=== PATIENT | female | born 1975 | race Caucasian/White ===

== ENCOUNTER 2023-05-02 07:22 | Outpatient (OUT) | payer OTHER, SELFPAY ==
[2023-05-02 08:23] LABS: Basophils Absolute Auto 0.1 10^3/uL (0.0-0.1); Basophils Percent Auto 1.8 % (0.2-2.0); Eosinophils Absolute Auto 0.2 10^3/uL (0.0-0.7); Eosinophils Percent Auto 3.4 % (0.9-7.0); Hemoglobin 14.6 g/dL (12.0-16.0); Immature Granulocytes Abs Auto 0.02 10^3/uL (0.00-0.03); Immature Granulocytes Pct Auto 0.3 % (0.0-0.5); Lymphocytes Absolute Auto 2.1 10^3/uL (1.2-3.8); Mean Corpuscular HGB Conc 33.2 g/dL (29.9-35.2); Mean Corpuscular Hemoglobin 31.6 pg (26.7-34.0); Mean Corpuscular Volume 95.2 fL (81.0-99.0); Mean Platelet Volume 9.8 fL (9.5-13.5); Monocytes Absolute Auto 0.6 10^3/uL (0.3-0.8); Monocytes Percent Auto 9.6 % (1.7-12.0); Neutrophils Absolute Auto 3.3 10^3/uL (1.4-6.5); Neutrophils Percent Auto 51.9 % (43.0-75.0); Platelet Count 293 10^3/uL (150-450); Red Blood Count 4.62 10^6/uL (4.20-5.40); Red Cell Distribution Width 12.3 % (11.0-15.0); White Blood Count 6.3 10^3/uL (4.0-11.0)
[2023-05-02 08:24] LABS: Bilirubin Urine NEGATIVE (NEGATIVE); Blood Urine SMALL (NEGATIVE); Clarity Urine CLEAR (CLEAR); Color Urine LT. YELLOW (YELLOW); Glucose Urine UA NEGATIVE (NEGATIVE); Ketones Urine NEGATIVE (NEGATIVE); Leukocyte Esterase Urine NEGATIVE (NEGATIVE); Nitrite Urine NEGATIVE (NEGATIVE); Protein Urine NEGATIVE (NEG/TRACE); Specific Gravity Urine >=1.030 (1.005-1.025); Urobilinogen Urine 0.2 EU/dL (0.2-1.0); pH Urine 5.5 (5.0-9.0)
[2023-05-02 08:32] LABS: WBC Urine NONE SEEN #/HPF (NONE SEEN)
[2023-05-02 08:33] LABS: Bacteria Urine TRACE #/HPF (NONE SEEN); Cast Seen? NONE SEEN #/LPF (NONE SEEN); Crystals Seen? None Seen #/HPF (None Seen); Mucus Urine TRACE (NONE SEEN); RBC Urine 0-2 #/HPF (0-2); Squamous Epithelial Cell Urine FEW #/LPF (NONE/RARE)
[2023-05-02 08:37] LABS: Estimated Average Glucose 117 mg/dL; Glycohemoglobin A1C 5.7 % (4.5-6.2)
[2023-05-02 08:58] LABS: Alanine Aminotransferase 32 U/L (14-59); Albumin Globulin Ratio 1.1; Albumin Level 3.9 g/dL (3.4-5.0); Alkaline Phosphatase 66 U/L (46-116); Anion Gap 13.4; Aspartate Amino Transferase 18 U/L (15-37); BUN Creatinine Ratio 19.4; Bilirubin Total 0.2 mg/dL (0.2-1.0); Calcium 9.1 mg/dL (8.5-10.1); Carbon Dioxide 24.5 mmol/L (21.0-32.0); Chloride 109 mmol/L (98-107); Chol HDL Ratio 4.5; Cholesterol 224 mg/dL (<=200); Estimated GFR (African America >60 (>=60); Estimated GFR (Non-African Ame >60 (>=60); Globulin 3.6 g/dL; Glucose 112 mg/dL (74-106); HDL Cholesterol 50 mg/dL (40-60); Potassium 3.9 mmol/L (3.5-5.1); Sodium 143 mmol/L (136-145); Thyroid Stimulating Hormone 0.782 uIU/mL (0.358-3.740); Total Protein 7.5 g/dL (6.4-8.2); Triglycerides 188 mg/dL (<=150); VLDL CHOLESTEROL 37.6 mg/dL
[2023-05-02 13:35] LABS: Free T4 1.01 ng/dL (0.76-1.46)
== END 2023-05-02 07:23 | disposition home or self-care (01) ==
LOC: LAB 07:28
PROVIDERS: PCP Nurse Practitioner; Visit Provider Nurse Practitioner
DX: E03.9 Hypothyroidism, unspecified (principal); E55.9 Vitamin D deficiency, unspecified; K21.9 Gastro-esophageal reflux disease without esophagitis; R63.5 Abnormal weight gain
CPT/HCPCS: 36415; 80053; 80061; 81001; 82306; 83036; 84439; 84443; 85025

== ENCOUNTER 2023-12-22 07:31 | Outpatient (OUT) | payer OTHER, SELFPAY ==
[2023-12-22 07:55] LABS: Basophils Absolute Auto 0.1 10^3/uL (0.0-0.1); Basophils Percent Auto 1.9 % (0.2-2.0); Eosinophils Absolute Auto 0.3 10^3/uL (0.0-0.7); Eosinophils Percent Auto 3.9 % (0.9-7.0); Hematocrit 41.9 % (36.0-48.0); Immature Granulocytes Abs Auto 0.02 10^3/uL (0.00-0.03); Immature Granulocytes Pct Auto 0.3 % (0.0-0.5); Lymphocytes Absolute Auto 2.3 10^3/uL (1.2-3.8); Lymphocytes Percent Auto 31.4 % (20.5-60.0); Mean Corpuscular HGB Conc 33.4 g/dL (29.9-35.2); Mean Corpuscular Volume 95.7 fL (81.0-99.0); Monocytes Absolute Auto 0.6 10^3/uL (0.3-0.8); Monocytes Percent Auto 8.6 % (1.7-12.0); Neutrophils Absolute Auto 3.9 10^3/uL (1.4-6.5); Neutrophils Percent Auto 53.9 % (43.0-75.0); Platelet Count 269 10^3/uL (150-450); Red Blood Count 4.38 10^6/uL (4.20-5.40); Red Cell Distribution Width 11.9 % (11.0-15.0); White Blood Count 7.2 10^3/uL (4.0-11.0)
[2023-12-22 07:56] LABS: Bilirubin Urine NEGATIVE (NEGATIVE); Blood Urine SMALL (NEGATIVE); Clarity Urine CLEAR (CLEAR); Color Urine LT. YELLOW (YELLOW); Glucose Urine UA NEGATIVE (NEGATIVE); Ketones Urine NEGATIVE (NEGATIVE); Leukocyte Esterase Urine NEGATIVE (NEGATIVE); Nitrite Urine NEGATIVE (NEGATIVE); Protein Urine NEGATIVE (NEG/TRACE); Specific Gravity Urine 1.025 (1.005-1.025); Urobilinogen Urine 0.2 EU/dL (0.2-1.0); pH Urine 5.5 (5.0-9.0)
[2023-12-22 08:36] LABS: Alanine Aminotransferase 8 U/L (14-59); Albumin Globulin Ratio 1.1; Albumin Level 3.5 g/dL (3.4-5.0); Alkaline Phosphatase 66 U/L (46-116); Anion Gap 12.6; Aspartate Amino Transferase 30 U/L (15-37); Bilirubin Total 0.2 mg/dL (0.2-1.0); Calcium 8.5 mg/dL (8.5-10.1); Carbon Dioxide 27.2 mmol/L (21.0-32.0); Chloride 105 mmol/L (98-107); Chol HDL Ratio 4.2; Cholesterol 246 mg/dL (<=200); Estimated GFR (African America >60 (>=60); Estimated GFR (Non-African Ame >60 (>=60); Globulin 3.3 g/dL; Glucose 106 mg/dL (74-106); HDL Cholesterol 58 mg/dL (40-60); Potassium 3.8 mmol/L (3.5-5.1); Sodium 141 mmol/L (136-145); Thyroid Stimulating Hormone 2.701 uIU/mL (0.358-3.740); Total Protein 6.8 g/dL (6.4-8.2); Triglycerides 159 mg/dL (<=150); VLDL CHOLESTEROL 31.8 mg/dL
== END 2023-12-22 07:32 | disposition home or self-care (01) ==
LOC: LAB 07:33
PROVIDERS: PCP Nurse Practitioner; Visit Provider Psychiatry & Neurology Psychiatry
DX: F31.62 Bipolar disorder, current episode mixed, moderate (principal); F43.10 Post-traumatic stress disorder, unspecified; Z79.899 Other long term (current) drug therapy
CPT/HCPCS: 36415; 80053; 80061; 81003; 84443; 85025

== ENCOUNTER 2024-01-14 13:01 | Outpatient (OUT) | payer OTHER, SELFPAY ==
--- NOTE | 2024-01-14 | ECG_ITS ---
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
--- NOTE | 2024-01-14 13:08 | MM_ITS ---
Patient Name: ELVIS KAYE MR#: [id number] : 1975 Exam Date: 01/14/2024 Ordering Doctor: ENZO Dueñas CNP RADIOLOGY REPORT PROCEDURE: MM TOMOSYNTHESIS SCREENING BI COMPARISON: MG MAMM SCREEN 3D LANG CAD, 01/10/2023. MG MAMM SCREEN 3D LANG CAD, 01/03/2022. INDICATIONS: Screening Calculator Name NCI Breast Cancer Risk Assessment Tool 5 Year Breast Cancer Risk 0.80% Lifetime Breast Cancer Risk 8.50% Personal Breast Cancer No Personal Ovarian Cancer No Treatments None Family Cancers None LOCATION: [facility] BREAST COMPOSITION: The breasts are almost entirely fatty. FINDINGS: DIAGNOSTIC CATEGORY 2--BENIGN FINDING. NO CHANGE FROM COMPARISON. Scattered benign-appearing calcifications are present. Scattered benign-appearing lymph nodes are present. This exam includes additional mammographic views for implant evaluation and shows no visible implant abnormality. RIGHT BREAST: No significant suspicious finding. LEFT BREAST: No significant suspicious finding. RECOMMENDATIONS: ROUTINE MAMMOGRAM AND CLINICAL EVALUATION IN 12 MONTHS. PLEASE NOTE: A NORMAL MAMMOGRAM DOES NOT EXCLUDE THE POSSIBILITY OF BREAST CANCER. A CLINICALLY SUSPICIOUS PALPABLE LUMP SHOULD BE BIOPSIED. Dictated by: Gokul Haider MD on 01/14/2024 at 14:38 Approved by: Gokul Haider MD on 01/14/2024 at 14:39
== END 2024-01-14 13:02 | disposition home or self-care (01) ==
LOC: MAMMO 13:01
PROVIDERS: PCP Nurse Practitioner; Visit Provider Nurse Practitioner
DX: F31.62 Bipolar disorder, current episode mixed, moderate (principal); F43.10 Post-traumatic stress disorder, unspecified; Z79.899 Other long term (current) drug therapy; Z12.31 Encounter for screening mammogram for malignant neoplasm of breast
CPT/HCPCS: 77063; 77067; 93005

== ENCOUNTER 2024-05-14 16:53 | Outpatient (OUT) | payer OTHER, SELFPAY ==
--- NOTE | 2024-05-14 | XR_ITS ---
The [address] [address] Patient Name: ELVIS KAYE MRN: [id number] date: 1975 Sex: F Assigned Patient Location: [facility] Current Patient Location: [facility] Accession/Order Number: [id number] Exam Date: 05/14/2024 17:00 Report Date: 05/14/2024 17:37 At the request of: RONAL SHELTON Procedure: XR chest 2V EXAM: XR chest 2V HISTORY: Upper respiratory infection COMPARISON: None. TECHNIQUE: Upright PA and lateral chest x-ray FINDINGS: The heart is not enlarged and the vasculature is not distended. No acute infiltrate, effusion or pneumothorax is identified. The osseous structures are grossly intact. XR/XR chest 2V IMPRESSION: No acute infiltrate or evidence of cardiac decompensation. Electronically authenticated by: AYDEN HOFFMANN Date: 05/14/2024 17:37
== END 2024-05-14 16:54 | disposition home or self-care (01) ==
PROVIDERS: PCP Nurse Practitioner; Visit Provider Nurse Practitioner
DX: J06.9 Acute upper respiratory infection, unspecified (principal)
CPT/HCPCS: 71046

== ENCOUNTER 2025-01-14 09:39 | Outpatient (OUT) | payer OTHER, SELFPAY ==
[2025-01-14 09:57] LABS: Bilirubin Urine NEGATIVE (NEGATIVE); Blood Urine NEGATIVE (NEGATIVE); Clarity Urine CLEAR (CLEAR); Color Urine LT. YELLOW (YELLOW); Glucose Urine UA NEGATIVE (NEGATIVE); Ketones Urine NEGATIVE (NEGATIVE); Leukocyte Esterase Urine NEGATIVE (NEGATIVE); Nitrite Urine NEGATIVE (NEGATIVE); Protein Urine NEGATIVE (NEG/TRACE); Urobilinogen Urine 0.2 EU/dL (0.2-1.0)
[2025-01-14 09:57] LABS: Basophils Absolute Auto 0.1 10^3/uL (0.0-0.1); Basophils Percent Auto 1.9 % (0.2-2.0); Eosinophils Absolute Auto 0.2 10^3/uL (0.0-0.7); Eosinophils Percent Auto 2.7 % (0.9-7.0); Hematocrit 43.2 % (36.0-48.0); Hemoglobin 14.4 g/dL (12.0-16.0); Immature Granulocytes Abs Auto 0.01 10^3/uL (0.00-0.03); Immature Granulocytes Pct Auto 0.2 % (0.0-0.5); Lymphocytes Percent Auto 32.6 % (20.5-60.0); Mean Corpuscular HGB Conc 33.3 g/dL (29.9-35.2); Mean Corpuscular Hemoglobin 33.4 pg (26.7-34.0); Mean Corpuscular Volume 100.2 fL (81.0-99.0); Mean Platelet Volume 10.3 fL (9.5-13.5); Monocytes Absolute Auto 0.6 10^3/uL (0.3-0.8); Monocytes Percent Auto 8.8 % (1.7-12.0); Neutrophils Absolute Auto 3.4 10^3/uL (1.4-6.5); Neutrophils Percent Auto 53.8 % (43.0-75.0); Platelet Count 272 10^3/uL (150-450); Red Blood Count 4.31 10^6/uL (4.20-5.40); Red Cell Distribution Width 11.9 % (11.0-15.0); White Blood Count 6.3 10^3/uL (4.0-11.0)
[2025-01-14 10:05] LABS: Urine Microscopic Indicated NO
[2025-01-14 10:43] LABS: Alanine Aminotransferase 53 U/L (14-59); Albumin Globulin Ratio 1.4; Alkaline Phosphatase 53 U/L (46-116); Anion Gap 12.7; Aspartate Amino Transferase 31 U/L (15-37); BUN Creatinine Ratio 13.3; Bilirubin Total 0.4 mg/dL (0.2-1.0); Calcium 9.3 mg/dL (8.5-10.1); Carbon Dioxide 27.2 mmol/L (21.0-32.0); Chloride 106 mmol/L (98-107); Chol HDL Ratio 3.5; Cholesterol 242 mg/dL (<=200); Estimated GFR (African America >60 (>=60 mL/min/1.73m^2); Estimated GFR (Non-African Ame >60 (>=60 mL/min/1.73m^2); Globulin 2.8 g/dL; Glucose 89 mg/dL (74-106); HDL Cholesterol 69 mg/dL (40-60); Potassium 3.9 mmol/L (3.5-5.1); Sodium 142 mmol/L (136-145); Thyroid Stimulating Hormone 0.546 uIU/mL (0.358-3.740); Total Protein 6.8 g/dL (6.4-8.2); Triglycerides 105 mg/dL (<=150)
[2025-01-14 10:45] LABS: Free T4 1.09 ng/dL (0.76-1.46)
== END 2025-01-14 09:40 | disposition home or self-care (01) ==
LOC: LAB 09:41
PROVIDERS: PCP Nurse Practitioner; Visit Provider Nurse Practitioner
DX: Z00.00 Encounter for general adult medical examination without abnormal findings (principal)
CPT/HCPCS: 36415; 80053; 80061; 81003; 84439; 84443; 85025

== ENCOUNTER 2025-06-08 08:31 | Outpatient (OUT) | payer OTHER, SELFPAY ==
--- OUTSIDE RECORDS SUMMARY | 2025-06-08 08:45 | XMS_ITS | CCD ---
Author Organization [facility] Care Team Providers Care Social Insurance Analyst Name Role Phone VickyDO Jose Albarran Attending Provider NON STAFF Primary Care Provider Deidra e Isabella Dueñas Primary Care Provider [phone] FRANCISCO JAVIER Smith Emergency Provider Mignon Manriquez Unavailable SAMSA, FANNY Admitting Unavailable SAMSA, FANNY Attending Unavailable AICHHOLZ, TIPPLE ENGINEER ISABELLA Primary Care Unavailable DR GOOD GUTIERREZ Consulting Unavailable SAMSA, FANNY Consulting Unavailable SAMSA, FANNY Admitting Unavailable SAMSA, FANNY Attending Unavailable AICHHOLZ, TIPPLE ENGINEER ISABELLA Primary Care Unavailable AICHHOLZ, TIPPLE ENGINEER ISABELLA Consulting Unavailable DR GOOD GUTIERREZ Consulting Unavailable SAMSA, FANNY Consulting Unavailable AICHHOLZ, TIPPLE ENGINEER ISABELLA Admitting Unavailable AICHHOLZ, TIPPLE ENGINEER ISABELLA Attending Unavailable AICHHOLZ, TIPPLE ENGINEER ISABELLA Primary Care Unavailable AICHHOLZ, TIPPLE ENGINEER ISABELLA Consulting Unavailable AICHHOLZ, TIPPLE ENGINEER ISABELLA Admitting Unavailable AICHHOLZ, TIPPLE ENGINEER ISABELLA Attending Unavailable AICHHOLZ, TIPPLE ENGINEER ISABELLA Primary Care Unavailable AICHHOLZ, TIPPLE ENGINEER ISABELLA Consulting Unavailable AICHHOLZ, TIPPLE ENGINEER ISABELLA Admitting Unavailable AICHHOLZ, TIPPLE ENGINEER ISABELLA Attending Unavailable AICHHOLZ, TIPPLE ENGINEER ISABELLA Primary Care Unavailable AICHHOLZ, TIPPLE ENGINEER ISABELLA Consulting Unavailable DR GOOD GUTIERREZ Consulting Unavailable AICHHOLZ, TIPPLE ENGINEER ISABELLA Admitting Unavailable AICHHOLZ, TIPPLE ENGINEER ISABELLA Attending Unavailable AICHHOLZ, TIPPLE ENGINEER ISABELLA Primary Care Unavailable AICHHOLZ, TIPPLE ENGINEER ISABELLA Consulting Unavailable AICHHOLZ, TIPPLE ENGINEER ISABELLA Admitting Unavailable AICHHOLZ, TIPPLE ENGINEER ISABELLA Attending Unavailable AICHHOLZ, TIPPLE ENGINEER ISABELLA Primary Care Unavailable AICHHOLZ, TIPPLE ENGINEER ISABELLA Consulting Unavailable AICHHOLZ, TIPPLE ENGINEER ISABELLA Admitting Unavailable AICHHOLZ, TIPPLE ENGINEER ISABELLA Attending Unavailable AICHHOLZ, TIPPLE ENGINEER ISABELLA Primary Care Unavailable Aichholz, Isabella J Primary Care Unavailable Asaad, Imad Attending Unavailable Asaad, Imad Admitting Unavailable Aichholz SEWER PIPE LAYER, Isabella Unavailable Kevin Valentin Primary Care Provider Raissa CHEF UNDER.TIPPLE ENGINEER, Ana Rosa Unavailable Kevin Valentin Primary Care Provider Leana SEWER PIPE LAYER, Isabella Unavailable Kevin Valentin MD Primary Care Provider Leana SEWER PIPE LAYER, Isabella Unavailable Kevin Valentin MD Primary Care Provider AICHHOLZ, ISABELLA Attending Unavailable AICHHOLZ, ISABELLA Attending Unavailable AICHHOLZ, ISABELLA Attending Unavailable AICHHOLZ, ISABELLA Attending Unavailable AICHHOLZ, ISABELLA Attending Unavailable AICHHOLZ, ISABELLA Attending Unavailable AICHHOLZ, ISABELLA Attending Unavailable AICHHOLZ, ISABELLA Attending Unavailable Kevin Valentin MD Primary Care Provider Aichholz TIPPLE ENGINEER, Isabella Marisa Unavailable LENNYJWENDY, VICKRAM Referring Unavailable PAULO HURTADO S Attending Unavailable ANDRESERERKEVIN A Primary Care Unavailable AICHHOLZ, ISABELLA MARISA Referring Unavailable NADEREKEVIN Cameron Primary Care Unavailable IFEANYI WILLSON Attending Unavailable BOO, VICKRAM Referring Unavailable ANDRESEREKEVIN Cameron Primary Care Unavailable KEVIN VALENTIN Primary Care Unavailable BOO, VICKRAM Referring Unavailable KEVIN VALENTIN Primary Care Unavailable BOO, VICKRAM Referring Unavailable BOO, VICKRAM Referring Unavailable KEVIN VALENTIN Primary Care Unavailable BOO, VICKRAM Referring Unavailable NADERER, KEVIN A Primary Care Unavailable KEVIN VALENTIN Primary Care Unavailable AINSLEY HADDAD Attending Unavailable ISABELLA DUEÑAS Referring Unavailable KEVIN VALENTIN Primary Care Unavailable TESSA AGUILAR Attending Unavailable TESSA AGUILAR Referring Unavailable AINSLEY HADDAD Referring Unavailable KEVIN VALENTIN Primary Care Unavailable KEVIN VALENTIN Primary Care Unavailable ALKA MEZA Attending Unavailable Allergies Allergy Classification Reported Allergen(s) Allergy Type Date of Onset Reaction(s) Facility (20 sources) Azithromycin; Translations: [azithromycin] Drug Allergy 08-15-20 13 Hives, Rash [facility] (5 sources) Meperidine; Translations: [Opioids-Meperid ine and Related] Drug Allergy 03-08-20 22 Unknown Reaction [facility] (20 sources) Adhesive agent; Translations: [adhesive] Allergy to substance 12-18-19 19 Intolerance [facility] (1 source) Erythromycin Drug Allergy Unknown [facility] Other (20 sources) Morphine; Translations: [MORPHINE] Drug Allergy 07-08-20 18 Shortness of breath, Headache, Hallucinations, Other: See Comments [facility] (1 source) Azithromycin Drug Allergy 08-15-20 13 [facility] (1 source) Morphine Drug Allergy 08-15-20 13 [facility] (20 sources) fentaNYL; Translations: [FENTANYL] Drug Allergy 07-08-20 18 GI intolerance, Hallucinations, Other: See Comments [facility] (20 sources) Wound Dressing Adhesive Propensity to adverse reactions 12-18-19 19 Hives, Rash, GI intolerance [facility] (1 source) erythromycin base Allergy to substance 06-16-20 24 Hives [facility] (20 sources) Acetaminophen / HYDROcodone Drug Allergy 02-13-20 21 Hallucinations [facility] Medications Current Medications Medication Drug Class(es) Dates Sig (Normalized) Sig (Original) albuterol 0.83 mg/ml inhalation solution (20 sources) beta2-Adrenergic Agonist Start: 10-01-2024 End: 10-08-2024 albuterol (2.5 MG/3ML) 0.083% nebulizer solution Indications: Cvlkc-[id number] deficiency (HCC) , Upper respiratory tract infection, unspecified type Take 3 mL (2.5 mg) by nebulization every 6 (six) hours if needed for wheezing for up to 7 days 84 mL 10/01/2024 Active take 2 puff(s) by in halation every four hours for wheezing albuterol HFA 90 mcg/act inhaler Inhale 2 puffs every 4 (four) hours if needed for wheezing or shortness of breath. Active Albuterol Sulfat e HFA Active albuterol 0.833 mg/ml / ipratropium bromide 0.167 mg/ml inhalation solution (8 sources) Anticholinergic, beta2-Adrenergic Agonist Start: 04-10-2025 take 3 mL by inhalation every six hours as needed ipratropium-albuterol (DUONEB) 0.5 mg-3 mg(2.5 mg base)/3 mL nebu Inhale 3 mL as instructed every 6 hours as needed for wheezing/shortness of breath. 180 mL 2 04/10/2025 Active amoxicillin 875 mg / clavulanate 125 mg oral tablet (7 sources) Penicillin-class Antibacterial Start: 03-05-2025 End: 03-15-2025 take 1 tablet by mouth in the morning amoxicillin-clavulanate (Augmentin) 875-125 MG tablet Indications: Subacute maxillary sinusitis Take 1 tablet (875 mg) by mouth in the morning and 1 tablet (875 mg) before bedtime. Do all this for 10 days. Take with food. 20 tablet 03/05/2025 03/15/2025 Active Start: 11-12-2024 End: 11-22-2024 take 1 tablet by mouth in the morning amoxicillin-clavulanate (Augmentin) 875-125 MG tablet Indications: Upper respiratory tract infection, unspecified type Take 1 tablet (875 mg) by mouth in the morning and 1 tablet (875 mg) before bedtime. Do all this for 10 days. 20 tablet 11/12/2024 11/22/2024 Active Start: 10-01-2024 End: 10-11-2024 take 1 tablet by mouth in the morning amoxicillin-clavulanate (Augmentin) 875-125 MG tablet Indications: Upper respiratory tract infection, unspecified type Take 1 tablet (875 mg) by mouth in the morning and 1 tablet (875 mg) before bedtime. Do all this for 10 days. 20 tablet 10/01/2024 10/11/2024 Active Start: 10-13-2022 take 1 tablet by marsha th every twelve hours Amoxicillin-Pot Clavulanate 875-125 MG 1 tablet Orally every 12 hrs for 10 day(s) Sep, Active atorvastatin 10 mg oral tablet (20 sources) HMG-CoA Reductase Inhibitor Start: 01-29-2025 End: 04-29-2025 take 1 tablet by mouth at bedtime atorvastatin (Lipitor) 10 MG tablet Indications: Mixed hyperlipidemia Take 1 tablet (10 mg) by mouth at bedtime 90 tablet 01/29/2025 Active atorvastatin familia cium (ATORVASTATIN ORAL) Take by mouth. Active azelastine (20 sources) Histamine-1 Receptor Antagonist Start: 06-16-2024 take 1 spray(s) nasal route twice daily Azelastine Active 1 SPRAY INTRANASAL Twice daily June 16, 2024 12:00am administer into each nostril take 1 spray(s) nasal route twic e daily azelastine 0.1% nasal spray Use 1 [place] in each nostril two times a day. Active azelastine (Aste thad) 0.1 % nasal spray 1 spray in the morning and 1 spray in the evening. Active Comment on above: Use 1 [place] in each nostril two times a day. [place] DMT (1 source) [place] DMT Activ e cholecalciferol 0.05 mg oral tablet (20 sources) Vitamin D Start: 09-25-19 End: 12-24-19 take 1 tablet by mouth once in the morning cholecalciferol (Vitamin D-3) 50 MCG (1999) tablet Indications: Vitamin D deficiency Take 1 tablet (50 mcg) by mouth in the morning. 90 tablet 1 09/25/2023 12/24/2023 Active Start: 05-17-2022 take 2000 [IU] by mo uth once daily Cholecalciferol (Vitamin D3) Active 2000 UNIT PO Daily May 17, 2022 12:00am Vitamin D3 50 MC G (1999 UT) Oral for 30 Days Active Comment on above: Take 2,000 Units by mouth once daily. clobetasol propionate 0.5 mg/ml topical cream (8 sources) Corticosteroid Start: 01-13-2025 clobetasol (Temovate) 0.05 % cream PLEASE SEE ATTACHED FOR DETAILED DIRECTIONS 01/13/2025 Active dextromethorphan hydrobromide 30 mg / pyrilamine maleate 30 mg oral tablet (20 sources) Uncompetitive V-pcxeqq-P-aspartate Receptor Antagonist, Sigma-1 Agonist Start: 06-16-2024 Pyrilamine-Dextromet horphan ([place] Dmt) 30-30 mg tablet Active TAB PO June 16, 2024 12:00am Start: 05-17-2022 End: 06-16-2024 take 1 tablet by mouth four times daily Pyrilamine-Dextromethorphan ([place] Dmt) 30-30 mg Tablet Discontinued 1 TAB PO Four times daily May 17, 2022 12:00am June 16, 2024 2:52pm DHEA vaginal suppository 13 mg (CPD) (20 sources) Start: 05-21-2025 DHEA vaginal s uppository 13 mg (CPD) Indications: Genitourinary syndrome of menopause Use 1 suppository vaginally as directed. Unwrap suppository and Insert every night in vagina for the first 2 weeks, and then every other day for 2 months. Then twice a week. 90 suppository 3 05/21/2025 Active Start: 01-28-2024 DHEA vaginal s uppository 13 mg (CPD) Indications: Genitourinary syndrome of menopause Unwrap and insert 1 Suppository vaginally as directed every night for the first 2 weeks, and then every other day for 2 months. Then twice a week. 30 Suppository 3 01/28/2024 Active Start: 01-28-2024 DHEA vaginal s uppository 13 mg (CPD) Indications: Genitourinary syndrome of menopause Use 1 Suppository vaginally as directed. Unwrap suppository and Insert every night in vagina for the first 2 weeks, and then every other day for 2 months. Then twice a week. 30 Suppository 3 01/28/2024 Active Emollient (DHEA EX) (20 sources) Emollient (DHEA EX) Apply topically suppository Active 84 hr estradiol 0.50962 mg/hr transdermal system (20 sources) Estrogen Start: 06-16-2024 apply 1 dose topically two times weekly Estradiol Active 1 PATCH TOPICAL Twice a Week June 16, 2024 12:00am Start: 01-30-2024 estradiol (Guerita brayan-DOT) 0.05 MG/24HR APPLY 1 PATCH DIRECTED TWO TIMES A WEEK. 01/30/2024 Active Start: 01-28-2024 End: 05-21-2025 estradiol (MINIVELLE, VIVELL E-DOT) 0.05 mg/24 hr patch Indications: Postmenopause , S/P HEIDY (total abdominal hysterectomy) , Hot flashes due to surgical menopause Apply 1 patch as directed two times a week. 24 patch 4 05/21/2025 Active fluticasone propionate 0.05 mg/actuat metered dose nasal spray (20 sources) Corticosteroid Start: 06-16-2024 take 1 spray(s) nasal route twice daily Fluticasone Propionate (Flonase Allergy Relief) 50 mcg/actuation spray,suspension Active 1 SPRAY INTRANASAL Twice daily June 16, 2024 12:00am administer into each nostril Start: 12-02-2023 take 2 spray(s) nasa l route once daily fluticasone (Flonase) 50 MCG/ACT nasal spray Administer 2 sprays into each nostril Daily 12/02/2023 Active Start: 07-18-2017 fluticasone (F LONASE) 50 mcg/actuation nasal spray Use 2 Sprays in the nose once daily. 07/18/2017 Active take 1 spray(s) by i nhalation three times daily FLUTICASONE FUROATE INHALATION Inhale 50 mcg as instructed three times a day. 1 spray Active take 1 spray(s) by i nhalation three times daily FLUTICASONE FUROATE INHALATION Inhale 50 mcg as instructed three times a day. 1 spray 0 Active Comment on above: Use 2 Sprays in the nose once daily. Inhale 50 mcg as ins tructed three times a day. 1 spray 60 actuat formoterol fumarate 0.005 mg/actuat / mometasone furoate 0.2 mg/actuat metered dose inhaler (20 sources) Corticosteroid, beta2-Adrenergic Agonist Start: take 2 puff(s) by inhalation twice daily mometasone-formoter ol (DULERA) 200-5 mcg/actuation inhaler Inhale 2 puffs as instructed two times a day. 39 g 2 04/10/2025 Active take 2 puff(s) by in halation in the morning mometasone-formoterol (Dulera) 100-5 MCG/ACT inhaler Inhale 2 puffs in the morning and 2 puffs before bedtime. Rinse mouth with water after use to reduce aftertaste and incidence of candidiasis. Do not swallow.. Active End: 04-10-2025 take 2 puff(s) by inhalation twice daily mometasone-formoterol (DULERA) 100-5 mcg/actuation inhaler Inhale 2 Puffs as instructed two times a day. 04/10/2025 Discontinued Dulera 100-5 MCG /ACT Inhalation for 30 Days Active Comment on above: Inhale 2 Puffs as in structed two times a day. ipratropium bromide 0.042 mg/actuat metered dose nasal spray (14 sources) Anticholinergic Start: 10-21-19 ipratropium (Atrovent) 0.06 % nasal spray 10/21/2024 Active levothyroxine sodium 0.112 mg oral tablet (20 sources) l-Thyroxine Start: 05-17-20 End: 05-14-20 take 125 ug by mouth once daily Levothyroxine Active 125 MCG PO Daily May 17, 2022 12:00am Start: 06-23-2018 End: 02-18-2025 levothyroxine (SYNTHROID) 11 2 mcg tablet Indications: Hypothyroidism, unspecified type TAKE 1 TABLET SUNDAY THROUGH SUNDAY. SKIP SUNDAY 78 tablet 3 02/18/2025 Active Levothyroxine So dium Active Comment on above: Take 1 tablet PO smiley ly 1 tab , skip Sundays liothyronine sodium 0.005 mg oral tablet (20 sources) l-Triiodothyronin e Start: 06-16-2024 take 5 ug by mouth twice daily Liothyronine Active 5 MCG PO Twice daily June 16, 2024 12:00am Start: 01-04-2024 End: 02-18-2025 liothyronine (CYTOMEL) 5 mcg tablet Indications: Hypothyroidism, unspecified type TAKE 1 TABLET BY MOUTH IN THE MORNING AND 1/2 TABLET MID AFTERNOON 135 tablet 3 02/18/2025 Active Comment on above: 5mcg (1 tab) AM, 2.5 mcg (1/2 tab) in mid-afternoon medroxyPROGESTERone acetate 2.5 mg oral tablet (9 sources) Progestin End: 06-30 take 1 tablet by mouth in the morning medroxyPROGESTERone (Provera) 2.5 MG tablet Take 2.5 mg by mouth in the morning. 06/30/2024 Discontinued (Therapy completed) meloxicam 15 mg oral tablet (20 sources) Nonsteroidal Anti-inflammatory Drug take 1 tablet by mouth every twenty-four hours as needed for pain meloxicam (Mobic) 15 MG tablet Take 15 mg by mouth Daily as needed for moderate pain Active methylPREDNISolone 4 mg oral tablet (1 source) Corticosteroid Start : 10-13 methylPREDNISolone 4 MG as directed Orally for daily dose take half with breakfast, half with dinner for 6 days Sep, Active Mometasone-Formoterol (1 source) Start : 06-16 Mometasone-Formoterol Active INHALATION June 16, 2024 12:00am FreeTextSig: Inhalation; Note: Source Status: Taking; Qty: 13 Unspecified; Provider: Elier Lazcano ( ) montelukast 10 mg oral tablet (20 sources) Leukotriene Receptor Antagonist Start : 06-16 Montelukast Active MG PO June 16, 2024 12:00am FreeTextSig: Oral; Note: Source Status: Not-Taking\PRN; Qty: 30 Tablet; Provider: Elier Lazcano ( ) Start: 05-17-2022 End: 10-15-2023 take 10 mg by mouth once daily Montelukast Discontinue d 10 MG PO Daily May 17, 2022 12:00am October 15, 2023 9:07am Comment on above: Take 10 mg by mouth daily at bedtime. Nebulizer and Compressor For Neb (3 sources) Start: 04-10-2025 End: 04-11-2025 Nebulizer and Compressor For Neb 1 each as needed for up to 1 day. Use as directed. 1 each 04/10/2025 04/11/2025 Active Nirmatrelvir&Ritonav ir 300/100 (Paxlovid, 300/100,) 20 x 150 MG & 10 x 100MG tablet therapy pack (2 sources) Start: 05-14-2024 End: 05-19-2024 take 1 tablet by mouth once daily Nirmatrelvir&Ritonavi r 300/100 (Paxlovid, 300/100,) 20 x 150 MG & 10 x 100MG tablet therapy pack Indications: URTI (acute upper respiratory infection) Take 1 Package by mouth Daily for 5 days Take as directed 1 each 05/14/2024 05/19/2024 Active pyrilamine/dextromet horphan hb (CAPRON DM ORAL) (20 sources) pyrilamine/dextr ometh orphan hb (CAPRON DM ORAL) Take by mouth once daily. Active pyrilamine/dextr omethorphan hb (CAPRON DM ORAL) Take by mouth once daily. 0 Active Comment on above: Take by mouth once d aily. SELENIUM ORAL (14 sources) SELENIUM ORAL Ta ke by mouth. Active sodium chloride 30 mg/ml inhalation solution (8 sources) Start: 04-10-20 sodium chloride 3% solution (NEBUSAL) 3 % nebulizer solution Use 4 mL via nebulizer two times a day. 600 mL 2 04/10/2025 Active spironolactone 100 mg oral tablet (20 sources) Aldosterone Antagonist Start: 05-14-20 take 1 tablet by mouth once daily spironolactone (Aldactone) 100 MG tablet Take 100 mg by mouth Daily 05/14/2024 Active sulfacetamide sodium 100 mg/ml topical lotion (20 sources) Sulfonamide Antibacterial Start: 05-14-20 sulfacetamide suspension (Klaron) 10 % lotion topical Apply 1 application topically 05/14/2024 Active SUMAtriptan 100 mg oral tablet (20 sources) Serotonin-1b and Serotonin-1d Receptor Agonist Start: 06-16-20 24 Sumatriptan Succinate Active MG PO June 16, 2024 12:00am Start: 10-29-2023 End: 05-01-2025 take 1 tablet by mouth once SUMAtriptan (Imitrex) 100 MG tablet Indications: Migraine without status migrainosus, not intractable, unspecified migraine type Take 1 tablet (100 mg) by mouth 1 (one) time if needed for migraine 9 tablet 1 04/01/2025 Active Start: 05-21-2018 take 1 tablet by marsha th every two hours SUMAtriptan (IMITREX) 50 mg tablet Take 1 tablet PO at onset of headach. May repeat in 2 hours if needed. 0 05/21/2018 Active Comment on above: Take 1 tablet PO at onset of headach. May repeat in 2 hours if needed. topiramate 100 mg oral tablet (20 sources) Start: 05-17-2022 End: 07-08-2025 take 1 tablet by mouth in the morning topiramate (Topamax) 100 MG tablet Indications: Chronic migraine without aura without status migrainosus, not intractable Take 1 tablet (100 mg) by mouth in the morning and 1 tablet (100 mg) before bedtime. 180 tablet 1 04/09/2025 07/08/2025 Active Start: 06-23-2018 take 1 tablet by marsha th twice daily topiramate (TOPAMAX) 25 mg tablet Take 1 tablet PO BID 5 06/23/2018 Active Topamax Active Comment on above: Take 1 tablet PO BID Ubrelvy (1 source) Ubrelvy Active Completed/Discontinued Medications Medication Drug Class(es) Dates Sig (Normalized) Sig (Original) acetaminophen 500 mg oral tablet (4 sources) Start: 12-22-2018 End: 01-04-2024 take 2 tablets by mouth every four hours as needed acetaminophen (TYLENOL EXTRA STRENGTH) 500 mg tablet Take 2 tablets by mouth every 4 hours as needed. 0 12/22/2018 01/04/2024 Discontinued Comment on above: Take 2 tablets by mo uth every 4 hours as needed. baclofen 20 mg oral tablet (4 sources) gamma-Aminobutyric Acid-ergic Agonist Start: 06-13-2018 End: 01-04-2024 take 1 tablet by mouth three times daily as needed baclofen (LIORESAL) 20 mg tablet Take 1 tablet PO 3 times daily PRN 1 06/13/2018 01/04/2024 Discontinued Comment on above: Take 1 tablet PO 3 t imes daily PRN clonazePAM 0.5 mg oral tablet (7 sources) Benzodiazepine Start: 12-01-2023 End: 06-02-2024 take 1 tablet by mouth twice daily as needed for anxiety clonazePAM (KlonoPIN) 0.5 MG tablet TAKE 1 TABLET ORALLY TWICE A DAY NEEDED FOR ANXIETY 12/01/2023 06/02/2024 Discontinued (Therapy completed) Start: 10-15-2023 End: 06-16-2024 take 1 tablet by mouth twice daily 30 minutes before bedtime Clonazepam (Klonopin) 2 mg tablet Discontinued 2 MG PO Twice daily October 15, 2023 1:00am June 16, 2024 3:03pm administer 30 minutes before bedtime cloNIDine hydrochloride 0.1 mg oral tablet (2 sources) Central alpha-2 Adrenergic Agonist Start: 10-15-2023 End: 06-16-2024 take 0.2 mg by mouth at bedtime Clonidine Hcl Discontinued 0.2 MG PO Bedtime October 15, 2023 1:00am June 16, 2024 3:03pm dexamethasone 6 mg oral tablet (4 sources) Corticosteroid Start: 05-14-2024 End: 06-02-2024 take 1 tablet by mouth once daily dexAMETHasone (Decadron) 6 MG tablet Indications: URTI (acute upper respiratory infection) Take 1 tablet (6 mg) by mouth Daily for 7 days 7 tablet 05/14/2024 06/02/2024 Discontinued (Therapy completed) 12 hr guaiFENesin 600 mg extended release oral tablet (8 sources) End: 03-05-2025 guaiFENesin (Mucinex) 600 MG 12 hr tablet every 12 (twelve) hours 03/05/2025 Discontinued (Therapy completed) ibuprofen 400 mg oral tablet (4 sources) Nonsteroidal Anti-inflammatory Drug Start: 12-22-2018 End: 01-04-2024 take 1.5 tablets by mouth every six hours as needed ibuprofen (MOTRIN) 400 mg tablet Take 1.5 tablets by mouth every 6 hours as needed. 45 tablet 0 12/22/2018 01/04/2024 Discontinued Comment on above: Take 1.5 tablets by mouth every 6 hours as needed. lansoprazole 30 mg delayed release oral capsule (4 sources) Proton Pump Inhibitor End: 05-14-2024 take 1 capsule by mouth before mealtime lansoprazole (Prevacid) [address] capsule Take 30 mg by mouth in the morning. Take before meals. Do not crush or chew. . 05/14/2024 Discontinued lidocaine 0.05 mg/mg medicated patch (4 sources) Antiarrhythmic, Amide Local Anesthetic Start: 09-06-2018 End: 01-04-2024 apply 1 dose transdermal route every twenty-four hours lidocaine (LIDODERM) 5 % Apply 1 Patch as directed every 24 hours. 7 Patch 0 09/06/2018 01/04/2024 Discontinued Comment on above: Apply 1 Patch as dir ected every 24 hours. lurasidone hydrochloride 80 mg oral tablet (20 sources) Atypical Antipsychotic Start: 10-15-2023 End: 06-16-2024 Lurasidone (Latuda) 80 mg tablet Discontinued 80 MG PO Daily October 15, 2023 1:00am June 16, 2024 3:03pm must administer with food (at least 350 calories) End: 02-18-2025 take 1 tablet by mouth once daily lurasidone (LATUDA) 80 mg tablet Take 80 mg by mouth once daily. 02/18/2025 Discontinued Comment on above: Take 80 mg by mouth once daily. nirmatrelvir/ritonavir (PAXLOVID ORAL) (6 sources) End: 01-28-2024 nirmatrelvir/ritonavir (PAXLOVID ORAL) Take by mouth. 0 01/28/2024 Discontinued nirmatrelvir/rit onavir (PAXLOVID ORAL) Take by mouth. 0 Active Comment on above: Take by mouth. pantoprazole 40 mg delayed release oral tablet (4 sources) Proton Pump Inhibitor Start: 018 End: take 1 tablet by mouth once daily pantoprazole DR (PROTONIX) 40 mg tablet Take 1 tablet by mouth once daily. 30 tablet 0 09/06/2018 01/04/2024 Discontinued Comment on above: Take 1 tablet by marsha th once daily. phentermine hydrochloride 37.5 mg oral tablet (20 sources) Sympathomimetic Amine Anorectic Start: 024 End: take 1 tablet by mouth before mealtime phentermine (Adipex-P) 37.5 MG tablet Indications: Weight gain, abnormal Take 1 tablet (37.5 mg) by mouth in the morning. Take before meals. 30 tablet 11/04/2024 03/05/2025 Discontinued (Therapy completed) End: 05-14-2024 take 1 tablet by mouth before mealtime phentermine (Adipex-P) 37.5 MG tablet Take 37.5 mg by mouth in the morning. Take before meals. 05/14/2024 Discontinued Comment on above: Take 37.5 mg by mout h once daily. predniSONE 20 mg oral tablet (11 sources) Start: 10-21-2024 End: 03-05-2025 predniSONE (Deltasone) 20 MG tablet 10/21/2024 03/05/2025 Discontinued (Therapy completed) End: 01-04-2024 take 1 tablet by mouth once daily predniSONE (DELTASONE) 20 mg tablet Take 20 mg by mouth once daily. 0 01/04/2024 Discontinued Comment on above: Take 20 mg by mouth once daily. Semaglutide (OZEMPIC, 0.25 OR 0.5 MG/DOSE, SC) (4 sources) End: inject 0.5 mg by subcutaneous injection every week Semaglutide (OZEMPIC, 0.25 OR 0.5 MG/DOSE, SC) Inject 1 Dose under the skin 1 (one) time per week. 05/14/2024 Discontinued inject 0.5 mg by sub cutaneous injection every week Semaglutide (OZEMPIC, 0.25 OR 0.5 MG/DOSE, SC) Inject 1 Dose under the skin 1 (one) time per week. Active inject 0.5 mg by sub cutaneous injection every week Semaglutide (OZEMPIC, 0.25 OR 0.5 MG/DOSE, SC) Inject 1 Dose under the skin 1 (one) time per week. 0 Active ubrogepant 100 mg oral table t (5 sources) End: 06-02-2024 Ubrogepant (Ubrelvy) 100 MG tablet Take by mouth 06/02/2024 Discontinued (Other) Problems Active Problems Problem Classification Problem Date Documented Da te Episodic/Chronic Administrative/social admission (1 source) Administrative reason for encounter; Translations: [Persons encountering health services in other specified circumstances] 01-06-2024 Episodic Allergic reactions (2 sources) Atopic dermatitis; Translations: [Intrinsic (allergic) eczema] Onset: 5 05-15-2025 Chronic Allergic reactions (10 sources) Allergy to food; Translations: [Allergy to other foods] Onset: 5 04-10-2025 Episodic Anxiety disorders (20 sources) Generalized anxiety disorder; Translations: [Generalized anxiety disorder] Onset: 3 09-03-2023 Chronic Asthma (20 sources) Cough variant asthma; Translations: [Cough variant asthma] Onset: 3 Chronic Chronic obstructive pulmonary disease and bronchiectasis (20 sources) Bulla of lung; Translations: [Emphysema, unspecified] Onset: 3 09-03-2023 Chronic Complications of surgical procedures or medical care (6 sources) Menopausal flushing; Translations: [Symptomatic postprocedural ovarian failure] Onset: 5 01-28-2024 Chronic Disorders of lipid metabolism (20 sources) Hyperlipidemia; Translations: [Hyperlipidemia, unspecified] Onset: 3 09-03-2023 Chronic Disorders usually diagnosed in infancy, childhood, or adolescence (20 sources) Adult attention deficit hyperactivity disorder ; Translations: [Other specified behavioral and emotional disorders with onset usually occurring in childhood and adolescence] Onset: 3 09-03-2023 Chronic Esophageal disorders (20 sources) Gastroesophageal reflux disease without esophagitis; Translations: [Gastro-esophageal reflux disease without esophagitis] Onset: 3 09-03-2023 Chronic Headache; including migraine (20 sources) Migraine; Translations: [Migraine, unspecified, not intractable, without status migrainosus] Onset: 4 Resolved: 4 10-28-2023 Chronic Immunizations and screening for infectious disease (2 sources) Needs influenza immunization; Translations: [Encounter for immunization] 07-29-2024 Episodic Malaise and fatigue (3 sources) Fatigue; Translations: [Chronic fatigue, unspecified] 12-24-2023 Chronic Malaise and fatigue (1 source) Fatigue; Translations: [Other fatigue] 01-28-2024 Episodic Menopausal disorders (20 sources) Menopausal symptom; Translations: [Menopausal and female climacteric states] Onset: 3 09-03-2023 Chronic Menopausal disorders (1 source) Long-term current use of postmenopausal hormone replacement therapy; Translations: [Hormone replacement therapy] 05-21-2025 Episodic Nonspecific chest pain (4 sources) Chest pain, unspecified; Translations: [CHEST PAIN UNSPECIFIED] Onset: 3 Episodic Other gastrointestinal disorders (20 sources) Irritable bowel syndrome; Translations: [Mixed irritable bowel syndrome] Onset: 3 09-03-2023 Chronic Other infections; including parasitic (1 source) Late effects of other and unspecified infectious and parasitic diseases; Translations: [Long COVID] 04-10-2025 Chronic Other lower respiratory disease (1 source) Shortness of breath; Translations: [SHORTNESS OF BREATH] Onset: 3 Episodic Other lower respiratory disease (1 source) Posterior rhinorrhea; Translations: [Upper airway cough syndrome] 04-10-2025 Episodic Other nutritional; endocrine; and metabolic disorders (1 source) Zoynf-4-jyuxcswyget deficiency; Translations: [[id number] DEFICIENCY] Onset: 3 Chronic Other nutritional; endocrine; and metabolic disorders (20 sources) Pcjna-9-fexrfbujgmw deficiency; Translations: [Rqbvo-0-bbythvlyvar deficiency] Onset: 3 09-03-2023 Chronic Other nutritional; endocrine; and metabolic disorders (20 sources) Obese class I; Translations: [Obesity, unspecified] Onset: 8 09-07-2018 Chronic Other nutritional; endocrine; and metabolic disorders (20 sources) Obesity caused by energy imbalance; Translations: [Morbid (severe) obesity due to excess calories] Onset: 4 06-30-2024 Chronic Other nutritional; endocrine; and metabolic disorders (20 sources) Body mass index 30+ - obesity; Translations: [Body mass index (BMI) 38.0-38.9, adult] Onset: 4 06-05-2024 Chronic Other nutritional; endocrine; and metabolic disorders (2 sources) Metabolic disease; Translations: [Other symptoms and signs concerning food and fluid intake] 12-24-2023 Episodic Other screening for suspected conditions (not mental disorders or infectious disease) (20 sources) CT of chest abnormal; Translations: [Abnormal findings on diagnostic imaging of other specified body structures] Onset: 3 09-03-2023 Chronic Other screening for suspected conditions (not mental disorders or infectious disease) (18 sources) Encounter for screening mammogram for malignant neoplasm of breast; Translations: [Patient encounter status] Onset: Episodic Other skin disorders (1 source) Eruption; Translations: [Rash and other nonspecific skin eruption] 01-03-2024 Episodic Other skin disorders (3 sources) Blister; Translations: [Other skin changes] 04-10-2025 Episodic Other skin disorders (1 source) Other skin changes; Translations: [Bullae] Onset: 5 Episodic Other upper respiratory disease (2 sources) Chronic rhinitis; Translations: [Chronic rhinitis] 04-10-2025 Chronic Other upper respiratory disease (1 source) Allergic rhinitis; Translations: [Allergic rhinitis, unspecified] 04-10-2025 Chronic Other upper respiratory disease (1 source) Chronic rhinitis; Translations: [Chronic rhinitis] Onset: Chronic Other upper respiratory disease (1 source) Allergic rhinitis, unspecified; Translations: [Allergic rhinitis, unspecified seasonality, unspecified trigger] Onset: 5 Chronic Other upper respiratory disease (5 sources) Disorder of face; Translations: [Other specified disorders of nose and nasal sinuses] 04-10-2025 Episodic Other upper respiratory disease (1 source) Nasal discharge; Translations: [Other specified disorders of nose and nasal sinuses] 04-10-2025 Episodic Other upper respiratory disease (2 sources) Deviated nasal septum; Translations: [Deviated nasal septum] 04-10-2025 Episodic Other upper respiratory disease (2 sources) Deviated nasal septum; Translations: [Deviated nasal septum] Onset: 5 Episodic Other upper respiratory disease (2 sources) Other specified disorders of nose and nasal sinuses; Translations: [Other specified disorders of nose and nasal sinuses] Onset: 5 Episodic Other upper respiratory infections (12 sources) Chronic sinusitis, unspecified; Translations: [Chronic frontal sinusitis] Onset: 3 Chronic Other upper respiratory infections (20 sources) Acute maxillary sinusitis, unspecified; Translations: [Acute upper respiratory infection] Onset: 4 Resolved: 5 Episodic Residual codes; unclassified (4 sources) Obstructive sleep apnea (adult) (pediatric); Translations: [OBSTRUCTIVE SLEEP APNEA] Onset: 3 Chronic Residual codes; unclassified (6 sources) Postmenopausal state; Translations: [Asymptomatic menopausal state] 01-04-2024 Episodic Residual codes; unclassified (1 source) Asymptomatic menopausal state; Translations: [Postmenopause] Onset: 5 Episodic Residual codes; unclassified (1 source) Acquired absence of both cervix and uterus; Translations: [S/P HEIDY (total abdominal hysterectomy)] Onset: 5 Episodic Spondylosis; intervertebral disc disorders; other back problems (20 sources) Degeneration of lumbar intervertebral disc; Translations: [Other intervertebral disc degeneration, lumbar region] Onset: 3 09-03-2023 Chronic Spondylosis; intervertebral disc disorders; other back problems (12 sources) Chronic thoracic back pain; Translations: [Pain in thoracic spine] Onset: 5 03-05-2025 Episodic Sprains and strains (3 sources) Sprain of ankle; Translations: [Sprain of unspecified ligament of unspecified ankle, initial encounter] 05-17-2022 Episodic Thyroid disorders (20 sources) Hypothyroidism; Translations: [Hypothyroidism, unspecified] Onset: 3 09-03-2023 Chronic Unclassified (3 sources) CONTACT W/AND (SUSP) EXPOS COVID-19; Translations: [CONTACT W/AND (SUSP) EXPOS COVID-19] Onset: 2 Unclassified (1 source) Diarrhea, unspecified; Translations: [Diarrhea, unspecified] Onset: 4 Unclassified (1 source) Upper airway cough syndrome; Translations: [Upper airway cough syndrome] Onset: 5 Viral infection (2 sources) COVID-19; Translations: [Disease caused by 2019-nCoV] Onset: 2 Past or Other Problems Problem Classification Problem Date Documented Da te Episodic/Chronic Abdominal hernia (20 sources) Hernia of anterior abdominal wall; Translations: [Ventral hernia without obstruction or gangrene] Onset: 12-17-2018 12-17-2018 Episodic Diabetes mellitus without complication (20 sources) Hyperglycemia; Translations: [Hyperglycemia, unspecified] Onset: 09-03-2023 09-03-2023 Episodic Mood disorders (20 sources) Acute depression; Translations: [Depression, acute] Onset: 09-03-2023 Resolved: 07-29-2024 09-03-2023 Chronic Mycoses (20 sources) Opportunistic mycosis; Translations: [Candidiasis, unspecified] Onset: 09-03-2023 Resolved: 03-05-2025 09-03-2023 Episodic Other gastrointestinal disorders (20 sources) Chronic constipation; Translations: [Other constipation] Onset: 09-03-2023 09-03-2023 Episodic Other non-traumatic joint disorders (20 sources) Joint pain; Translations: [Pain in unspecified joint] Onset: 09-03-2023 09-03-2023 Episodic Other non-traumatic joint disorders (20 sources) Hip pain; Translations: [Pain in left hip] Onset: 09-03-2023 09-03-2023 Episodic Other nutritional; endocrine; and metabolic disorders (20 sources) Abnormal weight gain; Translations: [Abnormal weight gain] Onset: 06-02-2024 06-30-2024 Episodic Residual codes; unclassified (20 sources) Persistent insomnia; Translations: [Insomnia, unspecified] Onset: 09-03-2023 09-03-2023 Episodic Residual codes; unclassified (20 sources) Finding related to blood, organ, or tissue donation; Translations: [Liver donor] Onset: 08-26-2018 09-07-2018 Episodic Screening and history of mental health and substance abuse codes (20 sources) Patient encounter status; Translations: [Encounter for screening for depression] Onset: 09-03-2023 Resolved: 06-02-2024 09-03-2023 Episodic Unclassified (1 source) CONTACT W/AND (SUSP) EXPOS COVID-19; Translations: [CONTACT W/AND (SUSP) EXPOS COVID-19] Onset: 08-22-2022 Viral infection (20 sources) Disease caused by 2019-nCoV; Translations: [COVID-19] Onset: 09-03-2023 Resolved: 11-04-2024 09-03-2023 Episodic Results Test Name Value Interpretation Reference Range Facility CT Chest WO contraston 05-19 * * *Final Report* * * DATE OF EXAM: May 15 2025 10:44AM [facility] 0541 - CT CHEST WO IVCON / PROCEDURE REASON: Bullae * * * * Physician Interpretation * * * * EXAMINATION: CHEST CT WITHOUT CONTRAST CLINICAL HISTORY: Bullae Technique: Spiral CT acquisition of the chest from the thoracic inlet to the upper abdomen without contrast. MQ: CTCWO_6 CT Radiation dose: Integrated Dose-length product (DLP) for this visit = 272 mGy*cm CT Dose Reduction Employed: Automated exposure control (AEC) Comparison: Chest CT dated 12/20/2018 RESULT: Limitations: None. Lines, tubes, and devices: None. Lung parenchyma and airways: No focal consolidation. Unchanged bullae in the medial aspect of the left lower lobe dating back to 2018. Resolved prior subsegmental atelectasis in both lungs. Mild biapical scarring, likely post inflammatory. No endotracheal or central endobronchial lesion is identified. Pleural space: No pleural effusion or thickening. No pneumothorax. Lower neck, lymph nodes, and mediastinum: The imaged thyroid gland is normal. No lymphadenopathy in the supraclavicular, axillary, mediastinal, or hilar regions. The esophagus is unremarkable. Heart, pericardium, and thoracic vessels: The thoracic aorta and main pulmonary artery are normal in caliber. The cardiac chambers are normal in size. No detectable coronary artery atherosclerotic calcifications are noted, although the study is not optimized for coronary assessment. No pericardial effusion or thickening Bones and soft tissues: No acute osseous abnormality. Postsurgical changes of bilateral breast implant placement. Upper abdomen: Postsurgical change of right lobectomy. Localizer images: No additional findings. IMPRESSION: 1. No acute abnormality in the chest. 2. 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 Molding Sander: BENJAMÍN Transcribe Date/Time: May 19 2025 11:24A Dictated by : DHAVAL ESPINOZA MD This examination was interpreted and the report reviewed and electronically signed by: DHAVAL ESPINOZA MD on May 19 2025 11:30AM EST [id number]^SI ^ACN [facility], Radiologist, - 05/19/2025 * * *Final Report* * * DATE OF EXAM: May 15 2025 10:44AM [facility] 0541 - CT CHEST WO IVCON / PROCEDURE REASON: Bullae * * * * Physician Interpretation * * * * EXAMINATION: CHEST CT WITHOUT CONTRAST CLINICAL HISTORY: Bullae Technique: Spiral CT acquisition of the chest from the thoracic inlet to the upper abdomen without contrast. MQ: CTCWO_6 CT Radiation dose: Integrated Dose-length product (DLP) for this visit = 272 mGy*cm CT Dose Reduction Employed: Automated exposure control (AEC) Comparison: Chest CT dated 12/20/2018 RESULT: Limitations: None. Lines, tubes, and devices: None. Lung parenchyma and airways: No focal consolidation. Unchanged bullae in the medial aspect of the left lower lobe dating back to 2018. Resolved prior subsegmental atelectasis in both lungs. Mild biapical scarring, likely post inflammatory. No endotracheal or central endobronchial lesion is identified. Pleural space: No pleural effusion or thickening. No pneumothorax. Lower neck, lymph nodes, and mediastinum: The imaged thyroid gland is normal. No lymphadenopathy in the supraclavicular, axillary, mediastinal, or hilar regions. The esophagus is unremarkable. Heart, pericardium, and thoracic vessels: The thoracic aorta and main pulmonary artery are normal in caliber. The cardiac chambers are normal in size. No detectable coronary artery atherosclerotic calcifications are noted, although the study is not optimized for coronary assessment. No pericardial effusion or thickening Bones and soft tissues: No acute osseous abnormality. Postsurgical changes of bilateral breast implant placement. Upper abdomen: Postsurgical change of right lobectomy. Localizer images: No additional findings. IMPRESSION: 1. No acute abnormality in the chest. 2. 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 Molding Sander: BENJAMÍN Transcribe Date/Time: May 19 2025 11:24A Dictated by : DHAVAL ESPINOZA MD This examination was interpreted and the report reviewed and electronically signed by: DHAVAL ESPINOZA MD on May 19 2025 11:30AM EST [id number]^SI ^ACN [facility] CT Chest WO contrastOrdered By: Radiologist Radiology on 05-19-2025 [facility] [employer] Work Phone: ALLERGEN SKIN TEST-INHALANT 40on 05-15-2025 INHALANT 40 PERCUTANEOUS & INTRADERMAL TESTING/ Mean Wheal & Flare Diameter (mm) Patient has been identified by name and date of : Yes . Skin test applied by : Favio Dupont RN Interpreted By: Paulo Hurtado MD * Clinical significant reactions are regarded as a wheal diameter greater than or equal to 3 mm with a flare diameter greater or equal to 6mm. ALLERGENS Time applied: 1353 Time read: 1408 1. Negative Control: 50%Glycerin/50%Cocas P: W = 0 mm F = 0 mm 2. Cat Hair 10,000 BAU/ml P: W = 0 mm F = 0 mm 3. UF Dog 1:650 P: W = 0 mm F = 0 mm 4. Cockroach Mix 1:20 P: W = 0 mm F = 0 mm 5. Mite Df 10,000 AU/ml P: W = 0 mm F = 0 mm 6. Mite Dp 10,000AU/ml P: W = 0 mm F = 0 mm 7. Alternaria Alternata 1:20 P: W = 0 mm F = 0 mm 8. Aspergillus Fumigatus 1:20 P: W = 0 mm F = 0 mm 9. Cladosporium sphearospermum 1:20 P: W = 0 mm F = 0 mm 10. Epicoccum Nigrum 1:10 P: W = 0 mm F = 0 mm 11. Fusarium Solani 1:40 P: W = 0 mm F = 0 mm 12. Bipolaris Sorokiniana 1:20 P: W = 0 mm F = 0 mm 13. Penicillium Mix 1:20 P: W = 0 mm F = 0 mm 14. Sravani, White 1:20 P: W = 0 mm F = 0 mm 15. Beech, Swedish 1:20 P: W = 0 mm F = 0 mm 16. Birch Mix 1:20 P: W = 0 mm F = 0 mm 17. Maple Mix 1:20 P: W = 0 mm F = 0 mm 18. [place] ,Eastern 1:20 P: W = 0 mm F = 0 mm 19. [place], Shagbark 1:20 P: W = 0 mm F = 0 mm 20. [place] Tree, Red 1:20 P: W = 0 mm F = 0 mm 21. [place], Red 1:20 P: W = 0 mm F = 0 mm 22. [place], Swedish/Eastern 1:20 P: W = 0 mm F = 0 mm 23. [place] Pollen, Black 1:20 P: W = 0 mm F = 0 mm 24. Poplar, Black 1:20 P: W = 0 mm F = 0 mm 25. B[place] Grass 10,000 BAU/ml P : W = 0 mm F = 0 mm 26. [place], Blue/February 100,000 BAU/ml P: W = 0 mm F = 0 mm 27. Fescue, [place] 100,000 BAU/ml P: W = 0 mm F = 0 mm 28. Dex Grass 1:20 P: W = 0 mm F = 0 mm 29. Orchard Grass 100,000 BAU/ml P: W = 0 mm F = 0 mm 30. Perennial Crivitz, 100,000 BAU/ml P: W = 0 mm F = 0 mm 31. Cesar 100,000 BAU/ml P: W = 0 mm F = 0 mm 32. Cocklebur 1:20 P: W = 0 mm F = 0 mm 33. Guadalupe Guerra, sheep 1:20 P: W = 0 mm F = 0 mm 34. Plantain, Belgian 1:20 P: W = 0 mm F = 0 mm 35. Lambs Quarters 1:20 P: W = 0 mm F = 0 mm 36. Kendrick Elder, Burweed 1:20 P: W = 0 mm F = 0 mm 37. Mugwort, Common 1:20 P: W = 0 mm F = 0 mm 38. Pigweed, Rough 1:20 P: W = 0 mm F = 0 mm 39. Ragweed, Mix 1:20 P: W = 0 mm F = 0 mm 40. HISTAMINE, positive control(Histamine base 6mg/ml) P: W = 7 mm F = 33 mm ALLERGENS: ANIMAL 1. Chicken, Meat 1:20 P: W = 0 mm F = 0 mm 2. Egg white, Chicken 1:20 P: W = 0 mm F = 0 mm 3. Milk, Cow's 1:20 P: W = 0 mm F = 0 mm 4. [place] Meat 1:20 P: W = 0 mm F = 0 mm ALLERGENS:GRAIN 1. Wheat, whole 1:20 P: W = 0 mm F = 0 mm ALLERGENS: OTHER ANIMALS 1. HORSE EPITHELIA 1:20 P: W = 0 mm F = 0 mm Testing reactions were unable to be determined per . Patient seen by Dr. Hurtado prior to leaving [facility]. Favio Dupont RN [facility] CNOVon 05-15-2025 CNOV Office Visit (ALLEMN ) NIDIA KAYE ([id number]) 1975 F Date Time Provider Department 05/15/25 1:00 PM PAULO HURTADO During your visit today, we recorded the following information about you: Temperature Pulse Respiration Blood pressure 97.4 degrees 90/minute 20/minute 100/85 Weight 80.6 kg Paulo Hurtado MD 05/15/2025 3:16 PM Signed Allergy and Immunology Patient Name: Nidia Kaye PRIMARY CARE PHYSICIAN: Kevin Valentin MD REASON FOR CONSULT: food allergy, chronic rhinitis REQUESTING PHYSICIAN: Ainsley Haddad MD My final recommendations will be communicated to the requesting health care provider by way of the shared medical record for internal providers or letter via the [facility] for external providers. CHIEF COMPLAINT: Nidia Kaye is a 50-year-old female with a history of asthma, presenting for evaluation of chronic allergies, food allergies and hives HISTORY OF PRESENT ILLNESS: Nidia reports a long-standing history of environmental allergies, confirmed by a scratch test approximately 10-12 years ago, which revealed sensitivities to various allergens including cedar, sravani, horses, dust, and dust mites. She experiences perennial symptoms such as itchy eyes, frequent sinus infections, and significant post-nasal drip. 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 She was informed of a real bad deviated septum during a visit one month ago, and notes that the nasal sprays have been ineffective, possibly due to the septal deviation. She has not undergone sinus surgery previously but has been advised that it may be necessary. She also reports a chronic cough, which is sometimes productive. She has a history of chronic urticaria, with frequent hives, including an episode this morning with hives on her neck. She uses fragrance-free products and takes Zyrtec daily, which she paused this week in preparation for testing, resulting in worsened symptoms. She has not been prescribed an EpiPen and has not required emergency treatment for allergic reactions. Nidia has a history of eczema, with lesions primarily on her neck, under her chin, and on her legs. The eczema can become severe, leading to cracked and bleeding skin. She uses Aveeno and Cetaphil lotions, as well as prescription steroid creams and ointments from her corner cutter, but reports that these treatments are minimally effective, feeling that they just sit on top of her skin without penetrating. 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 She follows a gluten-free and dairy-free diet due to sensitivities that cause gastrointestinal discomfort and exacerbate her skin conditions. She was advised by a functional medicine practitioner to avoid these foods after experiencing prolonged sinus infections and joint inflammation following her first COVID-19 infection. She has had COVID-19 four times, with each episode being severe and contributing to her ongoing health issues. She gained approximately 60 pounds during a two-month period while on prolonged steroid therapy for sinus infections and has only recently begun to lose this weight. She lives in an older home with some mold issues, which her manages by regularly cleaning the basement bobby. She has a pet dog, which she describes as her emotional support animal. She takes measures to minimize allergen exposure, including using allergen-proof mattress and pillow covers, washing sheets weekly in hot water, keeping windows closed, and using air purifiers at home. She avoids yard work and stays indoors when her mows the lawn. She is managed by Pulmonology for her asthma and is currently on Dulera to 200 puffs twice daily. He ordered inhalant panel which was negative, IgE was 5.2 and AEC was 0.16 PAST MEDICAL AND SURGICAL HISTORY: No past medical history on file. No past surgical history on file. ALLERGIES: is allergic to adhesive, azithromycin, fentanyl, and morphine. FAMILY HISTORY: No family history on file. REVIEW OF SYSTEMS: All systems were reviewed and were negative except as listed in the HPI and above. Constitutional: (+) weight loss Eyes: (+) itchy eyes Ears/Nose/Mouth/Throa t: (+) rhinorrhea, (+) postnasal drip Respiratory: (+) cough Gastrointestinal: (+) abdominal discomfort Musculoskeletal: (+) joint pain Skin: (+) hives neck, (+) pruritus, (+) eczematous rash with fissures, (+) scaly plaques legs, (+) erythematous papules arms and legs Answers submitted by the patient for this visit: Allergy Review of Symptoms (Submitted on 05/08/2025) Eye (more content not included)... Normal [facility] CT CHEST WO IVCONon 05-15-20 CT CHEST WO IVCON * * *Final Report* * * DATE OF EXAM: May 15 2025 10:44AM [facility] 0541 - CT CHEST WO IVCON / PROCEDURE REASON: Bullae * * * * Physician Interpretation * * * * EXAMINATION: CHEST CT WITHOUT CONTRAST CLINICAL HISTORY: Bullae Technique: Spiral CT acquisition of the chest from the thoracic inlet to the upper abdomen without contrast. MQ: CTCWO_6 CT Radiation dose: Integrated Dose-length product (DLP) for this visit = 272 mGy*cm CT Dose Reduction Employed: Automated exposure control (AEC) Comparison: Chest CT dated 12/20/2018 RESULT: Limitations: None. Lines, tubes, and devices: None. Lung parenchyma and airways: No focal consolidation. Unchanged bullae in the medial aspect of the left lower lobe dating back to 2018. Resolved prior subsegmental atelectasis in both lungs. Mild biapical scarring, likely post inflammatory. No endotracheal or central endobronchial lesion is identified. Pleural space: No pleural effusion or thickening. No pneumothorax. Lower neck, lymph nodes, and mediastinum: The imaged thyroid gland is normal. No lymphadenopathy in the supraclavicular, axillary, mediastinal, or hilar regions. The esophagus is unremarkable. Heart, pericardium, and thoracic vessels: The thoracic aorta and main pulmonary artery are normal in caliber. The cardiac chambers are normal in size. No detectable coronary artery atherosclerotic calcifications are noted, although the study is not optimized for coronary assessment. No pericardial effusion or thickening Bones and soft tissues: No acute osseous abnormality. Postsurgical changes of bilateral breast implant placement. Upper abdomen: Postsurgical change of right lobectomy. Localizer images: No additional findings. IMPRESSION: 1. No acute abnormality in the chest. 2. 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 Molding Sander: PSCB Transcribe Date/Time: May 19 2025 11:24A Dictated by : DHAVAL ESPINOZA MD This examination was interpreted and the report reviewed and electronically signed by: DHAVAL ESPINOZA MD on May 19 2025 11:30AM EST [id number] N Normal [facility] CT SINUS WO IVCONon 05-15-20 25 * * *Final Report* * * DATE OF EXAM: May 15 2025 10:44AM [place] [id number] - CT SINUS WO IVCON / PROCEDURE REASON: multiple diagnoses * * * * Physician Interpretation * * * * EXAMINATION: CT SINUS WO IVCON CLINICAL HISTORY: Sinusitis, chronic or recurrent TECHNIQUE: Spiral high resolution axial unenhanced CT images were obtained through the paranasal sinuses with sagittal, coronal reconstructions. MQ: CTSI_1 CT Radiation dose: Integrated Dose-Length Product (DLP) for this visit = 159 mGy*cm. CT Dose Reduction Employed: Automated exposure control (AEC) COMPARISON: None. RESULT: Post-Surgical Findings: None Sinus Chambers: Sinuses are clear. LEFT Shirlene [place] Score: 0 RIGHT Silver Plume [place] Score: 0 TOTAL Shirlene Goyo Score: 0 Nasal Cavities: Visualized nasal cavities are patent. Developmental Anomalies: None Other: The visualized mastoid air cells and middle ear cavities are clear. The soft tissues of the face and orbits are within normal limits within the limitations of the study. Localizer images: No additional findings. IMPRESSION: No evidence of sinus inflammation or infection. Molding Sander: BENJAMÍN Transcribe Date/Time: May 15 2025 10:52A Dictated by : JOCELIN CARMEN MD This examination was interpreted and the report reviewed and electronically signed by: JOCELIN CARMEN MD on May 15 2025 10:54AM EST [id number]^SI ^ACN [facility] Radiology, Radiologist, MD - 05/15/2025 * * *Final Report* * * DATE OF EXAM: May 15 2025 10:44AM [place] [id number] - CT SINUS WO IVCON / PROCEDURE REASON: multiple diagnoses * * * * Physician Interpretation * * * * EXAMINATION: CT SINUS WO IVCON CLINICAL HISTORY: Sinusitis, chronic or recurrent TECHNIQUE: Spiral high resolution axial unenhanced CT images were obtained through the paranasal sinuses with sagittal, coronal reconstructions. MQ: CTSI_1 CT Radiation dose: Integrated Dose-Length Product (DLP) for this visit = 159 mGy*cm. CT Dose Reduction Employed: Automated exposure control (AEC) COMPARISON: None. RESULT: Post-Surgical Findings: None Sinus Chambers: Sinuses are clear. LEFT Silver Plume Goyo Score: 0 RIGHT Silver Plume Goyo Score: 0 TOTAL Shirlene [place] Score: 0 Nasal Cavities: Visualized nasal cavities are patent. Developmental Anomalies: None Other: The visualized mastoid air cells and middle ear cavities are clear. The soft tissues of the face and orbits are within normal limits within the limitations of the study. Localizer images: No additional findings. IMPRESSION: No evidence of sinus inflammation or infection. Molding Sander: BENJAMÍN Transcribe Date/Time: May 15 2025 10:52A Dictated by : JOCELIN CARMEN MD This examination was interpreted and the report reviewed and electronically signed by: JOCELIN CARMEN MD on May 15 2025 10:54AM EST [id number]^SI ^ACN [facility] CT SINUS WO IVCON * * *Final Report* * * DATE OF EXAM: May 15 2025 10:44AM [place] [id number] - CT SINUS WO IVCON / PROCEDURE REASON: multiple diagnoses * * * * Physician Interpretation * * * * EXAMINATION: CT SINUS WO IVCON CLINICAL HISTORY: Sinusitis, chronic or recurrent TECHNIQUE: Spiral high resolution axial unenhanced CT images were obtained through the paranasal sinuses with sagittal, coronal reconstructions. MQ: CTSI_1 CT Radiation dose: Integrated Dose-Length Product (DLP) for this visit = 159 mGy*cm. CT Dose Reduction Employed: Automated exposure control (AEC) COMPARISON: None. RESULT: Post-Surgical Findings: None Sinus Chambers: Sinuses are clear. LEFT Shirlene [place] Score: 0 RIGHT [place]ume [place] Score: 0 TOTAL Silver Plume Goyo Score: 0 Nasal Cavities: Visualized nasal cavities are patent. Developmental Anomalies: None Other: The visualized mastoid air cells and middle ear cavities are clear. The soft tissues of the face and orbits are within normal limits within the limitations of the study. Localizer images: No additional findings. IMPRESSION: No evidence of sinus inflammation or infection. Molding Sander: [facility] Transcribe Date/Time: May 15 2025 10:52A Dictated by : JOCELIN CARMEN MD This examination was interpreted and the report reviewed and electronically signed by: JOCELIN CARMEN MD on May 15 2025 10:54AM EST [id number] N Normal [facility] CT Sinuses WO contraston IMPRESSION: No evidence of sinus inflammation or infection. Molding Sander: [facility] Transcribe Date/Time: May 15 2025 10:52A Dictated by : JOCELIN CARMEN MD This examination was interpreted and the report reviewed and electronically signed by: JOCELIN CARMEN MD on May 15 2025 10:54AM [facility] DIVISION OF RADIOLOGY * * *Final Report* * * DATE OF EXAM: May 15 2025 10:44AM [facility] - CT SINUS WO IVCON / PROCEDURE REASON: multiple diagnoses * * * * Physician Interpretation * * * * EXAMINATION: CT SINUS WO IVCON CLINICAL HISTORY: Sinusitis, chronic or recurrent TECHNIQUE: Spiral high resolution axial unenhanced CT images were obtained through the paranasal sinuses with sagittal, coronal reconstructions. MQ: CTSI_1 CT Radiation dose: Integrated Dose-Length Product (DLP) for this visit = 159 mGy*cm. CT Dose Reduction Employed: Automated exposure control (AEC) COMPARISON: None. RESULT: Post-Surgical Findings: None Sinus Chambers: Sinuses are clear. LEFT Shirlene Goyo Score: 0 RIGHT Shirlene [place] Score: 0 TOTAL Shirlene Goyo Score: 0 Nasal Cavities: Visualized nasal cavities are patent. Developmental Anomalies: None Other: The visualized mastoid air cells and middle ear cavities are clear. The soft tissues of the face and orbits are within normal limits within the limitations of the study. Localizer images: No additional findings. DIVISION OF RADIOLOGY Provider, [facility] - 05/15/2025 * * *Final Report* * * DATE OF EXAM: May 15 2025 10:44AM [facility] [address] - CT SINUS WO IVCON / PROCEDURE REASON: multiple diagnoses * * * * Physician Interpretation * * * * EXAMINATION: CT SINUS WO IVCON CLINICAL HISTORY: Sinusitis, chronic or recurrent TECHNIQUE: Spiral high resolution axial unenhanced CT images were obtained through the paranasal sinuses with sagittal, coronal reconstructions. MQ: CTSI_1 CT Radiation dose: Integrated Dose-Length Product (DLP) for this visit = 159 mGy*cm. CT Dose Reduction Employed: Automated exposure control (AEC) COMPARISON: None. RESULT: Post-Surgical Findings: None Sinus Chambers: Sinuses are clear. LEFT Shirlene [place] Score: 0 RIGHT Silver Plume [place] Score: 0 TOTAL Shirlene Goyo Score: 0 Nasal Cavities: Visualized nasal cavities are patent. Developmental Anomalies: None Other: The visualized mastoid air cells and middle ear cavities are clear. The soft tissues of the face and orbits are within normal limits within the limitations of the study. Localizer images: No additional findings. IMPRESSION IMPRESSION: No evidence of sinus inflammation or infection. Molding Sander: PSCB Transcribe Date/Time: May 15 2025 10:52A Dictated by : JOCELIN CARMEN MD This examination was interpreted and the report reviewed and electronically signed by: JOCELIN CARMEN MD on May 15 2025 10:54AM EST [facility] No Panel Informationon 05-15 [facility] Patient has been identified by name and date of : Yes . Skin test applied by : Favio Dupont RN Interpreted By: Paulo Hurtado MD * Clinical significant reactions are regarded as a wheal diameter greater than or equal to 3 mm with a flare diameter greater or equal to 6mm. ALLERGENS: ANIMAL 1. Chicken, Meat 1:20 P: W = 0 mm F = 0 mm 2. Egg white, Chicken 1:20 P: W = 0 mm F = 0 mm 3. Milk, Cow's 1:20 P: W = 0 mm F = 0 mm 4. [place] Meat 1:20 P: W = 0 mm F = 0 mm ALLERGENS:GRAIN 1. Wheat, whole 1:20 P: W = 0 mm F = 0 mm ALLERGENS: OTHER ANIMALS 1. HORSE EPITHELIA 1:20 P: W = 0 mm F = 0 mm Testing reactions were unable to be determined per . Patient seen by Dr. Hurtado prior to leaving [facility]. Favio Dupont RN [facility] Radiology Study observation (narrative) [facility] No Panel InformationOrdered By: Radiologist Radiology on 05-15-2025 [facility] Work Phone: ALLERGEN, RESPIRATORY DISEAS E PROFILE REGION 5, WITH REFLEXon 04-10-2025 A. alternata IgE Qn (S) <0.35 Normal <0.35 [facility] Comment on above: Order Comment: Speci men Type: BLOOD SPECIMENOrdering Facility: [facility] Address: [address] [place] [address] Performed By: #### L [id number] ####[facility] LABCLIA [id number] [place] [address] [place] A. alternata IgE RAST class (S) Class 0 Normal Class 0 [facility] Comment on above: Order Comment: Speci men Type: BLOOD SPECIMENOrdering Facility: [facility] Address: [address] [place] [address] Performed By: #### L [id number] ####[facility] LABCLIA [id number] [place] [address] [place] A. fumigatus IgE Qn (S) <0.35 Normal <0.35 [facility] Comment on above: Order Comment: Speci men Type: BLOOD SPECIMENOrdering Facility: [facility] Address: [address] [place] [address] Performed By: #### L [id number] ####[facility] LABCLIA [id number] [place] [address] [place] A. fumigatus IgE RAST class (S) Class 0 Normal Class 0 [facility] Comment on above: Order Comment: Speci men Type: BLOOD SPECIMENOrdering Facility: [facility] Address: [address] [place] [address] Performed By: #### L [id number] ####[facility] LABCLIA [id number] [place] [address] [place] Swedish house dust mite IgE Qn (S) <0.35 Normal <0.35 [facility] Comment on above: Order Comment: Speci men Type: BLOOD SPECIMENOrdering Facility: [facility] Address: [address] [place] [address] Performed By: #### L [id number] ####[facility] LABCLIA [id number] [place] [address] [place] Swedish house dust mite IgE RAST class (S) Class 0 Normal Class 0 [facility] Comment on above: Order Comment: Speci men Type: BLOOD SPECIMENOrdering Facility: [facility] Address: [address] [place] [address] Performed By: #### L [id number] ####[facility] LABCLIA [id number] [address], [facility] [place] Bermuda grass IgE Qn (S) <0.35 Normal <0.35 [facility] Comment on above: Order Comment: Speci men Type: BLOOD SPECIMENOrdering Facility: [facility] Address: [address] [place] [address] Performed By: #### L [id number] ####[facility] LABCLIA [id number] [address], [place] [address] [place] Bermuda grass IgE RAST class (S) Class 0 Normal Class 0 [facility] Comment on above: Order Comment: Speci men Type: BLOOD SPECIMENOrdering Facility: [facility] Address: [address] [place] [address] Performed By: #### L [id number] ####[facility] LABCLIA [id number] [place] [address] [place] Boxelder IgE Qn (S) <0.35 Normal <0.35 [facility] Comment on above: Order Comment: Speci men Type: BLOOD SPECIMENOrdering Facility: [facility] Address: [address] [place] [address] Performed By: #### L [id number] ####[facility] LABCLIA [id number] [place] [address] [place] Boxelder IgE RAST class (S) Class 0 Normal Class 0 [facility] Comment on above: Order Comment: Speci men Type: BLOOD SPECIMENOrdering Facility: [facility] Address: [address] [place] [address] Performed By: #### L [id number] ####[facility] LABCLIA [id number] [address], [facility] [place] C. herbarum IgE Qn (S) <0.35 Normal <0.35 [facility] Comment on above: Order Comment: Speci men Type: BLOOD SPECIMENOrdering Facility: [facility] Address: [address] [place], [place] [id number] Performed By: #### L [id number] ####[facility] LABCLIA [id number] [place] [address] [place] C. herbarum IgE RAST class (S) Class 0 Normal Class 0 [facility] Comment on above: Order Comment: Speci men Type: BLOOD SPECIMENOrdering Facility: [facility] Address: [address] [place] [address] Performed By: #### L [id number] ####[facility] LABCLIA [id number] [place] [address] [place] Cat dander IgE Qn (S) <0.35 Normal <0.35 [facility] Comment on above: Order Comment: Speci men Type: BLOOD SPECIMENOrdering Facility: [facility] Address: [address] [place] [address] Performed By: #### L [id number] ####[facility] LABCLIA [id number] [place] [address] [place] Cat dander IgE RAST class (S) Class 0 Normal Class 0 [facility] Comment on above: Order Comment: Speci men Type: BLOOD SPECIMENOrdering Facility: [facility] Address: [address] [place] [address] Performed By: #### L [id number] ####[facility] LABCLIA [id number] [place] [id number] [place] Cocklebur IgE Qn (S) <0.35 Normal <0.35 [facility] Comment on above: Order Comment: Speci men Type: BLOOD SPECIMENOrdering Facility: [facility] Address: [address] [place] [address] Performed By: #### L [id number] ####[facility] LABCLIA [id number] [place] [address] [place] Cocklebur IgE RAST class (S) Class 0 Normal Class 0 [facility] Comment on above: Order Comment: Speci men Type: BLOOD SPECIMENOrdering Facility: [facility] Address: [address] [place] [address] Performed By: #### L [id number] ####[facility] LABCLIA [id number] [place] [address] [place] Cockroach IgE Qn (S) <0.35 Normal <0.35 [facility] Comment on above: Order Comment: Speci men Type: BLOOD SPECIMENOrdering Facility: [facility] Address: [address] [place] [address] Performed By: #### L [id number] ####[facility] LABCLIA [id number] [address] [place] Cockroach IgE RAST class (S) Class 0 Normal Class 0 [facility] Comment on above: Order Comment: Speci men Type: BLOOD SPECIMENOrdering Facility: [facility] Address: [address] [place] [address] Performed By: #### L [id number] ####[facility] LABCLIA [id number] [place] [address] [place] Common Pigweed IgE Qn (S) <0.35 Normal <0.35 [facility] Comment on above: Order Comment: Speci men Type: BLOOD SPECIMENOrdering Facility: [facility] Address: [address] [place] [address] Performed By: #### L [id number] ####[facility] LABCLIA [id number] [place] [id number] [place] Common Pigweed IgE RAST class (S) Class 0 Normal Class 0 [facility] Comment on above: Order Comment: Speci men Type: BLOOD SPECIMENOrdering Facility: [facility] Address: [address] [place] [address] Performed By: #### L [id number] ####[facility] LABCLIA [id number] [place] [address] [place] Common Ragweed IgE Qn (S) <0.35 Normal <0.35 [facility] Comment on above: Order Comment: Speci men Type: BLOOD SPECIMENOrdering Facility: [facility] Address: [address] [place] [address] Performed By: #### L [id number] ####[facility] LABCLIA [id number] [place] [address] [place] Common Ragweed IgE RAST class (S) Class 0 Normal Class 0 [facility] Comment on above: Order Comment: Speci men Type: BLOOD SPECIMENOrdering Facility: [facility] Address: [address] [place] [address] Performed By: #### L [id number] ####[facility] LABCLIA [id number] [place] [address] [place] IgE Qn (S) <0.35 Normal <0.35 [facility] Comment on above: Order Comment: Speci men Type: BLOOD SPECIMENOrdering Facility: [facility] Address: [address] [place] [address] Performed By: #### L [id number] ####[facility] LABCLIA [id number] [place] [address] [place] IgE RAST class (S) Class 0 Normal Class 0 [facility] Comment on above: Order Comment: Speci men Type: BLOOD SPECIMENOrdering Facility: [facility] Address: [address] [place] [address] Performed By: #### L [id number] ####[facility] LABCLIA [id number] [place] [id number] [place] Dog dander IgE Qn (S) <0.35 Normal <0.35 [facility] Comment on above: Order Comment: Speci men Type: BLOOD SPECIMENOrdering Facility: [facility] Address: [address] [place] [address] Performed By: #### L [id number] ####[facility] LABCLIA [id number] [place] [address] [place] Dog dander IgE RAST class (S) Class 0 Normal Class 0 [facility] Comment on above: Order Comment: Speci men Type: BLOOD SPECIMENOrdering Facility: [facility] Address: [address] [place] [address] Performed By: #### L [id number] ####[facility] LABCLIA [id number] [place] [address] [place] Belgian plantain IgE Qn (S) <0.35 Normal <0.35 [facility] Comment on above: Order Comment: Speci men Type: BLOOD SPECIMENOrdering Facility: [facility] Address: [address] [place] [address] Performed By: #### L [id number] ####[facility] LABCLIA [id number] [place] [address] [place] Belgian plantain IgE RAST class (S) Class 0 Normal Class 0 [facility] Comment on above: Order Comment: Speci men Type: BLOOD SPECIMENOrdering Facility: [facility] Address: [address] [place] [address] Performed By: #### L [id number] ####[facility] LABCLIA [id number] [place] [id number] [place] house dust mite IgE Qn (S) <0.35 Normal <0.35 [facility] Comment on above: Order Comment: Speci men Type: BLOOD SPECIMENOrdering Facility: [facility] Address: [address] [place] [address] Performed By: #### L [id number] ####[facility] LABCLIA [id number] [address] [place] [address] [place] house dust mite IgE RAST class (S) Class 0 Normal Class 0 [facility] Comment on above: Order Comment: Speci men Type: BLOOD SPECIMENOrdering Facility: [facility] Address: [address] [place] [address] Performed By: #### L [id number] ####[facility] LABCLIA [id number] [address] [place] [address] [place] Goosefoot IgE Qn (S) <0.35 Normal <0.35 [facility] Comment on above: Order Comment: Speci men Type: BLOOD SPECIMENOrdering Facility: [facility] Address: [address] [place] [address] Performed By: #### L [id number] ####[facility] LABCLIA [id number] [place] [address] [place] Goosefoot IgE RAST class (S) Class 0 Normal Class 0 [facility] Comment on above: Order Comment: Speci men Type: BLOOD SPECIMENOrdering Facility: [facility] Address: [address] [place] [address] Performed By: #### L [id number] ####[facility] LABCLIA [id number] [address] [place] [address] [place] Dex grass smut IgE Qn (S) <0.35 Normal <0.35 [facility] Comment on above: Order Comment: Speci men Type: BLOOD SPECIMENOrdering Facility: [facility] Address: [address] [place], [place] [address] Performed By: #### L [id number] ####[facility] LABCLIA [id number] [place] [id number] [place] Dex grass smut IgE RAST class (S) Class 0 Normal Class 0 [facility] Comment on above: Order Comment: Speci men Type: BLOOD SPECIMENOrdering Facility: [facility] Address: [address] [place] [address] Performed By: #### L [id number] ####[facility] LABCLIA [id number] [place] [address] [place] IgE Qn (S) <0.35 Normal <0.35 [facility] Comment on above: Order Comment: Speci men Type: BLOOD SPECIMENOrdering Facility: [facility] Address: [address] [place] [address] Performed By: #### L [id number] ####[facility] LABCLIA [id number] [place] [address] [place] IgE RAST class (S) Class 0 Normal Class 0 [facility] Comment on above: Order Comment: Speci men Type: BLOOD SPECIMENOrdering Facility: [facility] Address: [address] [place] [address] Performed By: #### L [id number] ####[facility] LABCLIA [id number] [place] [address] [place] Kendrick Elder IgE Qn (S) <0.35 Normal <0.35 [facility] Comment on above: Order Comment: Speci men Type: BLOOD SPECIMENOrdering Facility: [facility] Address: [address] [place] [address] Performed By: #### L [id number] ####[facility] LABCLIA [id number] [place] [address] [place] Kendrick Elder IgE RAST class (S) Class 0 Normal Class 0 [facility] Comment on above: Order Comment: Speci men Type: BLOOD SPECIMENOrdering Facility: [facility] Address: [address] [place] [address] Performed By: #### L [id number] ####[facility] [facility] [id number] [place] [address] [place] Mouse urine proteins IgE Qn (S) <0.35 Normal <0.35 [facility] Comment on above: Order Comment: Speci men Type: BLOOD SPECIMENOrdering Facility: [facility] Address: [address] [place] [address] Performed By: #### L [id number] ####[facility] [id number] [place] [address] [place] Mouse urine proteins IgE RAST class (S) Class 0 Normal Class 0 [facility] Comment on above: Order Comment: Speci men Type: BLOOD SPECIMENOrdering Facility: [facility] Address: [address] [place] [address] Performed By: #### L [id number] ####[facility] [id number] [place] [address] [place] Pecan or Paint [place] IgE Qn (S) <0.35 Normal <0.35 [facility] Comment on above: Order Comment: Speci men Type: BLOOD SPECIMENOrdering Facility: [facility] Address: [address] [place] [address] Performed By: #### L [id number] ####[facility] [id number] [address] [place] Pecan or [place] IgE RAST class (S) Class 0 Normal Class 0 [facility] Comment on above: Order Comment: Speci men Type: BLOOD SPECIMENOrdering Facility: [facility] Address: [address] [place] [address] Performed By: #### L [id number] ####[facility] [id number] [place] [address] [place] Sheep Guadalupe Guerra IgE Qn (S) <0.35 Normal <0.35 [facility] Comment on above: Order Comment: Speci men Type: BLOOD SPECIMENOrdering Facility: [facility] Address: [address] [place] [address] Performed By: #### L [id number] ####[facility] [id number] [facility] [address] [place] [address] [place] Sheep Guadalupe Guerra IgE RAST class (S) Class 0 Normal Class 0 [facility] Comment on above: Order Comment: Speci men Type: BLOOD SPECIMENOrdering Facility: [facility] Address: [address] [place] [address] Performed By: #### L [id number] ####[facility] [id number] [address] [place] [address] [place] Silver Birch IgE Qn (S) <0.35 Normal <0.35 [facility] Comment on above: Order Comment: Speci men Type: BLOOD SPECIMENOrdering Facility: [facility] Address: [address] [place] [address] Performed By: #### L [id number] ####[facility] [id number] [place] [address] [place] Silver Birch IgE RAST class (S) Class 0 Normal Class 0 [facility] Comment on above: Order Comment: Speci men Type: BLOOD SPECIMENOrdering Facility: [facility] Address: [address] [place] [address] Performed By: #### L [id number] ####[facility] [id number] [place] [id number] [place] Cesar IgE Qn (S) <0.35 Normal <0.35 [facility] Comment on above: Order Comment: Speci men Type: BLOOD SPECIMENOrdering Facility: [facility] Address: [address] [place], [place] [address] Performed By: #### L [id number] ####[facility] [id number] [address], [facility] [place] Cesar IgE RAST class (S) Class 0 Normal Class 0 [facility] Comment on above: Order Comment: Speci men Type: BLOOD SPECIMENOrdering Facility: [facility] Address: [address] [place], [place] [address] Performed By: #### L [id number] ####[facility] [id number] [place] [id number] [facility] OF [place] White Sravani IgE Qn (S) <0.35 Normal <0.35 [facility] Comment on above: Order Comment: Speci men Type: BLOOD SPECIMENOrdering Facility: [facility] Address: [address] [place], [place] [address] Performed By: #### L [id number] ####[facility] [id number] [address] OF [place] White Sravani IgE RAST class (S) Class 0 Normal Class 0 [facility] Comment on above: Order Comment: Speci men Type: BLOOD SPECIMENOrdering Facility: [facility] Address: [address] [place] [address] Performed By: #### L [id number] ####[facility] [id number] [address] [place] IgE Qn (S) <0.35 Normal <0.35 [facility] Comment on above: Order Comment: Speci men Type: BLOOD SPECIMENOrdering Facility: [facility] Address: [address] [place] [address] Performed By: #### L [id number] ####[facility] [id number] [place] [id number] [facility] OF [place] IgE RAST class (S) Class 0 Normal Class 0 [facility] Comment on above: Order Comment: Speci men Type: BLOOD SPECIMENOrdering Facility: [facility] Address: [address] [place], [place] [address] Performed By: #### L [id number] ####[facility] [id number] [place] [id number] [place] White mulberry IgE Qn (S) <0.35 Normal <0.35 [facility] Comment on above: Order Comment: Speci men Type: BLOOD SPECIMENOrdering Facility: [facility] Address: [address] [place] [address] Performed By: #### L [id number] ####[facility] [id number] [address] [place] White mulberry IgE RAST class (S) Class 0 Normal Class 0 [facility] Comment on above: Order Comment: Speci men Type: BLOOD SPECIMENOrdering Facility: [facility] Address: [address] [place] [address] Performed By: #### L [id number] ####[facility] [id number] [address] [place] IgE Qn (S) <0.35 Normal <0.35 [facility] Comment on above: Order Comment: Speci men Type: BLOOD SPECIMENOrdering Facility: [facility] Address: [address] [place] [address] Performed By: #### L [id number] ####[facility] [id number] [address] OF [place] IgE RAST class (S) Class 0 Normal Class 0 [facility] Comment on above: Order Comment: Speci men Type: BLOOD SPECIMENOrdering Facility: [facility] Address: [address] [place] [address] Performed By: #### L [id number] ####[facility] [id number] [place] [address] [place] CBC W Auto Differential pane l (Bld)on 04-10-2025 Basophils (Bld) [#/Vol] 0.1 10*3/uL NINF [facility] Differential cell count method Nom (Bld) Auto [facility] Eosinophils (Bld) [#/Vol] 0.16 10*3/uL [facility] Immature granulocytes (Bld) [#/Vol] [facility] Immature granulocytes/100 WBC (Bld) 0.3 % [facility] Lymphocytes (Bld) [#/Vol] 2.62 10*3/uL [facility] Monocytes (Bld) [#/Vol] 0.63 10*3/uL [facility] Neutrophils (Bld) [#/Vol] 4.45 10*3/uL [facility] Nucleated RBC (Bld) [#/Vol] [facility] Nucleated RBC/100 WBC (Bld) [Ratio] 0 % /100 WBC [facility] Platelet mean volume (Bld) [Entitic vol] 10.7 fL 9.0 - 12.7 fL [facility] Platelets (Bld) [#/Vol] 250 10*3/uL [facility] WBC (Bld) [#/Vol] 7.98 10*3/uL [facility] Basophils (Bld) [#/Vol] 0.10 10*3/uL Normal <0.11 [facility] Comment on above: Order Comment: Speci men Type: BLOOD SPECIMENOrdering Facility: [facility] Address: [address] [place] [address] Performed By: #### 5 7021-8 ####[facility] [id number] [place] [address] [place] Basophils/100 WBC (Bld) 1.3 % Normal [facility] Comment on above: Order Comment: Speci men Type: BLOOD SPECIMENOrdering Facility: [facility] Address: [address] [place] [address] Performed By: #### 5 7021-8 ####[facility] [id number] [place] [address] [place] Differential cell count method Nom (Bld) Auto Normal [facility] Comment on above: Order Comment: Speci men Type: BLOOD SPECIMENOrdering Facility: [facility] Address: [address] [place] [address] Performed By: #### 5 7021-8 ####[facility] [id number] [address] [place] [address] [place] Eosinophils (Bld) [#/Vol] 0.16 10*3/uL Normal <0.46 [facility] Comment on above: Order Comment: Speci men Type: BLOOD SPECIMENOrdering Facility: [facility] Address: [address] [place] [address] Performed By: #### 5 7021-8 ####[facility] [id number] [address], [place] [address] [place] Eosinophils/100 WBC (Bld) 2.0 % Normal [facility] Comment on above: Order Comment: Speci men Type: BLOOD SPECIMENOrdering Facility: [facility] Address: [address] [place] [address] Performed By: #### 5 7021-8 ####[facility] [id number] [address], [place] [address] [place] Erythrocyte distribution width (RBC) [Ratio] 11.9 % Normal 11.5-15.0 [facility] Comment on above: Order Comment: Speci men Type: BLOOD SPECIMENOrdering Facility: [facility] Address: [address] [place] [address] Performed By: #### 5 7021-8 ####[facility] [id number] [address], [place] [address] [place] Hematocrit (Bld) [Volume fraction] 41.9 % Normal 36.0-46.0 [facility] Comment on above: Order Comment: Speci men Type: BLOOD SPECIMENOrdering Facility: [facility] Address: [address] [place] [address] Performed By: #### 5 7021-8 ####[facility] [id number] [address] [place] [address] [place] Hemoglobin (Bld) [Mass/Vol] 14.3 g/dL Normal 11.5-15.5 [facility] Comment on above: Order Comment: Speci men Type: BLOOD SPECIMENOrdering Facility: [facility] Address: [address] [place] [address] Performed By: #### 5 7021-8 ####[facility] [id number] [place] [id number] [place] Immature granulocytes (Bld) [#/Vol] 10*3/uL Normal <0.10 [facility] Comment on above: Order Comment: Speci men Type: BLOOD SPECIMENOrdering Facility: [facility] Address: [address] [place] [address] Performed By: #### 5 7021-8 ####[facility] [id number] [place] [address] [place] Immature granulocytes/100 WBC (Bld) 0.3 % Normal [facility] Comment on above: Order Comment: Speci men Type: BLOOD SPECIMENOrdering Facility: [facility] Address: [address] [place] [address] Performed By: #### 5 7021-8 ####[facility] [id number] [place] [address] [place] Lymphocytes (Bld) [#/Vol] 2.62 10*3/uL Normal 1.00-4.00 [facility] Comment on above: Order Comment: Speci men Type: BLOOD SPECIMENOrdering Facility: [facility] Address: [address] [place] [address] Performed By: #### 5 7021-8 ####[facility] [id number] [place] [address] [place] Lymphocytes/100 WBC (Bld) 32.8 % Normal [facility] Comment on above: Order Comment: Speci men Type: BLOOD SPECIMENOrdering Facility: [facility] Address: [address] [place] [address] Performed By: #### 5 7021-8 ####[facility] [id number] [place] [address] [place] MCH (RBC) [Entitic mass] 32.2 pg Normal 26.0-34.0 [facility] Comment on above: Order Comment: Speci men Type: BLOOD SPECIMENOrdering Facility: [facility] Address: [address] [place] [address] Performed By: #### 5 7021-8 ####[facility] [id number] [place] [address] [place] MCHC (RBC) [Mass/Vol] 34.1 g/dL Normal 30.5-36.0 [facility] Comment on above: Order Comment: Speci men Type: BLOOD SPECIMENOrdering Facility: [facility] Address: [address] [place] [address] Performed By: #### 5 7021-8 ####[facility] [id number] [place] [address] [place] MCV (RBC) [Entitic vol] 94.4 fL Normal 80.0-100.0 [facility] Comment on above: Order Comment: Speci men Type: BLOOD SPECIMENOrdering Facility: [facility] Address: [address] [place] [address] Performed By: #### 5 7021-8 ####[facility] [id number] [place] [address] [place] Monocytes (Bld) [#/Vol] 0.63 10*3/uL Normal <0.87 [facility] Comment on above: Order Comment: Speci men Type: BLOOD SPECIMENOrdering Facility: [facility] Address: [address] [place] [address] Performed By: #### 5 7021-8 ####[facility] [id number] [address] [place] Monocytes/100 WBC (Bld) 7.9 % Normal [facility] Comment on above: Order Comment: Speci men Type: BLOOD SPECIMENOrdering Facility: [facility] Address: [address] [place] [address] Performed By: #### 5 7021-8 ####[facility] [id number] [facility] [id number] [place] [address] [place] Neutrophils (Bld) [#/Vol] 4.45 10*3/uL Normal 1.45-7.50 [facility] Comment on above: Order Comment: Speci men Type: BLOOD SPECIMENOrdering Facility: [facility] Address: [address] [place] [address] Performed By: #### 5 7021-8 ####[facility] [id number] [place] [address] [place] Neutrophils/100 WBC (Bld) 55.7 % Normal [facility] Comment on above: Order Comment: Speci men Type: BLOOD SPECIMENOrdering Facility: [facility] Address: [address] [place] [address] Performed By: #### 5 7021-8 ####[facility] [id number] [place] [address] [place] Nucleated RBC (Bld) [#/Vol] 10*3/uL Normal <0.01 [facility] Comment on above: Order Comment: Speci men Type: BLOOD SPECIMENOrdering Facility: [facility] Address: [address] [place] [address] Performed By: #### 5 7021-8 ####[facility] [id number] [place] [id number] [place] Nucleated RBC/100 WBC (Bld) [Ratio] 0.0 /100 WBC Normal [facility] Comment on above: Order Comment: Speci men Type: BLOOD SPECIMENOrdering Facility: [facility] Address: [address] [place] [address] Performed By: #### 5 7021-8 ####[facility] [id number] [facility] [address] [place] [address] [place] Platelet mean volume (Bld) [Entitic vol] 10.7 fL Normal 9.0-12.7 [facility] Comment on above: Order Comment: Speci men Type: BLOOD SPECIMENOrdering Facility: [facility] Address: [address] [place] [address] Performed By: #### 5 7021-8 ####[facility] [id number] [facility] [address] [place] [address] [place] Platelets (Bld) [#/Vol] 250 10*3/uL Normal 150-400 [facility] Comment on above: Order Comment: Speci men Type: BLOOD SPECIMENOrdering Facility: [facility] Address: [address] [place] [address] Performed By: #### 5 7021-8 ####[facility] [id number] [address] [place] [address] [place] RBC (Bld) [#/Vol] 4.44 10*6/uL Normal 3.90-5.20 [facility] Comment on above: Order Comment: Speci men Type: BLOOD SPECIMENOrdering Facility: [facility] Address: [address] [place] [address] Performed By: #### 5 7021-8 ####[facility] [id number] [facility] [address] [place] [address] [place] WBC (Bld) [#/Vol] 7.98 10*3/uL Normal 3.70-11.00 [facility] Comment on above: Order Comment: Speci men Type: BLOOD SPECIMENOrdering Facility: [facility] Address: [address] [place] [address] Performed By: #### 5 7021-8 ####[facility] [id number] [place] [address] [place] [facility] CBC W AUTO DIFF BLDon [facility] BASOPHILS # BLD AUTO 0.1 [facility] [place] [facility] DIFFERENTIAL METHOD BLD Auto [facility] EOSINOPHIL # BLD AUTO 0.16 [facility] [place] [facility] LYMPHOCYTES # BLD AUTO 2.62 [facility] MONOCYTES # BLD AUTO 0.63 [facility] [place] [facility] NEUTROPHILS # BLD AUTO 4.45 [facility] NRBC # BLD AUTO <0.01 [facility] [place] [facility] NRBC/100 WBC BLD-RTO 0 /100 WBC [facility] PLATELET # BLD AUTO 250 [facility] PMV BLD AUTO 10.7 fL 9.0 - 12.7 fL [facility] WBC # BLD AUTO 7.98 [facility] IMM GRANULOCYTES # BLD AUTO <0.03 [facility] [place] IMM GRANULOCYTES/LEUK NFR BLD AUTO 0.3 % [facility] Specimen Type: BLOOD SPECIMEN [facility] Address: [address] [place] [address] Original Ordering Provider: AINSLEY Benson 04-10-2025 CNOV Office Visit (OTOLMN ) NIDIA KAYE ([id number]) 1975 F Date Time Provider Department 04/10/25 3:35 PM IFEANYI WILLSON OTOLMN During your visit today, we recorded the following information about you: Adriane Pierre, SOFÍA 04/10/2025 5:51 PM Signed Tobacco Use: Never Was smoking cessation packet given? N/A - Patient is a non-smoker or quit >1 year ago. Was a referral initiated?N/A Patient is a non-smoker Ifeanyi Willson MD 04/10/2025 5:51 PM Signed SECTION OF RHINOLOGY, SINUS AND SKULL BASE SURGERY Head and Neck Raphine, [facility] NOTE HPI: Patient is a 50 year old female who presents with sinusitis in the past 4 years, worse in the last 6 months. She has been on Flonase and Astelin, 2 sprays twice daily without significant improvement in symptoms. She has also done the Neti pot intermittently but she feels like it started getting blocked on the right side. She has had allergy testing in the past and tested positive for trees, weeds and dust mites. Her symptoms include bilateral maxillary sinus facial pressure, anterior and posterior drip which varies between thin and thick. Decreased sense of smell and nasal congestion right worse than left. Worsened of his facial pain and pressure. She has been on a couple rounds of Augmentin, the last of which has been in December. Is given mild improvement in symptoms without full resolution. She has been on prednisone in the past but has had side effects. She had a CT sinus in 2013 which showed clear paranasal sinuses and rightward septal deviation. She also has a history of migraines along the occiput and forehead. She is on Topamax and Imitrex. History of asthma and COPD. Sent by pulmonogist for consideration of biologics. No past medical history on file. No past surgical history on file. No family history on file. Social History Tobacco Use Smoking status: Never Smokeless tobacco: Never Current Outpatient Medications Medication Sig Dispense Refill atorvastatin calcium (ATORVASTATIN ORAL) Take by mouth. mometasone-formoterol (DULERA) 200-5 mcg/actuation inhaler Inhale 2 puffs as instructed two times a day. 39 g 2 ipratropium-albuterol (DUONEB) 0.5 mg-3 mg(2.5 mg base)/3 mL nebu Inhale 3 mL as instructed every 6 hours as needed for wheezing/shortness of breath. 180 mL 2 sodium chloride 3% solution (NEBUSAL) 3 % nebulizer solution Use 4 mL via nebulizer two times a day. 600 mL 2 Nebulizer and Compressor For Neb 1 each as needed for up to 1 day. Use as directed. 1 each 0 estradiol (VIVELLE-DOT) 0.05 mg/24 hr patch Apply 1 patch as directed two times a week. 8 patch 1 SELENIUM ORAL Take by mouth. levothyroxine (SYNTHROID) 112 mcg tablet TAKE 1 TABLET SUNDAY THROUGH SUNDAY. SKIP SUNDAY 78 tablet 3 liothyronine (CYTOMEL) 5 mcg tablet TAKE 1 TABLET BY MOUTH IN THE MORNING AND 1/2 TABLET MID AFTERNOON 135 tablet 3 DHEA vaginal suppository 13 mg (CPD) Unwrap and insert 1 Suppository vaginally as directed every night for the first 2 weeks, and then every other day for 2 months. Then twice a week. 30 Suppository 3 azelastine 0.1% nasal spray Use 1 [place] in each nostril two times a day. montelukast (SINGULAIR) 10 mg tablet Take 10 mg by mouth daily at bedtime. cholecalciferol (VITAMIN D-3) 50 mcg (2,000 unit) tablet Take 2,000 Units by mouth once daily. FLUTICASONE FUROATE INHALATION Inhale 50 mcg as instructed three times a day. 1 spray pyrilamine/dextrometh orphan hb (CAPRON DM ORAL) Take by mouth once daily. fluticasone (FLONASE) 50 mcg/actuation nasal spray Use 2 Sprays in the nose once daily. SUMAtriptan (IMITREX) 50 mg tablet Take 1 tablet PO at onset of headach. May repeat in 2 hours if needed. 0 topiramate (TOPAMAX) 25 mg tablet Take 1 tablet PO BID 5 No current facility-administered medications for this visit. ALLERGIES Allergen Reactions Adhesive Intolerance Does not tolerate skin glue Azithromycin Rash Fentanyl Other: See Comments Headaches and nausea with patch. Has had IV fentanyl without problems Morphine Other: See Comments BP drops PHYSICAL EXAM: There were no vitals filed for this visit. General appearance: well developed, well nourished, without obvious deformities Communication: the patient speaks with a normal voice without hoarseness, no stridor or stertor Overall facial appearance: no obvious scars, lesions or masses Eyes: Extra ocular muscles are grossly intact Ears: Externally normal in appearance, without scars, lesions, or masses. Nasal exam: The septum is Yes deviated, and the visible turbinates are No hypertrophied on anterior rhinoscopy Lips, teeth and gums: No lesions Oral cavity and oropharynx: the oral mucosa, hard and soft palates, tongue, tonsil area, and posterior pharyngeal mucosa are without lesions. Floor of mouth is soft without edema. Neck: th (more content not included)... Normal [facility] CNOV Office Visit (PULMMN ) NIDIA KAYE ([id number]) 1975 F Date Time Provider Department 04/10/25 2:30 PM PULM MAIN RESPIRATORY THERAPYPULMMN During your visit today, we recorded the following information about you: Chantale Chu RRT 04/10/2025 3:12 PM Signed AMBULATORY PATIENT EDUCATION NOTE TOPIC: SURVIVAL SKILLS: Disease Education Medical Equipment nebulizer, acapella Medication Administration DuoNeb 3ml, hypertonic saline(3%) Symptom Management HEALTH PROMOTION: Self management READINESS TO LEARN COGNITIVE ABILITY: Alert and oriented MOTIVATION TO LEARN: Interested FAMILY SUPPORT: High - Very involved in pt care INSTRUCTION PROVIDED TO: Spouse PATIENT LEARNS BEST BY: Multiple Methods FACTORS AFFECTING LEARNING: None PHYSICAL LIMITATIONS AFFECTING LEARNING: None LEARNING RESPONSE DIAGNOSIS: bronchiectasis METHOD OF INSTRUCTION: Individual instruction Written instruction/Handouts Verbal instruction Demonstration/Hands on Learning PATIENT / FAMILY RESPONSE: Verbalizes understanding of: EQUIPMENT USE-Correct use of Equipment MEDICAL REGIMEN-Importance of following prescribed medical regimen MEDICATION PRESCRIBED-Accurate knowledge of prescribed medication prior to discharge MEDICATION ROUTE-Correct route for administration of the prescribed medication SYMPTOM MANAGEMENT-Correct actions to take to manage symptoms associated with his/her disease/illness Performs skill independently: acapella use Information received as demonstrated by interest and questions FOLLOW-UP PLAN: Complete - No need for follow-up Patient instructed to call with any further issues SUPPLEMENTAL MATERIAL: Title of written material: How to use acapella, Airway clearance routine Nebulizer care REFERRAL (RECOMMENDATION): None Order of treatments two times daily is 1. DuoNeb/3ml 2. Acapella airway clearance device, 10-20 breaths followed by 2 duke coughs and a strong cough, repeated for up to 5-10 minutes 3. Hypertonic saline 3% 4. Dulera, 2 puffs The above regimen was taken from pt's homegoing instructions from Dr. Haddad. CHANTALE JACK, NETWORK/TELECOM ENGINEER Time spent on patient education: 20 minutes. Referring Provider: ISABELLA DUEÑAS [[id number]] Allergies As of Date: 04/10/2025 Noted Allergy Reaction ADHESIVE 12/17/2018 5 - Intolerance Comments: Does not tolerate skin glue AZITHROMYCIN 08/15/2013 2 - Rash FENTANYL 07/08/2018 14 - Other: See Comments Comments: Headaches and nausea with patch. Has had IV fentanyl without problems MORPHINE 07/08/2018 14 - Other: See Comments Comments: BP drops Date Reviewed: 04/10/2025 Reviewed by: Rena Haley MA - Fully Assessed Reason for Visit: Airway clearance education [Other] Primary Visit Diagnosis:Centrilobul ar emphysema (HCC) [J43.2] Prescriptions as of 04/10/2025 - mometasone-formoterol (DULERA) 200-5 mcg/actuation inhaler Inhale 2 puffs as instructed two times a day. - ipratropium-albuterol (DUONEB) 0.5 mg-3 mg(2.5 mg base)/3 mL nebu Inhale 3 mL as instructed every 6 hours as needed for wheezing/shortness of breath. - sodium chloride 3% solution (NEBUSAL) 3 % nebulizer solution Use 4 mL via nebulizer two times a day. - Nebulizer and Compressor For Neb 1 each as needed for up to 1 day. Use as directed. - estradiol (VIVELLE-DOT) 0.05 mg/24 hr patch Apply 1 patch as directed two times a week. - atorvastatin calcium (ATORVASTATIN ORAL) Take by mouth. - SELENIUM ORAL Take by mouth. - levothyroxine (SYNTHROID) 112 mcg tablet TAKE 1 TABLET SUNDAY THROUGH SUNDAY. SKIP SUNDAY - liothyronine (CYTOMEL) 5 mcg tablet TAKE 1 TABLET BY MOUTH IN THE MORNING AND 1/2 TABLET MID AFTERNOON - DHEA vaginal suppository 13 mg (CPD) Unwrap and insert 1 Suppository vaginally as directed every night for the first 2 weeks, and then every other day for 2 months. Then twice a week. - azelastine 0.1% nasal spray Use 1 [place] in each nostril two times a day. - montelukast (SINGULAIR) 10 mg tablet Take 10 mg by mouth daily at bedtime. - cholecalciferol (VITAMIN D-3) 50 mcg (2,000 unit) tablet Take 2,000 Units by mouth once daily. - FLUTICASONE FUROATE INHALATION Inhale 50 mcg as instructed three times a day. 1 spray - pyrilamine/dextrometh orphan hb (CAPRON DM ORAL) Take by mouth once daily. - fluticasone (FLONASE) 50 mcg/actuation nasal spray Use 2 Sprays in the nose once daily. - SUMAtriptan (IMITREX) 50 mg tablet Take 1 tablet PO at onset of headach. May repeat in 2 hours if needed. 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] 08/26/2018 Obesity, Class I, BMI 30-34.9 [E66.811] 08/30/2018 Ventral hernia [K43.9] 12/17/2018 Encounter Status:Closed by CHANTALE CHU on 04/10/25 [facility] Office Visit (PULMMN ) NIDIA KAYE ([id number]) 1975 F Date Time Provider Department 04/10/25 1:30 PM AINSLEY HADDAD PULMMN During your visit today, we recorded the following information about you: Temperature Pulse Respiration Blood pressure 98.4 degrees 97/minute 16/minute 122/72 Weight 78.9 kg Ainsley Haddad MD 04/10/2025 5:11 PM Signed Respiratory [facility] Consultation requested for an opinion regarding asthma. My final recommendations will be communicated back to the requesting physician by way of shared Medical record or letter to requesting physician via US mail. Recording using [employer] software for draft documentation of the visit was discussed with the patient/authorized retail sales representative; all questions welcomed and answered. Patient/authorized retail sales representative agreed to proceed CC: Evaluation for UACS/asthma in setting of PI*MF HPI: Nidia Kaye is referred to airways disease clinic for evaluation of UACS/asthma. Nidia Kaye is a 50-year-old female with a history of asthma, presenting with chronic cough and persistent post-nasal drip. Nidia reports a lifelong history of cough, which worsened after jonatan COVID-19 four times. The first episode of COVID-19 led to a diagnosis of long COVID, and she has since experienced persistent symptoms. Around , she began experiencing constant post-nasal drip, which has persisted. The post-nasal drip is sometimes clear but can also be discolored and malodorous, affecting her eating, sleeping, and speaking. She notes a constant sensation of gunk in her throat and has been on 6-7 courses of antibiotics since without improvement. She has not been on steroids since due to previous adverse effects, including weight gain, poor sleep, and joint pain. Nidia also reports dyspnea and wheezing, particularly when climbing stairs. She uses albuterol as a rescue inhaler but finds it ineffective and rarely uses it. She is currently on Dulera, 2 puffs BID, and rinses her mouth after use. She also uses azelastine and Flonase nasal sprays and takes montelukast nightly. She takes Zyrtec in the morning but still experiences rhinorrhea and congestion. She has not seen an ENT or had a CT scan of her sinuses in the past 10 years. She uses a neti pot but finds it ineffective. 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 Nidia has a history of eczema, which she believes was triggered by COVID-19. She also reports mild heartburn, which she manages with [id number]-ojc-beyvgyt medications. She has a history of snoring, which has improved with weight loss. She previously used a CPAP machine but found it ineffective due to her current symptoms. Unknown family history in the context of being adopted. She denies any significant smoking history, having only smoked for a month at age 20. She denies any use of vaping, marijuana, cocaine, or heroin. 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 She has a Sherwood Retriever at home and suspects that the dander may bother her. She lives in a house with central heating and cooling and tries to change the filters regularly. She also uses indoor air purifiers. Current airways regimen - Dulera 100-5 two puffs twice daily, rinsing mouth after use - Azelastine and fluticasone nasal sprays - Montelukast 10 mg nightly - Cetirizine 10 mg daily - Albuterol as needed, not using as much (given did not provide relief) Previous asthma history Triggers: tobacco smoke, pollens/allergens, exercise, odors, upper respiratory infections, and weather changes Hospitalizations: No Intubations: No ED visits in the last year: Steroid bursts in the last year:1 (Multiple antibiotics) Comorbidities: Atopy and Allergic Rhinitis: Yes Upper airway syndrome: Yes, reportedly with polyps (~10 years ago) Vocal cord dysfunction: No GERD: Yes, well controlled ALECIA: Yes, currently not using CPAP Exposures Smoking: never Vaping/Recreational Drug Use: No Occupational exposure history: No 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 Pets: Sherwood retriever at home Patient Entered Questionnaires 12/17/2023 Sleep Apnea Probability Screen Probability of moderate-severe sleep apnea (%) SAPS V2 22 (Sleep study not recommended) 04/09/2025 03/14/2025 COPD Assessment Test (CAT) Score 20 20 04/09/2025 03/14/2025 SARC-F Strength Some Some Assistance in walking None None Rise from a chair None None Climb stairs Some Some Falls None None SARC-F Score 2 (NOT symptomatic for Sarcopenia) 2 (NOT symptomatic for Sarcopenia) REVIEW OF SYMPTOMS: Constitutional: (+) weight gain Ears/Nose/Mouth/Throa t: (+) postnasal drip, (+) nasal congestion, (+ (more content not included)... Normal [facility] IgE SerPl-aCncon 04-10-2025 IgE Qn 5.2 kU/l Normal <114.0 [facility] Comment on above: Order Comment: Speci men Type: BLOOD SPECIMENOrdering Facility: [facility] Address: [address] [place] [address] Performed By: #### 1 9113-0 ####[facility] LABCLIA [id number] [id number], [place] [address] [place] LUNG DIFFUSION CAPACITY (EDOUARD O)on 04-10-2025 LUNG DIFFUSION CAPACITY (DLCO) [facility] [address] [place] [address] Test Date: 2025-04-10 Pat Name: NIDIA KAYE Department: Room: Gender: Female Stave Bolt Equalizer: : 1975 Requested By: Order Number: [id number] Reading MD: Krys Hutton MD Interpretive Statements Pre and Post BD: Current ATS/ERS acceptability and repeatability standards for spirometry met. Start of test and EOFE criteria met. Medications and Allergies were reviewed for possible drug interactions per policy. No contraindications or sensitivities were noted. Meds taken: no meds taken before testing. 2 puffs Albuterol (180 mcg) delivered by MDI via holding chamber. HR pre = 95/min, HR post = 117/min. The two acceptable DLCO measurements obtained were repeatable. //SCB/DO IMPRESSION: Spirometry is normal. Negative bronchodilator response. The diffusion capacity is normal. Electronically Signed On 04-14-2025 12:01:13 EDT by Krys Hutton MD ID: [id number] Name: NIDIA KAYE Race: White Ht: 62.44 in Wt: 173.94 lbs Age: 50 Gender: Female : 1975 Dx: Centrilobular emphysema Smoking Hx: Non-smoker Doctor: AINSLEY HADDAD Test Date: 04/10/2025 Site: Tech: Enedina Chavez PRE-BRONCH POST-BRONCH Hung LLN Pred ULN %Pred ZScore Hung %Pred %Chg ZScore SPIROMETRY FVC 3.78 2.30 3.07 3.86 123 1.48 3.76 122 0 1.45 FEV1 3.00 1.88 2.53 3.15 118 1.25 3.07 121 2 1.44 FEV1/FVC 0.79 0.71 0.82 0.91 97 -0.39 0.82 99 2 -0.05 FEFMax 7.40 4.93 6.56 8.19 112 0.84 6.89 105 -6 0.33 FEF50 3.21 1.89 3.50 5.11 91 -0.30 4.04 115 25 0.55 FIF50 4.12 3.97 -3 FEF50/FIF50 0.78 90-100 1.02 30 FIVC 3.20 3.56 11 WOY61-06 2.80 1.56 2.73 4.20 102 0.09 3.08 112 10 0.43 ExpiredTime 6.68 6.70 0 TimeToFEFMax 0.07 0.09 32 VIJAY 0.07 0.10 51 VolExtrap% 2 3 52 LUNG DIFFUSION DLCOunc 25.38 15.64 19.98 25.17 127 1.71 DLCOStdPB 25.10 15.64 19.98 25.17 125 1.62 VA 4.80 3.75 4.57 5.47 104 0.42 Kco 5.23 3.45 4.41 5.48 118 1.28 Comments: Pre and Post BD: Current ATS/ERS acceptability and repeatability standards for spirometry met. Start of test and EOFE criteria met. Medications and Allergies were reviewed for possible drug interactions per policy. No contraindications or sensitivities were noted. Meds taken: no meds taken before testing. 2 puffs Albuterol (180 mcg) delivered by MDI via holding chamber. HR pre = 95/min, HR post = 117/min. The two acceptable DLCO measurements obtained were repeatable. //SCB/DO Normal [facility] Laboratory - Hematology and Cell countson 04-10-2025 Basophils/100 WBC (Bld) 1.3 % [facility] Eosinophils/100 WBC (Bld) 2 % [facility] Erythrocyte distribution width (RBC) [Ratio] 11.9 % 11.5 - 15.0 % [facility] Hematocrit (Bld) [Volume fraction] 41.9 % 36.0 - 46.0 % [facility] Hemoglobin (Bld) [Mass/Vol] 14.3 g/dL 11.5 - 15.5 g/dL [facility] Lymphocytes/100 WBC (Bld) 32.8 % [facility] MCH (RBC) [Entitic mass] 32.2 pg 26.0 - 34.0 pg [facility] MCHC (RBC) [Mass/Vol] 34.1 g/dL 30.5 - 36.0 g/dL [facility] MCV (RBC) [Entitic vol] 94.4 fL 80.0 - 100.0 fL [facility] Monocytes/100 WBC (Bld) 7.9 % [facility] Neutrophils/100 WBC (Bld) 55.7 % [facility] RBC (Bld) [#/Vol] 4.44 10*6/uL 3.90 - 5.2 0 m/uL [facility] No Panel Informationon 04-10 [facility] SPIROMETRY - BASELINE AND PO ST DILATORon 04-10-2025 SPIROMETRY - BASELINE AND POST DILATOR 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 Start of test and EOFE criteria met. Medications and Allergies were reviewed for possible drug interactions per policy. No contraindications or sensitivities were noted. Meds taken: no meds taken before testing. 2 puffs Albuterol (180 mcg) delivered by MDI via holding chamber. HR pre = 95/min, HR post = 117/min. The two acceptable DLCO measurements obtained were repeatable. //SCB/DO IMPRESSION: Spirometry is normal. Negative bronchodilator response. The diffusion capacity is normal. Electronically Signed On 04-14-2025 12:01:13 EDT by Krys Hutton MD ID: [id number] Name: NIDIA KAYE Race: White Ht: 62.44 in Wt: 173.94 lbs Age: 50 Gender: Female : 1975 Dx: Centrilobular emphysema Smoking Hx: Non-smoker Doctor: AINSLEY HADDAD Test Date: 04/10/2025 Site: Tech: Enedina Chavez PRE-BRONCH POST-BRONCH Hung LLN Pred ULN %Pred ZScore Hugn %Pred %Chg ZScore SPIROMETRY FVC 3.78 2.30 3.07 3.86 123 1.48 3.76 122 0 1.45 FEV1 3.00 1.88 2.53 3.15 118 1.25 3.07 121 2 1.44 FEV1/FVC 0.79 0.71 0.82 0.91 97 -0.39 0.82 99 2 -0.05 FEFMax 7.40 4.93 6.56 8.19 112 0.84 6.89 105 -6 0.33 FEF50 3.21 1.89 3.50 5.11 91 -0.30 4.04 115 25 0.55 FIF50 4.12 3.97 -3 FEF50/FIF50 0.78 90-100 1.02 30 FIVC 3.20 3.56 11 WIC01-63 2.80 1.56 2.73 4.20 102 0.09 3.08 112 10 0.43 ExpiredTime 6.68 6.70 0 TimeToFEFMax 0.07 0.09 32 VIJAY 0.07 0.10 51 VolExtrap% 2 3 52 LUNG DIFFUSION DLCOunc 25.38 15.64 19.98 25.17 127 1.71 DLCOStdPB 25.10 15.64 19.98 25.17 125 1.62 VA 4.80 3.75 4.57 5.47 104 0.42 Kco 5.23 3.45 4.41 5.48 118 1.28 Comments: Pre and Post BD: Current ATS/ERS acceptability and repeatability standards for spirometry met. Start of test and EOFE criteria met. Medications and Allergies were reviewed for possible drug interactions per policy. No contraindications or sensitivities were noted. Meds taken: no meds taken before testing. 2 puffs Albuterol (180 mcg) delivered by MDI via holding chamber. HR pre = 95/min, HR post = 117/min. The two acceptable DLCO measurements obtained were repeatable. //SCB/DO FVC_PRE (L) : 3.78 L FVC_POST (L) : 3.76 L FVC_PRED (L) : 3.07 L FVC_LLN (L) : 2.30 L FVC_ULN (L) : 3.86 L FEV1_PRE (L) : 3.00 L FEV1_POST (L) : 3.07 L FEV1_PRED (L) : 2.53 L FEV1_LLN (L) : 1.88 L FEV1_ULN (L) : 3.15 L FEV1/FVC_PRE (%) : 79 % FEV1/FVC_POST (%) : 82 % FEV1/FVC_PRED (%) : 82 % FEV1/FVC_LLN (%) : 71 % OOP56_RSR (L/S) : 6.15 L/S ESN54_ZJYJ (L/S) : 5.99 L/S AWJ46_YKI (L/S) : 1.21 L/S BJG90_WJRU (L/S) : 1.35 L/S UPP40_GFKF (L/S) : 0.92 L/S SGC15_AAU (L/S) : 0.41 L/S EPV87_ZHF (L/S) : 1.89 L/S YDC54-88%_PRE (L/S) : 2.80 L/S LVG32-01%_POST (L/S) : 3.08 L/S DKK48-27%_PRED (L/S) : 2.73 L/S KOS02-54%_LLN (L/S) : 1.56 L/S PEF_PRE (L/S) : 7.40 L/S PEF_POST (L/S) : 6.89 L/S PEFMAX_LLN (L/S) : 4.93 L/S PEFMAX_ULN (L/S) : 8.19 L/S SVC_PRED (L) : 3.07 L/S SVC_LLN (L) : 2.30 L/S SVC_ULN (L/S) : 3.86 L/S IC_PRED (L) : 2.05 L/S ERV_PREDICTED (L) : 1.02 L/S DLCO (ML/MIN/MMHG) : 25.38 ml/min/mmHg DLCO_PRED (ML/MIN/MMHG) : 19.98 ml/min/mmHg DLCO_LLN(ML/MIN/MMHG) : 15.64 ml/min/mmHg DLCO_ULN (ML/MIN/MMHG) : 25.17 ml/min/mmHg FET_PRE (S) : 6.68 S FET_POST (S) : 6.70 S VA (L) : 4.80 L VA_PRD (L) : 4.57 L DLCO/VA (ML/MIN/MMHG/L) : 0.05 ml/min/mmHg/L DLCO_VA_PRED (L) : 0.05 ml/min/mmHg/L DLCOCOR (ML/MIN/MMHG) : 25.10 ml/min/mmHg DLCOCOR_PRED (ML/MIN/MMHG) : 19.98 ml/min/mmHg DLCO/VACOR (ML/MIN/MMHG/L) : 0.05 ml/min/mmHg/L Normal [facility] ALL CBC WITH AUTO DIFFon BASOPHILS ABSOLUTE AUTO 0.1 [facility] Basophils/100 WBC (Bld) 1.9 % 0.2 - 2.0 % [facility] Eosinophils/100 WBC (Bld) 2.7 % 0.9 - 7.0 % [facility] Erythrocyte distribution width (RBC) [Ratio] 11.9 % 11.0 - 15.0 % [facility] Hematocrit (Bld) [Volume fraction] 43.2 % 36.0 - 48.0 % [facility] Hemoglobin (Bld) [Mass/Vol] 14.4 g/dL 12.0 - 16.0 g/dL [facility] IMMATURE GRANULOCYTES ABS AUTO 0.01 [facility] Immature granulocytes/100 WBC (Bld) 0.2 % 0.0 - 0.5 % [facility] Interpretation and review of laboratory results Abnormal [facility] LYMPHOCYTES ABSOLUTE AUTO 2 [facility] Lymphocytes/100 WBC (Bld) 32.6 % 20.5 - 60.0 % [facility] MCH (RBC) [Entitic mass] 33.4 pg 26.7 - 34.0 pg [facility] MCHC (RBC) [Mass/Vol] 33.3 g/dL 29.9 - 35.2 g/dL [facility] MCV (RBC) [Entitic vol] 100.2 fL High 81.0 - 99.0 fL [facility] MONOCYTES ABSOLUTE AUTO 0.6 [facility] Monocytes/100 WBC (Bld) 8.8 % 1.7 - 12.0 % [facility] NEUTROPHILS ABSOLUTE AUTO 3.4 [facility] Neutrophils/100 WBC (Bld) 53.8 % 43.0 - 75.0 % [facility] Platelet mean volume (Bld) [Entitic vol] 10.3 fL 9.5 - 13.5 fL [facility] TBH EO # 0.2 [facility] TB PLT 272 [facility] RBC 4.31 [facility] WBC 6.3 [facility] No Panel Informationon 01-14 [facility] UA (CLEAN/CATCH) MICROSC OPIC IF INDICATEon 01-14-2025 BILIRUBIN URINE Negative NEGATIVE [facility] BLOOD URINE Negative NEGATIVE [facility] Clarity (U) CLEAR CLEAR [facility] Color (U) LT. YELLOW YELLOW [facility] GLUCOSE URINE UA Negative NEGATIVE mg/dL [facility] Ketones Ql (U) Negative NEGATIVE mg/dL [facility] Leukocyte esterase Test strip Ql (U) Negative NEGATIVE [facility] NITRITE URINE Negative NEGATIVE [facility] pH (U) 6.0 [pH] 5.0 - 9.0 [facility] PROTEIN URINE Negative NEG/TRACE mg/dL [facility] SPECIFIC GRAVITY URINE 1.020 1.005 - 1.025 [facility] URINE MICROSCOPIC INDICATED NO [facility] UROBILINOGEN URINE 0.2 EU/dL 0.2 - 1.0 EU/dL [facility] Laboratory - Microbiology an d Antimicrobial susceptibilityon 11-04-2024 SARS-CoV-2 (COVID-19) RNA CAYETANO+probe Ql (Unsp spec) Negative [facility] No Panel Informationon 11-04 Interpretation and review of laboratory results Normal [facility] No Panel InformationOrdered By: Clarissa Martell on 06-16-2024 Quick Strep (POC) [facility] Basic metabolic 2000 panelon 12-24-2023 Anion gap [Moles/Vol] 14 mmol/L 9 - 18 mmol/L [facility] Calcium [Mass/Vol] 9.8 mg/dL 8.5 - 10. 2 mg/dL [facility] Chloride [Moles/Vol] 107 mmol/L High 97 - 10 5 mmol/L [facility] CO2 [Moles/Vol] 22 mmol/L 22 - 30 mmol/L [facility] Creatinine [Mass/Vol] 0.76 mg/dL 0.58 - 0.96 mg/dL [facility] Estimated Glomerular Filtration Rate 98 mL/min/1.73m >=60 mL/min/1.73m [facility] Glucose [Mass/Vol] 84 mg/dL 74 - 99 mg/dL [facility] Potassium [Moles/Vol] 4.2 mmol/L 3.7 - 5.1 mmol/L [facility] Sodium [Moles/Vol] 143 mmol/L 136 - 144 mmol/L [facility] Urea nitrogen [Mass/Vol] 10 mg/dL 7 - 21 mg/dL [facility] C-REACTIVE ULTRA SENon 12-23 CRP High sensitivity method [Mass/Vol] 2.7 mg/L <3.1 mg/L [facility] CBC W Auto Differential pane l (Bld)on 12-24-2023 Basophils (Bld) [#/Vol] 0.10 10*3/uL <0.11 k/uL [facility] Basophils/100 WBC (Bld) 1.5 % [facility] Differential cell count method Nom (Bld) Auto [facility] Eosinophils (Bld) [#/Vol] 0.19 10*3/uL <0.46 k/uL [facility] Eosinophils/100 WBC (Bld) 2.8 % [facility] Erythrocyte distribution width (RBC) [Ratio] 12.2 % 11.5 - 15.0 % [facility] Hematocrit (Bld) [Volume fraction] 42.8 % 36.0 - 46.0 % [facility] Hemoglobin (Bld) [Mass/Vol] 14.6 g/dL 11.5 - 15.5 g/dL [facility] Immature granulocytes (Bld) [#/Vol] 0.03 10*3/uL <0.10 k/uL [facility] Immature granulocytes/100 WBC (Bld) 0.4 % [facility] Lymphocytes (Bld) [#/Vol] 2.17 10*3/uL 1.00 - 4.00 k/uL [facility] Lymphocytes/100 WBC (Bld) 31.7 % [facility] MCH (RBC) [Entitic mass] 32.0 pg 26.0 - 34.0 pg [facility] MCHC (RBC) [Mass/Vol] 34.1 g/dL 30.5 - 36.0 g/dL [facility] MCV (RBC) [Entitic vol] 93.9 fL 80.0 - 100.0 fL [facility] Monocytes (Bld) [#/Vol] 0.54 10*3/uL <0.87 k/uL [facility] Monocytes/100 WBC (Bld) 7.9 % [facility] Neutrophils (Bld) [#/Vol] 3.81 10*3/uL 1.45 - 7.50 k/uL [facility] Neutrophils/100 WBC (Bld) 55.7 % [facility] Nucleated RBC (Bld) [#/Vol] <0.01 k/uL [facility] Nucleated RBC/100 WBC (Bld) [Ratio] 0.0 /100 WBC [facility] Platelet mean volume (Bld) [Entitic vol] 10.3 fL 9.0 - 12.7 fL [facility] Platelets (Bld) [#/Vol] 278 10*3/uL 150 - 400 k/uL [facility] RBC (Bld) [#/Vol] 4.56 10*6/uL 3.90 - 5.2 0 m/uL [facility] WBC (Bld) [#/Vol] 6.84 10*3/uL 3.70 - 11. 00 k/uL [facility] ESR Westergren method (Bld) [Velocity]on 12-24-2023 ESR (Bld) [Velocity] 8 mm/h 0 - 20 mm/hr [facility] FERRITIN BLDon 12-24-2023 Ferritin [Mass/Vol] 161.0 ng/mL 14.7 - 2 05.1 ng/mL [facility] FOLATE SERUMon 12-24-2023 Folate [Mass/Vol] 10.8 ng/mL >4.7 ng/mL [facility] GGT BLDon 12-24-2023 Gamma glutamyl transferase [Catalytic activity/Vol] 23 U/L 6 - 46 U/L [facility] HOMOCYSTEINEon 12-24-2023 Homocysteine [Moles/Vol] 13.6 umol/L <15.1 umol/L [facility] HbA1c (Bld)on 12-24-2023 Average glucose Estimated from glycated hemoglobin (Bld) [Mass/Vol] 114 mg/dL [facility] HbA1c (Bld) [Mass fraction] 5.6 % 4.3 - 5.6 % [facility] Hepatic function 2000 panelo n 12-24-2023 Albumin [Mass/Vol] 4.3 g/dL 3.9 - 4.9 g/dL [facility] ALP [Catalytic activity/Vol] 64 U/L 34 - 123 U/L [facility] ALT [Catalytic activity/Vol] 44 U/L High 7 - 38 U/L [facility] AST [Catalytic activity/Vol] 35 U/L 13 - 35 U/L [facility] Bilirubin [Mass/Vol] 0.2 mg/dL 0.2 - 1 .3 mg/dL [facility] Bilirubin.conjugated [Mass/Vol] <0.2 mg/dL [facility] Protein [Mass/Vol] 6.8 g/dL 6.3 - 8.0 g/dL [facility] INSULIN ASSAY BLOODon 2023 Insulin Qn 12.0 u[IU]/mL 3.0 - 25.0 mU/L [facility] [facility] binding capaci ty panelon 12-24-2023 Iron [Mass/Vol] 91 ug/dL 41 - 186 ug/dL [facility] Iron binding capacity [Mass/Vol] 339 ug/dL 232 - 386 ug/dL [facility] Iron/TIBC [Molar ratio] 26.8 % 15.0 - 57.0 % [facility] 12-[facility]-2023 Free T3 [Mass/Vol] 2.8 pg/mL 2.3 - 4.1 pg/mL [facility] T4 FREE/FREE THYROXon 2023 Free T4 [Mass/Vol] 0.9 ng/dL 0.9 - 1.7 ng/dL [facility] TRANSFERRIN Don 12-24-2023 Transferrin [Mass/Vol] 279 mg/dL 200 - 360 mg/dL [facility] TSH Don 12-24-2023 TSH Qn 2.060 m[IU]/L 0.270 - 4.200 mIU/L [facility] URIC ACID BLOODon 12-24-2023 Urate [Mass/Vol] 4.2 mg/dL 2.5 - 6.6 mg/dL [facility] VITAMIN B12 BLOODon 12-24-19 Cobalamin (Vitamin B12) [Mass/Vol] 350 pg/mL 232 - 1,245 pg/mL [facility] Chay 10-15-2023 L Specimen: [id number] Received: 10/15/23 Status: SOUT Req Num: [id number] Spec Type: Surgical Subm Dr: Maury Aguirre MD Tissues: A Colon Biopsy (RANDOM COLON) Procedures: HE/2, Gross/Micro L4 Age/ Patient Sex Location Account Attending Physician Nidia Kaye 48/F [id number] Maury Aguirre MD SPEC NUM: [id number] RECD: 10/15/23 STATUS: MARY ANDREINA NUM: [id number] MIRZA: 10/15/[address]: Maury Aguirre MD ENTERED: 10/15/[address] [facility] [address]: SPEC TYPE: Surgical DEPT: S ORDERED: HE/2, Gross/Micro L4 ORDERED: HE/2, Gross/Micro L4 Pathological Diagnosis Random colon, biopsies: - Benign colonic mucosa with no features of microscopic colitis, collagenous colitis or other forms of colitis. Clinical Information Diarrhea, constipation, rule out microscopic colitis Gross Description Received in formalin labeled with the patient's name, date of and random colon biopsy is one bob tissue 0.6 x 0.2 x 0.1 cm. Entirely submitted in one cassette labeled A1. CPT Codes 08367 -------- -------- Specimen: [id number] Received: 10/15/23 Status: MARY Andreina Num: [id number] Spec Type: Surgical Subm Dr: Maury Aguirre MD Tissues: A Colon Biopsy (RANDOM COLON) Procedures: HE/2, Gross/Micro L4 -------- Patient: Nidia Kaye [id number] (Continued) -------- Signed (signature on file) Fabiola Bhardwaj MD 10/16/23 1000 Normal [facility] ECHOCARDIO M/2D COMPLETEon 0 02-01-2023 ECHOCARDIO M/2D COMPLETE Patient: NIDIA KAYE. Exam Date: 02/01/2023 : 1975 Gender:F Ordering : DR. FANNY THOMPSON . Admission #: [id number] Family : Order #: [id number] CLICK HERE TO VIEW EXAM ECHOCARDIOGRAM REPORT PROCEDURE: CARDIO PULMONARY ECHOCARDIO M/2D COMP INDICATIONS: Chest pain, Shortness of breath COMPARISON: None. DESCRIPTION: COMPLETE ECHOCARDIOGRAM Real-time transthoracic echocardiography with 2D, M-mode, spectral and color flow Doppler performed. QUALITY: Technical quality was good. LEFT VENTRICLE: Normal chamber size. Normal left ventricular wall thickness. LV EF: Global left ventricular systolic function is normal. Calculated left ventricular ejection fraction is 58% DIASTOLIC: Normal diastolic function. ATRIAL SEPTUM: Inadequately seen. LEFT ATRIUM: Normal chamber size. RIGHT ATRIUM: Normal chamber size. RIGHT VENTRICLE: Normal chamber size. Normal right ventricular systolic function. TRICUSPID VALVE: Normal mobility and thickness. Trivial regurgitation. No evidence of pulmonary hypertension. RVSP 12mmHg MITRAL VALVE: Normal mobility and thickness. No evidence of mitral valve stenosis. There is no mitral annular calcification. No mitral regurgitation. AORTIC VALVE: Normal trileaflet appearance. No visible sclerosis. Normal leaflet mobility. No evidence of aortic valve stenosis. No aortic regurgitation. AORTIC ROOT: Normal diameter and appearance. PULMONIC VALVE: Normal thickness and mobility. No stenosis. No regurgitation. PERICARDIUM: No evidence of pericardial effusion. IVC: Collapses with inspirations. Normal size CONCLUSION: Global left ventricular systolic function is normal; visually estimated ejection fraction is 55 to 60%. No significant wall motion abnormalities. Normal diastolic function. The right ventricle is normal in size and systolic function. No significant valvular abnormalities. Adult Echocardiography Procedure Report Left Ventricle LVEDD (3.7 - 5.6 cm): 4.18 cm LVESD (2.2 - 4.0 cm): 2.74 cm LVIVS thickness (0.6 - 1.2 cm): 0.71 cm LVPW thickness (0.5 - 1.0 cm): 0.71 cm e': 0.11 m/s E - e': 6.23 LVOT Max Gradient: 1.24 mm[Hg] Peak Velocity (LVOT): 0.56 m/s Mean Velocity (LVOT): 0.37 m/s LVOT Diameter 1.93 cm Left Ventricular Ejection Fraction: 63.97 %, 63.97 % Left Atrium LA Volume Index (2D A2C): 51.17 ml, 51.17 ml Left Atrium Systolic Dimension: 3.85 cm Mitral Valve MV E to A Ratio: 1.02, 1.20 Mitral Valve A-Wave Peak Velocity: 0.66 m/s, 0.58 m/s Mitral Valve E-Wave Peak Velocity: 0.68 m/s, 0.70 m/s Right Ventricle RV Internal Diastolic Dimension: 2.99 cm Aorta AO Root Diam: 2.42 cm Ascending Ao Diam: 2.41 cm Aortic Valve AoV Area (Peak Juan): 1.80 cm2, 1.80 cm2 AoV Area (VTI): 1.64 cm2, 1.64 cm2 Peak Velocity(Antegrade Flow): 0.90 m/s Peak Gradient(Antegrade Flow): 3.26 mm[Hg] Mean Velocity(Antegrade Flow): 0.62 m/s Mean Gradient(Antegrade Flow): 1.72 mm[Hg] Velocity Time Integral: 21.89 cm Tricuspid Valve Peak Velocity (Regurgitant Flow): 1.41 m/s, 1.51 m/s Peak Velocity: 0.55 m/s Pulmonic Valve Mean Gradient: 1.94 mm[Hg], 2.07 mm[Hg] Mean Velocity: 0.66 m/s, 0.68 m/s Peak Velocity: 0.87 m/s, 0.90 m/s Peak Gradient: 3.06 mm[Hg], 3.26 mm[Hg] Right Atrium Right Atrium Systolic Pressure: 20.38 ml, 20.38 ml Dictated by: Gautam Valera M.D. on 02/01/2023 at 15:01 Approved by: Gautam Valera M.D. on 02/01/2023 at 15:04 Normal [facility] NM STRESS/REST MULTIon 02-01 NM STRESS/REST MULTI Patient: NIDIA KAYE Exam Date: 02/01/2023 : 1975 Gender:F Ordering : DR. FANNY THOMPSON . Admission #: [id number] Family : Order #: [id number] CLICK HERE TO VIEW EXAM RADIOLOGY REPORT PROCEDURE: RADIONUCLIDE IMAGING STRESS/REST MULTI COMPARISON: None. INDICATIONS: Chest pain TECHNIQUE: Exam Description: Stress/Rest one day protocol gated SPECT Rest Imagin.4 mCi Tc-99m Cardiolite IV on 02/01/2023 Stress Imaging 29.7 mCi Tc-99m Cardiolite IV on 02/01/2023 Exercise Protocol: 0.4 mg Lexiscan given IV Heart Rate (bpm): Rest: 71 Max: 107 PMHR: 61 Blood Pressure: Rest: 118/74 Max: 118/74 Symptoms: Rest and peak stress ECG findings were normal and the exercise portion of the study was normal per attending physician Dr. Thompson . For more details please see separate cardiac stress test report. FINDINGS: QUALITY OF STUDY: Excellent. PERFUSION DEFECT: None. LOCATION: N/A SIZE: N/A. SEVERITY: N/A. TYPE: N/A. WALL MOTION: Normal. LV SIZE: Normal. 60 mL. TID / TCD: None; 0.6 LVEF: Normal. Calculated EF 84%. SUMMARY: Myocardial perfusion imaging study is NORMAL. CONCLUSION: 1. Normal nuclear medicine myocardial perfusion scan. Dictated by: Good Gutierrez M.D. on 02/01/2023 at 14:31 Approved by: Good Gutierrez M.D. on 02/01/2023 at 14:32 Normal [facility] HEMOGLOBINon 01-10-2023 Hemoglobin (Bld) [Mass/Vol] 14.4 g/dL Normal 12.0-16.0 [facility] Comment on above: Performed By: #### H GB #### [facility] Laboratory [address] [address] [address] 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 FANNY THOMPSON . Order #: [id number] CLICK HERE TO VIEW EXAM RADIOLOGY REPORT PROCEDURE: MAMMOGRAM SCREENING 3D BILATERAL CAD COMPARISON: MG MAMM SCREEN 3D LANG CAD, 01/03/2022. MG MAMM LT DIAG FU, 09/18/2019. MG MAMM SCREEN LANG W CAD, 08/06/2018. INDICATIONS: Screening mammography Calculator Name NCI Breast Cancer Risk Assessment Tool 5 Year Breast Cancer Risk 0.70% Lifetime Breast Cancer Risk 8.60% Personal Breast Cancer No Personal Ovarian Cancer No Treatments None Family Cancers None LOCATION: [facility] BREAST COMPOSITION: Almost entirely fatty. FINDINGS: DIAGNOSTIC CATEGORY 2--BENIGN FINDING: RIGHT BREAST: No significant suspicious finding. Scattered benign-appearing calcifications are present. This exam includes additional mammographic views for implant evaluation and shows no visible implant abnormality. No significant change has occurred. LEFT BREAST: No significant suspicious finding. Scattered benign-appearing calcifications are present. This exam includes additional mammographic views for implant evaluation and shows no visible implant abnormality. No significant change has occurred. RECOMMENDATIONS: ROUTINE MAMMOGRAM AND CLINICAL EVALUATION IN 12 MONTHS. PLEASE NOTE: A NORMAL MAMMOGRAM DOES NOT EXCLUDE THE POSSIBILITY OF BREAST CANCER. A CLINICALLY SUSPICIOUS PALPABLE LUMP SHOULD BE BIOPSIED. Dictated by: Good Gutierrez M.D. on 01/10/2023 at 12:15 Approved by: Godo Gutierrez M.D. on 01/10/2023 at 12:18 Normal [facility] CT SINUSES WO CONon 03-16-[address] SINUSES WO CON EXAMINATION: CT SINUSES WO CON HISTORY: Chronic sinusitis COMPARISON: No relevant comparison available. TECHNIQUE: Axial and Coronal CT images were created without IV contrast. Dose reduction techniques were achieved by using automated exposure control and/or adjustment of mA and/or kV according to patient size and/or use of iterative reconstruction technique. FINDINGS: MAXILLARY SINUSES: No significant mucosal thickening or fluid. Infundibula are patent. No significant anomalous inferior orbital ethmoid (Lopez) air cells. ETHMOID SINUSES: No significant mucosal thickening or fluid. Fovea ethmoidali and lamina papyracea are symmetric and intact. SPHENOID SINUSES: No significant mucosal thickening or fluid. Sphenoethmoidal recesses are patent. No bony dehiscence. FRONTAL SINUSES: No significant mucosal thickening or fluid. Frontal recesses are patent. NASAL FOSSA: 4 mm rightward deviation of the nasal septum. Amanda bullosa of the left middle turbinate. OTHER: Negative. Limited views of the skull base and orbits are unremarkable. IMPRESSION: 1. No CT evidence of acute or chronic sinusitis. Electronically authenticated by: GOOD GUTIERREZ Date: 2022-12-07 16:49 Normal [facility]on 07-26 SARS-CoV-2 (COVID-19) RNA CAYETANO+probe Ql (Unsp spec) Not detected Normal NOT DETECTED [facility] Comment on above: Result Comment: When diagnostic testing is negative, the possibility of a false negative should be considered in the context of a patient's recent exposures and the presence of clinical signs and symptoms consistent with SARS-CoV-2. This test is not yet approved or cleared by the [place] FDA. When there are no FDA-approved or cleared tests available, and other criteria are met, FDA can make tests available under an emergency access mechanism called an Emergency Use Authorization (EUA). The EUA for this test is supported by the [place] of Health and Human Service's declaration that circumstances exist to justify the emergency use of in vitro diagnostics for the detection and/or diagnosis of the virus that causes COVID-19. This EUA will remain in effect for the duration of the COVID-19 declaration justifying emergency of IVDs, unless it is terminated or revoked by the FDA (after which the test may no longer be used). Performed By: #### C VDTBH #### [facility] [address], [place] [address] Dr. Lul Hart Covid-19 PCR ([facility])on 05-26 SARS-CoV-2 (COVID-19) RNA CAYETANO+probe Ql (Unsp spec) Detected Critically abnormal NOT DETECTED [facility] Comment on above: Result Comment: This test is not yet approved or cleared by the [place] FDA. When there are no FDA-approved or cleared tests available, and other criteria are met, FDA can make tests available under an emergency access mechanism called an Emergency Use Authorization (EUA). The EUA for this test is supported by the [place] of Health and Human Service's (HHS's) declaration that circumstances exist to justify the emergency use of in vitro diagnostics for the detection and/or diagnosis of the virus that causes COVID-19. This EUA will remain in effect (meaning this test can be used) for the duration of the COVID-19 declaration justifying emergency of IVDs, unless it is terminated or revoked by FDA (after which the test may no longer be used). Performed By: #### C VDTB #### [facility] [address], [place] [address] Dr. Lul Hart Vital Signs Date Time Vital Sign Value Performing Clinician Facility 05-15-2025 12:58-0400 Body mass index (BMI) [Ratio] 32.06 kg/m2 Paulo Hurtado MD Work Phone: [facility] 05-15-2025 12:58-0400 Body temperature 97.39 [degF] Paulo Hurtado MD Work Phone: [facility] 05-15-2025 12:58-0400 Body weight 80.65 kg Paulo Hurtado MD Work Phone: [facility] 05-15-2025 12:58-0400 Diastolic blood pressure 85 mm[Hg] Paulo Hurtado MD Work Phone: [facility] 05-15-2025 12:58-0400 Heart rate 90 /min Paulo Hurtado MD Work Phone: [facility] 05-15-2025 12:58-0400 Respiratory rate 20 /min Paulo Hurtado MD Work Phone: [facility] 05-15-2025 12:58-0400 SaO2% (BldA) [Mass fraction] 99 % Paulo Hurtado MD Work Phone: [facility] 05-15-2025 12:58-0400 Systolic blood pressure 100 mm[Hg] Paulo Hurtado MD Work Phone: [facility] 04-10-2025 13:29-0400 Body mass index (BMI) [Ratio] 31.37 kg/m2 Ainsley Haddad MD Work Phone: [facility] 04-10-2025 13:29-0400 Body temperature 98.4 [degF] Ainsley Haddad MD Work Phone: [facility] 04-10-2025 13:29-0400 Body weight 78.9 kg Ainsley Haddad MD Work Phone: [facility] 04-10-2025 13:29-0400 Diastolic blood pressure 72 mm[Hg] Ainsley Haddad MD Work Phone: [facility] 04-10-2025 13:29-0400 Heart rate 97 /min Ainsley Haddad MD Work Phone: [facility] 04-10-2025 13:29-0400 Respiratory rate 16 /min Ainsley Haddad MD Work Phone: [facility] 04-10-2025 13:29-0400 SaO2% (BldA) [Mass fraction] 100 % Ainsley Haddad MD Work Phone: [facility] 04-10-2025 13:29-0400 Systolic blood pressure 122 mm[Hg] Ainsley Haddad MD Work Phone: [facility] 04-10-2025 12:52-0400 Body height 158.6 cm Pulm 7 [facility] 04-10-2025 12:52-0400 Body mass index (BMI) [Ratio] 31.37 kg/m2 Pulm 7 [facility] 04-10-2025 12:52-0400 Body weight 78.9 kg Pulm 7 [facility] 03-05-2025 15:05-0400 Body mass index (BMI) [Ratio] 32.08 kg/m2 Isabella Powersmiguelito [employer] Work Phone: [facility] 03-05-2025 15:05-0400 Body temperature 98.49 [degF] Isabella Giowalterholz [employer] Work Phone: [facility] 03-05-2025 15:05-0400 Body weight 79.56 kg Isabella Karenz [employer] Work Phone: [facility] 03-05-2025 15:05-0400 Diastolic blood pressure 82 mm[Hg] Isabella Karenz [employer] Work Phone: [facility] 03-05-2025 15:05-0400 Heart rate 101 /min Isabella Giodayannaz [employer] Work Phone: [facility] 03-05-2025 15:05-0400 Respiratory rate 20 /min Isabella Anitaholz [employer] Work Phone: [facility] 03-05-2025 15:05-0400 SaO2% (BldA) [Mass fraction] 98 % Isabella Giodayannaz [employer] Work Phone: [facility] 03-05-2025 15:05-0400 Systolic blood pressure 118 mm[Hg] Isabella Giodayannaz [employer] Work Phone: [facility] 11-04-2024 11:39-0500 Body mass index (BMI) [Ratio] 32.52 kg/m2 Isabella Giowalterholz [employer] Work Phone: [facility] 11-04-2024 11:39-0500 Body temperature 98.29 [degF] Isabella Karenz [employer] Work Phone: [facility] 11-04-2024 11:39-0500 Body weight 80.65 kg Isabella Aichholz [employer] Work Phone: [facility] 11-04-2024 11:39-0500 Diastolic blood pressure 74 mm[Hg] Isabella Aichholz [employer] Work Phone: [facility] 11-04-2024 11:39-0500 Heart rate 103 /min Isabella Aichholz [employer] Work Phone: [facility] 11-04-2024 11:39-0500 Respiratory rate 20 /min Isabella Aichholz [employer] Work Phone: [facility] 11-04-2024 11:39-0500 SaO2% (BldA) [Mass fraction] 98 % Isabella Giohholz [employer] Work Phone: [facility] 11-04-2024 11:39-0500 Systolic blood pressure 110 mm[Hg] Isabella Aichholz [employer] Work Phone: [facility] 10-01-2024 09:06-0500 Body mass index (BMI) [Ratio] 34.02 kg/m2 Isabella Giohholz [employer] Work Phone: [facility] 10-01-2024 09:06-0500 Body temperature 98.29 [degF] Isabella Anitaholz [employer] Work Phone: [facility] 10-01-2024 09:06-0500 Body weight 84.37 kg Isabella Giohholz [employer] Work Phone: [facility] 10-01-2024 09:06-0500 Diastolic blood pressure 80 mm[Hg] Isabella Aichholz [employer] Work Phone: [facility] 10-01-2024 09:06-0500 Heart rate 99 /min Isabella Aichholz [employer] Work Phone: [facility] 10-01-2024 09:06-0500 Respiratory rate 26 /min Isabella Aichholz [employer] Work Phone: [facility] 10-01-2024 09:06-0500 SaO2% (BldA) [Mass fraction] 100 % Isabella Anitaholz [employer] Work Phone: [facility] 10-01-2024 09:06-0500 Systolic blood pressure 110 mm[Hg] Isabella Giohholz [employer] Work Phone: [facility] 08-28-2024 15:36-0500 Body height 157.5 cm Isabella Aichholz [employer] Work Phone: [facility] 08-28-2024 15:36-0500 Body mass index (BMI) [Ratio] 35.01 kg/m2 Isabella Giohholz [employer] Work Phone: [facility] 08-28-2024 15:36-0500 Body temperature 98.1 [degF] Isabella Giohholz [employer] Work Phone: [facility] 08-28-2024 15:36-0500 Body weight 86.82 kg Isabella Giohholz [employer] Work Phone: [facility] 08-28-2024 15:36-0500 Diastolic blood pressure 76 mm[Hg] Isabella Aichholz [employer] Work Phone: [facility] 08-28-2024 15:36-0500 Heart rate 108 /min Isabella Giohholz [employer] Work Phone: [facility] 08-28-2024 15:36-0500 Respiratory rate 18 /min Isabella Giohholz [employer] Work Phone: [facility] 08-28-2024 15:36-0500 SaO2% (BldA) [Mass fraction] 98 % Isabella Giohholz [employer] Work Phone: [facility] 08-28-2024 15:36-0500 Systolic blood pressure 108 mm[Hg] Isabella Aichholz [employer] Work Phone: [facility] 07-29-2024 08:59-0500 Body height 157.5 cm Isabella Aichholz [employer] Work Phone: [facility] 07-29-2024 08:59-0500 Body mass index (BMI) [Ratio] 35.19 kg/m2 Isabella Jonesz [employer] Work Phone: [facility] 07-29-2024 08:59-0500 Body temperature 97.81 [degF] Isabella Howardholz [employer] Work Phone: [facility] 07-29-2024 08:59-0500 Body weight 87.27 kg Isabella Howardholz [employer] Work Phone: [facility] 07-29-2024 08:59-0500 Diastolic blood pressure 80 mm[Hg] Isabella Giohholz [employer] Work Phone: [facility] 07-29-2024 08:59-0500 Heart rate 97 /min Isabella Howardholz [employer] Work Phone: [facility] 07-29-2024 08:59-0500 Respiratory rate 18 /min Isabellastephanie Howardholz [employer] Work Phone: [facility] 07-29-2024 08:59-0500 SaO2% (BldA) [Mass fraction] 99 % Isabella Anitaholz [employer] Work Phone: [facility] 07-29-2024 08:59-0500 Systolic blood pressure 116 mm[Hg] Isabella Howardholz [employer] Work Phone: [facility] 06-30-2024 08:48-0400 Body height 157.5 cm Isabella Howardholz [employer] Work Phone: [facility] 06-30-2024 08:48-0400 Body mass index (BMI) [Ratio] 36.25 kg/m2 Isabella Anitaholz [employer] Work Phone: [facility] 06-30-2024 08:48-0400 Body temperature 98.1 [degF] Isabella Howardholz [employer] Work Phone: [facility] 06-30-2024 08:48-0400 Body weight 89.9 kg Isabella Anitaholz [employer] Work Phone: [facility] 06-30-2024 08:48-0400 Diastolic blood pressure 80 mm[Hg] Isabella Howardholz [employer] Work Phone: [facility] 06-30-2024 08:48-0400 Heart rate 104 /min Isabellastephanie Howardholz [employer] Work Phone: [facility] 06-30-2024 08:48-0400 Respiratory rate 19 /min Isabellastephanie Howardholz [employer] Work Phone: [facility] 06-30-2024 08:48-0400 SaO2% (BldA) [Mass fraction] 96 % Isabellastephanie Howardholz [employer] Work Phone: [facility] 06-30-2024 08:48-0400 Systolic blood pressure 102 mm[Hg] Isabella Anitaholz [employer] Work Phone: [facility] 06-16-2024 14:57-0400 Body height 157.48 cm [facility] 06-16-2024 14:57-0400 Body mass index (BMI) [Ratio] 37.1 kg/m2 [facility] 06-16-2024 14:57-0400 Body temperature 98.1 [degF] [facility] 06-16-2024 14:57-0400 Body weight 92.07 kg [facility] 06-16-2024 14:57-0400 Diastolic blood pressure 71 mm[Hg] [facility] 06-16-2024 14:57-0400 Heart rate 116 /min [facility] 06-16-2024 14:57-0400 Respiratory rate 18 /min [facility] 06-16-2024 14:57-0400 SaO2% (BldA) [Mass fraction] 99 % [facility] 06-16-2024 14:57-0400 Systolic blood pressure 101 mm[Hg] [facility] 06-02-2024 13:58-0400 Body height 157.5 cm Isabella Howardholz [employer] Work Phone: [facility] 06-02-2024 13:58-0400 Body mass index (BMI) [Ratio] 38.26 kg/m2 Isabella Jonesz [employer] Work Phone: [facility] 06-02-2024 13:58-0400 Body temperature 97.11 [degF] Isabella Jonesz [employer] Work Phone: [facility] 06-02-2024 13:58-0400 Body weight 94.89 kg Isabella Jonesz [employer] Work Phone: [facility] 06-02-2024 13:58-0400 Diastolic blood pressure 78 mm[Hg] Isabella Anitaholz [employer] Work Phone: [facility] 06-02-2024 13:58-0400 Heart rate 78 /min Isabella Jonesz [employer] Work Phone: [facility] 06-02-2024 13:58-0400 Respiratory rate 22 /min Isabella Jonesz [employer] Work Phone: [facility] 06-02-2024 13:58-0400 SaO2% (BldA) [Mass fraction] 94 % Isabellastephanie Jonesz [employer] Work Phone: [facility] 06-02-2024 13:58-0400 Systolic blood pressure 110 mm[Hg] Isabella Jonesz [employer] Work Phone: [facility] 05-14-2024 16:12-0400 Body height 157.5 cm Isabella Jonesz [employer] Work Phone: [facility] 05-14-2024 16:12-0400 Body mass index (BMI) [Ratio] 37.24 kg/m2 Isabellastephanie Howardholz [employer] Work Phone: [facility] 05-14-2024 16:12-0400 Body temperature 97.59 [degF] Isabella Howardholz [employer] Work Phone: [facility] 05-14-2024 16:12-0400 Body weight 92.35 kg Isabellastephanie Howardholz [employer] Work Phone: [facility] 05-14-2024 16:12-0400 Diastolic blood pressure 82 mm[Hg] Isabella Dueñas [employer] Work Phone: [facility] 05-14-2024 16:12-0400 Heart rate 128 /min Isabella Dueñas [employer] P[employer] LAY[employer] Work Phone: [facility] 05-14-2024 16:12-0400 Respiratory rate 20 /min Isabella Dueñas [employer] Work Phone: [facility] 05-14-2024 16:12-0400 SaO2% (BldA) [Mass fraction] 92 % Isabella Dueñas [employer] Work Phone: [facility] 05-14-2024 16:12-0400 Systolic blood pressure 116 mm[Hg] Isabella Dueñas [employer] Work Phone: [facility] 12-24-2023 09:58-0400 Body height 157.5 cm Ana Rosa Raissa CHEF UNDER.TIPPLE ENGINEER Work Phone: [facility] 12-24-2023 09:58-0400 Body weight 97.75 kg Ana Rosa Raissa CHEF UNDER.TIPPLE ENGINEER Work Phone: [facility] 12-24-2023 09:58-0400 Diastolic blood pressure 80 mm[Hg] Ana Rosa Raissa CHEF UNDER.TIPPLE ENGINEER Work Phone: [facility] 12-24-2023 09:58-0400 Heart rate 72 /min Ana Rosa Raissa CHEF UNDER.TIPPLE ENGINEER Work Phone: [facility] 12-24-2023 09:58-0400 Systolic blood pressure 121 mm[Hg] Ana Rosa Raissa CHEF UNDER.TIPPLE ENGINEER Work Phone: [facility] 10-15-2023 09:39-0500 Diastolic blood pressure 69 mm[Hg] [facility] 10-15-2023 09:39-0500 Heart rate 81 /min [facility] 10-15-2023 09:39-0500 Respiratory rate 16 /min [facility] 10-15-2023 09:39-0500 SaO2% (BldA) [Mass fraction] 99 % [facility] 10-15-2023 09:39-0500 Systolic blood pressure 111 mm[Hg] [facility] 10-15-2023 08:16-0500 Body height 157.48 cm [facility] 10-15-2023 08:16-0500 Body temperature 97.7 [degF] [facility] 10-15-2023 08:16-0500 Body weight 98.42 kg [facility] 10-13-2022 12:30-0500 Body height 160.02 cm Mignon Manriquez Other [facility] [employer] Other 10-13-2022 12:30-0500 Body mass index (BMI) [Ratio] 38.08 kg/m2 Mignon Manriquez Other [facility] [employer] Other 10-13-2022 12:30-0500 Body temperature 98.2 [degF] Mignon Manriquez Other [facility] [employer] Other 10-13-2022 12:30-0500 Body weight 97.52 kg Mignon Manriquez Other [employer] Other 10-13-2022 12:30-0500 Respiratory rate 18 /min Mignon Manriquez Other [employer] Other 10-13-2022 12:30-0500 SaO2% (BldA) [Mass fraction] 99 % Mignon Manriquze Other [employer] Other 05-17-2022 17:43-0400 Body height 160.02 cm DO Jose Perry Work Phone: [facility] 05-17-2022 17:43-0400 Body temperature 97.9 [degF] DO Jose Perry Work Phone: [facility] 05-17-2022 17:43-0400 Body weight 97.52 kg DO Jose Perry Work Phone: [facility] 05-17-2022 17:43-0400 Diastolic blood pressure 83 mm[Hg] DO Jose Perry Work Phone: [facility] 05-17-2022 17:43-0400 Heart rate 95 /min DO oJse Perry Work Phone: [facility] 05-17-2022 17:43-0400 Respiratory rate 18 /min DO Jose Perry Work Phone: [facility] 05-17-2022 17:43-0400 SaO2% (BldA) [Mass fraction] 99 % DO Jose Perry Work Phone: [facility] 05-17-2022 17:43-0400 Systolic blood pressure 122 mm[Hg] DO Jose Perry Work Phone: [facility] Encounters Encounter Date Encounter Type Care Provider Facility Start: 05-21-2025 End: 05-21-2025 Telemedicine consultation with patient Alka Meza MD Work Phone: [facility] Start: 05-21-2025 End: 05-21-2025 ambulatory Alka Meza MD Work Phone: [facility] Comment on above: Symptomatic menopaus al or female climacteric states (Primary Dx); Postmenopause; S/P HEIDY (total abdominal hysterectomy); Hot flashes due to surgical menopause; Encounter for screening for osteoporosis; Genitourinary syndrome of menopause; Postmenopausal atrophic vaginitis; Current long-term use of postmenopausal hormone replacement therapy; Dyslipidemia Start: 05-15-2025 End: 05-19-2025 Clinisync Result Encounter Generic External Data Provider [facility] External Department Unsolicited Start: 05-15-2025 End: 05-19-2025 Clinisync Result Encounter Generic External Data Provider [facility] External Department Unsolicited Start: 05-15-2025 End: 05-15-2025 Office consultation new/estab patient 60 min Rim S Bryant MD Work Phone: Allergy Comment on above: Adverse food reactio n, initial encounter (Primary Dx); Food allergy; Chronic rhinitis; Deviated nasal septum; Dermatographism; Intrinsic atopic dermatitis; Chronic urticaria Start: 05-15-2025 End: 05-15-2025 ambulatory [facility] Facility:[facility] Start: 05-15-2025 ambulatory KEVIN VALENTIN Facility :[facility] Start: 05-15-2025 End: 05-15-2025 Subsequent hospital visit by physician Ct 2 Main Qb (I-Stat) Radiology Comment on above: Bullae [R23.8] Other specified diso rders of nose and nasal sinuses [J34.89] Start: 04-24-2025 End: 04-27-2025 Refill Alka Meza MD Work Phone: [facility] Comment on above: Med Change Request Start: 04-10-2025 End: 04-10-2025 ambulatory [facility] Facility:[facility] Start: 04-10-2025 End: 04-10-2025 Patient encounter procedure Ifeanyi Willson MD Work Phone: Otolaryngology Comment on above: Chronic rhinosinusit is (Primary Dx); Nasal drainage; Nasal septal deviation; Allergic rhinitis, unspecified seasonality, unspecified trigger Start: 04-10-2025 End: 04-10-2025 ambulatory IFEANYI WILLSON Facility:[facility] Start: 04-10-2025 End: 04-10-2025 Patient encounter procedure Pulm Main Respiratory Therapy Work Phone: Pulmonary Medicine Comment on above: Centrilobular emphys lynn (HCC) (Primary Dx) Start: 04-10-2025 End: 04-10-2025 Clinisync Result Encounter Generic External Data Provider [facility] External Department Unsolicited Start: 04-10-2025 End: 04-10-2025 Clinisync Result Encounter Generic External Data Provider [facility] External Department Unsolicited Start: 04-10-2025 End: 04-10-2025 ambulatory Pulm Fct Lab Main 7 Pulmonary Medicine Comment on above: Spirometry Start: 04-10-2025 End: 04-10-2025 Patient encounter procedure Pulm Fct Lab Main 7 Pulmonary Medicine Comment on above: Other specified diso rders of nose and nasal sinuses (Primary Dx); Chronic frontal sinusitis; Bullae; Food allergy; Upper airway cough syndrome; Asthma, moderate persistent, poorly-controlled (HCC); Long COVID; Bulla of lung (HCC); Chronic rhinitis Start: 04-10-2025 End: 04-10-2025 ambulatory KEVIN VALENTIN Facility:[facility] Start: 04-09-2025 End: 04-09-2025 Refill Isabella Dueñas [employer]ER Work Phone: [facility] Comment on above: Chronic migraine wit hout aura without status migrainosus, not intractable Start: 04-01-2025 End: 04-01-2025 Refill Isabella Leana [employer] Work Phone: [facility] Comment on above: Migraine without sta tus migrainosus, not intractable, unspecified migraine type Start: 03-23-2025 End: 03-23-2025 Refill Alka Meza MD Work Phone: [facility] Comment on above: Refill Request Start: 03-20-2025 End: 03-20-2025 Refill Alka Meza MD Work Phone: [facility] Comment on above: Refill Request Start: 03-12-2025 End: 03-12-2025 Orders Only Ainsley Haddad MD Work Phone: Respiratory [facility] Comment on above: Centrilobular emphys lynn (HCC) (Primary Dx) Start: 03-10-2025 End: 03-10-2025 Orders Only Isabella Dueñas [employer]ER Work Phone: [facility] Comment on above: Qwfqr-5-dqqjjsophws deficiency (HCC) (Primary Dx); Bulla, lung (HCC); Cough variant asthma (HCC) Start: 03-05-2025 End: 03-05-2025 ambulatory ISABELLA LEANA Not Available Start: 03-05-2025 End: 03-05-2025 Office outpatient visit 25 minutes Isabella Dueñas [employer] Work Phone: [facility] Comment on above: Degenerative disc di sease, cervical (Primary Dx); Morbid (severe) obesity due to excess calories (CMS-HCC); Adult hypothyroidism ; Mixed hyperlipidemia ; Encounter for screening mammogram for malignant neoplasm of breast; Subacute maxillary sinusitis; Bulla, lung (HCC); Chronic midline thoracic back pain Start: 02-18-2025 End: 02-18-2025 Telemedicine consultation with patient Tessa Aguilar MD Work Phone: Endocrinology Start: 02-18-2025 End: 02-18-2025 ambulatory Tessa Aguilar MD Work Phone: Endocrinology Comment on above: Hypothyroidism, unsp ecified type (Primary Dx) Start: 01-30-2025 End: 02-02-2025 Refill Tessa Aguilar MD Work Phone: Endocrinology Comment on above: Med Change Request Start: 01-29-2025 End: 01-29-2025 Refill Isabella Dueñas NP Work Phone: [facility] Comment on above: Mixed hyperlipidemia (CMS/HCC) (Primary Dx) Start: 01-29-2025 End: 01-30-2025 Refill Tessa Aguilar MD Work Phone: Endocrinology Comment on above: Refill Request Start: 01-14-2025 End: 01-14-2025 Clinisync Result Encounter Isabella Dueñas [employer]IPE LAYER Work Phone: [facility] External Department Unsolicited Start: 01-14-2025 End: 01-14-2025 Clinisync Result Encounter Isabella Dueñas [employer]ER Work Phone: [facility] External Department Unsolicited Start: 11-29-2024 End: 12-01-2024 Refill Tessa Aguilar MD Work Phone: Endocrinology Comment on above: Refill Request Start: 11-12-2024 End: 11-12-2024 Refill Isabella Leana [employer] Work Phone: [facility] Comment on above: Upper respiratory tr act infection, unspecified type (Primary Dx) Start: 11-04-2024 End: 11-04-2024 Bamboo flowsheet Isabella Leana [employer] Work Phone: [facility] Start: 11-04-2024 End: 11-04-2024 Bamboo flowsheet Isabella Leana [employer] Work Phone: [facility] Start: 11-04-2024 End: 11-04-2024 Patient encounter status Isabella Leana [employer]ER Work Phone: [facility] Start: 11-04-2024 End: 11-04-2024 Periodic preventive med est patient 40-64yrs Isabella Leana [employer] Work Phone: [facility] Comment on above: Adult wellness visit (Primary Dx); Morbid (severe) obesity due to excess calories (CMS/HCC); Weight gain, abnormal; Adult hypothyroidism (CMS/HCC); Grnlu-0-xvavdylkoiv deficiency (CMS/HCC); Gastroesophageal reflux disease without esophagitis; Mixed hyperlipidemia (CMS/HCC); Upper respiratory tract infection, unspecified type Start: 11-04-2024 End: 11-04-2024 ambulatory ISABELLA LEANA Not Available Start: 10-01-2024 End: 10-01-2024 Bamboo flowsheet Isabella Leana [employer] Work Phone: [facility] Start: 10-01-2024 End: 10-01-2024 Bamboo flowsheet Isabella Leana [employer] Work Phone: [facility] Start: 10-01-2024 End: 10-01-2024 Office outpatient visit 25 minutes Isabella Leana [employer] Work Phone: [facility] Comment on above: Weight gain, abnorma l (Primary Dx); Adult hypothyroidism (CMS/HCC); BMI 38.0-38.9,adult; Wnwdl-8-qozkqhgwxtt deficiency (CMS/HCC); Upper respiratory tract infection, unspecified type Start: 10-01-2024 End: 10-01-2024 ambulatory ISABELLA GIOHHOLZ Not Available Start: 08-28-2024 End: 08-28-2024 ambulatory ISABELAL AICHHOLZ Not Available Start: 08-28-2024 End: 08-28-2024 Office outpatient visit 15 minutes Isabella Leana [employer] Work Phone: [facility] Comment on above: Chronic migraine wit hout aura without status migrainosus, not intractable (CMS/HCC) (Primary Dx); Weight gain, abnormal; Migraine without status migrainosus, not intractable, unspecified migraine type (CMS/HCC); Morbid (severe) obesity due to excess calories (CMS/HCC) Start: 08-28-2024 End: 08-28-2024 Bamboo flowsheet Isabella Karenz [employer] Work Phone: [facility] Start: 08-28-2024 End: 08-28-2024 Bamboo flowsheet Isabella Karenz [employer] Work Phone: [facility] Start: 08-21-2024 End: 08-22-2024 Refill Tessa Aguilar MD Work Phone: Endocrinology Comment on above: Med Change Request Start: 08-03-2024 End: 08-04-2024 Refill Alka Meza MD Work Phone: [facility] Comment on above: Refill Request Start: 07-29-2024 End: 07-29-2024 Bamboo flowsheet Isabella Karenz [employer] Work Phone: [facility] Start: 07-29-2024 End: 07-29-2024 Bamboo flowsheet Isabella Giohholz [employer] Work Phone: [facility] Start: 07-29-2024 End: 07-29-2024 Office outpatient visit 15 minutes Isabella Leana [employer] Work Phone: [facility] Comment on above: Weight gain, abnorma l (Primary Dx); Jryby-3-bajqupnxbcp deficiency (CMS/HCC); Major depressive disorder, recurrent, moderate (CMS/HCC); Morbid (severe) obesity due to excess calories (CMS/HCC); Needs flu shot Start: 07-29-2024 End: 07-29-2024 ambulatory ISABELLA AICHHOLZ Not Available Start: 07-10-2024 End: 07-10-2024 Refill Isabella Dueñas [employer] Work Phone: [facility] Comment on above: Migraine without sta tus migrainosus, not intractable, unspecified migraine type (CMS/HCC) Start: 06-30-2024 End: 06-30-2024 Bamboo flowsheet Isabella Dueñas [employer] Work Phone: [facility] Start: 06-30-2024 End: 06-30-2024 Bamboo flowsheet Isabella Dueñas [employer] Work Phone: [facility] Start: 06-30-2024 End: 06-30-2024 ambulatory ISABELLA AICHHOLZ Not Available Start: 06-30-2024 End: 06-30-2024 Office outpatient visit 15 minutes Isabella Dueñas [employer]ER Work Phone: [facility] Comment on above: Weight gain, abnorma l (Primary Dx); Morbid (severe) obesity due to excess calories (CMS/HCC) Start: 06-16-2024 End: 06-16-2024 ambulatory [facility] Work Phone: Start: 06-16-2024 End: 06-16-2024 Patient encounter procedure [facility] [place] Work Phone: Start: 06-02-2024 End: 06-02-2024 Bamboo flowsheet Isabella Dueñas SEW[employer] P[employer] LAYER Work Phone: [facility] Start: 06-02-2024 End: 06-02-2024 Bamboo flowsheet Isabella Dueñas [employer] Work Phone: [facility] Start: 06-02-2024 End: 06-02-2024 ambulatory ISABELLA LEANA Not Available Start: 06-02-2024 End: 06-02-2024 Office outpatient visit 15 minutes Isabella Dueñas [employer] Work Phone: [facility] Comment on above: COVID-19 virus infec tion (Primary Dx); Morbid (severe) obesity due to excess calories (CMS/HCC); Body mass index (BMI) 37.0-37.9, adult; Major depressive disorder, recurrent, moderate (HCC) (CMS/HCC); Bpfxg-9-wxpsiokbphz deficiency (CMS/HCC); Weight gain, abnormal Start: 05-19-2024 End: 05-19-2024 Refill Tessa Aguilar MD Work Phone: Endocrinology Comment on above: Refill Request Start: 05-14-2024 End: 05-14-2024 Office outpatient visit 25 minutes Isabella Dueñas [employer]ER Work Phone: [facility] Comment on above: URTI (acute upper re spiratory infection) (Primary Dx); COVID-19 virus infection; Class 2 obesity due to excess calories without serious comorbidity with body mass index (BMI) of 37.0 to 37.9 in adult Start: 05-14-2024 End: 05-14-2024 ambulatory ISABELLA LEANA Not Available Start: 05-14-2024 End: 05-14-2024 Bamboo flowsheet Isabella Dueñas [employer]ER Work Phone: [facility] Start: 05-14-2024 End: 05-14-2024 Bamboo flowsheet Isabella Dueñas [employer]ER Work Phone: [facility] Start: 03-19-2024 Telephone encounter Ana Rosa sánchez APRN.CNP Work Phone: Functional Medicine Start: 01-28-2024 End: 01-28-2024 ambulatory Alka Meza MD Work Phone: [facility] Comment on above: S/P HEIDY (total abdom inal hysterectomy) (Primary Dx); Postmenopause; Other fatigue; Hot flashes due to surgical menopause; Genitourinary syndrome of menopause; Encounter for screening for osteoporosis Start: 01-28-2024 End: 01-28-2024 Telemedicine consultation with patient Alka Meza MD Work Phone: [facility] Start: 01-23-2024 End: 01-23-[address] Work Phone: Functional Medicine Comment on above: Chronic fatigue, uns pecified (Primary Dx); Arthralgia, unspecified joint; Hypothyroidism, unspecified type; Dietary counseling and surveillance Start: 01-23-2024 End: 01-23-2024 Telemedicine consultation with patient Vianca Perkins RD Work Phone: Functional Medicine Start: 01-04-2024 End: 01-04-2024 Telemedicine consultation with patient Tessa Aguilar MD Work Phone: [place] [id number] Start: 01-04-2024 End: 01-04-2024 ambulatory Tsesa Aguilar MD Work Phone: Endocrinology Comment on above: Hypothyroidism, unsp ecified type (Primary Dx); Postmenopause Start: 01-03-2024 Telephone encounter Ana Rosa sánchez APRN.TIPPLE ENGINEER Work Phone: Functional Medicine Comment on above: Patient Question Start: 12-24-2023 End: 12-24-[address] Work Phone: [facility] Start: 12-24-2023 End: 12-24-2023 FQ visit new patient Vianca Perkins RD Work Phone: Functional Medicine Comment on above: New Patient Start: 12-24-2023 End: 12-24-2023 Patient encounter procedure Ana Rosa Haji APRN.TIPPLE ENGINEER Work Phone: Functional Medicine Comment on above: Chronic fatigue, uns pecified (Primary Dx); Alteration in metabolic function; Arthralgia, unspecified joint; Hypothyroidism, unspecified type; Depression, unspecified depression type Start: 10-28-2023 Refill Isabella Giowalterlatiaefrain [employer]AYER Work Phone: [facility] Comment on above: Migraine without sta tus migrainosus, not intractable, unspecified migraine type (CMS/HCC) (Primary Dx); Migraine, unspecified, not intractable, without status migrainosus (CMS/HCC); Migraine (CMS/HCC) Start: 10-15-2023 End: 10-15-2023 ambulatory Isabella Coretta Powerswalterlatiaefrain Facility:[facility] Start: 10-15-2023 Non-patient / Non-visit [facility] G[facility] Work Phone: Start: 09-18-2023 End: 09-18-2023 Patient encounter procedure [facility] Work Phone: Start: 02-01-2023 End: 02-02-2023 ambulatory FANNY SAMSA Facility:[facility] Start: 01-15-2023 End: 01-16-2023 ambulatory TIPPLE ENGINEER ISABELLA GIOWalterLATIAEfrain Facility:[facility] Start: 01-10-2023 End: 01-11-2023 ambulatory FANNY SAMSA Facility:[facility] Start: 12-12-2022 End: 12-13-2022 ambulatory TIPPLE ENGINEER ISABELLAStephanie HOWARDLATIAZ Facility:[facility] Start: 12-07-2022 End: 12-08-2022 ambulatory TIPPLE ENGINEER ISABELLA ANITALATIAZ Facility:[facility] Start: 10-13-2022 End: 10-13-2022 ambulatory Mignon Manriquez Other [employer] Other Start: 10-13-2022 Office outpatient ne w 30 minutes Mignon Manriquez [facility] [place] Start: 08-22-2022 End: 08-22-2022 ambulatory TIPPLE ENGINEER ISABELLAStephanie HOWARDLATIAZ Facility:[facility] Start: 06-13-2022 End: 06-13-2022 ambulatory TIPPLE ENGINEER ISABELLA GIOWalterLATIAZ Facility:[facility] Start: 05-17-2022 End: 05-17-2022 Emergency department patient visit DO Jose Perry Work Phone: [facility]-Emergency Room Start: 03-08-2022 End: 03-08-2022 Patient encounter procedure DO Jose Perry Work Phone: [facility] [address] Procedures Date Procedure Procedure Detail Performing Clinician Start: 05-15-2025 ALLERGEN SKIN TEST-FOOD Rim Gilberto Hurtado MD Work Phone: Start: 05-15-2025 ALLERGEN SKIN TEST-INHALENT 40 Rim Gilberto Hurtado MD Work Phone: Start: 05-15-2025 ALLERGEN SKIN TEST-O THER INHAL Rim Gilberto Hurtado MD Work Phone: Start: 05-15-2025 Ct maxillofacial w/o contrast material Ainsley Haddad MD Work Phone: Start: 05-15-2025 CT SINUS WO IVCON Gener ic External Data Provider Start: 05-15-2025 Ct thorax w/o contra st material Generic External Data Provider Start: 04-10-2025 [facility] CBC W AUTO DIFF BLD Generic External Data Provider Start: 04-10-2025 Brncdilat rspse spmt ry pre&post-brncdilat admn Ainsley Haddad MD Work Phone: Start: 01-14-2025 ALL CBC WITH AUTO DIFF Isabella Dueñas [employer] Work Phone: Start: 01-14-2025 [facility] UA (CLEAN/CATCH) MICROSCOPIC IF INDICATE Isabella Dueñas [employer] Work Phone: Start: 11-04-2024 POCT COVID & FLU A/B ANTIGEN TEST Isabella Dueñas [employer] Work Phone: Start: 06-16-2024 Quick Strep (POC) Start: 01-14-2024 Mammography Isabella viramontes [employer] Work Phone: Start: 10-15-2023 Colonoscopy Isabella viramontes [employer] Work Phone: Start: 05-17-2022 X-ray of right ankle DO Jose Perry Work Phone: Start: 03-08-2022 MRI of head DO Rick Perry Work Phone: Start: 03-09-2021 Lipid 1996 panel - S marina or Plasma Vianca Perkins RD Work Phone: History of total hysterectomy S/P HEIDY (total abdominal hysterectomy) Alka Meza MD Work Phone: History of total hysterectomy S/P HEIDY (total abdominal hysterectomy) Alka Meza MD Work Phone: History of total hysterectomy S/P HEIDY (total abdominal hysterectomy) Alka Meza MD Work Phone: History of total hysterectomy S/P HEIDY (total abdominal hysterectomy) Alka Meza MD Work Phone: History of total hysterectomy S/P HEIDY (total abdominal hysterectomy) Alka Meza MD Work Phone: Plan of Treatment Date Care Activity Detail Author Start: 10-15-2033 Screening for malignant neoplasm of colon [facility] Start: 12-23-2026 Diabetes Screening Diabetes Screening [facility] Start: 03-09-2026 Lipid panel Lipid Screening [facility] Start: 12-14-2025 End: 12-14-2025 Patient encounter procedure 12/14/2025 2:20 PM EDT Office Visit Pulmonary Medicine [address] [address] Ainsley Haddad MD [address] [place], [place] [id number] Est pt COPD 6mo f/u Pulmonary Medicine Comment on above: Est pt COPD 6mo f/u Start: 08-21-2025 End: 11-20-2025 Thyrotropin [Units/volume] in Serum or Plasma THYROID STIMULATING HORMONE Lab Routine Hypothyroidism, unspecified type Expected: 08/21/2025, Expires: 11/20/2025 [facility] Comment on above: Expected: 08/21/2025, Expires: Start: 08-21-2025 End: 11-20-2025 Thyroxine (T4) free [Mass/volume] in Serum or Plasma T4 FREE/FREE THYROXINE Lab Routine Hypothyroidism, unspecified type Expected: 08/21/2025, Expires: 11/20/2025 [facility] Comment on above: Expected: 08/21/2025, Expires: Start: 08-21-2025 End: 11-20-2025 Triiodothyronine (T3) [Mass/volume] in Serum or Plasma T3 Lab Routine Hypothyroidism, unspecified type Expected: 08/21/2025, Expires: 11/20/2025 [facility] Work Phone: Comment on above: Expected: 08/21/2025, Expires: Start: 08-09-2025 End: 08-09-2025 Patient encounter procedure 08/09/2025 1:20 PM EST Appointment [facility] [address] [place] [address] [facility] Radiology Mammography Comment on above: [facility] Start: 07-02-2025 End: 07-02-2025 Patient encounter procedure 07/02/2025 11:10 AM EDT Office Visit Otolaryngology [address] [address] Ifeanyi Willson MD [address] [place] [address] follow up Otolaryngology Comment on above: follow up Start: 06-26-2025 End: 06-26-2025 ambulatory 06/26/2025 10:[address] [facility] Pulmonary Medicine [address] [id number] Nannette Serrano APRN.TIPPLE ENGINEER [address] [facility] [place] [address] Est pt COPD vv 3mo Pulmonary Medicine Comment on above: Est pt COPD vv 3mo Start: 06-08-2025 End: 06-08-2025 Patient encounter procedure 06/08/2025 3:40 PM EDT Office Visit [facility] [address] [place] [address] Isabella Dueñas, RENEE [address] [place] [address] GIULIANO MEYERS Start: 06-07-2025 End: 06-07-2025 Patient encounter procedure 06/07/2025 11:00 AM EDT Appointment MRI Q [address] [address] MRI CERVICAL SPINE WO IVCON MRI Q Comment on above: MRI CERVICAL SPINE WO IVCON Start: 05-25-2025 Influenza vaccination [place] [facility] Start: 05-21-2025 End: 05-21-2025 [facility] 05/21/2025 4:30 PM EDT [facility] [address] [address] Alka Meza MD [address] [place] [address] Follow up and discuss medication refills [facility] Comment on above: Follow up and discuss medication refills Start: 05-15-2025 End: 05-15-2025 Patient encounter procedure Radiology Comment on above: CT CHEST WO IVCON CT SINUS WO IVCON New pt Allergy Testi ng Start: 04-10-2025 End: 07-10-2025 ALLERGEN RESPIRATORY DISEASE PROFILE REGION 5 WITH REFLEX [facility] Comment on above: Expected: 04/10/2025, Expires: Start: 04-10-2025 End: 07-10-2025 IgE [Units/volume] in Serum or Plasma [facility] Comment on above: Expected: 04/10/2025, Expires: Start: 04-10-2025 End: 04-10-2025 Patient encounter procedure 04/10/2025 1:30 PM EDT Office Visit Pulmonary Medicine [address] [address] Ainsley Haddad MD [address] [place] [address] *Please call patient if any problems w/appts./see fyi [facility] Comment on above: *Please call patient if any problems w/a ppts./see fyi Start: 04-10-2025 End: 04-10-2025 ambulatory Pulmonary Medicine Comment on above: *Please call patient if any problems w/a ppts./see fyi Start: 04-06-2025 End: 01-29-2026 Alanine aminotransferase [Enzymatic activity/volume] in Serum or Plasma ALT Lab Routine Mixed hyperlipidemia (CMS/HCC) Expected: 04/06/2025 (Approximate), Expires: 01/29/2026 [facility] Work Phone: Comment on above: Expected: 04/06/2025 (Approximate), Expi res: 01/29/2026 Start: 04-06-2025 End: 01-29-2026 Aspartate aminotransferase [Enzymatic activity/volume] in Serum or Plasma AST Lab Routine Mixed hyperlipidemia (CMS/HCC) Expected: 04/06/2025 (Approximate), Expires: 01/29/2026 [facility] Comment on above: Expected: 04/06/2025 (Approximate), Expi res: 01/29/2026 Start: 04-06-2025 End: 01-29-2026 Lipid 1996 panel - Serum or Plasma Lipid panel Lab Routine Mixed hyperlipidemia (CMS/HCC) Expected: 04/06/2025 (Approximate), Expires: 01/29/2026 [facility] Comment on above: Expected: 04/06/2025 (Approximate), Expi res: 01/29/2026 Start: 03-05-2025 End: 03-05-2025 Patient encounter procedure 03/05/2025 3:00 PM EDT Office Visit [facility] [address] [place] [address] Isabella Dueñas NP [address] [place] [address] [facility] Start: 03-05-2025 End: 05-05-2026 MG Breast - bilateral Screening Bilateral screening mammogram Imaging Routine Encounter for screening mammogram for malignant neoplasm of breast Expected: 03/05/2025 (Approximate), Expires: 05/05/2026 [facility] Work Phone: Comment on above: Expected: 03/05/2025 (Approximate), Expi res: 05/05/2026 Start: 03-05-2025 End: 03-05-2026 MR Cervical spine WO contrast MR cervical spine wo contrast Imaging Routine Degenerative disc disease, cervical Expected: 03/05/2025, Expires: 03/05/2026 [facility] Comment on above: Expected: 03/05/2025, Expires: Start: 03-05-2025 End: 03-05-2026 MR Thoracic spine WO contrast MR thoracic spine wo contrast Imaging Routine Chronic midline thoracic back pain Expected: 03/05/2025, Expires: 03/05/2026 [facility] Comment on above: Expected: 03/05/2025, Expires: Start: 01-13-2025 Screening for malignant neoplasm of breast Mammogram [facility] Start: 12-02-2024 End: 12-02-2024 Patient encounter procedure 12/02/2024 1:00 PM EDT Office Visit [facility] [address] [place] [address] Isabella Dueñas, RENEE [address] [place] [address] [facility] Start: 11-04-2024 End: 11-04-2025 CBC W Auto Differential panel - Blood CBC and differential Lab Routine Adult wellness visit Expected: 11/04/2024 (Approximate), Expires: 11/04/2025 [facility] Work Phone: Comment on above: Expected: 11/04/2024 (Approximate), Expi res: 11/04/2025 Start: 11-04-2024 End: 11-04-2025 Comprehensive metabolic 2000 panel - Serum or Plasma Comprehensive metabolic panel Lab Routine Adult wellness visit Expected: 11/04/2024 (Approximate), Expires: 11/04/2025 [facility] Comment on above: Expected: 11/04/2024 (Approximate), Expi res: 11/04/2025 Start: 11-04-2024 End: 11-04-2025 Lipid 1996 panel - Serum or Plasma Lipid panel Lab Routine Adult wellness visit Expected: 11/04/2024 (Approximate), Expires: 11/04/2025 [facility] Comment on above: Expected: 11/04/2024 (Approximate), Expi res: 11/04/2025 Start: 11-04-2024 End: 11-04-2025 Thyrotropin [Units/volume] in Serum or Plasma TSH Lab Routine Adult wellness visit Expected: 11/04/2024 (Approximate), Expires: 11/04/2025 [facility] Comment on above: Expected: 11/04/2024 (Approximate), Expi res: 11/04/2025 Start: 11-04-2024 End: 11-04-2025 Thyroxine (T4) free [Mass/volume] in Serum or Plasma T4, free Lab Routine Adult wellness visit Expected: 11/04/2024 (Approximate), Expires: 11/04/2025 [facility] Comment on above: Expected: 11/04/2024 (Approximate), Expi res: 11/04/2025 Start: 11-04-2024 End: 11-04-2025 Urinalysis complete panel - Urine Urinalysis with reflex microscopic (clean catch) Lab Routine Adult wellness visit Expected: 11/04/2024 (Approximate), Expires: 11/04/2025 [facility] Comment on above: Expected: 11/04/2024 (Approximate), Expi res: 11/04/2025 Start: 11-04-2024 End: 11-04-2024 Patient encounter procedure 11/04/2024 11:30 AM EST Office Visit [facility] [address] [place] [phone] Isabella Dueñas NP [address] [place] [address] Weight gain, abnormal (Primary Dx); Morbid (severe) obesity due to excess calories (CMS/HCC); Adult wellness visit; Adult hypothyroidism (CMS/HCC); Wsdur-6-shxwcaznict deficiency (CMS/HCC); Gastroesophageal reflux disease without esophagitis; Mixed hyperlipidemia (CMS/HCC) [facility] Comment on above: Weight gain, abnormal (Primary Dx); Morbid (severe) obesity due to excess calories (CMS/HCC); Adult wellness visit; Adult hypothyroidism (CMS/HCC); Lflao-6-socgccuxiuf deficiency (CMS/HCC); Gastroesophageal reflux disease without esophagitis; Mixed hyperlipidemia (CMS/HCC) Start: 10-29-2024 End: 10-29-2024 Patient encounter procedure 10/29/2024 10:00 AM EST Office Visit [facility] [address] [place] [address] Isabella Dueñas, RENEE [address] [place] [address] [facility] Start: 10-01-2024 End: 10-01-2024 Patient encounter procedure [facility] Comment on above: Arrived Start: 08-27-2024 End: 08-27-2024 Patient encounter procedure 08/27/2024 10:30 AM EST Office Visit [facility] [address] [place] [address] Isabella Dueñas, RENEE [address] [place] [address] [facility] Start: 08-22-2024 End: 11-21-2024 Thyrotropin [Units/volume] in Serum or Plasma THYROID STIMULATING HORMONE Lab Routine Hypothyroidism, unspecified type Expected: 08/22/2024, Expires: 11/21/2024 [facility] Comment on above: Expected: 08/22/2024, Expires: Start: 08-22-2024 End: 11-21-2024 Thyroxine (T4) free [Mass/volume] in Serum or Plasma T4 FREE/FREE THYROXINE Lab Routine Hypothyroidism, unspecified type Expected: 08/22/2024, Expires: 11/21/2024 [facility] Comment on above: Expected: 08/22/2024, Expires: Start: 08-22-2024 End: 11-21-2024 Triiodothyronine (T3) [Mass/volume] in Serum or Plasma T3 Lab Routine Hypothyroidism, unspecified type Expected: 08/22/2024, Expires: 11/21/2024 [facility] Work Phone: Comment on above: Expected: 08/22/2024, Expires: Start: 07-29-2024 End: 07-29-2024 Patient encounter procedure [facility] Comment on above: Morbid (severe) obesity due to excess ca lories (CMS/HCC) (Primary Dx); Ktiac-7-aokdtscvcag deficiency (CMS/HCC); Major depressive disorder, recurrent, moderate (CMS/HCC); Weight gain, abnormal Start: 07-24-2024 Influenza vaccination Influenza Vaccine (#1) [facility] Comment on above: Postponed from 05/25/2024 (Patient Does Not Have Time) Start: 06-30-2024 End: 06-30-2024 Patient encounter procedure 06/30/2024 8:40 AM EDT Office Visit [facility] [address] [place] [address] Isabella Dueñas NP [address] [place] [phone] [facility] Start: 05-25-2024 Covid-19 Vaccine ( season) Covid-19 Vaccine ( season) [facility] Start: 05-25-2024 Influenza vaccination [facility] Start: 05-14-2024 End: 05-14-2024 Patient encounter procedure 05/14/2024 4:00 PM EDT Office Visit [facility] [address] [place] [address] Isabella Dueñas NP [address] [place] [phone] Arrived [facility] Comment on above: Arrived Start: 05-14-2024 End: 05-14-2025 XR Chest 2 Views XR chest 2 views Imaging Routine URTI (acute upper respiratory infection) Expected: 05/14/2024 (Approximate), Expires: 05/14/2025 [facility] Work Phone: Comment on above: Expected: 05/14/2024 (Approximate), Expi res: 05/14/2025 Start: 03-24-2024 End: 06-23-2024 Thyrotropin [Units/volume] in Serum or Plasma THYROID STIMULATING HORMONE Lab Routine Hypothyroidism, unspecified type Expected: 03/24/2024, Expires: 06/23/2024 [facility] Work Phone: Comment on above: Expected: 03/24/2024, Expires: 4 Start: 03-24-2024 End: 06-23-2024 Thyroxine (T4) free [Mass/volume] in Serum or Plasma T4 FREE/FREE THYROXINE Lab Routine Hypothyroidism, unspecified type Expected: 03/24/2024, Expires: 06/23/2024 [facility] Work Phone: Comment on above: Expected: 03/24/2024, Expires: 4 Start: 03-24-2024 End: 06-23-2024 Triiodothyronine (T3) [Mass/volume] in Serum or Plasma T3 Lab Routine Hypothyroidism, unspecified type Expected: 03/24/2024, Expires: 06/23/2024 [facility] Work Phone: Comment on above: Expected: 03/24/2024, Expires: 4 Start: 03-24-2024 End: 03-24-2024 ambulatory 03/24/2024 8:30 AM EDT Results Only [facility] [address] [place] [address] [place] [address] [facility] Start: 03-19-2024 End: 03-19-2024 Follow-up encounter 03/19/2024 4:[address] [facility] Functional Medicine [address] [address] Ana Rosa Haji APRN.TIPPLE ENGINEER [address] [address] follow up Functional Medicine Comment on above: follow up Start: 02-08-2024 End: 02-08-2024 Patient encounter procedure 02/08/2024 8:45 AM EDT Office Visit Rheumatology [address] [address] Gloria Scott MD [address] [place] [address] [facility] Comment on above: [facility] Start: 01-28-2024 End: 04-28-2024 C reactive protein [Mass/volume] in Serum or Plasma C-REACTIVE PROTEIN Lab Routine Postmenopause S/P HEIDY (total abdominal hysterectomy) Other fatigue Expected: 01/28/2024, Expires: 04/28/2024 [facility] Comment on above: Expected: 01/28/2024, Expires: Start: 01-28-2024 End: 04-28-2024 DHEA-S BLD DHEA-S BLD Lab Routine Postmenopause S/P HEIDY (total abdominal hysterectomy) Other fatigue Expected: 01/28/2024, Expires: 04/28/2024 [facility] Comment on above: Expected: 01/28/2024, Expires: Start: 01-28-2024 End: 04-28-2024 Estradiol (E2) [Mass/volume] in Serum or Plasma ESTRADIOL-17B BLD Lab Routine Postmenopause S/P HEIDY (total abdominal hysterectomy) Other fatigue Expected: 01/28/2024, Expires: 04/28/2024 [facility] Work Phone: Comment on above: Expected: 01/28/2024, Expires: Start: 01-28-2024 End: 04-28-2024 Follitropin [Units/volume] in Serum or Plasma FOLLICLE STIMULATING HORMONE Lab Routine Postmenopause S/P HEIDY (total abdominal hysterectomy) Other fatigue Expected: 01/28/2024, Expires: 04/28/2024 [facility] Comment on above: Expected: 01/28/2024, Expires: Start: 01-28-2024 End: 01-28-2024 ambulatory 01/28/2024 1:30 PM EDT [facility] [address] [id number] Alka Meza MD [address] [place] [address] Perimenopause [facility] Comment on above: Perimenopause Start: 12-24-2023 End: 03-24-2024 25-hydroxyvitamin D3 [Mass/volume] in Serum or Plasma [facility] Work Phone: Comment on above: Expected: 12/24/2023, Expires: 4 Start: 12-24-2023 End: 03-24-2024 COPPER BLOOD [facility] Work Phone: Comment on above: Expected: 12/24/2023, Expires: 4 Start: 12-24-2023 End: 03-24-2024 MAGNESIUM RBC [facility] Work Phone: Comment on above: Expected: 12/24/2023, Expires: 4 Start: 12-24-2023 End: 03-24-2024 OMEGACHECK [facility] Work Phone: Comment on above: Expected: 12/24/2023, Expires: 4 Start: 12-24-2023 End: 03-24-2024 Thyroglobulin Ab [Units/volume] in Serum or Plasma [facility] Work Phone: Comment on above: Expected: 12/24/2023, Expires: Start: 12-24-2023 End: 03-24-2024 VITAMIN B1 (THIAMINE), WHOLE BLOOD [facility] Work Phone: Comment on above: Expected: 12/24/2023, Expires: Start: 12-24-2023 End: 03-24-2024 Zinc [Mass/volume] in Serum or Plasma [facility] Work Phone: Comment on above: Expected: 12/24/2023, Expires: Start: 10-15-2023 [facility] Start: 09-24-2023 Depression Assessment Depression Assessment [facility] Start: 05-25-2023 Covid-19 Vaccine () Covid-19 Vaccine () [facility] Start: 2022 Screening for malignant neoplasm of colon [facility] Start: 09-24-2017 Medicare Annual Wellness Visit Medicare Annual Wellness Visit [facility] Start: 2017 Screening for malignant neoplasm of breast Mammogram Screening [facility] Start: 2007 Screening for malignant neoplasm of cervix [facility] Start: 1998 Screening for malignant neoplasm of cervix [facility] Start: 1996 Urine microalbumin profile DTaP,Tdap,Td Vaccine (1 - Tdap) [facility] Start: 1995 Annual PCP Team Chronic Disease Visit Annual PCP Team Chronic Disease Visit [facility] Start: 1995 Anxiety Screening Anxiety Screening [facility] Start: 1995 Depression Screening Depression Screening [facility] Start: 1977 Screening for malignant neoplasm of colon [facility] End: 02-26-2025 BD DXA TRABECULAR BONE SCORE (TBS) BD DXA TRABECULAR BONE SCORE (TBS) Radiology Routine Hot flashes due to surgical menopause Encounter for screening for osteoporosis 1 Occurrences starting 01/28/2024 until 02/26/2025 [facility] Comment on above: 1 Occurrences starting 01/28/2024 until 02/26/2025 End: 05-10-2026 CT Chest WO contrast CT CHEST WO IVCON Radiology Routine Bullae 1 Occurrences starting 04/10/2025 until 05/10/2026 [facility] Work Phone: Comment on above: 1 Occurrences starting 04/10/2025 until 05/10/2026 CT Chest WO contrast CT CHEST WO IVCON Radiology Routine Bullae 05/15/2025 10:44 AM EDT [facility] Work Phone: End: 05-10-2026 CT Sinuses WO contrast CT SINUS WO IVCON Radiology Routine Other specified disorders of nose and nasal sinuses Chronic frontal sinusitis 1 Occurrences starting 04/10/2025 until 05/10/2026 [facility] Comment on above: 1 Occurrences starting 04/10/2025 until 05/10/2026 End: 02-26-2025 DXA Skeletal system.axial Views for bone density DXA-AXIAL SKELETON Radiology Routine Hot flashes due to surgical menopause Encounter for screening for osteoporosis 1 Occurrences starting 01/28/2024 until 02/26/2025 [facility] Comment on above: 1 Occurrences starting 01/28/2024 until 02/26/2025 End: 04-11-2026 LUNG DIFFUSION CAPACITY (DLCO) LUNG DIFFUSION CAPACITY (DLCO) PFT Routine Centrilobular emphysema (HCC) 1 Occurrences starting 03/12/2025 until 04/11/2026 [facility] Comment on above: 1 Occurrences starting 03/12/2025 until 04/11/2026 LUNG DIFFUSION CAPAC ITY (DLCO) LUNG DIFFUSION CAPACITY (DLCO) PFT Routine Centrilobular emphysema (HCC) 04/10/2025 12:04 PM EDT [facility] Work Phone: Patient Education [facility] Work Phone: Patient referral [facility] Work Phone: End: 04-11-2026 SPIROMETRY - BASELINE AND POST DILATOR SPIROMETRY - BASELINE AND POST DILATOR PFT Routine Centrilobular emphysema (HCC) 1 Occurrences starting 03/12/2025 until 04/11/2026 [facility] Work Phone: Comment on above: 1 Occurrences starting 03/12/2025 until 04/11/2026 SPIROMETRY - BASELIN E AND POST DILATOR SPIROMETRY - BASELINE AND POST DILATOR PFT Routine Centrilobular emphysema (HCC) 04/10/2025 12:04 PM EDT [facility] Work Phone: [facility] Immunizations Immunization Date Immunization Notes Care Provider Randy morrison 07-29-2024 influenza, injectabl e, madin ras canine kidney, preservative free Paulo Hurtado MD Work Phone: [facility] 07-29-2024 influenza, injectabl e, quadrivalent, preservative free Isabella Aichholz [employer] Work Phone: [facility] 07-29-2024 influenza virus vacc ine, unspecified formulation Isabella Aichholz [employer] Work Phone: [facility] 08-07-2018 influenza, injectabl e, quadrivalent, preservative free Isabella Aichholz [employer] Work Phone: [facility] 08-07-2018 influenza virus vacc ine, unspecified formulation Vianca Perkins RD Work Phone: [facility] 06-04-2018 influenza, high dose seasonal, preservative-free Vianca Perkins RD Work Phone: [facility] 12-12-2016 hepatitis B vaccine, adult dosage Isabella Aichholz [employer] Work Phone: [facility] 11-13-2016 hepatitis B vaccine, adult dosage Isabella Aichholz [employer] Work Phone: [facility] 09-01-2016 pneumococcal polysaccharide vaccine, [address] Work Phone: [facility] Payers Date Payer Category Payer Self-pay [id number] 2022 Private Health Insurance [id number] 2022 Unknown [id number]. [id number] 2022 Unknown [id number] 2017 Medicare MEDICARE [id number] 1977 Unknown [id number] 2.16.840.1.013104.3.579.2. 593 1977 Unknown [id number] 2.16.840.1.534417.3.579.2. 593 1977 Unknown [id number] 2.16.840.1.413450.3.579.2. 593 1977 Unknown [id number] 2.16.840.1.078039.3.579.2. 593 1977 Unknown [id number] 2.16.840.1.849289.3.579.2. 593 1977 Unknown [id number] 2.16.840.1.897285.3.579.2. 593 1977 Unknown [id number] 2.16.840.1.786536.3.579.2. 593 1977 Unknown [id number] 2.16.840.1.706932.3.579.2. 593 1977 Unknown [id number] 2.16.840.1.650919.3.579.2. 1259 1977 Unknown [id number] 2.16.840.1.847636.3.579.2. 1259 1977 Unknown [id number] 2.16.840.1.823081.3.579.2. 1259 1977 Unknown [id number] 2.16.840.1.394232.3.579.2. 9 1977 Unknown [id number] 2.16.840.1.421521.3.579.2. 9 1977 Unknown [id number] 2.16.840.1.029418.3.579.2. 1258 1977 Unknown [id number] 2.16.840.1.552362.3.579.2. 9 1977 Unknown [id number] 2.16.840.1.387025.3.579.2. 1259 1959 Unknown [id number] 2.16.840.1.574381.19 1959 Unknown [id number] Unknown [facility] [id number] Unknown [id number] 2.16.840.1.298822.3.579.2. 531 Social History Date Type Detail Facility Tobacco smoking stat us [facility] Unknown if ever smoked [facility] Work Phone: Start: 1975 Sex Assigned At Female [facility] Start: 07-10-2018 End: 05-17-2022 Tobacco smoking status NEIS Never smoked tobacco (finding) [facility] Start: 08-31-2023 End: 12-24-2023 Sex Assigned At [facility] Start: 07-10-2018 End: 08-31-2023 Tobacco use and exposure Smokeless tobacco non-user [facility] Start: 08-31-2023 End: 12-24-2023 History of Social function [facility] Start: 1975 Sex Assigned At Not on file [facility] Start: 06-12-2018 Adult Depression Screening Assessment 4 [facility] Do you belong to any clubs or organizations such as muslim groups, unions, fraternal or athletic groups, or school groups? Yes [facility] Are you now , , , , never or living with a partner? [facility] How often to you hav e a drink containing alcohol? Monthly or less [facility] How many standard dr inks containing alcohol do you have on a typical day? 1 or 2 [facility] How often do you hav e 6 or more drinks on 1 occasion? Never [facility] How hard is it for y ou to pay for the very basics like food, housing, medical care, and heating Somewhat hard [facility] Do you feel stress - tense, restless, nervous, or anxious, or unable to sleep at night because your mind is troubled all the time - these days [OSQ] Only a little [facility] (I/We) worried wheth er (my/our) food would run out before (I/we) got money to buy more. Never true [facility] At any time in the p ast 12 months, were you homeless or living in fci [including now]? No [facility] Start: 11-12-2024 Gender identity Identifies as female gender (finding) [facility] Medical Equipment Procedure Code Equipment Code Equipment Origin al Text Equipment Identifier Dates Mesh Parietene Polypropylene Macroporous [id number] Surgical Monofilament - [id number] Start: 12-17-2018 Functional Status Date Assessment Result Facility 12-22-2018 Are you deaf, or do you have serious difficulty hearing No 12/22/2018 11:43 AM Suly Sutherland, SOFÍA [facility] 12-22-2018 Are you blind, or do you have serious difficulty seeing, even when wearing glasses No 12/22/2018 11:43 AM Suly Sutherland, SOFÍA No [facility] 12-22-2018 Do you have serious difficulty walking or climbing stairs No 12/22/2018 11:43 AM Suly Sutherland RN No [facility] 12-22-2018 Do you have difficul ty dressing or bathing No 12/22/2018 11:43 AM Suly Sutherland, SOFÍA No [facility] 12-22-2018 Because of a physica l, mental, or emotional condition, do you have difficulty doing errands alone such as visiting a physician's office or shopping No 12/22/2018 11:43 AM Suly Sutherland, SOFÍA No [facility] Mental Status Date Assessment Result Facility 12-22-2018 Because of a physica l, mental, or emotional condition, do you have serious difficulty concentrating, remembering, or making decisions No 12/22/2018 11:43 AM EDT Suly Escalante RN No [facility] Clinical Notes 10-13-2022 to 05-21-2025 Patient InstructionsAlka Meza MD - 05/21/2025 4:18 PM Favio Jimenez RN - 05/15/2025 1:53 PM Paulo Hi MD - 05/15/2025 1:00 PM Pierre Galindo RT(R) - 05/15/2025 12:00 PM EDT Note Date & Type Note Facility 05-21-2025 Instructions Alka Meza MD - 05/21/2025 4:23 PM EDT BONE MINERAL DENSITY PATIENT INSTRUCTIONS ========= Bone mineral density testing measures the amount of calcium in certain parts of your bones. This information determines how strong your bones are. The test is used to detect osteoporosis, a disease in which the bone's mineral content and density are low, increasing a person's risk of fractures. The lumbar spine (lower back) and the hip are the skeletal sites usually examined. For the test, remember that: 1. You cannot take this test if you are . 2. Eat a normal diet on the day of the test. 3. Take your medications as you normally would. 4. DO NOT take calcium supplements (such as Tums) for 24 hours before the test. 5. On the day of the test, leave valuables (jewelry or credit cards) at home. 6. The test should be performed prior to oral, rectal or IV contrast studies, or at least 7 days after any of these studies. For the test, you may be asked to wear a hospital gown. You will lie on your back, on a padded table, in a comfortable position. Generally, you can resume your usual activities immediately. documented in this encounter [facility] 05-21-2025 Note HNO ID: [id number] Author: ALKA MEZA MD Service: ? Author Type: Physician Type: Progress Notes Filed: 05/21/2025 16:31 Note Text: [facility] PATIENT NAME: Nidia Kaye PCP: Kevin Valentin MD DATE: 05/21/2025 Initial Consultation requested by Dr. Tessa Aguilar MD [address] [place] [address] for an opinion regarding menopause consult. This visit was conducted as a virtual visit. Pt is identified by name and date. Patient and I can hear each other and see each other, connection was good I have communicated my name and active licensure. The patient's identity and physical location were verified at the time of this visit. Either the patient or their legal retail sales representative has been informed of the risks and benefits of -- and alternatives to -- treatment through a remote evaluation and consents to proceed with the evaluation remotely. LV 01/2025 Chief Complaint CC: Menopause HT f/u History of Present Illness: 05/21/2025 Subjective: Hormone Replacement Therapy: - On hormone replacement therapy for over a year. - Reports significant improvement in night sweats, hot flashes, and dry skin. - Lost approximately 30 lbs since starting therapy. - No adverse effects from the adhesive of the patch, despite having sensitive skin. - Reports vaginal dryness. Hyperlipidemia: - Longstanding history of hyperlipidemia. - Recently started on cholesterol medication but experienced adverse reactions. - Adheres to a strict gluten and dairy-free diet, primarily consuming fish and vegetables. - Unable to lower cholesterol levels despite dietary efforts and weight loss. - No known family medical history due to being adopted. Degenerative Disc Disease: - History of degenerative disc disease and back surgery before age 42. - Engages in moderate to light weight-bearing exercises. Objective: Labs: (January 2024) - Estrogen: <25 - FSH: 38.7 (menopausal range) 01/2024 Nidia is a 48 year old No obstetric history on file. who presents for her menopause concerns. 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 Desire STD testing: declines Pain with intercourse: Yes Postcoital bleeding: No Exercise: few times a week for 30 minutes. Type: cardio Dietary calcium: yes Vitamin D3: yes Tobacco use? No OB History No obstetric history on file. Family history of breast/ovarian/uterine cancer? No BREAST HISTORY First degree relatives: no Second degree relatives: no Personal history of breast biopsy: no Atypical: no Has breats implants Had liver resection OB HPI OB History No obstetric history on file. 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 Hx of depression/anxiety. No DVT or GB issues Total ocp use 5+ years No blood transfusion or HIV risk No LMP recorded. Patient has had a hysterectomy. Age at menopause onset: 2007 Menopausal symptom assessment: Vasomotor symptoms: yes Urinary incontinence AND symptoms: yes Sexual function: yes CARDIOVASCULAR Lipid AND CV risk assessment: Non smoker, no HTN, HLD, DM, VT, CVA or family hx of early CAD. BONE STATUS Discussed calcium in the diet and take separate oral 2,000 - 5,000 iu vitamin D3 daily Bone mineral density : due History of fractures over age 40: not Family History of hip Fx: no Review of Systems: General: Feels well. Denies fatigue, fever, chills, unintentional weight loss/weight gain. Psych: Feels stable, denies anxiety, depression or mood changes. Stress is tolerable. Abdomen: No abdominal pain, nausea, vomiting, diarrhea, or constipation. No bloating, early satiety, indigestion, or increased flatulence. Bladder: No dysuria, gross hematuria, urinary frequency, urinary urgency, or incontinence Breast: No breast lumps, nipple d/c, overlying skin changes, redness or skin retraction Past Medical History: No past medical history on file. Family History: No family history on file. Past Surgical History: No past surgical history on file. Social History: Social History Tobacco Use Smoking status: Never Smokeless tobacco: Never Allergies: ALLERGIES Allergen Reactions Adhesive Intolerance Does not tolerate skin glue Azithromycin Rash Fentanyl Other: See Comments Headaches and nausea with patch. Has had IV fentanyl without problems Morphine Other: See Comments BP drops Allergies updated: Yes Medications: Current Outpatient Medications Medication Sig estradiol (MINIVELLE, VIVELLE-DOT) 0.05 mg/24 hr patch Apply 1 (more content not included)... [facility] 05-21-2025 History of Present illness Narrative Images from the original note were not included. [facility] PATIENT NAME: Nidia Kaye PCP: Kevin Valentin MD DATE: 05/21/2025 Initial Consultation requested by Dr. Tessa Aguilar MD [address] [place] [address] for an opinion regarding menopause consult. This visit was conducted as a virtual visit. Pt is identified by name and date. Patient and I can hear each other and see each other, connection was good I have communicated my name and active licensure. The patient's identity and physical location were verified at the time of this visit. Either the patient or their legal retail sales representative has been informed of the risks and benefits of -- and alternatives to -- treatment through a remote evaluation and consents to proceed with the evaluation remotely. 01/2025 Chief Complaint CC: Menopause HT f/u History of Present Illness: 05/21/2025 Subjective: Hormone Replacement Therapy: - On hormone replacement therapy for over a year. - Reports significant improvement in night sweats, hot flashes, and dry skin. - Lost approximately 30 lbs since starting therapy. - No adverse effects from the adhesive of the patch, despite having sensitive skin. - Reports vaginal dryness. Hyperlipidemia: - Longstanding history of hyperlipidemia. - Recently started on cholesterol medication but experienced adverse reactions. - Adheres to a strict gluten and dairy-free diet, primarily consuming fish and vegetables. - Unable to lower cholesterol levels despite dietary efforts and weight loss. - No known family medical history due to being adopted. Degenerative Disc Disease: - History of degenerative disc disease and back surgery before age 42. - Engages in moderate to light weight-bearing exercises. Objective: Labs: (January 2024) - Estrogen: <25 - FSH: 38.7 (menopausal range) 01/2024 Nidia is a 48 year old No obstetric history on file. who presents for her menopause concerns. 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 Desire STD testing: declines Pain with intercourse: Yes Postcoital bleeding: No Exercise: few times a week for 30 minutes. Type: cardio Dietary calcium: yes Vitamin D3: yes Tobacco use? No OB History No obstetric history on file. Family history of breast/ovarian/uterine cancer? No BREAST HISTORY First degree relatives: no Second degree relatives: no Personal history of breast biopsy: no Atypical: no Has breats implants Had liver resection OB HPI OB History No obstetric history on file. 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 Hx of depression/anxiety. No DVT or GB issues Total ocp use 5+ years No blood transfusion or HIV risk No LMP recorded. Patient has had a hysterectomy. Age at menopause onset: 2007 Menopausal symptom assessment: Vasomotor symptoms: yes Urinary incontinence & symptoms: yes Sexual function: yes CARDIOVASCULAR Lipid & CV risk assessment: Non smoker, no HTN, HLD, DM, VT, CVA or family hx of early CAD. BONE STATUS Discussed calcium in the diet and take separate oral 2,000 - 5,000 iu vitamin D3 daily Bone mineral density : due History of fractures over age 40: not Family History of hip Fx: no Review of Systems: General: Feels well. Denies fatigue, fever, chills, unintentional weight loss/weight gain. Psych: Feels stable, denies anxiety, depression or mood changes. Stress is tolerable. Abdomen: No abdominal pain, nausea, vomiting, diarrhea, or constipation. No bloating, early satiety, indigestion, or increased flatulence. Bladder: No dysuria, gross hematuria, urinary frequency, urinary urgency, or incontinence Breast: No breast lumps, nipple d/c, overlying skin changes, redness or skin retraction Past Medical History: No past medical history on file. Family History: No family history on file. Past Surgical History: No past surgical history on file. Social History: Social History Tobacco Use Smoking status: Never Smokeless tobacco: Never Allergies: ALLERGIES Allergen Reactions Adhesive Intolerance Does not tolerate skin glue Azithromycin Rash Fentanyl Other: See Comments Headaches and nausea with patch. Has had IV fentanyl without problems Morphine Other: See Comments BP drops Allergies updated: Yes Medications: Current Outpatient Medications Medication Sig estradiol (MINIVELLE, VIVELLE-DOT) 0.05 mg/24 hr patch Apply 1 patch as directed two times a week. DHEA vaginal suppository 13 mg (CPD) Use 1 suppository vaginally as directed. Unwrap suppository and Insert every night in vagina for the first 2 weeks, and then every other day for 2 months. Then twice a week. mometasone-formoterol (DULERA) 200-5 mcg/actuation inhaler Inhale 2 puffs as instructed two times a day. ipratropium-albuterol (DUONEB) 0.5 mg-3 mg(2.5 mg base)/3 mL nebu Inhale 3 mL as instructed every 6 hours as needed for wheezing/shortness of breath. sodium chloride 3% solution (NEBUSAL) 3 % nebulizer solution Use 4 mL via nebulizer two times a day. atorvastatin calcium (ATORVASTATIN ORAL) Take by mouth. SELENIUM ORAL Take by mouth. levothyroxine (SYNTHROID) 112 mcg tablet TAKE 1 TABLET SUNDAY THROUGH SUNDAY. SKIP SUNDAY liothyronine (CYTOMEL) 5 mcg tablet TAKE 1 TABLET BY MOUTH IN THE MORNING AND 1/2 TABLET MID AFTERNOON DHEA vaginal suppository 13 mg (CPD) Unwrap and insert 1 Suppository vaginally as directed every night for the first 2 weeks, and then every other day for 2 months. Then twice a week. azelastine 0.1% nasal spray Use 1 [place] in each nostril two times a day. montelukast (SINGULAIR) 10 mg tablet Take 10 mg by mouth daily at bedtime. cholecalciferol (VITAMIN D-3) 50 mcg (2,000 unit) tablet Take 2,000 Units by mouth once daily. FLUTICASONE FUROATE INHALATION Inhale 50 mcg as instructed three times a day. 1 spray pyrilamine/dextromethorphan hb (CAPRON DM ORAL) Take by mouth once daily. fluticasone (FLONASE) 50 mcg/actuation nasal spray Use 2 Sprays in the nose once daily. SUMAtriptan (IMITREX) 50 mg tablet Take 1 tablet PO at onset of headach. May repeat in 2 hours if needed. topiramate (TOPAMAX) 25 mg tablet Take 1 tablet PO BID No current facility-administered medications for this visit. Medications reviewed in detail and updated PRN. Yes Physical Exam: There were no vitals taken for this visit. ROS GENERAL: denies changes in health status, good appetite, no significant weight changes, + fatigue, denies ACHES SKIN: denies rashes, lesions, or pruritis RESPIRATORY: denies cough, wheeze, SOB CARDIAC/CIRC: denies chest pain, SOB, ankle edema, palpitations, hx of heart murmurs, or valve disease, no history of DVT GI: no abdominal pain : no dysuria PHYSICAL EXAM GENERAL: pleasant female in no apparent distress NECK: Full range of motion, HEAD: normocephalic SKIN: No rashes MOOD: pleasant NEURO: alert and oriented x3 Recent labs/Diagnostic studies: I have thoroughly reviewed this patients previous notes, encounters, labs, and results prior to this visit. Health Maintenance Annual PCP Team Chronic Disease Visit Never done DTaP,Tdap,Td Vaccine(1 - Tdap) Never done Pap Testing Never done HPV Testing Never done Mammogram Screening Never done Colorectal Cancer Screening Never done Covid-19 Vaccine(2022- season) due on 05/25/2023 Assessment and Plan - Continue your current estrogen patch at the same dose; a one-year supply has been sent to your pharmacy. - Use the prescribed vaginal estrogen/DHEA suppository every other night (or twice weekly) to help with dryness; prescription sent to Pharmacy for mail-order. - We ve placed an order for a baseline bone density (DEXA) scan; check with your insurance for coverage and schedule it if approved. - Keep up your weight-bearing exercises and consider working with a senior technical trainer to tailor safe strength workouts given your back history. - For additional guidance on maintaining muscle and bone health during menopause, look into the book Next Level by Susi Charlton. - Since your cholesterol remains elevated despite diet and weight loss, discuss with your primary care provider a referral to a family court registrar for possible calcium score testing and advanced management. - Plan to return in one year for your annual hormone prescription review unless you develop new health issues (abnormal mammogram results, stroke, blood clots, or TIAs) before then. # Postmenopause (Z78.0) # S/P HEIDY (total abdominal hysterectomy) (Z90.710) # Hot flashes due to surgical menopause (E89.41) # Symptomatic menopausal or female climacteric states (N95.1) # Current long-term use of postmenopausal hormone replacement therapy (Z79.890) - On estrogen patch for over a year with significant improvement in vasomotor symptoms and no adverse effects. - Estrogen level <25 and FSH 38.7 (menopausal range) in January 2024. - Continue current estrogen patch; provided 1-year supply. - Advised to update if any new history of abnormal mammogram, stroke, blood clots, or TIAs for risk re-evaluation. - Discussed safety of estrogen therapy, especially post-hysterectomy. - Follow-up annually unless new concerns arise. # Encounter for screening for osteoporosis (Z13.820) - Discussed importance of bone health and recommended weight-bearing exercises. - Discussed bone density screening; order placed, but insurance does not cover at this time. - Recommended reading Next Level by Susi Charlton for musculoskeletal health during menopause. 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 # Dyslipidemia (E78.5) - Advised to follow PCP's recommendations for dyslipidemia management. - Discussed that estrogen therapy is not a treatment for high cholesterol. - Recommended referral to cardiology for further evaluation and management. Encounter Diagnosis ICD-10-CM 1. Symptomatic menopausal or female climacteric states N95.1 2. Postmenopause Z78.0 estradiol (MINIVELLE, VIVELLE-DOT) 0.05 mg/24 hr patch 3. S/P HEIDY (total abdominal hysterectomy) Z90.710 estradiol (MINIVELLE, VIVELLE-DOT) 0.05 mg/24 hr patch 4. Hot flashes due to surgical menopause E89.41 estradiol (MINIVELLE, VIVELLE-DOT) 0.05 mg/24 hr patch 5. Encounter for screening for osteoporosis Z13.820 6. Genitourinary syndrome of menopause N95.8 DHEA vaginal suppository 13 mg (CPD) SIGNATURE: Alka Meza MD PAGER: [phone] CC: Kevin Valentin MD via EMR I spent a total of 30 minutes on the date of the service which included preparing to see the patient, [id number] patient care, completing clinical documentation, obtaining and/or reviewing separately obtained history, performing a medically appropriate examination, counseling and educating the patient/family/caregiver, and ordering medications, tests, or procedures. documented in this encounter [facility] 05-15-2025 History of Present illness Narrative INHALANT 40 PERCUTANEOUS & INTRADERMAL TESTING/ Mean Wheal & Flare Diameter (mm) Patient has been identified by name and date of : Yes . Skin test applied by : Favio Dupont RN Interpreted By: Paulo Hurtado MD * Clinical significant reactions are regarded as a wheal diameter greater than or equal to 3 mm with a flare diameter greater or equal to 6mm. ALLERGENS Time applied: 1353 Time read: 1408 Negative Control: 50%Glycerin/50%Cocas P: W = 0 mm F = 0 mm Cat Hair 10,000 BAU/ml P: W = 0 mm F = 0 mm UF Dog 1:650 P: W = 0 mm F = 0 mm Cockroach Mix 1:20 P: W = 0 mm F = 0 mm Mite Df 10,000 AU/ml P: W = 0 mm F = 0 mm Mite Dp 10,000AU/ml P: W = 0 mm F = 0 mm Alternaria Alternata 1:20 P: W = 0 mm F = 0 mm Aspergillus Fumigatus 1:20 P: W = 0 mm F = 0 mm Cladosporium sphearospermum 1:20 P: W = 0 mm F = 0 mm Epicoccum Nigrum 1:10 P: W = 0 mm F = 0 mm Fusarium Solani 1:40 P: W = 0 mm F = 0 mm Bipolaris Sorokiniana 1:20 P: W = 0 mm F = 0 mm Penicillium Mix 1:20 P: W = 0 mm F = 0 mm Sravani, White 1:20 P: W = 0 mm F = 0 mm Beech, Swedish 1:20 P: W = 0 mm F = 0 mm Birch Mix 1:20 P: W = 0 mm F = 0 mm Maple Mix 1:20 P: W = 0 mm F = 0 mm [place] ,Eastern 1:20 P: W = 0 mm F = 0 mm Paint Lick, Shagbark 1:20 P: W = 0 mm F = 0 mm [place] Tree, Red 1:20 P: W = 0 mm F = 0 mm [place], Red 1:20 P: W = 0 mm F = 0 mm [place], Swedish/Eastern 1:20 P: W = 0 mm F = 0 mm [place] Pollen, Black 1:20 P: W = 0 mm F = 0 mm Poplar, Black 1:20 P: W = 0 mm F = 0 mm Bermuda Grass 10,000 BAU/ml P : W = 0 mm F = 0 mm [place], /Jessica 100,000 BAU/ml P: W = 0 mm F = 0 mm Fescue, [place] 100,000 BAU/ml P: W = 0 mm F = 0 mm Dex Grass 1:20 P: W = 0 mm F = 0 mm Orchard Grass 100,000 BAU/ml P: W = 0 mm F = 0 mm Perennial Crivitz, 100,000 BAU/ml P: W = 0 mm F = 0 mm Cesar 100,000 BAU/ml P: W = 0 mm F = 0 mm Cocklebur 1:20 P: W = 0 mm F = 0 mm Guadalupe Guerra, sheep 1:20 P: W = 0 mm F = 0 mm Plantain, Belgian 1:20 P: W = 0 mm F = 0 mm Lambs Quarters 1:20 P: W = 0 mm F = 0 mm Kendrick Elder, Burweed 1:20 P: W = 0 mm F = 0 mm Mugwort, Common 1:20 P: W = 0 mm F = 0 mm Pigweed, Rough 1:20 P: W = 0 mm F = 0 mm Ragweed, Mix 1:20 P: W = 0 mm F = 0 mm HISTAMINE, positive control(Histamine base 6mg/ml) P: W = 7 mm F = 33 mm ALLERGENS: ANIMAL Chicken, Meat 1:20 P: W = 0 mm F = 0 mm Egg white, Chicken 1:20 P: W = 0 mm F = 0 mm Milk, Cow s 1:20 P: W = 0 mm F = 0 mm [place] Meat 1:20 P: W = 0 mm F = 0 mm ALLERGENS:GRAIN Wheat, whole 1:20 P: W = 0 mm F = 0 mm ALLERGENS: OTHER ANIMALS HORSE EPITHELIA 1:20 P: W = 0 mm F = 0 mm Testing reactions were unable to be determined per . Patient seen by Dr. Hurtado prior to leaving [facility]. Favio Dupont RN Images from the original note were not included. Allergy and Immunology Patient Name: Nidia Kaye PRIMARY CARE PHYSICIAN: Kevin Valentin MD REASON FOR CONSULT: food allergy, chronic rhinitis REQUESTING PHYSICIAN: Ainsley Haddad MD My final recommendations will be communicated to the requesting health care provider by way of the shared medical record for internal providers or letter via the [facility] for external providers. CHIEF COMPLAINT: Nidia Kaye is a 50-year-old female with a history of asthma, presenting for evaluation of chronic allergies, food allergies and hives HISTORY OF PRESENT ILLNESS: Nidia reports a long-standing history of environmental allergies, confirmed by a scratch test approximately 10-12 years ago, which revealed sensitivities to various allergens including cedar, sravani, horses, dust, and dust mites. She experiences perennial symptoms such as itchy eyes, frequent sinus infections, and significant post-nasal drip. 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 She was informed of a real bad deviated septum during a visit one month ago, and notes that the nasal sprays have been ineffective, possibly due to the septal deviation. She has not undergone sinus surgery previously but has been advised that it may be necessary. She also reports a chronic cough, which is sometimes productive. She has a history of chronic urticaria, with frequent hives, including an episode this morning with hives on her neck. She uses fragrance-free products and takes Zyrtec daily, which she paused this week in preparation for testing, resulting in worsened symptoms. She has not been prescribed an EpiPen and has not required emergency treatment for allergic reactions. Nidia has a history of eczema, with lesions primarily on her neck, under her chin, and on her legs. The eczema can become severe, leading to cracked and bleeding skin. She uses Aveeno and Cetaphil lotions, as well as prescription steroid creams and ointments from her corner cutter, but reports that these treatments are minimally effective, feeling that they just sit on top of her skin without penetrating. 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 She follows a gluten-free and dairy-free diet due to sensitivities that cause gastrointestinal discomfort and exacerbate her skin conditions. She was advised by a functional medicine practitioner to avoid these foods after experiencing prolonged sinus infections and joint inflammation following her first COVID-19 infection. She has had COVID-19 four times, with each episode being severe and contributing to her ongoing health issues. She gained approximately 60 pounds during a two-month period while on prolonged steroid therapy for sinus infections and has only recently begun to lose this weight. She lives in an older home with some mold issues, which her manages by regularly cleaning the basement bobby. She has a pet dog, which she describes as her emotional support animal. She takes measures to minimize allergen exposure, including using allergen-proof mattress and pillow covers, washing sheets weekly in hot water, keeping windows closed, and using air purifiers at home. She avoids yard work and stays indoors when her mows the lawn. She is managed by Pulmonology for her asthma and is currently on Dulera to 200 puffs twice daily. He ordered inhalant panel which was negative, IgE was 5.2 and AEC was 0.16 PAST MEDICAL AND SURGICAL HISTORY: No past medical history on file. No past surgical history on file. ALLERGIES: is allergic to adhesive, azithromycin, fentanyl, and morphine. FAMILY HISTORY: No family history on file. REVIEW OF SYSTEMS: All systems were reviewed and were negative except as listed in the HPI and above. Constitutional: (+) weight loss Eyes: (+) itchy eyes Ears/Nose/Mouth/Throat: (+) rhinorrhea, (+) postnasal drip Respiratory: (+) cough Gastrointestinal: (+) abdominal discomfort Musculoskeletal: (+) joint pain Skin: (+) hives neck, (+) pruritus, (+) eczematous rash with fissures, (+) scaly plaques legs, (+) erythematous papules arms and legs Answers submitted by the patient for this visit: Allergy Review of Symptoms (Submitted on 05/08/2025) Eye discharge: Yes Itchy Eyes: Yes Eye pain: Yes Eye redness: Yes Photophobia (light sensitivity): Yes Ear pain: Yes Ringing in Ears: Yes Nasal Congestion: Yes Runny Nose: Yes Sneezing: Yes Itchy Nose: Yes Sore throat: Yes Itchy throat: Yes Throat clearing: Yes Shortness of breath: Yes A cough: Yes Abdominal pain: Yes Nausea: Yes Heartburn: Yes Trouble swallowing : Yes Diarrhea: Yes Constipation: Yes Headaches: Yes Itching: Yes Dry skin: Yes Flushing: Yes Myc Collateral Allergy History 05/08/2025 9:40 AM EDT - Filed by Patient Do you have or have you ever been diagnosed with allergic rhinitis? Yes Have you ever been skin tested for allergies? Yes Do you have asthma? Yes Do you have or have you ever been diagnosed with eczema or atopic dermatitis? Yes Do you get frequent sinus infections? Yes Do you have nasal polyps? No Do you have or have you ever been diagnosed with urticaria / hives? Not Sure Do you have or have you ever been diagnosed with angioedema? Not Sure Do you have or have you ever been diagnosed with food allergy? No Do you have or have you ever been diagnosed with stinging insect allergy (bee, wasp, yellow jacket, hornet)? Not Sure Are you allergic to Penicillin antibiotics? Yes Myc Allergy Enviromental Exposures 05/08/2025 9:40 AM EDT - Filed by Patient Aeroallergens Exposure What pet(s) you have at home? Dog Is there evidence of a mouse infestation in your home? No Is there evidence of a cockroach infestation in your home? No Is there evidence of mold or mildew in your home? Yes Is your home air conditioned during the summer? Yes Do you use zip around dust mite covers on all mattresses and pillows? Yes Is there exposure in the home to cigarette or cigar smoke? No Is there any exposure to vaping? No PHYSICAL EXAM: BP 100/85 (BP Position: Sitting) Pulse 90 Temp 36.3 C (97.4 F) (Temporal) Resp 20 Wt 80.6 kg (177 lb 12.8 oz) SpO2 99% BMI 32.06 kg/m Body mass index is 32.06 kg/m . General: The patient is pleasant, well groomed, in no acute distress, breathing comfortably and interactive with the exam. Head: Normocephalic, atraumatic Eyes: Conjunctiva not injected, no drainage. Mouth: Oral mucosa moist. No oral ulcerations, no thrush, no posterior oropharyngeal cobblestoning present. Neck: Supple, normal ROM Cardiovascular: Regular rate and rhythm, no murmurs. Respiratory: Clear to auscultation bilaterally, good air movement, no wheezing, no rales. Lymph: No cervical or supraclavicular LAD. Musculoskeletal: Normal muscle tone and gait. Neurologic: Grossly non-focal Psych: Appropriate affect. Dermatologic: erythematous raised papules and plaques over neck DATA: I personally reviewed, interpreted, and discussed the labs, PFTs and radiographs with the patient as noted below: SPIROMETRY: normal, no BD response Latest Ref Rng & Units 04/10/2025 Spirometry Data FVC PRE (L) L 3.78 FVC POST (L) L 3.76 FEV1 PRE (L) L 3.00 FEV1_POST (L) L 3.07 FEV1/FVC PRE (%) % 79 FEV1/FVC POST (%) % 82 [id number]% PRE (L/S) L/S 2.80 MUY28-25% POST (L/S) L/S 3.08 PEF PRE (L/S) L/S 7.40 PEF POST (L/S) L/S 6.89 DLCO (ml/min/mmHg) ml/min/mmHg 25.38 VA (L) L 4.80 DLCO/VA (ml/min/mmHg/L) ml/min/mmHg/L 0.05 DLCOcor (ml/min/mmHg) ml/min/mmHg 25.10 Labs: Latest Reference Range & Units 04/10/25 17:22 Alternaria tenuis Class Class 0 Class 0 Alternaria tenuis IgE <0.35 kU/l <0.35 Aspergillus fumigatus Class Class 0 Class 0 Aspergillus fumigatus IgE <0.35 kU/l <0.35 Bermuda Grass Class Class 0 Class 0 Bermuda Grass IgE <0.35 kU/l <0.35 [place] Class Class 0 Class 0 [place]ford IgE <0.35 kU/l <0.35 Crowell Tree Class Class 0 Class 0 Crowell Tree IgE <0.35 kU/l <0.35 Cat Dander Class Class 0 Class 0 Cat Dander IgE <0.35 kU/l <0.35 Cladosporium herbarum Class Class 0 Class 0 Cladosporium herbarum IgE <0.35 kU/l <0.35 Cocklebur Class Class 0 Class 0 Cocklebur IgE <0.35 kU/l <0.35 Cockroach Class Class 0 Class 0 Cockroach IgE <0.35 kU/l <0.35 [place] Tree Class Class 0 Class 0 [place] Tree IgE <0.35 kU/l <0.35 D. farinae Class Class 0 Class 0 D. farinae IgE <0.35 kU/l <0.35 D. pteronyssinus Class Class 0 Class 0 D. pteronyssinus IgE <0.35 kU/l <0.35 Dog Dander Class Class 0 Class 0 Dog Dander IgE <0.35 kU/l <0.35 Elm Tree Class Class 0 Class 0 Elm Tree IgE <0.35 <0.35 Belgian Plantain Class Class 0 Class 0 Belgian Plantain IgE <0.35 kU/l <0.35 [id number] Cesar Grass <0.35 kU/l <0.35 Paint Lick/Pecan Tree Class Class 0 Class 0 Paint Lick/Pecan Tree IgE <0.35 kU/l <0.35 IgE <114.0 kU/l 5.2 Dex Grass Class Class 0 Class 0 Dex Grass IgE <0.35 kU/l <0.35 Miramontes's Quarters Class Class 0 Class 0 Miramontes's Quarters IgE <0.35 kU/l <0.35 Mouse Urine IgE <0.35 kU/l <0.35 Mouse Urine-Class Class 0 Class 0 [place] Class Class 0 Class 0 [place] IgE <0.35 kU/l <0.35 Winchester Tree Class Class 0 Class 0 Winchester Tree IgE <0.35 kU/l <0.35 Pigweed Class Class 0 Class 0 Pigweed IgE <0.35 kU/l <0.35 Rough Kendrick Elder Class Class 0 Class 0 Rough Kendrick Elder IgE <0.35 kU/l <0.35 Sheep Guadalupe Guerra Class Class 0 Class 0 Sheep Guadalupe Guerra IgE <0.35 kU/l <0.35 Short Ragweed Class Class 0 Class 0 Short Ragweed IgE <0.35 kU/l <0.35 Moriah Tree Class Class 0 Class 0 [place]iah Tree IgE <0.35 kU/l <0.35 Cesar Grass Class Class 0 Class 0 White Sravani Tree Class Class 0 Class 0 White Sravani Tree IgE <0.35 kU/l <0.35 WBC 3.70 - 11.00 k/uL 7.98 RBC 3.90 - 5.20 m/uL 4.44 Hemoglobin 11.5 - 15.5 g/dL 14.3 Hematocrit 36.0 - 46.0 % 41.9 Platelet Count 150 - 400 k/uL 250 MCV 80.0 - 100.0 fL 94.4 MCH 26.0 - 34.0 pg 32.2 MCHC 30.5 - 36.0 g/dL 34.1 MPV 9.0 - 12.7 fL 10.7 RDW-CV 11.5 - 15.0 % 11.9 DTYPE Auto Neut% % 55.7 Abs Neut (ANC) 1.45 - 7.50 k/uL 4.45 Lymph% % 32.8 Abs Lymph 1.00 - 4.00 k/uL 2.62 Winchester% % 7.9 Abs [place] <0.87 k/uL 0.63 Eosin% % 2.0 Abs Eosin <0.46 k/uL 0.16 Baso% % 1.3 Abs Baso <0.11 k/uL 0.10 Immature Gran % % 0.3 IMMATURE GRANS (ABS) <0.10 k/uL <0.03 NRBC /100 WBC 0.0 Absolute nRBC <0.01 k/uL <0.01 Percutaneous Allergy Testing: May 14, 2025 Skin testing was performed using standard technique and interpreted in the setting of valid positive and negative controls. SPT: could not interpret testing due to dermatographism Please see nurse's note for more details: Assessment/Plan: Adverse food reaction, initial encounter (T78.1XXA) Food allergy (Z91.018) History of adverse reactions to dairy, gluten, poultry, and eggs, with symptoms including hives, pruritus, and GI discomfort. Recent skin-prick testing was inconclusive due to dermatographism; prior serum IgE testing was negative. - Advised strict avoidance of known trigger foods. - Discussed limitations of current allergy testing in distinguishing true IgE-mediated allergy from food sensitivity or intolerance. - Advised continuation of functional medicine dietary recommendations and probiotic use. Chronic rhinitis (J31.0) Deviated nasal septum (J34.2) Non-allergic rhinitis Chronic rhinitis refractory to intranasal corticosteroids, antihistamines, and anticholinergic sprays, likely due to significant septal deviation and obstruction. Inhalant panel by blood testing was negative - patient probably has non allergic rhinitis Unfortunately today we could not interpret skin testing due to dermatographism - Recommended follow up with ENT, and since they recommended septoplasty she can consider that to address anatomical obstruction and improve medication efficacy. - Advised continuation of current nasal sprays (Flonase and Astelin) and Zyrtec. - Discussed that allergy immunotherapy is not an option at this time due to inconclusive testing. - Advised continuation of environmental allergen avoidance measures, including use of mattress and pillow covers, air purifiers, and regular cleaning. - Advised continuation of current pet care and cleaning routines. - Discussed limitations of current allergy testing and treatment options due to dermatographism. 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 - Could trial Cici in the morning and Zyrtec in the evening as an alternative regimen. Intrinsic atopic dermatitis (L20.84) Discussed eczema skin care Etiology of eczema/atopic dermatitis and treatment plan were discussed. Daily bath or shower with mild cleansers and moisturizing with ceramide replacing cream. Advised continuation of current topical steroid creams and ointments for eczema flares; patient to provide names of current prescriptions for further review. Advised continuation of current skin care regimen with fragrance-free products and avoidance of known irritants. Discussed medication dosage, usage, side effects, and goals of treatment in detail. Follow-up: Return in about 1 year (around 05/15/2026). Patient advised to call or return sooner should current symptoms worsen or fail to improve or if new symptoms or problems arise. Paulo Hurtado MD Allergy and Immunology [facility] Recording using [employer] software for draft documentation of the visit was discussed with the patient/authorized retail sales representative; all questions welcomed and answered. Patient/authorized retail sales representative agreed to proceed I spent a total of 43 minutes on the date of the service which included preparing to see the patient, [id number] patient care, completing clinical documentation, obtaining and/or reviewing separately obtained history, performing a medically appropriate examination, counseling and educating the patient/family/caregiver, ordering medications, tests, or procedures, independently interpreting results (not separately reported), and communicating results to the patient/family/caregiver. documented in this encounter [facility] 05-15-2025 Note HNO ID: [id number] Author: FAVIO DUPONT RN Service: ? Author Type: Registered Nurse Type: Progress Notes Filed: 05/15/2025 15:16 Note Text: INHALANT 40 PERCUTANEOUS AND INTRADERMAL TESTING/ Mean Wheal AND Flare Diameter (mm) Patient has been identified by name and date of : Yes . Skin test applied by : Favio Dupont RN Interpreted By: Paulo Hurtado MD * Clinical significant reactions are regarded as a wheal diameter greater than or equal to 3 mm with a flare diameter greater or equal to 6mm. ALLERGENS Time applied: 1353 Time read: 1408 Negative Control: 50%Glycerin/50%Cocas P: W = 0 mm F = 0 mm Cat Hair 10,000 BAU/ml P: W = 0 mm F = 0 mm UF Dog 1:650 P: W = 0 mm F = 0 mm Cockroach Mix 1:20 P: W = 0 mm F = 0 mm Mite Df 10,000 AU/ml P: W = 0 mm F = 0 mm Mite Dp 10,000AU/ml P: W = 0 mm F = 0 mm Alternaria Alternata 1:20 P: W = 0 mm F = 0 mm Aspergillus Fumigatus 1:20 P: W = 0 mm F = 0 mm Cladosporium sphearospermum 1:20 P: W = 0 mm F = 0 mm Epicoccum Nigrum 1:10 P: W = 0 mm F = 0 mm Fusarium Solani 1:40 P: W = 0 mm F = 0 mm Bipolaris Sorokiniana 1:20 P: W = 0 mm F = 0 mm Penicillium Mix 1:20 P: W = 0 mm F = 0 mm Sravani, White 1:20 P: W = 0 mm F = 0 mm Beech, Swedish 1:20 P: W = 0 mm F = 0 mm Birch Mix 1:20 P: W = 0 mm F = 0 mm Maple Mix 1:20 P: W = 0 mm F = 0 mm [place] ,Eastern 1:20 P: W = 0 mm F = 0 mm Paint Lick, Shagbark 1:20 P: W = 0 mm F = 0 mm [place] Tree, Red 1:20 P: W = 0 mm F = 0 mm Winchester, Red 1:20 P: W = 0 mm F = 0 mm Moriah, Swedish/Eastern 1:20 P: W = 0 mm F = 0 mm [place] Pollen, Black 1:20 P: W = 0 mm F = 0 mm Poplar, Black 1:20 P: W = 0 mm F = 0 mm Bermuda Grass 10,000 BAU/ml P : W = 0 mm F = 0 mm [place], Blue/Jessica 100,000 BAU/ml P: W = 0 mm F = 0 mm Fescue, [place] 100,000 BAU/ml P: W = 0 mm F = 0 mm Dex Grass 1:20 P: W = 0 mm F = 0 mm Orchard Grass 100,000 BAU/ml P: W = 0 mm F = 0 mm Perennial Crivitz, 100,000 BAU/ml P: W = 0 mm F = 0 mm Cesar 100,000 BAU/ml P: W = 0 mm F = 0 mm Cocklebur 1:20 P: W = 0 mm F = 0 mm Guadalupe Guerra, sheep 1:20 P: W = 0 mm F = 0 mm Plantain, Belgian 1:20 P: W = 0 mm F = 0 mm Lambs Quarters 1:20 P: W = 0 mm F = 0 mm Kendrick Elder, Burweed 1:20 P: W = 0 mm F = 0 mm Mugwort, Common 1:20 P: W = 0 mm F = 0 mm Pigweed, Rough 1:20 P: W = 0 mm F = 0 mm Ragweed, Mix 1:20 P: W = 0 mm F = 0 mm HISTAMINE, positive control(Histamine base 6mg/ml) P: W = 7 mm F = 33 mm ALLERGENS: ANIMAL Chicken, Meat 1:20 P: W = 0 mm F = 0 mm Egg white, Chicken 1:20 P: W = 0 mm F = 0 mm Milk, Cow?s 1:20 P: W = 0 mm F = 0 mm [place] Meat 1:20 P: W = 0 mm F = 0 mm ALLERGENS:GRAIN Wheat, whole 1:20 P: W = 0 mm F = 0 mm ALLERGENS: OTHER ANIMALS HORSE EPITHELIA 1:20 P: W = 0 mm F = 0 mm Testing reactions were unable to be determined per . Patient seen by Dr. Hurtado prior to leaving [facility]. Favio Dupont RN [facility] 05-15-2025 Note HNO ID: [id number] Author: PAULO HURTADO MD Service: ? Author Type: Physician Type: Progress Notes Filed: 05/15/2025 15:16 Note Text: Allergy and Immunology Patient Name: Nidia Kaye PRIMARY CARE PHYSICIAN: Kevin Valentin MD REASON FOR CONSULT: food allergy, chronic rhinitis REQUESTING PHYSICIAN: Ainsley Haddad MD My final recommendations will be communicated to the requesting health care provider by way of the shared medical record for internal providers or letter via the [facility] for external providers. CHIEF COMPLAINT: Nidia Kaye is a 50-year-old female with a history of asthma, presenting for evaluation of chronic allergies, food allergies and hives HISTORY OF PRESENT ILLNESS: Nidia reports a long-standing history of environmental allergies, confirmed by a scratch test approximately 10-12 years ago, which revealed sensitivities to various allergens including cedar, sravani, horses, dust, and dust mites. She experiences perennial symptoms such as itchy eyes, frequent sinus infections, and significant post-nasal drip. 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 She was informed of a real bad deviated septum during a visit one month ago, and notes that the nasal sprays have been ineffective, possibly due to the septal deviation. She has not undergone sinus surgery previously but has been advised that it may be necessary. She also reports a chronic cough, which is sometimes productive. She has a history of chronic urticaria, with frequent hives, including an episode this morning with hives on her neck. She uses fragrance-free products and takes Zyrtec daily, which she paused this week in preparation for testing, resulting in worsened symptoms. She has not been prescribed an EpiPen and has not required emergency treatment for allergic reactions. Nidia has a history of eczema, with lesions primarily on her neck, under her chin, and on her legs. The eczema can become severe, leading to cracked and bleeding skin. She uses Aveeno and Cetaphil lotions, as well as prescription steroid creams and ointments from her corner cutter, but reports that these treatments are minimally effective, feeling that they just sit on top of her skin without penetrating. 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 She follows a gluten-free and dairy-free diet due to sensitivities that cause gastrointestinal discomfort and exacerbate her skin conditions. She was advised by a functional medicine practitioner to avoid these foods after experiencing prolonged sinus infections and joint inflammation following her first COVID-19 infection. She has had COVID-19 four times, with each episode being severe and contributing to her ongoing health issues. She gained approximately 60 pounds during a two-month period while on prolonged steroid therapy for sinus infections and has only recently begun to lose this weight. She lives in an older home with some mold issues, which her manages by regularly cleaning the basement bobby. She has a pet dog, which she describes as her emotional support animal. She takes measures to minimize allergen exposure, including using allergen-proof mattress and pillow covers, washing sheets weekly in hot water, keeping windows closed, and using air purifiers at home. She avoids yard work and stays indoors when her mows the lawn. She is managed by Pulmonology for her asthma and is currently on Dulera to 200 puffs twice daily. He ordered inhalant panel which was negative, IgE was 5.2 and AEC was 0.16 PAST MEDICAL AND SURGICAL HISTORY: No past medical history on file. No past surgical history on file. ALLERGIES: is allergic to adhesive, azithromycin, fentanyl, and morphine. FAMILY HISTORY: No family history on file. REVIEW OF SYSTEMS: All systems were reviewed and were negative except as listed in the HPI and above. Constitutional: (+) weight loss Eyes: (+) itchy eyes Ears/Nose/Mouth/Throat: (+) rhinorrhea, (+) postnasal drip Respiratory: (+) cough Gastrointestinal: (+) abdominal discomfort Musculoskeletal: (+) joint pain Skin: (+) hives neck, (+) pruritus, (+) eczematous rash with fissures, (+) scaly plaques legs, (+) erythematous papules arms and legs Answers submitted by the patient for this visit: Allergy Review of Symptoms (Submitted on 05/08/2025) Eye discharge: Yes Itchy Eyes: Yes Eye pain: Yes Eye redness: Yes Photophobia (light sensitivity): Yes Ear pain: Yes Ringing in Ears: Yes Nasal Congestion: Yes Runny Nose: Yes Sneezing: Yes Itchy Nose: Yes Sore throat: Yes Itchy throat: Yes Throat clearing: Yes Shortness of breath (more content not included)... [facility] 05-15-2025 History of Present illness Narrative Radiology Service Progress Note PATIENT NAME: Nidia Kaye DATE OF SERVICE: May 15, 2025 TIME: 10:33 AM PATIENT IDENTITY VERIFICATION COMPLETED USING TWO (2) IDENTIFIERS: Name and Date of confirmed by patient verbally and Name and Date of confirmed by identification band. FALL SCREENING: Has the patient had 2 falls in the last year or 1 fall with injury or currently using an Ambulatory Assistive Device (Walker, Cane, Wheelchair, Crutches, etc.)? No PATIENT GENDER DATA: Assigned female at . status: : No status: NO. PATIENT RELEVANT IMPLANT DATA REVIEWED: Yes PATIENT PRESENTS WITH AN IMPLANTABLE OR ATTACHED MACHINE FASTENER: No RADIOLOGY DEPARTMENT: CT; Exam(s) Completed: Chest and Sinus PERIPHERAL IV DATA: Not applicable SIGNED BY: LAURIE Jeter) May 15, 2025 10:33 AM documented in this encounter [facility] 05-15-2025 Note HNO ID: [id number] Author: PANO, PIERRE, RT(R) Service: Radiology Author Type: Technologist Type: Progress Notes Filed: 05/15/2025 10:45 Note Text: Radiology Service Progress Note PATIENT NAME: Nidia Kaye DATE OF SERVICE: May 15, 2025 TIME: 10:33 AM PATIENT IDENTITY VERIFICATION COMPLETED USING TWO (2) IDENTIFIERS: Name and Date of confirmed by patient verbally and Name and Date of confirmed by identification band. FALL SCREENING: Has the patient had 2 falls in the last year or 1 fall with injury or currently using an Ambulatory Assistive Device (Walker, Cane, Wheelchair, Crutches, etc.)? No PATIENT GENDER DATA: Assigned female at . status: : No status: NO. PATIENT RELEVANT IMPLANT DATA REVIEWED: Yes PATIENT PRESENTS WITH AN IMPLANTABLE OR ATTACHED MACHINE FASTENER: No RADIOLOGY DEPARTMENT: CT; Exam(s) Completed: Chest and Sinus PERIPHERAL IV DATA: Not applicable SIGNED BY: RT Corona(R) May 15, 2025 10:33 AM [facility] 04-27-2025 Telephone encounter Note JUSTINA 01/28/[address] Meza NV 05/21/[address] Meza Patient requesting a change to a 90 day supply of estradiol (MINIVELLE, VIVELLE-DOT) 0.05 mg/24 hr patch Order pended Tova Harvey RN April 27, 2025 10:58 AM [facility] 04-27-2025 Miscellaneous Notes JUSTINA 01/28/[address] Meza NV 05/21/[address] Meza Patient requesting a change to a 90 day supply of estradiol (MINIVELLE, VIVELLE-DOT) 0.05 mg/24 hr patch Order pended Tova Harvey RN April 27, 2025 10:58 AM documented in this encounter [facility] 04-10-2025 Note HNO ID: [id number] Author: IFEANYI WILLSON MD Service: ? Author Type: Physician Type: Progress Notes Filed: 04/10/2025 17:51 Note Text: SECTION OF RHINOLOGY, SINUS AND SKULL BASE SURGERY Head and Neck Raphine, [facility] NOTE HPI: Patient is a 50 year old female who presents with sinusitis in the past 4 years, worse in the last 6 months. She has been on Flonase and Astelin, 2 sprays twice daily without significant improvement in symptoms. She has also done the Neti pot intermittently but she feels like it started getting blocked on the right side. She has had allergy testing in the past and tested positive for trees, weeds and dust mites. Her symptoms include bilateral maxillary sinus facial pressure, anterior and posterior drip which varies between thin and thick. Decreased sense of smell and nasal congestion right worse than left. Worsened of his facial pain and pressure. She has been on a couple rounds of Augmentin, the last of which has been in December. Is given mild improvement in symptoms without full resolution. She has been on prednisone in the past but has had side effects. She had a CT sinus in 2013 which showed clear paranasal sinuses and rightward septal deviation. She also has a history of migraines along the occiput and forehead. She is on Topamax and Imitrex. History of asthma and COPD. Sent by pulmonogist for consideration of biologics. No past medical history on file. No past surgical history on file. No family history on file. Social History Tobacco Use Smoking status: Never Smokeless tobacco: Never Current Outpatient Medications Medication Sig Dispense Refill atorvastatin calcium (ATORVASTATIN ORAL) Take by mouth. mometasone-formoterol (DULERA) 200-5 mcg/actuation inhaler Inhale 2 puffs as instructed two times a day. 39 g 2 ipratropium-albuterol (DUONEB) 0.5 mg-3 mg(2.5 mg base)/3 mL nebu Inhale 3 mL as instructed every 6 hours as needed for wheezing/shortness of breath. 180 mL 2 sodium chloride 3% solution (NEBUSAL) 3 % nebulizer solution Use 4 mL via nebulizer two times a day. 600 mL 2 Nebulizer and Compressor For Neb 1 each as needed for up to 1 day. Use as directed. 1 each 0 estradiol (VIVELLE-DOT) 0.05 mg/24 hr patch Apply 1 patch as directed two times a week. 8 patch 1 SELENIUM ORAL Take by mouth. levothyroxine (SYNTHROID) 112 mcg tablet TAKE 1 TABLET SUNDAY THROUGH SUNDAY. SKIP SUNDAY 78 tablet 3 liothyronine (CYTOMEL) 5 mcg tablet TAKE 1 TABLET BY MOUTH IN THE MORNING AND 1/2 TABLET MID AFTERNOON 135 tablet 3 DHEA vaginal suppository 13 mg (CPD) Unwrap and insert 1 Suppository vaginally as directed every night for the first 2 weeks, and then every other day for 2 months. Then twice a week. 30 Suppository 3 azelastine 0.1% nasal spray Use 1 [place] in each nostril two times a day. montelukast (SINGULAIR) 10 mg tablet Take 10 mg by mouth daily at bedtime. cholecalciferol (VITAMIN D-3) 50 mcg (2,000 unit) tablet Take 2,000 Units by mouth once daily. FLUTICASONE FUROATE INHALATION Inhale 50 mcg as instructed three times a day. 1 spray pyrilamine/dextromethorphan hb (CAPRON DM ORAL) Take by mouth once daily. fluticasone (FLONASE) 50 mcg/actuation nasal spray Use 2 Sprays in the nose once daily. SUMAtriptan (IMITREX) 50 mg tablet Take 1 tablet PO at onset of headach. May repeat in 2 hours if needed. 0 topiramate (TOPAMAX) 25 mg tablet Take 1 tablet PO BID 5 No current facility-administered medications for this visit. ALLERGIES Allergen Reactions Adhesive Intolerance Does not tolerate skin glue Azithromycin Rash Fentanyl Other: See Comments Headaches and nausea with patch. Has had IV fentanyl without problems Morphine Other: See Comments BP drops PHYSICAL EXAM: There were no vitals filed for this visit. General appearance: well developed, well nourished, without obvious deformities Communication: the patient speaks with a normal voice without hoarseness, no stridor or stertor Overall facial appearance: no obvious scars, lesions or masses Eyes: Extra ocular muscles are grossly intact Ears: Externally normal in appearance, without scars, lesions, or masses. Nasal exam: The septum is Yes deviated, and the visible turbinates are No hypertrophied on anterior rhinoscopy Lips, teeth and gums: No lesions Oral cavity and oropharynx: the oral mucosa, hard and soft palates, tongue, tonsil area, and posterior pharyngeal mucosa are without lesions. Floor of mouth is soft without edema. Neck: the neck appears symmetric without scars, and on palpation is without masses or lymphadenopathy Procedure: Diagnostic rigid nasal endoscopy Consent: verbal consent obtained Surgeon: Ifeanyi Willson MD with assistance of Eliazar Carrillo MD Anesthesia: The patient was sprayed with 4% topical lidocaine and Afrin. A rigid nasal scope was utilized to examine the patient nose Findings: A 30-degree ri (more content not included)... [facility] [facility] History of Present illness Narrative SECTION OF RHINOLOGY, SINUS AND SKULL BASE SURGERY Head and Neck [facility], [facility] NOTE HPI: Patient is a 50 year old female who presents with sinusitis in the past 4 years, worse in the last 6 months. She has been on Flonase and Astelin, 2 sprays twice daily without significant improvement in symptoms. She has also done the Neti pot intermittently but she feels like it started getting blocked on the right side. She has had allergy testing in the past and tested positive for trees, weeds and dust mites. Her symptoms include bilateral maxillary sinus facial pressure, anterior and posterior drip which varies between thin and thick. Decreased sense of smell and nasal congestion right worse than left. Worsened of his facial pain and pressure. She has been on a couple rounds of Augmentin, the last of which has been in December. Is given mild improvement in symptoms without full resolution. She has been on prednisone in the past but has had side effects. She had a CT sinus in 2013 which showed clear paranasal sinuses and rightward septal deviation. She also has a history of migraines along the occiput and forehead. She is on Topamax and Imitrex. History of asthma and COPD. Sent by pulmonogist for consideration of biologics. No past medical history on file. No past surgical history on file. No family history on file. Social History Tobacco Use Smoking status: Never Smokeless tobacco: Never Current Outpatient Medications Medication Sig Dispense Refill atorvastatin calcium (ATORVASTATIN ORAL) Take by mouth. mometasone-formoterol (DULERA) 200-5 mcg/actuation inhaler Inhale 2 puffs as instructed two times a day. 39 g 2 ipratropium-albuterol (DUONEB) 0.5 mg-3 mg(2.5 mg base)/3 mL nebu Inhale 3 mL as instructed every 6 hours as needed for wheezing/shortness of breath. 180 mL 2 sodium chloride 3% solution (NEBUSAL) 3 % nebulizer solution Use 4 mL via nebulizer two times a day. 600 mL 2 Nebulizer and Compressor For Neb 1 each as needed for up to 1 day. Use as directed. 1 each 0 estradiol (VIVELLE-DOT) 0.05 mg/24 hr patch Apply 1 patch as directed two times a week. 8 patch 1 SELENIUM ORAL Take by mouth. levothyroxine (SYNTHROID) 112 mcg tablet TAKE 1 TABLET SUNDAY THROUGH SUNDAY. SKIP SUNDAY 78 tablet 3 liothyronine (CYTOMEL) 5 mcg tablet TAKE 1 TABLET BY MOUTH IN THE MORNING AND 1/2 TABLET MID AFTERNOON 135 tablet 3 DHEA vaginal suppository 13 mg (CPD) Unwrap and insert 1 Suppository vaginally as directed every night for the first 2 weeks, and then every other day for 2 months. Then twice a week. 30 Suppository 3 azelastine 0.1% nasal spray Use 1 [place] in each nostril two times a day. montelukast (SINGULAIR) 10 mg tablet Take 10 mg by mouth daily at bedtime. cholecalciferol (VITAMIN D-3) 50 mcg (2,000 unit) tablet Take 2,000 Units by mouth once daily. FLUTICASONE FUROATE INHALATION Inhale 50 mcg as instructed three times a day. 1 spray pyrilamine/dextromethorphan hb (CAPRON DM ORAL) Take by mouth once daily. fluticasone (FLONASE) 50 mcg/actuation nasal spray Use 2 Sprays in the nose once daily. SUMAtriptan (IMITREX) 50 mg tablet Take 1 tablet PO at onset of headach. May repeat in 2 hours if needed. 0 topiramate (TOPAMAX) 25 mg tablet Take 1 tablet PO BID 5 No current facility-administered medications for this visit. ALLERGIES Allergen Reactions Adhesive Intolerance Does not tolerate skin glue Azithromycin Rash Fentanyl Other: See Comments Headaches and nausea with patch. Has had IV fentanyl without problems Morphine Other: See Comments BP drops PHYSICAL EXAM: There were no vitals filed for this visit. General appearance: well developed, well nourished, without obvious deformities Communication: the patient speaks with a normal voice without hoarseness, no stridor or stertor Overall facial appearance: no obvious scars, lesions or masses Eyes: Extra ocular muscles are grossly intact Ears: Externally normal in appearance, without scars, lesions, or masses. Nasal exam: The septum is Yes deviated, and the visible turbinates are No hypertrophied on anterior rhinoscopy Lips, teeth and gums: No lesions Oral cavity and oropharynx: the oral mucosa, hard and soft palates, tongue, tonsil area, and posterior pharyngeal mucosa are without lesions. Floor of mouth is soft without edema. Neck: the neck appears symmetric without scars, and on palpation is without masses or lymphadenopathy Procedure: Diagnostic rigid nasal endoscopy Consent: verbal consent obtained Surgeon: Ifeanyi Willson MD with assistance of Eliazar Carrillo MD Anesthesia: The patient was sprayed with 4% topical lidocaine and Afrin. A rigid nasal scope was utilized to examine the patient nose Findings: A 30-degree rigid endoscope was passed through the patient's bilateral nares. The first pass was along the floor of the nose to the nasopharynx. The second pass was to the area of the middle meatus. The third pass was to the sphenoethmoidal recess. Septum: Deviated to the right, no perforations Right nasal cavity: Inferior turbinate: Hypertrophied Inferior meatus: Clear, no discharge, no polyps/masses/lesions Middle meatus: Clear, no discharge, no polyps/masses/lesions Middle turbinate: Normal in size Sphenoethmoidal recess: Clear, no discharge, no polyps/masses/lesions Left nasal cavity: Inferior turbinate: Hypertrophied Inferior meatus: Clear, no discharge, no polyps/masses/lesions Middle meatus: Clear, no discharge, no polyps/masses/lesions Middle turbinate: Normal in size Sphenoethmoidal recess: Clear, no discharge, no polyps/masses/lesions Nasopharynx: Clear, no discharge, no masses/lesions RADIOLOGY: None ASSESSMENT AND PLAN: Chronic rhinosinusitis (primary encounter diagnosis) Nasal drainage Nasal septal deviation Allergic rhinitis, unspecified seasonality, unspecified trigger 50-year-old female with symptoms of chronic rhinosinusitis for past four years. Scope exam did not show purulence, polyps or discharge. - CT sinus to assess for presence of sinus disease - Continue Astelin and Flonase - Follow up virtually in 4-6 weeks - Can consider septoplasty to improve nasal breathing - Can consider Atrovent to improve nasal drainage - Agree with allergy testing Eliazar Carrillo MD for the service of Ifeanyi Willson MD Provider Attestation: I, Dr.Mohamad Willson, personally performed the services described in this documentation. All medical record entries made by the SEWER PIPE LAYER/PA/scribe/resident/fellow were at my direction and in my presence. I have reviewed the chart and agree that the record reflects my personal performance and is accurate and complete. Tobacco Use: Never Was smoking cessation packet given? N/A - Patient is a non-smoker or quit >1 year ago. Was a referral initiated?N/A Patient is a non-smoker documented in this encounter [facility] 04-10-2025 Note HNO ID: [id number] Author: ADRIANE PIERRE RN Service: ? Author Type: Registered Nurse Type: Progress Notes Filed: 04/10/2025 17:51 Note Text: Tobacco Use: Never Was smoking cessation packet given? N/A - Patient is a non-smoker or quit >1 year ago. Was a referral initiated?N/A Patient is a non-smoker [facility] 04-10-2025 Note HNO ID: [id number] Author: CHANTALE CHU RRT Service: ? Author Type: Registered Resp Therapist Type: Progress Notes Filed: 04/10/2025 15:12 Note Text: AMBULATORY PATIENT EDUCATION NOTE TOPIC: SURVIVAL SKILLS: Disease Education Medical Equipment nebulizer, acapella Medication Administration DuoNeb 3ml, hypertonic saline(3%) Symptom Management HEALTH PROMOTION: Self management READINESS TO LEARN COGNITIVE ABILITY: Alert and oriented MOTIVATION TO LEARN: Interested FAMILY SUPPORT: High - Very involved in pt care INSTRUCTION PROVIDED TO: Spouse PATIENT LEARNS BEST BY: Multiple Methods FACTORS AFFECTING LEARNING: None PHYSICAL LIMITATIONS AFFECTING LEARNING: None LEARNING RESPONSE DIAGNOSIS: bronchiectasis METHOD OF INSTRUCTION: Individual instruction Written instruction/Handouts Verbal instruction Demonstration/Hands on Learning PATIENT / FAMILY RESPONSE: Verbalizes understanding of: EQUIPMENT USE-Correct use of Equipment MEDICAL REGIMEN-Importance of following prescribed medical regimen MEDICATION PRESCRIBED-Accurate knowledge of prescribed medication prior to discharge MEDICATION ROUTE-Correct route for administration of the prescribed medication SYMPTOM MANAGEMENT-Correct actions to take to manage symptoms associated with his/her disease/illness Performs skill independently: acapella use Information received as demonstrated by interest and questions FOLLOW-UP PLAN: Complete - No need for follow-up Patient instructed to call with any further issues SUPPLEMENTAL MATERIAL: Title of written material: How to use acapella, Airway clearance routine Nebulizer care REFERRAL (RECOMMENDATION): None Order of treatments two times daily is 1. DuoNeb/3ml 2. Acapella airway clearance device, 10-20 breaths followed by 2 duke coughs and a strong cough, repeated for up to 5-10 minutes 3. Hypertonic saline 3% 4. Dulera, 2 puffs The above regimen was taken from pt's homegoing instructions from Dr. Haddad. CHANTALE CHU RRT Time spent on patient education: 20 minutes. [facility] 04-10-2025 History of Present illness Narrative AMBULATORY PATIENT EDUCATION NOTE TOPIC: SURVIVAL SKILLS: Disease Education Medical Equipment nebulizer, acapella Medication Administration DuoNeb 3ml, hypertonic saline(3%) Symptom Management HEALTH PROMOTION: Self management READINESS TO LEARN COGNITIVE ABILITY: Alert and oriented MOTIVATION TO LEARN: Interested FAMILY SUPPORT: High - Very involved in pt care INSTRUCTION PROVIDED TO: Spouse PATIENT LEARNS BEST BY: Multiple Methods FACTORS AFFECTING LEARNING: None PHYSICAL LIMITATIONS AFFECTING LEARNING: None LEARNING RESPONSE DIAGNOSIS: bronchiectasis METHOD OF INSTRUCTION: Individual instruction Written instruction/Handouts Verbal instruction Demonstration/Hands on Learning PATIENT / FAMILY RESPONSE: Verbalizes understanding of: EQUIPMENT USE-Correct use of Equipment MEDICAL REGIMEN-Importance of following prescribed medical regimen MEDICATION PRESCRIBED-Accurate knowledge of prescribed medication prior to discharge MEDICATION ROUTE-Correct route for administration of the prescribed medication SYMPTOM MANAGEMENT-Correct actions to take to manage symptoms associated with his/her disease/illness Performs skill independently: acapella use Information received as demonstrated by interest and questions FOLLOW-UP PLAN: Complete - No need for follow-up Patient instructed to call with any further issues SUPPLEMENTAL MATERIAL: Title of written material: How to use acapella, Airway clearance routine Nebulizer care REFERRAL (RECOMMENDATION): None Order of treatments two times daily is 1. DuoNeb/3ml 2. Acapella airway clearance device, 10-20 breaths followed by 2 duke coughs and a strong cough, repeated for up to 5-10 minutes 3. Hypertonic saline 3% 4. Dulera, 2 puffs The above regimen was taken from pt's homegoing instructions from Dr. Haddad. CHANTALE CHU RRT Time spent on patient education: 20 minutes. documented in this encounter [facility] 04-10-2025 Instructions Ainsley Haddad MD - 04/10/2025 2:09 PM EDT We discussed your respiratory and sinus concerns: - Your lung function is excellent, measuring at 121% of normal for your age, height, and sex. This is well above the normal range of 80-120%. - You are currently using Dulera (2 puffs twice daily, rinsing your mouth after use), azelastine and Flonase nasal sprays, montelukast (Singulair) nightly, and Zyrtec daily. You also have an albuterol rescue inhaler, which you rarely use as it does not provide significant relief. We discussed your care plan moving forward: - I ordered two CT scans: one of your chest and one of your sinuses. Please schedule these and complete them at the same time. These will help us evaluate your lungs, sinuses, and any potential structural issues contributing to your symptoms. - I recommend a referral to an ENT (ear, nose, and throat) specialist to evaluate your sinuses further, especially given your history of nasal polyps and persistent symptoms. They may consider mechanical interventions if drainage passages are obstructed. - I ordered blood tests to check for eosinophil levels and IgE (allergy-related markers). These will help us better understand your immune response and guide treatment. - I will refer you to an sales program manager for food allergy testing and management, as you report histamine reactions to certain foods despite following a gluten- and dairy-free diet. This will also help guide future treatment options, including biologic medications if needed. - For now, we will continue your current medications and consider increasing the use of inhalers and nebulizers to manage your symptoms more aggressively. If these adjustments do not provide sufficient relief, we may explore biologic medications, which target specific immune pathways and have been effective for conditions like yours. - Continue Dulera (but now do 200 two pufs twice daily) - Twice daily -- DuoNeb then flutter valve then 3% saline nebulizer [email or web address] We discussed your bulla (a large air pocket in the lung): - A bulla is a balloon-like area in the lung where normal structures are absent. While it is not currently concerning, it could rupture under strain (e.g., heavy lifting), which would require emergency care. If you experience sudden chest tightness or pain, go to the emergency department immediately. - Routine CT scans to monitor the bulla are not needed annually. We discussed lifestyle and environmental factors: - Avoid heavy lifting or straining to reduce the risk of bulla rupture. - You reported mild heartburn, which you manage with kaqs-[id number] medications. Avoiding trigger foods like dairy may help. - You have a sherwood retriever, and you suspect her dander may occasionally bother you. Allergy testing will help confirm this. - You live in a house with central heating and cooling, and you use high-quality filters and an air purifier. Continue changing filters regularly to maintain good air quality. Next steps: - Schedule and complete the CT scans of your chest and sinuses. - Schedule an appointment with an ENT specialist for further evaluation of your sinuses. - Complete the blood tests for eosinophil levels and IgE. - I will send a referral to an sales program manager for food allergy testing and management. - Continue your current medications as prescribed. Let me know if your symptoms worsen or do not improve with these adjustments. Please reach out if you have any questions or concerns before your next visit. See Iris Walker APRN.ENZO or Nannette Serrano APRN.CNP in 3 months See Ainsley Haddad MD in 6 months Ainsley Haddad MD documented in this encounter [facility] 04-10-2025 Note HNO ID: [id number] Author: AINSLEY HADDAD MD Service: ? Author Type: Physician Type: Progress Notes Filed: 04/10/2025 17:11 Note Text: [facility] Consultation requested for an opinion regarding asthma. My final recommendations will be communicated back to the requesting physician by way of shared Medical record or letter to requesting physician via [place] mail. Recording using [employer] software for draft documentation of the visit was discussed with the patient/authorized retail sales representative; all questions welcomed and answered. Patient/authorized retail sales representative agreed to proceed CC: Evaluation for UACS/asthma in setting of PI*MF HPI: Nidia Kaye is referred to airways disease clinic for evaluation of UACS/asthma. Nidia Kaye is a 50-year-old female with a history of asthma, presenting with chronic cough and persistent post-nasal drip. Nidia reports a lifelong history of cough, which worsened after jonatan COVID-19 four times. The first episode of COVID-19 led to a diagnosis of long COVID, and she has since experienced persistent symptoms. Around Thanksgiving, she began experiencing constant post-nasal drip, which has persisted. The post-nasal drip is sometimes clear but can also be discolored and malodorous, affecting her eating, sleeping, and speaking. She notes a constant sensation of gunk in her throat and has been on 6-7 courses of antibiotics since without improvement. She has not been on steroids since due to previous adverse effects, including weight gain, poor sleep, and joint pain. Nidia also reports dyspnea and wheezing, particularly when climbing stairs. She uses albuterol as a rescue inhaler but finds it ineffective and rarely uses it. She is currently on Dulera, 2 puffs BID, and rinses her mouth after use. She also uses azelastine and Flonase nasal sprays and takes montelukast nightly. She takes Zyrtec in the morning but still experiences rhinorrhea and congestion. She has not seen an ENT or had a CT scan of her sinuses in the past 10 years. She uses a neti pot but finds it ineffective. 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 Nidia has a history of eczema, which she believes was triggered by COVID-19. She also reports mild heartburn, which she manages with acsa-sic-lkccxbr medications. She has a history of snoring, which has improved with weight loss. She previously used a CPAP machine but found it ineffective due to her current symptoms. Unknown family history in the context of being adopted. She denies any significant smoking history, having only smoked for a month at age 20. She denies any use of vaping, marijuana, cocaine, or heroin. 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 She has a Sherwood Retriever at home and suspects that the dander may bother her. She lives in a house with central heating and cooling and tries to change the filters regularly. She also uses indoor air purifiers. Current airways regimen - Dulera 100-5 two puffs twice daily, rinsing mouth after use - Azelastine and fluticasone nasal sprays - Montelukast 10 mg nightly - Cetirizine 10 mg daily - Albuterol as needed, not using as much (given did not provide relief) Previous asthma history Triggers: tobacco smoke, pollens/allergens, exercise, odors, upper respiratory infections, and weather changes Hospitalizations: No Intubations: No ED visits in the last year: Steroid bursts in the last year:1 (Multiple antibiotics) Comorbidities: Atopy and Allergic Rhinitis: Yes Upper airway syndrome: Yes, reportedly with polyps (~10 years ago) Vocal cord dysfunction: No GERD: Yes, well controlled ALECIA: Yes, currently not using CPAP Exposures Smoking: never Vaping/Recreational Drug Use: No Occupational exposure history: No 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 Pets: Sherwood retriever at home Patient Entered Questionnaires 12/17/2023 Sleep Apnea Probability Screen Probability of moderate-severe sleep apnea (%) SAPS V2 22 (Sleep study not recommended) 04/09/2025 03/14/2025 COPD Assessment Test (CAT) Score 20 20 04/09/2025 03/14/2025 SARC-F Strength Some Some Assistance in walking None None Rise from a chair None None Climb stairs Some Some Falls None None SARC-F Score 2 (NOT symptomatic for Sarcopenia) 2 (NOT symptomatic for Sarcopenia) REVIEW OF SYMPTOMS: Constitutional: (+) weight gain Ears/Nose/Mouth/Throat: (+) postnasal drip, (+) nasal congestion, (+) rhinorrhea, (+) dysphonia, (+) foul-tasting sputum, (+) gagging, (-) sinus pressure Respiratory: (+) cough, (+) sputum production, (+) dyspnea on exertion, (+) wheezing, (+) chest pain with coughing Gastrointestinal: (+) heartburn Skin: (+) neck eczema PHYSICAL EXAMINATION: BP 122/72 (BP (more content not included)... [facility] 04-10-2025 History of Present illness Narrative Respiratory [facility] Consultation requested for an opinion regarding asthma. My final recommendations will be communicated back to the requesting physician by way of shared Medical record or letter to requesting physician via [place] mail. Recording using [employer] software for draft documentation of the visit was discussed with the patient/authorized retail sales representative; all questions welcomed and answered. Patient/authorized retail sales representative agreed to proceed CC: Evaluation for UACS/asthma in setting of PI*MF HPI: Nidia Kaye is referred to airways disease clinic for evaluation of UACS/asthma. Nidia Kaye is a 50-year-old female with a history of asthma, presenting with chronic cough and persistent post-nasal drip. Nidia reports a lifelong history of cough, which worsened after jonatan COVID-19 four times. The first episode of COVID-19 led to a diagnosis of long COVID, and she has since experienced persistent symptoms. Around , she began experiencing constant post-nasal drip, which has persisted. The post-nasal drip is sometimes clear but can also be discolored and malodorous, affecting her eating, sleeping, and speaking. She notes a constant sensation of gunk in her throat and has been on 6-7 courses of antibiotics since without improvement. She has not been on steroids since due to previous adverse effects, including weight gain, poor sleep, and joint pain. Nidia also reports dyspnea and wheezing, particularly when climbing stairs. She uses albuterol as a rescue inhaler but finds it ineffective and rarely uses it. She is currently on Dulera, 2 puffs BID, and rinses her mouth after use. She also uses azelastine and Flonase nasal sprays and takes montelukast nightly. She takes Zyrtec in the morning but still experiences rhinorrhea and congestion. She has not seen an ENT or had a CT scan of her sinuses in the past 10 years. She uses a neti pot but finds it ineffective. 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 Nidia has a history of eczema, which she believes was triggered by COVID-19. She also reports mild heartburn, which she manages with tiwr-ezt-lnozpxu medications. She has a history of snoring, which has improved with weight loss. She previously used a CPAP machine but found it ineffective due to her current symptoms. Unknown family history in the context of being adopted. She denies any significant smoking history, having only smoked for a month at age 20. She denies any use of vaping, marijuana, cocaine, or heroin. 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 She has a Sherwood Retriever at home and suspects that the dander may bother her. She lives in a house with central heating and cooling and tries to change the filters regularly. She also uses indoor air purifiers. Current airways regimen - Dulera 100-5 two puffs twice daily, rinsing mouth after use - Azelastine and fluticasone nasal sprays - Montelukast 10 mg nightly - Cetirizine 10 mg daily - Albuterol as needed, not using as much (given did not provide relief) Previous asthma history Triggers: tobacco smoke, pollens/allergens, exercise, odors, upper respiratory infections, and weather changes Hospitalizations: No Intubations: No ED visits in the last year: Steroid bursts in the last year:1 (Multiple antibiotics) Comorbidities: Atopy and Allergic Rhinitis: Yes Upper airway syndrome: Yes, reportedly with polyps (~10 years ago) Vocal cord dysfunction: No GERD: Yes, well controlled ALECIA: Yes, currently not using CPAP Exposures Smoking: never Vaping/Recreational Drug Use: No Occupational exposure history: No 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 Pets: Sherwood retriever at home Patient Entered Questionnaires 12/17/2023 Sleep Apnea Probability Screen Probability of moderate-severe sleep apnea (%) SAPS V2 22 (Sleep study not recommended) 04/09/2025 03/14/2025 COPD Assessment Test (CAT) Score 20 20 04/09/2025 03/14/2025 SARC-F Strength Some Some Assistance in walking None None Rise from a chair None None Climb stairs Some Some Falls None None SARC-F Score 2 (NOT symptomatic for Sarcopenia) 2 (NOT symptomatic for Sarcopenia) REVIEW OF SYMPTOMS: Constitutional: (+) weight gain Ears/Nose/Mouth/Throat: (+) postnasal drip, (+) nasal congestion, (+) rhinorrhea, (+) dysphonia, (+) foul-tasting sputum, (+) gagging, (-) sinus pressure Respiratory: (+) cough, (+) sputum production, (+) dyspnea on exertion, (+) wheezing, (+) chest pain with coughing Gastrointestinal: (+) heartburn Skin: (+) neck eczema PHYSICAL EXAMINATION: BP 122/72 (BP Site: Left Arm, BP Position: Sitting, BP Cuff Size: Large Adult) Pulse 97 Temp 36.9 C (98.4 F) (Temporal) Resp 16 Wt 78.9 kg (173 lb 15.1 oz) SpO2 100% BMI 31.37 kg/m General appearance: Well appearing, alert, in no acute distress, well-hydrated, well nourished. Lungs: Lungs clear to auscultation. No wheezing, rhonchi, rales. Heart: RRR without murmur, gallop, or rubs. No ectopy Extremities: No deformities, edema, skin discoloration, clubbing or cyanosis. Good capillary refill. Peripheral pulses: Normal DATA REVIEW: Labs (No diagnostics in this category) Tests - Pulmonary Function Test: FEV1 121% predicted, normal Imaging - CT Chest: Bulla identified - CT Chest: Bulla identified - CT Sinuses: Small polyp identified Assessment/Plan: 1. Other specified disorders of nose and nasal sinuses (J34.89) Chronic frontal sinusitis (J32.1) Chronic rhinitis (J31.0) Persistent post-nasal drip and nasal congestion with variable sputum production, exacerbated since . Previous treatment with multiple nasal sprays and antihistamines has been insufficient. Last CT scan of sinuses was over 10 years ago, which revealed a small polyp. - Ordered CT scan of the sinuses. - Referred to ENT for further evaluation and management. - Continue current nasal sprays: azelastine and Flonase. - Continue Zyrtec daily. 2. 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 No recent CT scans in the past three years to monitor stability. - Ordered CT scan of the chest to assess the current status of the bullae. - Educated patient on the potential risks associated with bullae, including the possibility of rupture, which can be life-threatening. Advised to avoid heavy lifting and straining. - Discussed the importance of seeking immediate medical attention if experiencing sudden chest tightness or pain. 3. Food allergy (Z91.018) Patient experiences histamine reactions to certain foods and follows a gluten and dairy-free diet. Expressed interest in further evaluation for food allergies. - Referred to an sales program manager for comprehensive food allergy testing and management. 4. Upper airway cough syndrome (R05.8) Chronic cough with post-nasal drip and nasal congestion, likely contributing to upper airway irritation. Symptoms have persisted and worsened since . - Continue current nasal sprays: azelastine and Flonase. - Continue Zyrtec daily. - Ordered CT scan of the sinuses. - Referred to ENT for further evaluation and management. 5. Asthma, moderate persistent, poorly-controlled (HCC) (J45.40) Poorly controlled asthma with frequent wheezing and shortness of breath, particularly with exertion. Current medications include Dulera, montelukast, and albuterol rescue inhaler, which patient reports is not effective. - Increase Dulera to 200 puffs twice daily. - Ensure proper inhaler technique and mouth rinsing after use. - Twice daily -- DuoNeb then flutter valve then 3% saline nebulizer - Consideration of biologic therapy if symptoms do not improve with current management. 6. Long COVID (U09.9) History of COVID-19 infection four times, with the first instance leading to a diagnosis of long COVID. Symptoms include chronic cough, post-nasal drip, and nasal congestion, which have persisted and worsened since Thanksgiving. - Continue current management for asthma and upper airway cough syndrome. - Monitor for any new or worsening symptoms. 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 and are PI*MM - May impede functional status of AAT and potentially contributing to current symptomatology, no targeted treatments available at this juncture See Iris Walker APRN.TIPPLE ENGINEER or Nannette Serrano APRN.TIPPLE ENGINEER in 3 months See Ainsley Haddad MD in 6 months Ainsley Haddad MD Orders Placed This Encounter FLUTTER VALVE CT CHEST WO IVCON Standing Status: Future Expiration Date: 05/10/2026 CT SINUS WO IVCON Standing Status: Future Expiration Date: 05/10/2026 Complete Blood Count and Differential Standing Status: Future Expected Date: 04/10/2025 Expiration Date: 07/10/2025 Immunoglobulin E Standing Status: Future Expected Date: 04/10/2025 Expiration Date: 07/10/2025 Scheduling Instructions: In preparation for this test, do not take multivitamins or dietary supplements containing biotin (vitamin B7) for at least 12 hours. Biotin is commonly found in hair, skin, and nail supplements and multivitamins. Tell your doctor if you take supplements containing biotin as part of your medication history. Resp Disease Reg 5 Reflex Standing Status: Future Expected Date: 04/10/2025 Expiration Date: 07/10/2025 CONSULT TO ALLERGY/IMMUNOLOGY [1801] Standing Status: Future Expiration Date: 04/10/2026 Is the appointment related to one of the following reasons:: None of these apply Does consulting provider have [facility] Epic access?: Yes CONSULT TO ENT Standing Status: Future Expiration Date: 04/10/2026 Does consulting provider have [facility] Epic access?: Yes mometasone-formoterol (DULERA) 200-5 mcg/actuation inhaler Sig: Inhale 2 puffs as instructed two times a day. Dispense: 39 g Refill: 2 ipratropium-albuterol (DUONEB) 0.5 mg-3 mg(2.5 mg base)/3 mL nebu Sig: Inhale 3 mL as instructed every 6 hours as needed for wheezing/shortness of breath. Dispense: 180 mL Refill: 2 sodium chloride 3% solution (NEBUSAL) 3 % nebulizer solution Sig: Use 4 mL via nebulizer two times a day. Dispense: 600 mL Refill: 2 Nebulizer and Compressor For Neb Si each as needed for up to 1 day. Use as directed. Dispense: 1 each Refill: 0 Clinician Time Spent Day of Service Time spent pre-visit, including record review - 13 minutes Time spent during the visit, including [id number]-[id number] time with the patient - 33 minutes Time spent post-visit, including documentation - 14 minutes Total time spent day of encounter = 60 minutes I attest that the times displayed above were spent by me for this encounter, and on the day of this encounter. documented in this encounter [facility] 03-23-2025 Telephone encounter Note LV: 01/28/2024 Meza: Future appt: 05/21/2025; also on wait list for sooner appt Partial on Dang Ma RN March 23, 2025 10:04 AM [facility] 03-23-2025 Miscellaneous Notes LV: 01/28/2024 Meza: Future appt: 05/21/2025; also on wait list for sooner appt Partial on Dang Ma RN March 23, 2025 10:04 AM documented in this encounter [facility] 03-05-2025 History of Present illness Narrative Associated Problem(s): Bulla, lung (HCC) She would like a new pulmonogist Associated Problem(s): Vsjux-2-vyospzaotip deficiency (HCC) Would like a new tape duplicator she will get me the name from [facility] Sinus infection in the last 3 weeks Headache/migraine all day Upper neck pain/back pain past hx of mild DDD-pt states that her insurance does not need an xray they will approve an MRI first Left shoulder numbness down to hand may need new referral to new ortho Needing a referral for a tape duplicator -felt dismissed by peter she is now on 3 allergy sprays and ceprin Pt has not had a ct in a couple years where she use to get one yearly. Images from the original note were not included. Nidia Montague is a 49 y.o. female presents with chief complaint of Labs Only HPI: Hx of DDD cervical /thoracic pain: some NT bilat UE L>R, clicking sound in neck. Pressure, achy, and can go to intense throbbing. Can also get pain opposite sternum area. +weakness in arms, no tripping. Has tried ice/heat/NSAIDS/tylenol not working would like to have an MRI completed Pulmonary: was seeing Peter, felt dismissed by him, used to have yearly CT chest, has not had one in [address] spine [place] [id number] [facility] [place] Sinusitis This is a recurrent problem. The current episode started 1 to 4 weeks ago. The problem is unchanged. The maximum temperature recorded prior to her arrival was 100.4 - 100.9 F. Associated symptoms include congestion, coughing, headaches, neck pain, shortness of breath, sinus pressure, sneezing and a sore throat. Pertinent negatives include no chills or ear pain. SUBJECTIVE: MEDICATIONS: Current Outpatient Medications Medication Instructions albuterol HFA 90 mcg/act inhaler 2 puffs, Every 4 hours PRN albuterol 2.5 mg, Nebulization, Every 6 hours PRN amoxicillin-clavulanate (Augmentin) 875-125 MG tablet 875 mg, Oral, 2 times daily, Take with food atorvastatin (LIPITOR) 10 mg, Oral, Nightly azelastine (Astelin) 0.1 % nasal spray 1 spray, 2 times daily clobetasol (Temovate) 0.05 % cream PLEASE SEE ATTACHED FOR DETAILED DIRECTIONS Dextromethorphan-Pyrilamine ([place] DMT) 30-30 MG tablet 1 tablet, 2 times daily Emollient (DHEA EX) Apply topically suppository estradiol (Vivelle-DOT) 0.05 MG/24HR APPLY 1 PATCH DIRECTED TWO TIMES A WEEK. fluticasone (Flonase) 50 MCG/ACT nasal spray 2 sprays, Daily ipratropium (Atrovent) 0.06 % nasal spray levothyroxine (SYNTHROID, LEVOXYL) 112 mcg, Daily before breakfast liothyronine (Cytomel) 5 MCG tablet 5mcg (1 tab) AM, 2.5mcg (1/2 tab) in mid-afternoon meloxicam (MOBIC) 15 mg, Daily PRN mometasone-formoterol (Dulera) 100-5 MCG/ACT inhaler 2 puffs, 2 times daily RT montelukast (SINGULAIR) 10 mg, Daily spironolactone (ALDACTONE) 100 mg, Daily sulfacetamide suspension (Klaron) 10 % lotion topical 1 application SUMAtriptan (IMITREX) 100 mg, Oral, Once as needed, May take 1 pill at onset of migraine MARTIN, repeat in 2 hours if needed, no more than 2 pills in 24 hours, no more than twice a week topiramate (TOPAMAX) 100 mg, Oral, 2 times daily ALLERGIES: Allergies Allergen Reactions Morphine Sulfate [Morphine] Shortness of breath, Headache and Hallucinations Fentanyl GI intolerance and Hallucinations Hydrocodone-Acetaminophen Hallucinations Zithromax [Azithromycin] Hives Wound Dressing Adhesive Hives, Rash and GI intolerance Does not tolerate skin glue REVIEW OF SYMPTOMS: Review of Systems Constitutional: Negative for appetite change, chills and fever. HENT: Positive for congestion, sinus pressure, sneezing and sore throat. Negative for ear pain. Eyes: Negative for pain, discharge, redness and visual disturbance. Respiratory: Positive for cough and shortness of breath. Negative for wheezing. Cardiovascular: Negative for chest pain, palpitations and leg swelling. Gastrointestinal: Negative for abdominal pain, blood in stool, constipation, diarrhea, nausea and vomiting. Genitourinary: Negative for difficulty urinating, dysuria and frequency. Musculoskeletal: Positive for back pain and neck pain. Negative for arthralgias, joint swelling and myalgias. Skin: Negative for rash and wound. Neurological: Positive for headaches. Negative for dizziness, tremors, seizures and syncope. Psychiatric/Behavioral: Negative for behavioral problems, self-injury and suicidal ideas. The patient is not nervous/anxious. Hematological: Does not bruise/bleed easily. Endocrine: Negative for polydipsia, polyphagia and polyuria. Allergic/Immunologic: Negative for environmental allergies and food allergies. 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 Anemia Antibiotic-induced yeast infection Arthralgia Arthritis Asthma ([facility]) Attention deficit disorder (ADD) in adult Bulla, lung ([facility]) 3cm LLL bulla Constipation, chronic COPD (chronic obstructive pulmonary disease) ([facility]) Cough variant asthma ([facility]) COVID-19 virus infection 09/03/2023 Degenerative disc disease, lumbar Depression, acute RAFAELA (generalized anxiety disorder) Gastroesophageal reflux disease without esophagitis Hip pain, chronic, left History of being hospitalized 2004 ICU-respiratory illness History of degenerative disc disease Hyperglycemia Hyperlipidemia Hypothyroidism Insomnia, persistent Irritable bowel syndrome with both constipation and diarrhea Major depressive disorder, recurrent, moderate ([facility]) 09/03/2023 MDD (major depressive disorder) Menopausal symptoms Menopause-symptoms discussed with patient and reassurance given. Discussed options of treatment, including nonhormonal vs hormonal, to include R/B/A as well as SE. Reviewed results of WHI study. All of patient's questions were answered and she expressed understanding. Will continue HRT as prescribed and patient was advised to call with questions or concerns. Migraine with aura and without status migrainosus, not intractable Migraine without status migrainosus, not intractable, unspecified migraine type 10/29/2023 Migraines Muscle spasm of back ALECIA (obstructive sleep apnea) sleep study: AHI 18, sat 86% 12/14 Osteoarthritis of spine with radiculopathy, cervical region Psoriasis Seasonal allergic rhinitis due to pollen Seasonal allergies Shortness of breath PFTs 12/08/2020: -FEV1/FVC: 85% -FEV1: 104% -FVC: 98% -Bronchodilator response: None performed -RV: 89% -T% -DLCO: 97% -Flow-volume loop: Normal Sinusitis Thyromegaly Vitamin D deficiency Weight gain, abnormal Weight gain, abnormal Past Surgical History: Procedure Laterality Date BACK SURGERY 2016 fusion BELT ABDOMINOPLASTY COSMETIC SURGERY 2007 FEMINIZING AUGMENTATION MAMMOPLASTY Bilateral HEMORRHOID SURGERY HERNIA REPAIR Mesh placed HERNIA REPAIR 11/2018 HYSTERECTOMY 2008 Abdominal due to menorrhagia IR BILIARY CHOLANGIOGRAM 09/03/2018 IR BILIARY CHOLANGIOGRAM IR BILIARY CHOLANGIOGRAM 09/03/2018 IR BILIARY CHOLANGIOGRAM LIVER RESECTION 08/2018 SURGICAL PROCUREMENT, LIVER, LIVING DONOR TUBAL LIGATION US GUIDED NEEDLE LIVER BIOPSY 08/05/2018 US GUIDED NEEDLE LIVER BIOPSY 08/05/2018 family history is not on file. She was adopted. OBJECTIVE: Visit Vitals BP 118/82 (BP Location: Left arm, Patient Position: Sitting, BP Cuff Size: Adult long) Pulse 101 Temp 98.5 F (Temporal) Resp 20 Wt 175 lb 6.4 oz SpO2 98% BMI 32.08 kg/m Smoking Status Never BSA 1.87 m Physical Exam Vitals and nursing note reviewed. Constitutional: General: She is not in acute distress. Appearance: Normal appearance. HENT: Head: Normocephalic and atraumatic. Right Ear: Tympanic membrane, ear canal and external ear normal. Left Ear: Tympanic membrane, ear canal and external ear normal. Nose: Nose normal. No congestion. Mouth/Throat: Mouth: Mucous membranes are moist. Pharynx: No oropharyngeal exudate or posterior oropharyngeal erythema. Eyes: Extraocular Movements: Extraocular movements intact. Conjunctiva/sclera: Conjunctivae normal. Neck: Vascular: No carotid bruit. Cardiovascular: Rate and Rhythm: Normal rate and regular rhythm. Pulses: Normal pulses. Heart sounds: Normal heart sounds. No murmur heard. Pulmonary: Effort: Pulmonary effort is normal. Breath sounds: Normal breath sounds. No wheezing or rhonchi. Abdominal: General: Bowel sounds are normal. There is no distension. Palpations: Abdomen is soft. There is no mass. Tenderness: There is no abdominal tenderness. Musculoskeletal: Cervical back: Normal range of motion and neck supple. Right lower leg: No edema. Left lower leg: No edema. Comments: Limited ROM cervical spine, +tightness/tenderness, tenderness as well to thoracic T5-T9 Lumbar decreased ROM MMT 5/5 bilat UE/LE Lymphadenopathy: Cervical: No cervical adenopathy. Skin: General: Skin is warm and dry. Capillary Refill: Capillary refill takes 2 to 3 seconds. Findings: No rash. Neurological: General: No focal deficit present. Mental Status: She is alert and oriented to person, place, and time. Deep Tendon Reflexes: Reflexes normal. Psychiatric: Mood and Affect: Mood normal. Behavior: Behavior normal. Thought Content: Thought content normal. Judgment: Judgment normal. ASSESSMENT AND PLAN: Follow up in about 3 months (around 06/05/2025) for Recheck. Problem List Items Addressed This Visit Adult hypothyroidism Is currently taking levothyroxine Check labs yearly, and prn dose changes, or changes in symptoms Bulla, lung (HCC) She would like a new pulmonogist Hyperlipidemia On statin therapy Check labs yearly and prn dose changes Morbid (severe) obesity due to excess calories (CMS-HCC) - Primary Discussed with patient their BMI (actual, verses recommended). We have also discussed lifestyle modifications: attempts to perform physical activity as chronic conditions allow, also to monitor dietary intake: increasing protein/fruits/veggies and lowering carb intake (unless contraindicated). Limit sodas, juices, and sugary drinks. Continue the hard work!!! Encounter for screening mammogram for malignant neoplasm of breast Relevant Orders Bilateral screening mammogram Subacute maxillary sinusitis Relevant Medications amoxicillin-clavulanate (Augmentin) 875-125 MG tablet Degenerative disc disease, cervical Relevant Orders MR cervical spine wo contrast Chronic midline thoracic back pain Relevant Orders MR thoracic spine wo contrast Associated Problem(s): Hyperlipidemia On statin therapy Check labs yearly and prn dose changes Associated Problem(s): Adult hypothyroidism Is currently taking levothyroxine Check labs yearly, and prn dose changes, or changes in symptoms Associated Problem(s): Morbid (severe) obesity due to excess calories ([facility]) Discussed with patient their BMI (actual, verses recommended). We have also discussed lifestyle modifications: attempts to perform physical activity as chronic conditions allow, also to monitor dietary intake: increasing protein/fruits/veggies and lowering carb intake (unless contraindicated). Limit sodas, juices, and sugary drinks. Continue the hard work!!! documented in this encounter [facility] 03-05-2025 Instructions Isabella Dueñas NP - 03/05/2025 3:00 PM EDT MRI we will get operative report from [facility]: call me with the name and then I will send documented in this encounter [facility] 02-18-2025 Instructions Tessa Aguilar MD - 02/18/2025 9:42 AM EDT Continue current dosing of levothyroxine and liothyronine, refills sent Lab recheck in 6mo ordered Need to let myself or primary care know if you end up losing significant further weight as we'd likely need to recheck your labs and may need to reduce dosing slightly if at a lower baseline weight Symptoms of too much thyroid medication could be: heart racing, tremors, sweats, heat intolerance, loose stools, anxiety documented in this encounter [facility] 02-18-2025 History of Present illness Narrative Images from the original note were not included. Endocrinology Virtual Visit This is a virtual visit using [employer] Video Visit. It required patient-provider interaction for the medical decision making as documented below. I have communicated my name and active licensure. The patient's identity and physical location were verified at the time of this visit. Either the patient or their legal retail sales representative has been informed of the risks and benefits of -- and alternatives to -- treatment through a remote evaluation and consents to proceed with the evaluation remotely. Clinical Care Team: -Referring Provider for today's visit: Ana Rosa Haji APRN.TIPPLE ENGINEER -Primary Care Provider: Kevin Valentin MD History of Present Illness: Patient presents with: Thyroid Problem Nidia Kaye is a 49 year old female who presents today for evaluation of hypothyroidism. 12/2023 visit history: Hypothyroidism x11 yrs- symptoms like weight fluctuations, hair loss LT4 112mcg daily (generic) - same dose for years Worse symptoms over time, of note also has long COVID and symptoms worsened after infection Recently developed a rash under chin associated with fatigue, also being seen by a corner cutter for vasculitis. 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 No recent steroids I have reviewed her medical, surgical, family and social history and have updated medication and allergy information in the computerized patient record. ROS: Answers submitted by the patient for this visit: Core Review of Systems (Submitted on 02/17/2025) Fever : No Night sweats: No Recent unintentional weight change: No Nasal Congestion: Yes Hearing Loss: Yes Vision Disturbance: No A cough: Yes Difficulty Breathing?: Yes Chest pain: No Irregular heartbeat: No Leg Swelling: No Nausea: No Diarrhea: No Black tarry stools: No Difficulty Urinating?: No Awaken at Night More Than Once to Urinate?: No Joint pain or stiffness: Yes Muscle aches: Yes Leg or Foot Discomfort at Night?: No A rash: No Dizziness: No Headaches: No Memory Loss: No Seizures: No No significant tremors All other systems reviewed and found to be negative except those mentioned in HPI No past medical history on file. No past surgical history on file. Current Outpatient Medications Medication Sig atorvastatin calcium (ATORVASTATIN ORAL) Take by mouth. SELENIUM ORAL Take by mouth. levothyroxine (SYNTHROID) 112 mcg tablet TAKE 1 TABLET SUNDAY THROUGH SUNDAY. SKIP SUNDAY liothyronine (CYTOMEL) 5 mcg tablet TAKE 1 TABLET BY MOUTH IN THE MORNING AND 1/2 TABLET MID AFTERNOON estradiol (VIVELLE-DOT) 0.05 mg/24 hr Apply 1 Patch as directed two times a week. DHEA vaginal suppository 13 mg (CPD) Unwrap and insert 1 Suppository vaginally as directed every night for the first 2 weeks, and then every other day for 2 months. Then twice a week. azelastine 0.1% nasal spray Use 1 [place] in each nostril two times a day. mometasone-formoterol (DULERA) 100-5 mcg/actuation inhaler Inhale 2 Puffs as instructed two times a day. montelukast (SINGULAIR) 10 mg tablet Take 10 mg by mouth daily at bedtime. cholecalciferol (VITAMIN D-3) 50 mcg (2,000 unit) tablet Take 2,000 Units by mouth once daily. FLUTICASONE FUROATE INHALATION Inhale 50 mcg as instructed three times a day. 1 spray pyrilamine/dextromethorphan hb (CAPRON DM ORAL) Take by mouth once daily. fluticasone (FLONASE) 50 mcg/actuation nasal spray Use 2 Sprays in the nose once daily. SUMAtriptan (IMITREX) 50 mg tablet Take 1 tablet PO at onset of headach. May repeat in 2 hours if needed. topiramate (TOPAMAX) 25 mg tablet Take 1 tablet PO BID No current facility-administered medications for this visit. No family history on file. Social History Tobacco Use Smoking status: Never Smokeless tobacco: Never Physical Exam There were no vitals filed for this visit. There is no height or weight on file to calculate BMI. Last 3 Encounter Wt Readings: Date: Wt: 12/24/2023 97.7 kg (215 lb 8 oz) 09/04/2019 76.2 kg (168 lb) 11/28/2018 75.8 kg (167 lb) General: She is a well-appearing female in no distress HEENT: atraumatic, sclera clear Neck: no visible goiter Lungs: no respiratory distress Cardiac: no visible edema Extremities: no cyanosis or clubbing Neurologic: alert and oriented Skin: no rash Musculoskeletal: normal range of motion Mood is relaxed, affect is appropriate. Procedure / Imaging / Lab Data: Pertinent procedure/imaging/lab data was reviewed/discussed with the patient today: Latest Reference Range & Units 12/24/23 11:39 Free T4 0.9 - 1.7 ng/dL 0.9 TSH 0.270 - 4.200 mIU/L 2.060 Free T3 2.3 - 4.1 pg/mL 2.8 Thyroglobulin Ab, Serum <4.0 IU/mL <0.9 [facility] to ALL THYROID STIM HORMONE Component 01/14/25 12/22/23 THYROID STIMULATING HORMONE 0.546 2.701 ALL THYROXINE (T4) FREE Component Ref Range & Units 1 mo ago FREE T4 0.76 - 1.46 ng/dL 1.09 Resulting Agency [facility] Specimen Collected: 01/14/25 9:52 AM Performed by: [employer] Last Resulted: 01/14/25 10:49 AM Received From: [facility] Result Received: 02/18/25 9:12 AM Thyroid US (outside ) 2017 US HEAD/NECK SOFT TISSUE OTHER Order: [id number] Narrative History: Thyroid enlargement for 2 months Exam/Technique: Multiple sonographic images of thyroid gland were obtained. Comparison: None Findings: The thyroid gland is normal in size with the right lobe measuring 4.8 x 1.6 x 1.5 cm and the left lobe measuring 4.7 x 1.4 x 1.3 cm. The thyroid gland is homogeneous in echotexture. No cystic or solid nodules are seen. IMPRESSION: Normal thyroid ultrasound. Finalized by Gokul Montenegro MD on 08/24/2017 2:14 PM Exam End: 08/24/17 1:19 PM Specimen Collected: 08/24/17 2:13 PM Last Resulted: 08/24/17 2:14 PM Received From: [employer] Result Received: 12/24/23 9:42 AM Impression & Plan Nidia Kaye is a 49 year old female who is seen in clinic today for hypothyroidism. E03.9 Hypothyroidism, unspecified type (primary encounter diagnosis) Comment: T4+T3 combination therapy since LV, improved symptomatically, euthyroid on outside labs from December 2024 - Continue current regimen: LT4 112mcg M-Sat, LT3 5mcg AM/2.5mcg PM , refills sent - Lab recheck 6mo - counseled on letting myself or PCP know if significant further weight loss as we'd likely need to recheck TFTs and reduce dose slightly. Discussed s/s of overtreatment to look out for Return in about 1 year (around 02/18/2026). Tessa Aguilar MD documented in this encounter [facility] 02-18-2025 Note HNO ID: [id number] Author: TESSA AGUILAR MD Service: ? Author Type: Physician Type: Progress Notes Filed: 02/18/2025 09:43 Note Text: Endocrinology Virtual Visit This is a virtual visit using [employer] Zoom Video Visit. It required patient-provider interaction for the medical decision making as documented below. I have communicated my name and active licensure. The patient's identity and physical location were verified at the time of this visit. Either the patient or their legal retail sales representative has been informed of the risks and benefits of -- and alternatives to -- treatment through a remote evaluation and consents to proceed with the evaluation remotely. Clinical Care Team: -Referring Provider for today's visit: Ana Rosa Haji APRN.TIPPLE ENGINEER -Primary Care Provider: Kevin Valentin MD History of Present Illness: Patient presents with: Thyroid Problem Nidia Kaye is a 49 year old female who presents today for evaluation of hypothyroidism. 12/2023 visit history: Hypothyroidism x11 yrs- symptoms like weight fluctuations, hair loss LT4 112mcg daily (generic) - same dose for years Worse symptoms over time, of note also has long COVID and symptoms worsened after infection Recently developed a rash under chin associated with fatigue, also being seen by a corner cutter for vasculitis. 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 No recent steroids I have reviewed her medical, surgical, family and social history and have updated medication and allergy information in the computerized patient record. ROS: Answers submitted by the patient for this visit: Core Review of Systems (Submitted on 02/17/2025) Fever : No Night sweats: No Recent unintentional weight change: No Nasal Congestion: Yes Hearing Loss: Yes Vision Disturbance: No A cough: Yes Difficulty Breathing?: Yes Chest pain: No Irregular heartbeat: No Leg Swelling: No Nausea: No Diarrhea: No Black tarry stools: No Difficulty Urinating?: No Awaken at Night More Than Once to Urinate?: No Joint pain or stiffness: Yes Muscle aches: Yes Leg or Foot Discomfort at Night?: No A rash: No Dizziness: No Headaches: No Memory Loss: No Seizures: No No significant tremors All other systems reviewed and found to be negative except those mentioned in HPI No past medical history on file. No past surgical history on file. Current Outpatient Medications Medication Sig atorvastatin calcium (ATORVASTATIN ORAL) Take by mouth. SELENIUM ORAL Take by mouth. levothyroxine (SYNTHROID) 112 mcg tablet TAKE 1 TABLET SUNDAY THROUGH SUNDAY. SKIP SUNDAY liothyronine (CYTOMEL) 5 mcg tablet TAKE 1 TABLET BY MOUTH IN THE MORNING AND 1/2 TABLET MID AFTERNOON estradiol (VIVELLE-DOT) 0.05 mg/24 hr Apply 1 Patch as directed two times a week. DHEA vaginal suppository 13 mg (CPD) Unwrap and insert 1 Suppository vaginally as directed every night for the first 2 weeks, and then every other day for 2 months. Then twice a week. azelastine 0.1% nasal spray Use 1 [place] in each nostril two times a day. mometasone-formoterol (DULERA) 100-5 mcg/actuation inhaler Inhale 2 Puffs as instructed two times a day. montelukast (SINGULAIR) 10 mg tablet Take 10 mg by mouth daily at bedtime. cholecalciferol (VITAMIN D-3) 50 mcg (2,000 unit) tablet Take 2,000 Units by mouth once daily. FLUTICASONE FUROATE INHALATION Inhale 50 mcg as instructed three times a day. 1 spray pyrilamine/dextromethorphan hb (CAPRON DM ORAL) Take by mouth once daily. fluticasone (FLONASE) 50 mcg/actuation nasal spray Use 2 Sprays in the nose once daily. SUMAtriptan (IMITREX) 50 mg tablet Take 1 tablet PO at onset of headach. May repeat in 2 hours if needed. topiramate (TOPAMAX) 25 mg tablet Take 1 tablet PO BID No current facility-administered medications for this visit. No family history on file. Social History Tobacco Use Smoking status: Never Smokeless tobacco: Never Physical Exam There were no vitals filed for this visit. There is no height or weight on file to calculate BMI. Last 3 Encounter Wt Readings: Date: Wt: 12/24/2023 97.7 kg (215 lb 8 oz) 09/04/2019 76.2 kg (168 lb) 11/28/2018 75.8 kg (167 lb) General: She is a well-appearing female in no distress HEENT: atraumatic, sclera clear Neck: no visible goiter Lungs: no respiratory distress Cardiac: no visible randy (more content not included)... [facility] 01-30-2025 Telephone encounter Note Message left and mychart message sent to schedule follow up appointment with Dr. Aguilar. [facility] 01-30-2025 Miscellaneous Notes Message left and mychart message sent to schedule follow up appointment with Dr. Aguilar. Prescription Refill Information The patient has been identified by name and date of : Yes Caregiver verified no other encounters exist for this prescription request: Yes Caregiver confirmed with patient/requestor that no other refills are due, in the near future, with this provider at this time: Yes The last office visit in the department: 01/04/24 Does the patient have a future office visit with this provider/department: No Requested Prescriptions Pending Prescriptions Disp Refills liothyronine (CYTOMEL) 5 mcg tablet [Pharmacy Med Name: LIOTHYRONINE SOD 5 MCG TAB] 30 tablet 0 Sig: TAKE 1 TABLET BY MOUTH IN THE MORNING AND 1/2 TABLET MID AFTERNOON JEFF Healy January 30, 2025 7:53 AM documented in this encounter [facility] 01-30-2025 Telephone encounter Note Pharmacy requests 90 day supply Prescription Refill Information The patient has been identified by name and date of : Yes Caregiver verified no other encounters exist for this prescription request: Yes Caregiver confirmed with patient/requestor that no other refills are due, in the near future, with this provider at this time: Yes The last office visit in the department: 01/04/24 Does the patient have a future office visit with this provider/department: No Requested Prescriptions Pending Prescriptions Disp Refills liothyronine (CYTOMEL) 5 mcg tablet [Pharmacy Med Name: LIOTHYRONINE SOD 5 MCG TAB] 135 tablet 0 Sig: TAKE 1 TABLET BY MOUTH IN THE MORNING AND 1/2 TABLET MID AFTERNOON Viv Guerin RN January 30, 2025 1:04 PM [facility] 01-30-2025 Miscellaneous Notes Pharmacy requests 90 day supply Prescription Refill Information The patient has been identified by name and date of : Yes Caregiver verified no other encounters exist for this prescription request: Yes Caregiver confirmed with patient/requestor that no other refills are due, in the near future, with this provider at this time: Yes The last office visit in the department: 01/04/24 Does the patient have a future office visit with this provider/department: No Requested Prescriptions Pending Prescriptions Disp Refills liothyronine (CYTOMEL) 5 mcg tablet [Pharmacy Med Name: LIOTHYRONINE SOD 5 MCG TAB] 135 tablet 0 Sig: TAKE 1 TABLET BY MOUTH IN THE MORNING AND 1/2 TABLET MID AFTERNOON Viv Guerin RN January 30, 2025 1:04 PM documented in this encounter [facility] 01-30-2025 Telephone encounter Note Prescription Refill Information The patient has been identified by name and date of : Yes Caregiver verified no other encounters exist for this prescription request: Yes Caregiver confirmed with patient/requestor that no other refills are due, in the near future, with this provider at this time: Yes The last office visit in the department: 01/04/24 Does the patient have a future office visit with this provider/department: No Requested Prescriptions Pending Prescriptions Disp Refills liothyronine (CYTOMEL) 5 mcg tablet [Pharmacy Med Name: LIOTHYRONINE SOD 5 MCG TAB] 30 tablet 0 Sig: TAKE 1 TABLET BY MOUTH IN THE MORNING AND 1/2 TABLET MID AFTERNOON JEFF Healy January 30, 2025 7:53 AM [facility] Work Phone: 12-01-2024 Telephone encounter Note Prescription Refill Information The patient has been identified by name and date of : Yes Caregiver verified no other encounters exist for this prescription request: Yes Caregiver confirmed with patient/requestor that no other refills are due, in the near future, with this provider at this time: Yes The last office visit in the department: 01/04/24 Does the patient have a future office visit with this provider/department: No Requested Prescriptions Pending Prescriptions Disp Refills levothyroxine (SYNTHROID) 112 mcg tablet [Pharmacy Med Name: LEVOTHYROXINE 112 MCG TABLET] 78 tablet 0 Sig: TAKE 1 TABLET SUNDAY THROUGH SUNDAY. SKIP SUNDAY JEFF Healy December 01, 2024 11:55 AM [facility] Work Phone: 12-01-2024 Miscellaneous Notes Prescription Refill Information The patient has been identified by name and date of : Yes Caregiver verified no other encounters exist for this prescription request: Yes Caregiver confirmed with patient/requestor that no other refills are due, in the near future, with this provider at this time: Yes The last office visit in the department: 01/04/24 Does the patient have a future office visit with this provider/department: No Requested Prescriptions Pending Prescriptions Disp Refills levothyroxine (SYNTHROID) 112 mcg tablet [Pharmacy Med Name: LEVOTHYROXINE 112 MCG TABLET] 78 tablet 0 Sig: TAKE 1 TABLET SUNDAY THROUGH SUNDAY. SKIP SUNDAY JEFF Healy December 01, 2024 11:55 AM documented in this encounter [facility] 11-04-2024 History of Present illness Narrative Associated Problem(s): URI (upper respiratory infection) Neg covid/flu test Has had vaccinations for both At this point sxs only started yesterday and I would recommend we treat symptoms only: which her prescribed meds should take care of Fluids, rest fu if not better 10/01/24: Increase physical activity as tolerated, and lower caloric intake to 1600 calories daily if no contraindications Month #4 completed Total weight loss: 23 pounds OARRS reviewed Prescribing month # 5 Goal weight : 135-140 11/04/24: Month #5 completed Pt also has cold symptoms; headaches, sore throat, runny/stuffy nose, sinus pressure, sneezing, sob, chills, had a temp of 93.3-96 at home yesterday (temporal), pt felt so cold it was giving her internal pain, some nausea, some looser stools, tightness in the chest, head congestion, stiff neck, achy. Images from the original note were not included. Nidia Montague is a 49 y.o. female presents with chief complaint of No chief complaint on file. HPI: Diet:balanced diet, follows more medeterrain diet Activity:exercises most days of the week Mental Health Concerns: none Falls in the last year: none Any hearing problems: none Any Vision problems: none, 04/16 last eye exam Any Hospitalizations in the last year: none Specialist: Samsa, Pulmonary [facility], underwriting technician [facility], [facility] health at [facility] Concerns: Here for adipex check: this will be month #6, so far total loss is: 32 pounds, is doing well with exercise and diet and portion control Pt also has cold symptoms; headaches, sore throat, runny/stuffy nose, sinus pressure, sneezing, sob, chills, had a temp of 93.3-96 at home yesterday (temporal), pt felt so cold it was giving her internal pain, some nausea, some looser stools, tightness in the chest, head congestion, stiff neck, achy. SUBJECTIVE: MEDICATIONS: Current Outpatient Medications Medication Instructions albuterol HFA 90 mcg/act inhaler 2 puffs, Every 4 hours PRN albuterol 2.5 mg, Nebulization, Every 6 hours PRN azelastine (Astelin) 0.1 % nasal spray 1 spray, 2 times daily Dextromethorphan-Pyrilamine ([place] DMT) 30-30 MG tablet 1 tablet, 2 times daily Emollient (DHEA EX) Apply topically suppository estradiol (Vivelle-DOT) 0.05 MG/24HR APPLY 1 PATCH DIRECTED TWO TIMES A WEEK. fluticasone (Flonase) 50 MCG/ACT nasal spray 2 sprays, Daily guaiFENesin (Mucinex) 600 MG 12 hr tablet Every 12 hours ipratropium (Atrovent) 0.06 % nasal spray levothyroxine (SYNTHROID, LEVOXYL) 112 mcg, Daily before breakfast liothyronine (Cytomel) 5 MCG tablet 5mcg (1 tab) AM, 2.5mcg (1/2 tab) in mid-afternoon meloxicam (MOBIC) 15 mg, Daily PRN mometasone-formoterol (Dulera) 100-5 MCG/ACT inhaler 2 puffs, 2 times daily RT montelukast (SINGULAIR) 10 mg, Daily phentermine (ADIPEX-P) 37.5 mg, Oral, Daily before breakfast predniSONE (Deltasone) 20 MG tablet spironolactone (ALDACTONE) 100 mg, Daily sulfacetamide suspension ([place]) 10 % lotion topical 1 application SUMAtriptan (IMITREX) 100 mg, Oral, Once as needed, May take 1 pill at onset of migraine MARTIN, repeat in 2 hours if needed, no more than 2 pills in 24 hours, no more than twice a week topiramate (TOPAMAX) 100 mg, Oral, 2 times daily ALLERGIES: Allergies Allergen Reactions Morphine Sulfate [Morphine] Shortness of breath, Headache and Hallucinations Fentanyl GI intolerance and Hallucinations Hydrocodone-Acetaminophen Hallucinations Zithromax [Azithromycin] Hives Wound Dressing Adhesive Hives, Rash and GI intolerance Does not tolerate skin glue REVIEW OF SYMPTOMS: Review of Systems Constitutional: Positive for fever. Negative for appetite change and chills. HENT: Positive for postnasal drip, rhinorrhea and sore throat. Negative for congestion and ear pain. Eyes: Negative for pain, discharge, redness and visual disturbance. Respiratory: Positive for cough and shortness of breath. Negative for wheezing. Cardiovascular: Negative for chest pain, palpitations and leg swelling. Gastrointestinal: Negative for abdominal pain, blood in stool, constipation, diarrhea, nausea and vomiting. Genitourinary: Negative for difficulty urinating, dysuria and frequency. Musculoskeletal: Negative for arthralgias, back pain, joint swelling and myalgias. Skin: Negative for rash and wound. Neurological: Negative for dizziness, tremors, seizures, syncope and headaches. Psychiatric/Behavioral: Negative for behavioral problems, self-injury and suicidal ideas. The patient is not nervous/anxious. Hematological: Does not bruise/bleed easily. Endocrine: Negative for polydipsia, polyphagia and polyuria. Allergic/Immunologic: Negative for environmental allergies and food allergies. PAST MEDICAL HISTORY Past Medical History: Diagnosis Date Abnormal CT scan, chest Adult hypothyroidism ([facility]) Npajf-[id number] deficiency ([facility]) AAT: MF Genotype Level 102 Anemia Antibiotic-induced yeast infection Arthralgia Arthritis Asthma ([facility]) Attention deficit disorder (ADD) in adult [place], lung ([facility]) 3cm LLL [place] Constipation, chronic COPD (chronic obstructive pulmonary disease) ([facility]) Cough variant asthma ([facility]) COVID-19 virus infection 09/03/2023 Degenerative disc disease, lumbar Depression, acute ([facility]) RAFAELA (generalized anxiety disorder) ([facility]) Gastroesophageal reflux disease without esophagitis Hip pain, chronic, left History of being hospitalized 2005 ICU-respiratory illness History of degenerative disc disease Hyperglycemia Hyperlipidemia ([facility]) Hypothyroidism ([facility]) Insomnia, persistent Irritable bowel syndrome with both constipation and diarrhea Major depressive disorder, recurrent, moderate ([facility]) 09/03/2023 MDD (major depressive disorder) ([facility]) Menopausal symptoms Menopause-symptoms discussed with patient and reassurance given. Discussed options of treatment, including nonhormonal vs hormonal, to include R/B/A as well as SE. Reviewed results of WHI study. All of patient's questions were answered and she expressed understanding. Will continue HRT as prescribed and patient was advised to call with questions or concerns. Migraine with aura and without status migrainosus, not intractable ([facility]) Migraine without status migrainosus, not intractable, unspecified migraine type ([facility]) 10/29/2023 Migraines ([facility]) Muscle spasm of back ALECIA (obstructive sleep apnea) sleep study: AHI 18, sat 86% 12/14 Osteoarthritis of spine with radiculopathy, cervical region Psoriasis (CMS/HCC) Seasonal allergic rhinitis due to pollen Seasonal allergies Shortness of breath PFTs 12/08/2020: -FEV1/FVC: 85% -FEV1: 104% -FVC: 98% -Bronchodilator response: None performed -RV: 89% -T% -DLCO: 97% -Flow-volume loop: Normal Sinusitis Thyromegaly (CMS/HCC) Vitamin D deficiency Weight gain, abnormal Weight gain, abnormal Past Surgical History: Procedure Laterality Date BACK SURGERY 2017 fusion BELT ABDOMINOPLASTY COSMETIC SURGERY 2007 FEMINIZING AUGMENTATION MAMMOPLASTY Bilateral HEMORRHOID SURGERY HERNIA REPAIR Mesh placed HERNIA REPAIR 11/2018 HYSTERECTOMY 2008 Abdominal due to menorrhagia IR BILIARY CHOLANGIOGRAM 09/03/2018 IR BILIARY CHOLANGIOGRAM IR BILIARY CHOLANGIOGRAM 09/03/2018 IR BILIARY CHOLANGIOGRAM LIVER RESECTION 08/2018 SURGICAL PROCUREMENT, LIVER, LIVING DONOR TUBAL LIGATION US GUIDED NEEDLE LIVER BIOPSY 08/05/2018 US GUIDED NEEDLE LIVER BIOPSY 08/05/2018 family history is not on file. She was adopted. OBJECTIVE: Visit Vitals BP 110/74 Pulse 103 Temp 98.3 F (Temporal) Resp 20 Wt 177 lb 12.8 oz SpO2 98% BMI 32.52 kg/m Smoking Status Never BSA 1.88 m Physical Exam Vitals and nursing note reviewed. Constitutional: General: She is not in acute distress. Appearance: Normal appearance. HENT: Head: Normocephalic and atraumatic. Right Ear: Tympanic membrane, ear canal and external ear normal. Left Ear: Tympanic membrane, ear canal and external ear normal. Nose: Congestion and rhinorrhea present. Mouth/Throat: Mouth: Mucous membranes are moist. Pharynx: No oropharyngeal exudate or posterior oropharyngeal erythema. Eyes: Extraocular Movements: Extraocular movements intact. Conjunctiva/sclera: Conjunctivae normal. Neck: Vascular: No carotid bruit. Cardiovascular: Rate and Rhythm: Normal rate and regular rhythm. Pulses: Normal pulses. Heart sounds: Normal heart sounds. Pulmonary: Effort: Pulmonary effort is normal. Breath sounds: Normal breath sounds. No wheezing. Comments: Moist cough Abdominal: General: Bowel sounds are normal. There is no distension. Palpations: Abdomen is soft. There is no mass. Tenderness: There is no abdominal tenderness. Musculoskeletal: General: Normal range of motion. Cervical back: Normal range of motion and neck supple. Right lower leg: No edema. Left lower leg: No edema. Lymphadenopathy: Cervical: No cervical adenopathy. Skin: General: Skin is warm and dry. Capillary Refill: Capillary refill takes 2 to 3 seconds. Findings: No rash. Neurological: General: No focal deficit present. Mental Status: She is alert and oriented to person, place, and time. Psychiatric: Mood and Affect: Mood normal. Behavior: Behavior normal. Thought Content: Thought content normal. Judgment: Judgment normal. ASSESSMENT AND PLAN: No follow-ups on file. 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 We have also discussed lifestyle modifications: attempts to perform physical activity as chronic conditions allow, also to monitor dietary intake: increasing protein/fruits/veggies and lowering carb intake (unless contraindicated). Limit sodas, juices, and sugary drinks. Continue the hard work!!! Weight gain, abnormal - Primary Pt meets qualifications of OAC 4731-07-28 for weight loss. BMI>30 or >27 with comorbid conditions. Notify office with any symptoms of chest pain, dyspnea, heart palpitations, or any anxiety symptoms. F/U in 4 weeks to document weight loss. Increase physical activity as tolerated, and lower caloric intake to 1600 calories daily if no contraindications Month #5 completed Total weight loss: 23 pounds OARRS reviewed Prescribing month # 6 Goal weight : 135-140 Adult wellness visit Reviewed Ht/Wt/BMI Recommend eye exam yearly Recommend dental exams twice a year Balance work/leisure activities Exercises is recommended most days of the week (appropriate as chronic conditions allow) Follow up yearly and prn Relevant Orders CBC and differential Comprehensive metabolic panel Lipid panel TSH T4, free Urinalysis with reflex microscopic (clean catch) URI (upper respiratory infection) Relevant Orders POCT COVID & Flu A/B Antigen Associated Problem(s): Gastroesophageal reflux disease without esophagitis Recommendations: freq small meals, nothing to eat or drink at least 2 hours prior to bed, limit caffeine, alcohol, as well as spicy foods Meds to limit or avoid if possible: NSAIDS Elevate HOB if possible Associated Problem(s): Xpfqt-2-fulvpehunfc deficiency (CMS/HCC) Pt is under the care of pulmonology for this No treatment medication specifically for this Follows yearly with [facility] Associated Problem(s): Adult hypothyroidism (CMS/HCC) Is currently taking levothyroxine Check labs yearly, and prn dose changes, or changes in symptoms Associated Problem(s): Adult wellness visit Reviewed Ht/Wt/BMI Recommend eye exam yearly Recommend dental exams twice a year Balance work/leisure activities Exercises is recommended most days of the week (appropriate as chronic conditions allow) Follow up yearly and prn Associated Problem(s): Weight gain, abnormal Pt meets qualifications of [facility] 4731-07-28 for weight loss. BMI>30 or >27 with comorbid conditions. Notify office with any symptoms of chest pain, dyspnea, heart palpitations, or any anxiety symptoms. F/U in 4 weeks to document weight loss. Increase physical activity as tolerated, and lower caloric intake to 1600 calories daily if no contraindications Month #5 completed Total weight loss: 32 pounds OARRS reviewed Prescribing month # 6 Goal weight : 135-140 Associated Problem(s): Morbid (severe) obesity due to excess calories (CMS/HCC) Discussed with patient their BMI (actual, verses recommended). We have also discussed lifestyle modifications: attempts to perform physical activity as chronic conditions allow, also to monitor dietary intake: increasing protein/fruits/veggies and lowering carb intake (unless contraindicated). Limit sodas, juices, and sugary drinks. Continue the hard work!!! documented in this encounter [facility] 11-04-2024 Instructions Isabella Dueñas NP - 11/04/2024 11:30 AM EST Fluids, rest Call if not better Get fasting labs completed documented in this encounter [facility] 10-01-2024 History of Present illness Narrative Associated Problem(s): URI (upper respiratory infection) No acute obvious sinus infection or bronchitis, but present for 3 weeks Takes infectious at times as well Will treat with atb Fluids, rest, fu if not better Associated Problem(s): Wkfij-9-qcmwnabnvda deficiency (CMS/HCC) Pt is under the care of pulmonology for this No treatment medication specifically for this Follows yearly with [facility] Associated Problem(s): Weight gain, abnormal Pt meets qualifications of [facility] 4731-07-28 for weight loss. BMI>30 or >27 with comorbid conditions. Notify office with any symptoms of chest pain, dyspnea, heart palpitations, or any anxiety symptoms. F/U in 4 weeks to document weight loss. Increase physical activity as tolerated, and lower caloric intake to 1600 calories daily if no contraindications Month #4 completed Total weight loss: 23 pounds OARRS reviewed Prescribing month # 5 Goal weight : 135-140 Associated Problem(s): Morbid (severe) obesity due to excess calories (CMS/HCC) Discussed with patient their BMI (actual, verses recommended). We have also discussed lifestyle modifications: attempts to perform physical activity as chronic conditions allow, also to monitor dietary intake: increasing protein/fruits/veggies and lowering carb intake (unless contraindicated). Limit sodas, juices, and sugary drinks. Continue the hard work!!! Associated Problem(s): Adult hypothyroidism (CMS/HCC) Is currently taking levothyroxine Check labs yearly, and prn dose changes, or changes in symptoms In the last three weeks pt has had post nasal drip/drainage. She feels that there is mucus that she is unable to cough up. She states she has not had any cold symptoms or sinus symptoms however she has tried decongestants otc, warm liquids including warm salt water, and her kiara pot. She states on occasion she may have a cough with clear to tinge pale mucus. Pt does not feel sob or tight in the chest however she feels fatigue and can not get a full breath in. Pt has not used her rescue inhaler. Images from the original note were not included. Nidia Montague is a 49 y.o. female presents with chief complaint of Weight Check (Adipex ) HPI: Here for adipex check: has lost 5 pounds since her last visit. No side effects from adipex, and is tolerating well In the last three weeks pt has had post nasal drip/drainage. She feels that there is mucus that she is unable to cough up. She states she has not had any cold symptoms or sinus symptoms however she has tried decongestants otc, warm liquids including warm salt water, and her kiara pot. She states on occasion she may have a cough with clear to tinge pale mucus. Pt does not feel sob or tight in the chest however she feels fatigue and can not get a full breath in. Pt has not used her rescue inhaler. Thyroid Problem Presents for follow-up visit. Patient reports no anxiety, cold intolerance, constipation, depressed mood, diarrhea, dry skin, fatigue, hoarse voice, palpitations, tremors or weight gain. The symptoms have been stable. SUBJECTIVE: MEDICATIONS: Current Outpatient Medications Medication Instructions albuterol HFA 90 mcg/act inhaler 2 puffs, Every 4 hours PRN albuterol 2.5 mg, Nebulization, Every 6 hours PRN amoxicillin-clavulanate (Augmentin) 875-125 MG tablet 875 mg, Oral, 2 times daily azelastine (Astelin) 0.1 % nasal spray 1 spray, 2 times daily Dextromethorphan-Pyrilamine (Lewes DMT) 30-30 MG tablet 1 tablet, 2 times daily Emollient (DHEA EX) Apply topically suppository estradiol (Vivelle-DOT) 0.05 MG/24HR APPLY 1 PATCH DIRECTED TWO TIMES A WEEK. fluticasone (Flonase) 50 MCG/ACT nasal spray 2 sprays, Daily levothyroxine (SYNTHROID, LEVOXYL) 112 mcg, Daily before breakfast liothyronine (Cytomel) 5 MCG tablet 5mcg (1 tab) AM, 2.5mcg (1/2 tab) in mid-afternoon meloxicam (MOBIC) 15 mg, Daily PRN mometasone-formoterol (Dulera) 100-5 MCG/ACT inhaler 2 puffs, 2 times daily RT montelukast (SINGULAIR) 10 mg, Daily phentermine (ADIPEX-P) 37.5 mg, Oral, Daily before breakfast spironolactone (ALDACTONE) 100 mg, Daily sulfacetamide suspension (Klaron) 10 % lotion topical 1 application SUMAtriptan (IMITREX) 100 mg, Oral, Once as needed, May take 1 pill at onset of migraine MARTIN, repeat in 2 hours if needed, no more than 2 pills in 24 hours, no more than twice a week topiramate (TOPAMAX) 100 mg, Oral, 2 times daily ALLERGIES: Allergies Allergen Reactions Morphine Sulfate [Morphine] Shortness of breath, Headache and Hallucinations Fentanyl GI intolerance and Hallucinations Hydrocodone-Acetaminophen Hallucinations Zithromax [Azithromycin] Hives Wound Dressing Adhesive Hives, Rash and GI intolerance Does not tolerate skin glue REVIEW OF SYMPTOMS: Review of Systems Constitutional: Negative for appetite change, chills, fatigue, fever and weight gain. HENT: Positive for congestion. Negative for ear pain, hoarse voice and sore throat. Eyes: Negative for pain, discharge, redness and visual disturbance. Respiratory: Negative for cough, shortness of breath and wheezing. Cardiovascular: Negative for chest pain, palpitations and leg swelling. Gastrointestinal: Negative for abdominal pain, blood in stool, constipation, diarrhea, nausea and vomiting. Genitourinary: Negative for difficulty urinating, dysuria and frequency. Musculoskeletal: Negative for arthralgias, back pain, joint swelling and myalgias. Skin: Negative for rash and wound. Neurological: Negative for dizziness, tremors, seizures, syncope and headaches. Psychiatric/Behavioral: Negative for behavioral problems, self-injury and suicidal ideas. The patient is not nervous/anxious. Hematological: Does not bruise/bleed easily. Endocrine: Negative for cold intolerance, polydipsia, polyphagia and polyuria. Allergic/Immunologic: Negative for environmental allergies and food allergies. 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 Anemia Antibiotic-induced yeast infection Arthralgia Arthritis Asthma (CMS/HCC) Attention deficit disorder (ADD) in adult Bull[place], lung (CMS/HCC) 3cm LLL bulla Constipation, chronic COPD (chronic obstructive pulmonary disease) (CMS/HCC) Cough variant asthma (CMS/HCC) Degenerative disc disease, lumbar Depression, acute (CMS/HCC) RAFAELA (generalized anxiety disorder) (CMS/HCC) Gastroesophageal reflux disease without esophagitis Hip pain, chronic, left History of being hospitalized 2004 ICU-respiratory illness History of degenerative disc disease Hyperglycemia Hyperlipidemia (CMS/HCC) Hypothyroidism (CMS/HCC) Insomnia, persistent Irritable bowel syndrome with both constipation and diarrhea Major depressive disorder, recurrent, moderate (CMS/HCC) 09/03/2023 MDD (major depressive disorder) (CMS/HCC) Menopausal symptoms Menopause-symptoms discussed with patient and reassurance given. Discussed options of treatment, including nonhormonal vs hormonal, to include R/B/A as well as SE. Reviewed results of I study. All of patient's questions were answered and she expressed understanding. Will continue HRT as prescribed and patient was advised to call with questions or concerns. Migraine with aura and without status migrainosus, not intractable (CMS/HCC) Migraine without status migrainosus, not intractable, unspecified migraine type (CMS/HCC) 10/29/2023 Migraines ([facility]/HCC) Muscle spasm of back ALECIA (obstructive sleep apnea) sleep study: AHI 18, sat 86% 12/14 Osteoarthritis of spine with radiculopathy, cervical region Psoriasis (CMS/HCC) Seasonal allergic rhinitis due to pollen Seasonal allergies Shortness of breath PFTs 12/08/2020: -FEV1/FVC: 85% -FEV1: 104% -FVC: 98% -Bronchodilator response: None performed -RV: 89% -T% -DLCO: 97% -Flow-volume loop: Normal Sinusitis Thyromegaly (CMS/HCC) Vitamin D deficiency Weight gain, abnormal Weight gain, abnormal Past Surgical History: Procedure Laterality Date BACK SURGERY 2017 fusion BELT ABDOMINOPLASTY COSMETIC SURGERY 2007 FEMINIZING AUGMENTATION MAMMOPLASTY Bilateral HEMORRHOID SURGERY HERNIA REPAIR Mesh placed HERNIA REPAIR 11/2018 HYSTERECTOMY 2008 Abdominal due to menorrhagia IR BILIARY CHOLANGIOGRAM 09/03/2018 IR BILIARY CHOLANGIOGRAM IR BILIARY CHOLANGIOGRAM 09/03/2018 IR BILIARY CHOLANGIOGRAM LIVER RESECTION 08/2018 SURGICAL PROCUREMENT, LIVER, LIVING DONOR TUBAL LIGATION US GUIDED NEEDLE LIVER BIOPSY 08/05/2018 US GUIDED NEEDLE LIVER BIOPSY 08/05/2018 family history is not on file. She was adopted. OBJECTIVE: Visit Vitals BP 110/80 (BP Location: Left arm, Patient Position: Sitting, BP Cuff Size: Adult long) Pulse 99 Temp 98.3 F (Temporal) Resp 26 Wt 186 lb SpO2 100% BMI 34.02 kg/m Smoking Status Never BSA 1.92 m Physical Exam Vitals and nursing note reviewed. Constitutional: General: She is not in acute distress. Appearance: Normal appearance. She is obese. She is not ill-appearing, toxic-appearing or diaphoretic. HENT: Head: Normocephalic and atraumatic. Right Ear: Tympanic membrane, ear canal and external ear normal. Left Ear: Tympanic membrane, ear canal and external ear normal. Nose: Congestion present. No rhinorrhea. Comments: No sinus tenderness Mouth/Throat: Mouth: Mucous membranes are moist. Pharynx: No oropharyngeal exudate or posterior oropharyngeal erythema. Eyes: Extraocular Movements: Extraocular movements intact. Conjunctiva/sclera: Conjunctivae normal. Neck: Vascular: No carotid bruit. Cardiovascular: Rate and Rhythm: Normal rate and regular rhythm. Pulses: Normal pulses. Heart sounds: Normal heart sounds. Pulmonary: Effort: Pulmonary effort is normal. Breath sounds: Normal breath sounds. No wheezing, rhonchi or rales. Chest: Chest wall: No tenderness. Abdominal: General: Bowel sounds are normal. There is no distension. Palpations: Abdomen is soft. There is no mass. Tenderness: There is no abdominal tenderness. Musculoskeletal: General: Normal range of motion. Cervical back: Normal range of motion and neck supple. Right lower leg: No edema. Left lower leg: No edema. Lymphadenopathy: Cervical: No cervical adenopathy. Skin: General: Skin is warm and dry. Capillary Refill: Capillary refill takes 2 to 3 seconds. Findings: No rash. Neurological: General: No focal deficit present. Mental Status: She is alert and oriented to person, place, and time. Psychiatric: Mood and Affect: Mood normal. Behavior: Behavior normal. Thought Content: Thought content normal. Judgment: Judgment normal. ASSESSMENT AND PLAN: Follow up in about 4 weeks (around 10/29/2024) for Recheck. Problem List Items Addressed This Visit Adult hypothyroidism (CMS/HCC) Is currently taking levothyroxine Check labs yearly, and prn dose changes, or changes in symptoms Usvrv-4-ilwjihmfwjl deficiency (CMS/HCC) Pt is under the care of pulmonology for this No treatment medication specifically for this Follows yearly with [facility] Relevant Medications albuterol (2.5 MG/3ML) 0.083% nebulizer solution BMI 38.0-38.9,adult Weight gain, abnormal - Primary Pt meets qualifications of [facility] 4731-07-28 for weight loss. BMI>30 or >27 with comorbid conditions. Notify office with any symptoms of chest pain, dyspnea, heart palpitations, or any anxiety symptoms. F/U in 4 weeks to document weight loss. Increase physical activity as tolerated, and lower caloric intake to 1600 calories daily if no contraindications Month #4 completed Total weight loss: 23 pounds OARRS reviewed Prescribing month # 5 Goal weight : 135-140 Relevant Medications phentermine (Adipex-P) 37.5 MG tablet URI (upper respiratory infection) No acute obvious sinus infection or bronchitis, but present for 3 weeks Takes infectious at times as well Will treat with atb Fluids, rest, fu if not better Relevant Medications amoxicillin-clavulanate (Augmentin) 875-125 MG tablet albuterol (2.5 MG/3ML) 0.083% nebulizer solution documented in this encounter [facility] 10-01-2024 Instructions Isabella Dueñas NP - 10/01/2024 9:00 AM EST Continue adipex, great job!! Ordered antibiotic, finish this, fluids, follow up if not better with this documented in this encounter [facility] 08-28-2024 History of Present illness Narrative Associated Problem(s): Morbid (severe) obesity due to excess calories (CMS/HCC) Discussed with patient their BMI (actual, verses recommended). We have also discussed lifestyle modifications: attempts to perform physical activity as chronic conditions allow, also to monitor dietary intake: increasing protein/fruits/veggies and lowering carb intake (unless contraindicated). Limit sodas, juices, and sugary drinks. Continue the hard work!!! Associated Problem(s): Chronic migraine without aura without status migrainosus, not intractable (CMS/HCC) At least 3 MARTIN days per month on average and bad month 4-5 Continue topiramate, and triptan, insurance will not approve ubrelvey Images from the original note were not included. Nidia Montague is a 49 y.o. female presents with chief complaint of Weight Gain (abnormal) HPI: Migraine This is a chronic problem. The current episode started more than 1 year ago. The problem occurs intermittently (more freq, pressure changes w weather). The problem has been unchanged. The pain is located in the Right unilateral region. Radiates to: right side of neck. The pain quality is similar to prior headaches. The quality of the pain is described as sharp. The pain is at a severity of 8/10. The pain is moderate. Associated symptoms include blurred vision, nausea, phonophobia, photophobia, a visual change and vomiting (occ). Pertinent negatives include no abdominal pain, back pain, coughing, dizziness (occ), ear pain, eye pain (occ right eye pain), eye redness, eye watering, facial sweating, fever, hearing loss, rhinorrhea, seizures or sore throat. The symptoms are aggravated by weather changes. She has tried triptans (topamax) for the symptoms. The treatment provided significant relief. Her past medical history is significant for migraine headaches and obesity. SUBJECTIVE: MEDICATIONS: Current Outpatient Medications Medication Instructions albuterol HFA 90 mcg/act inhaler 2 puffs, Every 4 hours PRN azelastine (Astelin) 0.1 % nasal spray 1 spray, 2 times daily Dextromethorphan-Pyrilamine (Lewes DMT) 30-30 MG tablet 1 tablet, Oral, 2 times daily, Takes 1 pill twice and day, and then 2 as needed (2-4 daily prn) Emollient (DHEA EX) Apply topically suppository estradiol (Vivelle-DOT) 0.05 MG/24HR APPLY 1 PATCH DIRECTED TWO TIMES A WEEK. fluticasone (Flonase) 50 MCG/ACT nasal spray 2 sprays, Daily levothyroxine (SYNTHROID, LEVOXYL) 112 mcg, Daily before breakfast liothyronine (Cytomel) 5 MCG tablet 5mcg (1 tab) AM, 2.5mcg (1/2 tab) in mid-afternoon meloxicam (MOBIC) 15 mg, Oral, Daily PRN mometasone-formoterol (Dulera) 100-5 MCG/ACT inhaler 2 puffs, 2 times daily RT montelukast (SINGULAIR) 10 mg, Daily phentermine (ADIPEX-P) 37.5 mg, Oral, Daily before breakfast spironolactone (ALDACTONE) 100 mg, Daily sulfacetamide suspension (Klaron) 10 % lotion topical 1 application SUMAtriptan (IMITREX) 100 mg, Oral, Once as needed, May take 1 pill at onset of migraine MARTIN, repeat in 2 hours if needed, no more than 2 pills in 24 hours, no more than twice a week topiramate (TOPAMAX) 100 mg, Oral, 2 times daily ALLERGIES: Allergies Allergen Reactions Morphine Sulfate [Morphine] Shortness of breath, Headache and Hallucinations Fentanyl GI intolerance and Hallucinations Hydrocodone-Acetaminophen Hallucinations Zithromax [Azithromycin] Hives Wound Dressing Adhesive Hives, Rash and GI intolerance Does not tolerate skin glue REVIEW OF SYMPTOMS: Review of Systems Constitutional: Negative for appetite change, chills and fever. HENT: Negative for congestion, ear pain, hearing loss, rhinorrhea and sore throat. Eyes: Positive for blurred vision and photophobia. Negative for pain (occ right eye pain), discharge, redness and visual disturbance. Respiratory: Negative for cough, shortness of breath and wheezing. Cardiovascular: Negative for chest pain, palpitations and leg swelling. Gastrointestinal: Positive for nausea and vomiting (occ). Negative for abdominal pain, blood in stool, constipation and diarrhea. Genitourinary: Negative for difficulty urinating, dysuria and frequency. Musculoskeletal: Negative for arthralgias, back pain, joint swelling and myalgias. Skin: Negative for rash and wound. Neurological: Positive for headaches. Negative for dizziness (occ), tremors, seizures and syncope. Psychiatric/Behavioral: Negative for behavioral problems, self-injury and suicidal ideas. The patient is not nervous/anxious. Hematological: Does not bruise/bleed easily. Endocrine: Negative for polydipsia, polyphagia and polyuria. Allergic/Immunologic: Negative for environmental allergies and food allergies. PAST MEDICAL HISTORY Past Medical History: Diagnosis Date Abnormal CT scan, chest Adult hypothyroidism (CMS/HCC) Eywmg-8-yjyllnusmvh deficiency (CMS/HCC) AAT: MF Genotype Level 102 Anemia Antibiotic-induced yeast infection Arthralgia Arthritis Asthma (CMS/HCC) Attention deficit disorder (ADD) in adult [place], lung (CMS/HCC) 3cm LLL bulla Constipation, chronic COPD (chronic obstructive pulmonary disease) (CMS/HCC) Cough variant asthma (CMS/HCC) Degenerative disc disease, lumbar Depression, acute (CMS/HCC) RAFAELA (generalized anxiety disorder) (CMS/HCC) Gastroesophageal reflux disease without esophagitis Hip pain, chronic, left History of being hospitalized 2004 ICU-respiratory illness History of degenerative disc disease Hyperglycemia Hyperlipidemia (CMS/HCC) Hypothyroidism ([facility]/HCC) Insomnia, persistent Irritable bowel syndrome with both constipation and diarrhea Major depressive disorder, recurrent, moderate (CMS/HCC) 09/03/2023 MDD (major depressive disorder) ([facility]) Menopausal symptoms Menopause-symptoms discussed with patient and reassurance given. Discussed options of treatment, including nonhormonal vs hormonal, to include R/B/A as well as SE. Reviewed results of I study. All of patient's questions were answered and she expressed understanding. Will continue HRT as prescribed and patient was advised to call with questions or concerns. Migraine with aura and without status migrainosus, not intractable (CMS/HCC) Migraine without status migrainosus, not intractable, unspecified migraine type ([facility]/HCC) 10/29/2023 Migraines ([facility]) Muscle spasm of back ALECIA (obstructive sleep apnea) sleep study: AHI 18, sat 86% 12/14 Osteoarthritis of spine with radiculopathy, cervical region Psoriasis (CMS/HCC) Seasonal allergic rhinitis due to pollen Seasonal allergies Shortness of breath PFTs 12/08/2020: -FEV1/FVC: 85% -FEV1: 104% -FVC: 98% -Bronchodilator response: None performed -RV: 89% -T% -DLCO: 97% -Flow-volume loop: Normal Sinusitis Thyromegaly (CMS/HCC) Vitamin D deficiency Weight gain, abnormal Weight gain, abnormal Past Surgical History: Procedure Laterality Date BACK SURGERY 2017 fusion BELT ABDOMINOPLASTY COSMETIC SURGERY 2007 FEMINIZING AUGMENTATION MAMMOPLASTY Bilateral HEMORRHOID SURGERY HERNIA REPAIR Mesh placed HERNIA REPAIR 11/2018 HYSTERECTOMY 2008 Abdominal due to menorrhagia IR BILIARY CHOLANGIOGRAM 09/03/2018 IR BILIARY CHOLANGIOGRAM IR BILIARY CHOLANGIOGRAM 09/03/2018 IR BILIARY CHOLANGIOGRAM LIVER RESECTION 08/2018 SURGICAL PROCUREMENT, LIVER, LIVING DONOR TUBAL LIGATION US GUIDED NEEDLE LIVER BIOPSY 08/05/2018 US GUIDED NEEDLE LIVER BIOPSY 08/05/2018 family history is not on file. She was adopted. OBJECTIVE: Visit Vitals BP 108/76 (BP Location: Left arm, Patient Position: Sitting, BP Cuff Size: Adult long) Pulse 108 Temp 98.1 F (Temporal) Resp 18 Ht 5' 2 Wt 191 lb 6.4 oz SpO2 98% BMI 35.01 kg/m Smoking Status Never BSA 1.95 m Physical Exam Vitals and nursing note reviewed. Constitutional: General: She is not in acute distress. Appearance: Normal appearance. She is obese. HENT: Head: Normocephalic and atraumatic. Right Ear: External ear normal. Left Ear: External ear normal. Nose: Nose normal. Mouth/Throat: Mouth: Mucous membranes are moist. Eyes: Extraocular Movements: Extraocular movements intact. Conjunctiva/sclera: Conjunctivae normal. Cardiovascular: Rate and Rhythm: Normal rate and regular rhythm. Pulses: Normal pulses. Heart sounds: Normal heart sounds. Pulmonary: Effort: Pulmonary effort is normal. Breath sounds: Normal breath sounds. Abdominal: General: Bowel sounds are normal. There is no distension. Palpations: Abdomen is soft. There is no mass. Tenderness: There is no abdominal tenderness. Musculoskeletal: General: Normal range of motion. Cervical back: Normal range of motion and neck supple. Right lower leg: No edema. Left lower leg: No edema. Skin: General: Skin is warm and dry. Capillary Refill: Capillary refill takes 2 to 3 seconds. Findings: No rash. Neurological: General: No focal deficit present. Mental Status: She is alert and oriented to person, place, and time. Psychiatric: Mood and Affect: Mood normal. Behavior: Behavior normal. Thought Content: Thought content normal. Judgment: Judgment normal. ASSESSMENT AND PLAN: Follow up in about 4 weeks (around 09/25/2024) for Recheck. Problem List Items Addressed This Visit Chronic migraine without aura without status migrainosus, not intractable (CMS/HCC) At least 3 MARTIN days per month on average and bad month 4-5 Continue topiramate, and triptan, insurance will not approve ubrelvey Relevant Medications topiramate (Topamax) 100 MG tablet RESOLVED: Migraine without status migrainosus, not intractable, unspecified migraine type (CMS/HCC) Migraine MARTIN Monthly: How often Imitrex: Also on topamax Relevant Medications SUMAtriptan (Imitrex) 100 MG tablet Morbid (severe) obesity due to excess calories (CMS/HCC) Discussed with patient their BMI (actual, verses recommended). We have also discussed lifestyle modifications: attempts to perform physical activity as chronic conditions allow, also to monitor dietary intake: increasing protein/fruits/veggies and lowering carb intake (unless contraindicated). Limit sodas, juices, and sugary drinks. Continue the hard work!!! Weight gain, abnormal - Primary Pt meets qualifications of [facility] 4731-07-28 for weight loss. BMI>30 or >27 with comorbid conditions. Notify office with any symptoms of chest pain, dyspnea, heart palpitations, or any anxiety symptoms. F/U in 4 weeks to document weight loss. Increase physical activity as tolerated, and lower caloric intake to 1600 calories daily if no contraindications Month #3 completed Total weight loss: 18 pounds OARRS reviewed Prescribing month # 4 Goal weight : 135-140 Relevant Medications phentermine (Adipex-P) 37.5 MG tablet Associated Problem(s): Migraine without status migrainosus, not intractable, unspecified migraine type (CMS/HCC) (Resolved 08/28/2024) Migraine MARTIN Monthly: How often Imitrex: Also on topamax Associated Problem(s): Weight gain, abnormal Pt meets qualifications of OAC 4731-07-28 for weight loss. BMI>30 or >27 with comorbid conditions. Notify office with any symptoms of chest pain, dyspnea, heart palpitations, or any anxiety symptoms. F/U in 4 weeks to document weight loss. Increase physical activity as tolerated, and lower caloric intake to 1600 calories daily if no contraindications Month #3 completed Total weight loss: 18 pounds OARRS reviewed Prescribing month # 4 Goal weight : 135-140 documented in this encounter [facility] 08-22-2024 Telephone encounter Note Prescription Refill Information The patient has been identified by name and date of : Yes Caregiver verified no other encounters exist for this prescription request: Yes Caregiver confirmed with patient/requestor that no other refills are due, in the near future, with this provider at this time: Yes The last office visit in the department: 01/04/24 Does the patient have a future office visit with this provider/department: No Requested Prescriptions Pending Prescriptions Disp Refills levothyroxine (SYNTHROID) 112 mcg tablet [Pharmacy Med Name: LEVOTHYROXINE 112 MCG TABLET] 78 tablet 3 Sig: TAKE 1 TABLET SUNDAY THROUGH SUNDAY. SKIP SUNDAY JEFF Healy August 22, 2024 8:11 AM [facility] Work Phone: 08-22-2024 Miscellaneous Notes Prescription Refill Information The patient has been identified by name and date of : Yes Caregiver verified no other encounters exist for this prescription request: Yes Caregiver confirmed with patient/requestor that no other refills are due, in the near future, with this provider at this time: Yes The last office visit in the department: 01/04/24 Does the patient have a future office visit with this provider/department: No Requested Prescriptions Pending Prescriptions Disp Refills levothyroxine (SYNTHROID) 112 mcg tablet [Pharmacy Med Name: LEVOTHYROXINE 112 MCG TABLET] 78 tablet 3 Sig: TAKE 1 TABLET SUNDAY THROUGH SUNDAY. SKIP SUNDAY JEFF Healy August 22, 2024 8:11 AM documented in this encounter [facility] 07-29-2024 History of Present illness Narrative Images from the original note were not included. Nidia Montague is a 49 y.o. female presents with chief complaint of No chief complaint on file. HPI: Here for adipex fu: Has completed 2 months Total loss 17 pounds Side effects meds: dry Exercise: 5-6 days a week Appetite: portion control, veggies, and high proteins. Tries to avoid dairy and gluetan Concerns: none SUBJECTIVE: MEDICATIONS: Current Outpatient Medications Medication Instructions albuterol HFA 90 mcg/act inhaler 2 puffs, Every 4 hours PRN azelastine (Astelin) 0.1 % nasal spray 1 spray, 2 times daily Dextromethorphan-Pyrilamine (Lewes DMT) 30-30 MG tablet 1 tablet, Oral, 2 times daily, Takes 1 pill twice and day, and then 2 as needed (2-4 daily prn) Emollient (DHEA EX) Apply topically suppository estradiol (Vivelle-DOT) 0.05 MG/24HR APPLY 1 PATCH DIRECTED TWO TIMES A WEEK. fluticasone (Flonase) 50 MCG/ACT nasal spray 2 sprays, Daily levothyroxine (SYNTHROID, LEVOXYL) 112 mcg, Daily before breakfast liothyronine (Cytomel) 5 MCG tablet 5mcg (1 tab) AM, 2.5mcg (1/2 tab) in mid-afternoon meloxicam (MOBIC) 15 mg, Oral, Daily PRN mometasone-formoterol (Dulera) 100-5 MCG/ACT inhaler 2 puffs, 2 times daily RT montelukast (SINGULAIR) 10 mg, Daily phentermine (ADIPEX-P) 37.5 mg, Oral, Daily before breakfast spironolactone (ALDACTONE) 100 mg, Daily sulfacetamide suspension (Klaron) 10 % lotion topical 1 application SUMAtriptan (IMITREX) 100 mg, Oral, Once as needed, May take 1 pill at onset of migraine MARTIN, repeat in 2 hours if needed, no more than 2 pills in 24 hours, no more than twice a week topiramate (TOPAMAX) 100 mg, Oral, 2 times daily ALLERGIES: Allergies Allergen Reactions Morphine Sulfate [Morphine] Shortness of breath, Headache and Hallucinations Fentanyl GI intolerance and Hallucinations Hydrocodone-Acetaminophen Hallucinations Zithromax [Azithromycin] Hives Wound Dressing Adhesive Hives, Rash and GI intolerance Does not tolerate skin glue REVIEW OF SYMPTOMS: Review of Systems Constitutional: Negative for appetite change, chills and fever. HENT: Negative for congestion, ear pain and sore throat. Eyes: Negative for pain, discharge, redness and visual disturbance. Respiratory: Positive for cough and shortness of breath. Negative for wheezing. Cardiovascular: Negative for chest pain, palpitations and leg swelling. Gastrointestinal: Negative for abdominal pain, blood in stool, constipation, diarrhea, nausea and vomiting. Genitourinary: Negative for difficulty urinating, dysuria and frequency. Musculoskeletal: Positive for arthralgias. Negative for back pain, joint swelling and myalgias. Skin: Negative for rash and wound. Neurological: Negative for dizziness, tremors, seizures, syncope and headaches. Psychiatric/Behavioral: Negative for behavioral problems, self-injury and suicidal ideas. The patient is not nervous/anxious. Hematological: Does not bruise/bleed easily. Endocrine: Negative for polydipsia, polyphagia and polyuria. Allergic/Immunologic: Negative for environmental allergies and food allergies. 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 Anemia Antibiotic-induced yeast infection Arthralgia Arthritis Asthma ([facility]/HCC) Attention deficit disorder (ADD) in adult [place], lung (CMS/HCC) 3cm LLL bulla Constipation, chronic COPD (chronic obstructive pulmonary disease) ([facility]/HCC) Cough variant asthma ([facility]/HCC) Degenerative disc disease, lumbar Depression, acute ([facility]/HCC) RAFAELA (generalized anxiety disorder) ([facility]) Gastroesophageal reflux disease without esophagitis Hip pain, chronic, left History of being hospitalized 2004 ICU-respiratory illness History of degenerative disc disease Hyperglycemia Hyperlipidemia (CMS/HCC) Hypothyroidism (CMS/HCC) Insomnia, persistent Irritable bowel syndrome with both constipation and diarrhea Major depressive disorder, recurrent, moderate (CMS/HCC) 09/03/2023 MDD (major depressive disorder) (CMS/HCC) Menopausal symptoms Menopause-symptoms discussed with patient and reassurance given. Discussed options of treatment, including nonhormonal vs hormonal, to include R/B/A as well as SE. Reviewed results of I study. All of patient's questions were answered and she expressed understanding. Will continue HRT as prescribed and patient was advised to call with questions or concerns. Migraine with aura and without status migrainosus, not intractable (CMS/HCC) Migraine without status migrainosus, not intractable, unspecified migraine type (CMS/HCC) 10/29/2023 Migraines (CMS/HCC) Muscle spasm of back ALECIA (obstructive sleep apnea) sleep study: AHI 18, sat 86% 12/14 Osteoarthritis of spine with radiculopathy, cervical region Psoriasis (CMS/HCC) Seasonal allergic rhinitis due to pollen Seasonal allergies Shortness of breath PFTs 12/08/2020: -FEV1/FVC: 85% -FEV1: 104% -FVC: 98% -Bronchodilator response: None performed -RV: 89% -T% -DLCO: 97% -Flow-volume loop: Normal Sinusitis Thyromegaly (CMS/HCC) Vitamin D deficiency Weight gain, abnormal Weight gain, abnormal Past Surgical History: Procedure Laterality Date BACK SURGERY 2017 fusion BELT ABDOMINOPLASTY COSMETIC SURGERY 2006 FEMINIZING AUGMENTATION MAMMOPLASTY Bilateral HEMORRHOID SURGERY HERNIA REPAIR Mesh placed HERNIA REPAIR 11/2018 HYSTERECTOMY 2008 Abdominal due to menorrhagia IR BILIARY CHOLANGIOGRAM 09/03/2018 IR BILIARY CHOLANGIOGRAM IR BILIARY CHOLANGIOGRAM 09/03/2018 IR BILIARY CHOLANGIOGRAM LIVER RESECTION 08/2018 SURGICAL PROCUREMENT, LIVER, LIVING DONOR TUBAL LIGATION US GUIDED NEEDLE LIVER BIOPSY 08/05/2018 US GUIDED NEEDLE LIVER BIOPSY 08/05/2018 family history is not on file. She was adopted. OBJECTIVE: Visit Vitals BP 116/80 (BP Location: Left arm, Patient Position: Sitting, BP Cuff Size: Adult long) Pulse 97 Temp 97.8 F (Temporal) Resp 18 Ht 5' 2 Wt 192 lb 6.4 oz SpO2 99% BMI 35.19 kg/m Smoking Status Never BSA 1.95 m Physical Exam Vitals and nursing note reviewed. Constitutional: General: She is not in acute distress. Appearance: Normal appearance. HENT: Head: Normocephalic and atraumatic. Right Ear: External ear normal. Left Ear: External ear normal. Nose: Nose normal. Mouth/Throat: Mouth: Mucous membranes are moist. Eyes: Extraocular Movements: Extraocular movements intact. Conjunctiva/sclera: Conjunctivae normal. Cardiovascular: Rate and Rhythm: Normal rate and regular rhythm. Pulses: Normal pulses. Heart sounds: Normal heart sounds. Pulmonary: Effort: Pulmonary effort is normal. Breath sounds: Normal breath sounds. Abdominal: General: Bowel sounds are normal. There is no distension. Palpations: Abdomen is soft. There is no mass. Tenderness: There is no abdominal tenderness. Musculoskeletal: General: Normal range of motion. Cervical back: Normal range of motion and neck supple. Skin: General: Skin is warm and dry. Capillary Refill: Capillary refill takes 2 to 3 seconds. Findings: No rash. Neurological: General: No focal deficit present. Mental Status: She is alert and oriented to person, place, and time. Psychiatric: Mood and Affect: Mood normal. Behavior: Behavior normal. Thought Content: Thought content normal. Judgment: Judgment normal. ASSESSMENT AND PLAN: Follow up in about 4 weeks (around 08/26/2024) for Recheck. Problem List Items Addressed This Visit Fomoy-2-segfjeumwoe deficiency (CMS/HCC) This is a diagnosis that was test for and is managed by pulmonology RESOLVED: Major depressive disorder, recurrent, moderate (CMS/HCC) Not currently taking any medications for this at this time, symptoms have resolved Morbid (severe) obesity due to excess calories (CMS/HCC) Discussed with patient their BMI (actual, verses recommended). We have also discussed lifestyle modifications: attempts to perform physical activity as chronic conditions allow, also to monitor dietary intake: increasing protein/fruits/veggies and lowering carb intake (unless contraindicated). Limit sodas, juices, and sugary drinks. Weight gain, abnormal - Primary Pt meets qualifications of OAC 4731-07-28 for weight loss. BMI>30 or >27 with comorbid conditions. Notify office with any symptoms of chest pain, dyspnea, heart palpitations, or any anxiety symptoms. F/U in 4 weeks to document weight loss. Increase physical activity as tolerated, and lower caloric intake to 1600 calories daily if no contraindications Month #2 Total weight loss:17 pounds OARRS reviewed Prescribing month # 3 Goal weight : 135-140 Relevant Medications phentermine (Adipex-P) 37.5 MG tablet Other Visit Diagnoses Needs flu shot Relevant Orders influenza, injectable, quadrivalent, PF free (Completed) Associated Problem(s): Major depressive disorder, recurrent, moderate (CMS/HCC) (Resolved 07/29/2024) Not currently taking any medications for this at this time, symptoms have resolved Associated Problem(s): Weight gain, abnormal Pt meets qualifications of OAC 4731-07-28 for weight loss. BMI>30 or >27 with comorbid conditions. Notify office with any symptoms of chest pain, dyspnea, heart palpitations, or any anxiety symptoms. F/U in 4 weeks to document weight loss. Increase physical activity as tolerated, and lower caloric intake to 1600 calories daily if no contraindications Month #2 Total weight loss:17 pounds OARRS reviewed Prescribing month # 3 Goal weight : 135-140 Associated Problem(s): Morbid (severe) obesity due to excess calories (CMS/HCC) Discussed with patient their BMI (actual, verses recommended). We have also discussed lifestyle modifications: attempts to perform physical activity as chronic conditions allow, also to monitor dietary intake: increasing protein/fruits/veggies and lowering carb intake (unless contraindicated). Limit sodas, juices, and sugary drinks. Associated Problem(s): Mezqh-2-svhzeffwulb deficiency (CMS/HCC) This is a diagnosis that was test for and is managed by pulmonology documented in this encounter [facility] 07-29-2024 Instructions Isabella Dueñas NP - 07/29/2024 9:00 AM EST Keep up the great work!!! documented in this encounter [facility] 06-30-2024 History of Present illness Narrative Associated Problem(s): Weight gain, abnormal Continue adipex OARRS reviewed Pt meets qualifications of OAC 4731-07-28 for weight loss. BMI>30 or >27 with comorbid conditions. Notify office with any symptoms of chest pain, dyspnea, heart palpitations, or any anxiety symptoms. F/U in 4 weeks to document weight loss. Increase physical activity as tolerated, and lower caloric intake to 1600 calories daily if no contraindications Dose #2 Total loss: 10 pounds Images from the original note were not included. Nidia Montague is a 49 y.o. female presents with chief complaint of No chief complaint on file. HPI: Here for an adipex check up: She has completed month: #1, total loss 10 pounds. Diet: functional med, protein, veggies, limited fruits and dairy Activity: exercise 30 mins day, 5-6 times per week Side effects: none SUBJECTIVE: MEDICATIONS: Current Outpatient Medications Medication Instructions albuterol HFA 90 mcg/act inhaler 2 puffs, Inhalation, Every 4 hours PRN azelastine (Astelin) 0.1 % nasal spray 1 spray, Does not apply, 2 times daily Dextromethorphan-Pyrilamine (Lewes DMT) 30-30 MG tablet 1 tablet, Oral, 4 times daily PRN estradiol (Vivelle-DOT) 0.05 MG/24HR APPLY 1 PATCH DIRECTED TWO TIMES A WEEK. fluticasone (Flonase) 50 MCG/ACT nasal spray 2 sprays, Each Nostril, Daily levothyroxine (SYNTHROID, LEVOXYL) 112 mcg, Oral, Daily before breakfast liothyronine (Cytomel) 5 MCG tablet 5mcg (1 tab) AM, 2.5mcg (1/2 tab) in mid-afternoon meloxicam (MOBIC) 15 mg, Oral, Daily mometasone-formoterol (Dulera) 100-5 MCG/ACT inhaler 2 puffs, Inhalation, 2 times daily RT, Rinse mouth with water after use to reduce aftertaste and incidence of candidiasis. Do not swallow. montelukast (SINGULAIR) 10 mg, Oral, Daily phentermine (ADIPEX-P) 37.5 mg, Oral, Daily before breakfast spironolactone (ALDACTONE) 100 mg, Oral, Daily sulfacetamide suspension (Klaron) 10 % lotion topical 1 application , Topical SUMAtriptan (IMITREX) 100 mg, Oral, Once as needed, May take 1 pill at onset of migraine MARTIN, repeat in 2 hours if needed, no more than 2 pills in 24 hours, no more than twice a week topiramate (TOPAMAX) 100 mg, Oral, 2 times daily ALLERGIES: Allergies Allergen Reactions Morphine Sulfate [Morphine] Shortness of breath, Headache and Hallucinations Fentanyl GI intolerance and Hallucinations Hydrocodone-Acetaminophen Hallucinations Zithromax [Azithromycin] Hives Wound Dressing Adhesive Hives, Rash and GI intolerance Does not tolerate skin glue REVIEW OF SYMPTOMS: Review of Systems Constitutional: Negative for appetite change, chills and fever. HENT: Negative for congestion, ear pain and sore throat. Eyes: Negative for pain, discharge, redness and visual disturbance. Respiratory: Negative for cough, shortness of breath and wheezing. Cardiovascular: Negative for chest pain, palpitations and leg swelling. Gastrointestinal: Negative for abdominal pain, blood in stool, constipation, diarrhea, nausea and vomiting. Genitourinary: Negative for difficulty urinating, dysuria and frequency. Musculoskeletal: Negative for arthralgias, back pain, joint swelling and myalgias. Skin: Negative for rash and wound. Neurological: Negative for dizziness, tremors, seizures, syncope and headaches. Psychiatric/Behavioral: Negative for behavioral problems, self-injury and suicidal ideas. The patient is not nervous/anxious. Hematological: Does not bruise/bleed easily. Endocrine: Negative for polydipsia, polyphagia and polyuria. Allergic/Immunologic: Negative for environmental allergies and food allergies. 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 Anemia Antibiotic-induced yeast infection Arthralgia Arthritis Asthma (CMS/HCC) Attention deficit disorder (ADD) in adult [place], lung (CMS/HCC) 3cm LLL bulla Constipation, chronic COPD (chronic obstructive pulmonary disease) (CMS/HCC) Cough variant asthma ([facility]/HCC) Degenerative disc disease, lumbar Depression, acute (CMS/HCC) RAFAELA (generalized anxiety disorder) ([facility]/HCC) Gastroesophageal reflux disease without esophagitis Hip pain, chronic, left History of being hospitalized 2004 ICU-respiratory illness History of degenerative disc disease Hyperglycemia Hyperlipidemia (CMS/HCC) Hypothyroidism ([facility]/HCC) Insomnia, persistent Irritable bowel syndrome with both constipation and diarrhea MDD (major depressive disorder) ([facility]) Menopausal symptoms Menopause-symptoms discussed with patient and reassurance given. Discussed options of treatment, including nonhormonal vs hormonal, to include R/B/A as well as SE. Reviewed results of I study. All of patient's questions were answered and she expressed understanding. Will continue HRT as prescribed and patient was advised to call with questions or concerns. Migraine with aura and without status migrainosus, not intractable ([facility]/HCC) Migraine without status migrainosus, not intractable, unspecified migraine type ([facility]/HCC) 10/29/2023 Migraines ([facility]) Muscle spasm of back ALECIA (obstructive sleep apnea) sleep study: AHI 18, sat 86% 12/14 Osteoarthritis of spine with radiculopathy, cervical region Psoriasis ([facility]/HCC) Seasonal allergic rhinitis due to pollen Seasonal allergies Shortness of breath PFTs 12/08/2020: -FEV1/FVC: 85% -FEV1: 104% -FVC: 98% -Bronchodilator response: None performed -RV: 89% -T% -DLCO: 97% -Flow-volume loop: Normal Sinusitis Thyromegaly (CMS/HCC) Vitamin D deficiency Weight gain, abnormal Weight gain, abnormal Past Surgical History: Procedure Laterality Date BACK SURGERY 2017 fusion BELT ABDOMINOPLASTY COSMETIC SURGERY 2007 FEMINIZING AUGMENTATION MAMMOPLASTY Bilateral HEMORRHOID SURGERY HERNIA REPAIR Mesh placed HERNIA REPAIR 11/2018 HYSTERECTOMY 2008 Abdominal due to menorrhagia IR BILIARY CHOLANGIOGRAM 09/03/2018 IR BILIARY CHOLANGIOGRAM IR BILIARY CHOLANGIOGRAM 09/03/2018 IR BILIARY CHOLANGIOGRAM LIVER RESECTION 08/2018 SURGICAL PROCUREMENT, LIVER, LIVING DONOR TUBAL LIGATION US GUIDED NEEDLE LIVER BIOPSY 08/05/2018 US GUIDED NEEDLE LIVER BIOPSY 08/05/2018 family history is not on file. She was adopted. OBJECTIVE: Visit Vitals BP 102/80 (BP Location: Left arm, Patient Position: Sitting, BP Cuff Size: Adult long) Pulse 104 Temp 98.1 F (Temporal) Resp 19 Ht 5' 2 Wt 198 lb 3.2 oz SpO2 96% BMI 36.25 kg/m Smoking Status Never BSA 1.98 m Physical Exam Vitals and nursing note reviewed. Constitutional: General: She is not in acute distress. Appearance: Normal appearance. HENT: Head: Normocephalic and atraumatic. Right Ear: External ear normal. Left Ear: External ear normal. Nose: Nose normal. Mouth/Throat: Mouth: Mucous membranes are moist. Eyes: Extraocular Movements: Extraocular movements intact. Conjunctiva/sclera: Conjunctivae normal. Cardiovascular: Rate and Rhythm: Normal rate and regular rhythm. Pulses: Normal pulses. Heart sounds: Normal heart sounds. Pulmonary: Effort: Pulmonary effort is normal. Breath sounds: Normal breath sounds. Abdominal: General: Bowel sounds are normal. There is no distension. Palpations: Abdomen is soft. There is no mass. Tenderness: There is no abdominal tenderness. Musculoskeletal: General: Normal range of motion. Cervical back: Normal range of motion and neck supple. Skin: General: Skin is warm and dry. Capillary Refill: Capillary refill takes 2 to 3 seconds. Findings: No rash. Neurological: General: No focal deficit present. Mental Status: She is alert and oriented to person, place, and time. Psychiatric: Mood and Affect: Mood normal. Behavior: Behavior normal. Thought Content: Thought content normal. Judgment: Judgment normal. ASSESSMENT AND PLAN: No follow-ups on file. Problem List Items Addressed This Visit Morbid (severe) obesity due to excess calories (CMS/HCC) - Primary Weight gain, abnormal Continue adipex OARRS reviewed Pt meets qualifications of OAC 4731-07-28 for weight loss. BMI>30 or >27 with comorbid conditions. Notify office with any symptoms of chest pain, dyspnea, heart palpitations, or any anxiety symptoms. F/U in 4 weeks to document weight loss. Increase physical activity as tolerated, and lower caloric intake to 1600 calories daily if no contraindications Dose #2 Total loss: 10 pounds Relevant Medications phentermine (Adipex-P) 37.5 MG tablet documented in this encounter [facility] 06-02-2024 History of Present illness Narrative Associated Problem(s): Weight gain, abnormal Would like to start adipex OARRS reviewed Pt meets qualifications of OAC 4731-07-28 for weight loss. BMI>30 or >27 with comorbid conditions. Notify office with any symptoms of chest pain, dyspnea, heart palpitations, or any anxiety symptoms. F/U in 4 weeks to document weight loss. Increase physical activity as tolerated, and lower caloric intake to 1600 calories daily if no contraindications Dose #1: Associated Problem(s): COVID-19 virus infection Chest clear, no resp distress Fu as needed Associated Problem(s): Dxnpc-3-dgdjddsysjr deficiency (CMS/HCC) Continue with pulmonology Associated Problem(s): Major depressive disorder, recurrent, moderate (HCC) (CMS/HCC) No meds, cont with counseling Pt states that today is actually the first day that she feels her normal-pt does still have a lil bit of sob, congestion, and drainage. Pt woke up with headache this morning. She has been using cpap-believes she is not getting enough air. Cpap is about a year- year and half old. Pt would like to discuss getting on adipex- states she has gained 6lbs since starting up the steroids. Images from the original note were not included. Nidia Montague is a 49 y.o. female presents with chief complaint of No chief complaint on file. HPI: Overall her COVID symptoms are improving, finally Would like to talk about restarting adipex. She was given a script for compounded semiglutide, insurance would not cover. Has taken adipex in the past, no acute side effects, and would like to take again. Is going to the [facility] 4-6 days a week for a 30 minute exercise. SUBJECTIVE: MEDICATIONS: Current Outpatient Medications Medication Instructions albuterol HFA 90 mcg/act inhaler 2 puffs, Inhalation, Every 4 hours PRN azelastine (Astelin) 0.1 % nasal spray 1 spray, Does not apply, 2 times daily Dextromethorphan-Pyrilamine ([place]es DMT) 30-30 MG tablet 1 tablet, Oral, 4 times daily PRN estradiol (Vivelle-DOT) 0.05 MG/24HR APPLY 1 PATCH DIRECTED TWO TIMES A WEEK. fluticasone (Flonase) 50 MCG/ACT nasal spray 2 sprays, Each Nostril, Daily levothyroxine (SYNTHROID, LEVOXYL) 112 mcg, Oral, Daily before breakfast liothyronine (Cytomel) 5 MCG tablet 5mcg (1 tab) AM, 2.5mcg (1/2 tab) in mid-afternoon medroxyPROGESTERone (PROVERA) 2.5 mg, Oral, Daily meloxicam (MOBIC) 15 mg, Oral, Daily mometasone-formoterol (Dulera) 100-5 MCG/ACT inhaler 2 puffs, Inhalation, 2 times daily RT, Rinse mouth with water after use to reduce aftertaste and incidence of candidiasis. Do not swallow. montelukast (SINGULAIR) 10 mg, Oral, Daily spironolactone (ALDACTONE) 100 mg, Oral, Daily sulfacetamide suspension (Klaron) 10 % lotion topical 1 application , Topical SUMAtriptan (IMITREX) 100 mg, Oral, Once as needed, May take 1 pill at onset of migraine MARTIN, repeat in 2 hours if needed, no more than 2 pills in 24 hours, no more than twice a week topiramate (TOPAMAX) 100 mg, Oral, 2 times daily ALLERGIES: Allergies Allergen Reactions Morphine Sulfate [Morphine] Shortness of breath, Headache and Hallucinations Fentanyl GI intolerance and Hallucinations Hydrocodone-Acetaminophen Hallucinations Zithromax [Azithromycin] Hives Wound Dressing Adhesive Hives, Rash and GI intolerance Does not tolerate skin glue REVIEW OF SYMPTOMS: Review of Systems Constitutional: Positive for unexpected weight change. Negative for appetite change, chills and fever. HENT: Negative for congestion, ear pain and sore throat. Eyes: Negative for pain, discharge, redness and visual disturbance. Respiratory: Positive for cough and shortness of breath. Negative for wheezing. Cardiovascular: Negative for chest pain, palpitations and leg swelling. Gastrointestinal: Negative for abdominal pain, blood in stool, constipation, diarrhea, nausea and vomiting. Genitourinary: Negative for difficulty urinating, dysuria and frequency. Musculoskeletal: Negative for arthralgias, back pain, joint swelling and myalgias. Skin: Negative for rash and wound. Neurological: Negative for dizziness, tremors, seizures, syncope and headaches. Psychiatric/Behavioral: Negative for behavioral problems, self-injury and suicidal ideas. The patient is not nervous/anxious. Hematological: Does not bruise/bleed easily. Endocrine: Negative for polydipsia, polyphagia and polyuria. Allergic/Immunologic: Negative for environmental allergies and food allergies. PAST MEDICAL HISTORY Past Medical History: Diagnosis Date Abnormal CT scan, chest Adult hypothyroidism (CMS/HCC) Bqsec-8-ghsjfcmqjna deficiency (CMS/HCC) AAT: MF Genotype Level 102 Anemia Antibiotic-induced yeast infection Arthralgia Arthritis Asthma (CMS/HCC) Attention deficit disorder (ADD) in adult Bull[place], lung (CMS/HCC) 3cm LLL bulla Constipation, chronic COPD (chronic obstructive pulmonary disease) (CMS/HCC) Cough variant asthma (CMS/HCC) Degenerative disc disease, lumbar Depression, acute (CMS/HCC) RAFAELA (generalized anxiety disorder) (CMS/HCC) Gastroesophageal reflux disease without esophagitis Hip pain, chronic, left History of being hospitalized 2004 ICU-respiratory illness History of degenerative disc disease Hyperglycemia Hyperlipidemia (CMS/HCC) Hypothyroidism (CMS/HCC) Insomnia, persistent Irritable bowel syndrome with both constipation and diarrhea MDD (major depressive disorder) (CMS/HCC) Menopausal symptoms Menopause-symptoms discussed with patient and reassurance given. Discussed options of treatment, including nonhormonal vs hormonal, to include R/B/A as well as SE. Reviewed results of I study. All of patient's questions were answered and she expressed understanding. Will continue HRT as prescribed and patient was advised to call with questions or concerns. Migraine with aura and without status migrainosus, not intractable (CMS/HCC) Migraine without status migrainosus, not intractable, unspecified migraine type (CMS/HCC) 10/29/2023 Migraines (CMS/HCC) Muscle spasm of back ALECIA (obstructive sleep apnea) sleep study: AHI 18, sat 86% 12/14 Osteoarthritis of spine with radiculopathy, cervical region Psoriasis (CMS/HCC) Seasonal allergic rhinitis due to pollen Seasonal allergies Shortness of breath PFTs 12/08/2020: -FEV1/FVC: 85% -FEV1: 104% -FVC: 98% -Bronchodilator response: None performed -RV: 89% -T% -DLCO: 97% -Flow-volume loop: Normal Sinusitis Thyromegaly (CMS/HCC) Vitamin D deficiency Weight gain, abnormal Weight gain, abnormal Past Surgical History: Procedure Laterality Date BACK SURGERY 2017 fusion BELT ABDOMINOPLASTY COSMETIC SURGERY 2007 FEMINIZING AUGMENTATION MAMMOPLASTY Bilateral HEMORRHOID SURGERY HERNIA REPAIR Mesh placed HERNIA REPAIR 11/2018 HYSTERECTOMY 2008 Abdominal due to menorrhagia IR BILIARY CHOLANGIOGRAM 09/03/2018 IR BILIARY CHOLANGIOGRAM IR BILIARY CHOLANGIOGRAM 09/03/2018 IR BILIARY CHOLANGIOGRAM LIVER RESECTION 08/2018 SURGICAL PROCUREMENT, LIVER, LIVING DONOR TUBAL LIGATION US GUIDED NEEDLE LIVER BIOPSY 08/05/2018 US GUIDED NEEDLE LIVER BIOPSY 08/05/2018 family history is not on file. She was adopted. OBJECTIVE: Visit Vitals BP 110/78 (BP Location: Left arm, Patient Position: Sitting, BP Cuff Size: Adult long) Pulse 78 Temp 97.1 F (Temporal) Resp 22 Ht 5' 2 Wt 209 lb 3.2 oz SpO2 94% BMI 38.26 kg/m Smoking Status Never BSA 2.04 m Physical Exam Vitals and nursing note reviewed. Constitutional: General: She is not in acute distress. Appearance: Normal appearance. HENT: Head: Normocephalic and atraumatic. Right Ear: Tympanic membrane, ear canal and external ear normal. Left Ear: Tympanic membrane, ear canal and external ear normal. Nose: Nose normal. No congestion or rhinorrhea. Comments: inflammed Mouth/Throat: Mouth: Mucous membranes are moist. Eyes: Extraocular Movements: Extraocular movements intact. Conjunctiva/sclera: Conjunctivae normal. Cardiovascular: Rate and Rhythm: Normal rate and regular rhythm. Pulses: Normal pulses. Heart sounds: Normal heart sounds. Pulmonary: Effort: Pulmonary effort is normal. Breath sounds: Normal breath sounds. No wheezing, rhonchi or rales. Abdominal: General: Bowel sounds are normal. There is no distension. Palpations: Abdomen is soft. There is no mass. Tenderness: There is no abdominal tenderness. Musculoskeletal: General: Normal range of motion. Cervical back: Normal range of motion and neck supple. Right lower leg: No edema. Left lower leg: No edema. Lymphadenopathy: Cervical: No cervical adenopathy. Skin: General: Skin is warm and dry. Capillary Refill: Capillary refill takes 2 to 3 seconds. Findings: No rash. Neurological: General: No focal deficit present. Mental Status: She is alert and oriented to person, place, and time. Psychiatric: Mood and Affect: Mood normal. Behavior: Behavior normal. Thought Content: Thought content normal. Judgment: Judgment normal. ASSESSMENT AND PLAN: No follow-ups on file. Problem List Items Addressed This Visit Jrtos-1-obdmrgnnblm deficiency (CMS/HCC) Continue with pulmonology COVID-19 virus infection - Primary Chest clear, no resp distress Fu as needed Major depressive disorder, recurrent, moderate (HCC) (CMS/HCC) No meds, cont with counseling Morbid (severe) obesity due to excess calories (CMS/HCC) Body mass index (BMI) 37.0-37.9, adult Weight gain, abnormal Would like to start adipex OARRS reviewed Pt meets qualifications of OAC 4731-07-28 for weight loss. BMI>30 or >27 with comorbid conditions. Notify office with any symptoms of chest pain, dyspnea, heart palpitations, or any anxiety symptoms. F/U in 4 weeks to document weight loss. Increase physical activity as tolerated, and lower caloric intake to 1600 calories daily if no contraindications Dose #1: Relevant Medications phentermine (Adipex-P) 37.5 MG tablet documented in this encounter [facility] 05-19-2024 Telephone encounter Note Prescription Refill Information The patient has been identified by name and date of : Yes Caregiver verified no other encounters exist for this prescription request: Yes Caregiver confirmed with patient/requestor that no other refills are due, in the near future, with this provider at this time: Yes The last office visit in the department: 01/04/2024 Does the patient have a future office visit with this provider/department: No Requested Prescriptions Pending Prescriptions Disp Refills liothyronine (CYTOMEL) 5 mcg tablet [Pharmacy Med Name: LIOTHYRONINE SOD 5 MCG TAB] 135 tablet 1 Sig: TAKE 1 TABLET BY MOUTH IN THE MORNING AND 1/2 TABLET MID AFTERNOON levothyroxine (SYNTHROID) 112 mcg tablet [Pharmacy Med Name: LEVOTHYROXINE 112 MCG TABLET] 90 tablet 1 Si TAB SUN-SUN, SKIP SUNDAYS Viv Guerin RN May 19, 2024 2:05 PM [facility] 05-19-2024 Miscellaneous Notes Prescription Refill Information The patient has been identified by name and date of : Yes Caregiver verified no other encounters exist for this prescription request: Yes Caregiver confirmed with patient/requestor that no other refills are due, in the near future, with this provider at this time: Yes The last office visit in the department: 01/04/2024 Does the patient have a future office visit with this provider/department: No Requested Prescriptions Pending Prescriptions Disp Refills liothyronine (CYTOMEL) 5 mcg tablet [Pharmacy Med Name: LIOTHYRONINE SOD 5 MCG TAB] 135 tablet 1 Sig: TAKE 1 TABLET BY MOUTH IN THE MORNING AND 1/2 TABLET MID AFTERNOON levothyroxine (SYNTHROID) 112 mcg tablet [Pharmacy Med Name: LEVOTHYROXINE 112 MCG TABLET] 90 tablet 1 Si TAB SUN-SUN, SKIP SUNDAYS Viv Guerin RN May 19, 2024 2:05 PM documented in this encounter [facility] 05-14-2024 History of Present illness Narrative Associated Problem(s): COVID-19 virus infection Will not test, and will presumptive treat Paxlovid as well as decadron ER if worsening Check cxr Associated Problem(s): URTI (acute upper respiratory infection) Suspect and will treat as COVID Will check xray Fluids, rest If resp distress go to ER Pt stated that she started with a sore throat Sunday night and has progressed into Sunday with congestion and now has a cough. Runny/stuffy nose, sinus pressure, headaches, nausea, ear pressure and pain in both ears, diarrhea, dry eyes, sob, chest pressure and some pain, cough is deep in her chest, chest tightness. Pt using inhalers and muconex, and dule action (advil) Images from the original note were not included. Nidia Montague is a 49 y.o. female presents with chief complaint of No chief complaint on file. HPI: URI This is a new problem. The current episode started in the past 7 days. The problem has been gradually worsening. There has been no fever. Associated symptoms include chest pain, congestion, coughing, diarrhea, headaches, nausea, rhinorrhea, a sore throat and wheezing. Pertinent negatives include no abdominal pain, dysuria, ear pain, joint pain, joint swelling, neck pain, plugged ear sensation, rash, sinus pain, sneezing, swollen glands or vomiting. She has tried inhaler use for the symptoms. The treatment provided no relief. SUBJECTIVE: MEDICATIONS: Current Outpatient Medications Medication Instructions albuterol HFA 90 mcg/act inhaler 2 puffs, Inhalation, Every 4 hours PRN dexAMETHasone (DECADRON) 6 mg, Oral, Daily Dextromethorphan-Pyrilamine ([place] DMT) 30-30 MG tablet 1 tablet, Oral, 4 times daily PRN levothyroxine (SYNTHROID, LEVOXYL) 125 mcg, Oral, Daily before breakfast medroxyPROGESTERone (PROVERA) 2.5 mg, Oral, Daily meloxicam (MOBIC) 15 mg, Oral, Daily mometasone-formoterol (Dulera) 100-5 MCG/ACT inhaler 2 puffs, Inhalation, 2 times daily RT, Rinse mouth with water after use to reduce aftertaste and incidence of candidiasis. Do not swallow. montelukast (SINGULAIR) 10 mg, Oral, Daily Nirmatrelvir&Ritonavir 300/100 (Paxlovid, 300/100,) 20 x 150 MG & 10 x 100MG tablet therapy pack 1 Package, Oral, Daily, Take as directed SUMAtriptan (IMITREX) 100 mg, Oral, Once as needed, May take 1 pill at onset of migraine MARTIN, repeat in 2 hours if needed, no more than 2 pills in 24 hours, no more than twice a week topiramate (TOPAMAX) 100 mg, Oral, 2 times daily ALLERGIES: Allergies Allergen Reactions Morphine Sulfate [Morphine] Shortness of breath, Headache and Hallucinations Fentanyl GI intolerance and Hallucinations Zithromax [Azithromycin] Hives Wound Dressing Adhesive Hives, Rash and GI intolerance Does not tolerate skin glue REVIEW OF SYMPTOMS: Review of Systems Constitutional: Positive for fatigue and night sweats. Negative for appetite change, chills and fever. HENT: Positive for congestion, rhinorrhea and sore throat. Negative for ear pain, sinus pain and sneezing. Eyes: Negative for pain, discharge, redness and visual disturbance. Respiratory: Positive for cough and wheezing. Negative for shortness of breath. Cardiovascular: Positive for chest pain. Negative for palpitations and leg swelling. Gastrointestinal: Positive for diarrhea and nausea. Negative for abdominal pain, blood in stool, constipation and vomiting. Genitourinary: Negative for difficulty urinating, dysuria and frequency. Musculoskeletal: Positive for myalgias. Negative for arthralgias, back pain, joint pain, joint swelling and neck pain. Skin: Negative for rash and wound. Neurological: Positive for headaches. Negative for dizziness, tremors, seizures and syncope. Psychiatric/Behavioral: Negative for behavioral problems, self-injury and suicidal ideas. The patient is not nervous/anxious. Hematological: Does not bruise/bleed easily. Endocrine: Negative for polydipsia, polyphagia and polyuria. Allergic/Immunologic: Negative for environmental allergies and food allergies. PAST MEDICAL HISTORY Past Medical History: Diagnosis Date Abnormal CT scan, chest Adult hypothyroidism (CMS/HCC) Ssdoa-8-wtjlcvdvrmi deficiency (CMS/HCC) AAT: MF Genotype Level 102 Anemia Antibiotic-induced yeast infection Arthralgia Arthritis Asthma (CMS/HCC) Attention deficit disorder (ADD) in adult Bull[place], lung (CMS/HCC) 3cm LLL bulla Constipation, chronic COPD (chronic obstructive pulmonary disease) (CMS/HCC) Cough variant asthma ([facility]/HCC) Degenerative disc disease, lumbar Depression, acute (CMS/HCC) RAFAELA (generalized anxiety disorder) ([facility]/HCC) Gastroesophageal reflux disease without esophagitis Hip pain, chronic, left History of being hospitalized 2004 ICU-respiratory illness History of degenerative disc disease Hyperglycemia Hyperlipidemia (CMS/HCC) Hypothyroidism (CMS/HCC) Insomnia, persistent Irritable bowel syndrome with both constipation and diarrhea MDD (major depressive disorder) ([facility]/HCC) Menopausal symptoms Menopause-symptoms discussed with patient and reassurance given. Discussed options of treatment, including nonhormonal vs hormonal, to include R/B/A as well as SE. Reviewed results of I study. All of patient's questions were answered and she expressed understanding. Will continue HRT as prescribed and patient was advised to call with questions or concerns. Migraine with aura and without status migrainosus, not intractable (CMS/HCC) Migraine without status migrainosus, not intractable, unspecified migraine type (CMS/HCC) 10/29/2023 Migraines (CMS/HCC) Muscle spasm of back ALECIA (obstructive sleep apnea) sleep study: AHI 18, sat 86% 12/14 Osteoarthritis of spine with radiculopathy, cervical region Psoriasis (CMS/HCC) Seasonal allergic rhinitis due to pollen Seasonal allergies Shortness of breath PFTs 12/08/2020: -FEV1/FVC: 85% -FEV1: 104% -FVC: 98% -Bronchodilator response: None performed -RV: 89% -T% -DLCO: 97% -Flow-volume loop: Normal Sinusitis Thyromegaly (CMS/HCC) Vitamin D deficiency Weight gain, abnormal Weight gain, abnormal Past Surgical History: Procedure Laterality Date BACK SURGERY 2017 fusion BELT ABDOMINOPLASTY COSMETIC SURGERY 2007 FEMINIZING AUGMENTATION MAMMOPLASTY Bilateral HEMORRHOID SURGERY HERNIA REPAIR Mesh placed HERNIA REPAIR 11/2018 HYSTERECTOMY 2007 Abdominal due to menorrhagia IR BILIARY CHOLANGIOGRAM 09/03/2018 IR BILIARY CHOLANGIOGRAM IR BILIARY CHOLANGIOGRAM 09/03/2018 IR BILIARY CHOLANGIOGRAM LIVER RESECTION 08/2018 SURGICAL PROCUREMENT, LIVER, LIVING DONOR TUBAL LIGATION US GUIDED NEEDLE LIVER BIOPSY 08/05/2018 US GUIDED NEEDLE LIVER BIOPSY 08/05/2018 family history is not on file. She was adopted. OBJECTIVE: Visit Vitals BP 116/82 (BP Location: Left arm, Patient Position: Sitting, BP Cuff Size: Adult long) Pulse (!) 128 Temp 97.6 F (Temporal) Resp 20 Ht 5' 2 Wt 203 lb 9.6 oz SpO2 92% BMI 37.24 kg/m Smoking Status Never BSA 2.01 m Physical Exam Vitals and nursing note reviewed. Constitutional: General: She is not in acute distress. Appearance: Normal appearance. She is ill-appearing (mod). HENT: Head: Normocephalic and atraumatic. Right Ear: Ear canal and external ear normal. Left Ear: Ear canal and external ear normal. Ears: Comments: Fluid bilat, clear Nose: Congestion and rhinorrhea present. Mouth/Throat: Mouth: Mucous membranes are moist. Pharynx: No oropharyngeal exudate or posterior oropharyngeal erythema. Eyes: Extraocular Movements: Extraocular movements intact. Conjunctiva/sclera: Conjunctivae normal. Cardiovascular: Rate and Rhythm: Normal rate and regular rhythm. Pulses: Normal pulses. Heart sounds: Normal heart sounds. Pulmonary: Effort: Pulmonary effort is normal. Breath sounds: Normal breath sounds. No wheezing or rales. Comments: Diminished, no wheeze noted Abdominal: General: Bowel sounds are normal. There is no distension. Palpations: Abdomen is soft. There is no mass. Tenderness: There is no abdominal tenderness. Musculoskeletal: General: Normal range of motion. Cervical back: Normal range of motion and neck supple. Right lower leg: No edema. Left lower leg: No edema. Lymphadenopathy: Cervical: No cervical adenopathy. Skin: General: Skin is warm and dry. Capillary Refill: Capillary refill takes 2 to 3 seconds. Findings: No rash. Neurological: General: No focal deficit present. Mental Status: She is alert and oriented to person, place, and time. Psychiatric: Mood and Affect: Mood normal. Behavior: Behavior normal. Thought Content: Thought content normal. Judgment: Judgment normal. ASSESSMENT AND PLAN: No follow-ups on file. Problem List Items Addressed This Visit COVID-19 virus infection Will not test, and will presumptive treat Paxlovid as well as decadron ER if worsening Check cxr URTI (acute upper respiratory infection) - Primary Suspect and will treat as COVID Will check xray Fluids, rest If resp distress go to ER Relevant Medications dexAMETHasone (Decadron) 6 MG tablet Nirmatrelvir&Ritonavir 300/100 (Paxlovid, 300/100,) 20 x 150 MG & 10 x 100MG tablet therapy pack Other Relevant Orders XR chest 2 views Class 2 obesity due to excess calories without serious comorbidity in adult documented in this encounter [facility] 03-19-2024 Telephone encounter Note APPOINTMENT AT 4:00 ON 03/19/2024. CONTACTED PATIENT, NO ANSWER. LEFT MESSAGE. Magdaleno Toledo MA [facility] 03-19-2024 Miscellaneous Notes APPOINTMENT AT 4:00 ON 03/19/2024. CONTACTED PATIENT, NO ANSWER. LEFT MESSAGE. Magdaleno Toledo MA documented in this encounter [facility] 01-28-2024 Instructions Alka Meza MD - 01/28/2024 1:45 PM EDT BONE MINERAL DENSITY PATIENT INSTRUCTIONS ========= Bone mineral density testing measures the amount of calcium in certain parts of your bones. This information determines how strong your bones are. The test is used to detect osteoporosis, a disease in which the bone's mineral content and density are low, increasing a person's risk of fractures. The lumbar spine (lower back) and the hip are the skeletal sites usually examined. For the test, remember that: 1. You cannot take this test if you are . 2. Eat a normal diet on the day of the test. 3. Take your medications as you normally would. 4. DO NOT take calcium supplements (such as Tums) for 24 hours before the test. 5. On the day of the test, leave valuables (jewelry or credit cards) at home. 6. The test should be performed prior to oral, rectal or IV contrast studies, or at least 7 days after any of these studies. For the test, you may be asked to wear a hospital gown. You will lie on your back, on a padded table, in a comfortable position. Generally, you can resume your usual activities immediately. documented in this encounter [facility] 01-28-2024 History of Present illness Narrative Images from the original note were not included. [facility] PATIENT NAME: Nidia Kaye PCP: Kevin Valentin MD DATE: 01/28/[address] Tessa Aguilar MD [address] [place] [address] for an opinion regarding menopause consult. My final recommendations will be communicated back to the requesting physician by way of shared Medical record or letter to requesting physician via [place] mail. This visit was conducted as a virtual visit. Pt is identified by name and date. Patient and I can hear each other and see each other, connection was good I have communicated my name and active licensure. The patient's identity and physical location were verified at the time of this visit. Either the patient or their legal retail sales representative has been informed of the risks and benefits of -- and alternatives to -- treatment through a remote evaluation and consents to proceed with the evaluation remotely. Chief Complaint CC: History of Present Illness: Nidia is a 48 year old No obstetric history on file. who presents for her menopause concerns. 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 Desire STD testing: declines Pain with intercourse: Yes Postcoital bleeding: No Exercise: few times a week for 30 minutes. Type: cardio Dietary calcium: yes Vitamin D3: yes Tobacco use? No OB History No obstetric history on file. Family history of breast/ovarian/uterine cancer? No BREAST HISTORY First degree relatives: no Second degree relatives: no Personal history of breast biopsy: no Atypical: no Has breats implants Had liver resection OB HPI OB History No obstetric history on file. 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 Hx of depression/anxiety. No DVT or GB issues Total ocp use 5+ years No blood transfusion or HIV risk No LMP recorded. Patient has had a hysterectomy. Age at menopause onset: 2007 Menopausal symptom assessment: Vasomotor symptoms: yes Urinary incontinence & symptoms: yes Sexual function: yes CARDIOVASCULAR Lipid & CV risk assessment: Non smoker, no HTN, HLD, DM, VT, CVA or family hx of early CAD. BONE STATUS Discussed calcium in the diet and take separate oral 2,000 - 5,000 iu vitamin D3 daily Bone mineral density : due History of fractures over age 40: not Family History of hip Fx: no Review of Systems: General: Feels well. Denies fatigue, fever, chills, unintentional weight loss/weight gain. Psych: Feels stable, denies anxiety, depression or mood changes. Stress is tolerable. Abdomen: No abdominal pain, nausea, vomiting, diarrhea, or constipation. No bloating, early satiety, indigestion, or increased flatulence. Bladder: No dysuria, gross hematuria, urinary frequency, urinary urgency, or incontinence Breast: No breast lumps, nipple d/c, overlying skin changes, redness or skin retraction Past Medical History: No past medical history on file. Family History: No family history on file. Past Surgical History: No past surgical history on file. Social History: Social History Tobacco Use Smoking status: Never Smokeless tobacco: Never Allergies: ALLERGIES Allergen Reactions Adhesive Intolerance Does not tolerate skin glue Azithromycin Rash Fentanyl Other: See Comments Headaches and nausea with patch. Has had IV fentanyl without problems Morphine Other: See Comments BP drops Allergies updated: Yes Medications: Current Outpatient Medications Medication Sig estradiol (VIVELLE-DOT) 0.05 mg/24 hr Apply 1 Patch as directed two times a week. DHEA vaginal suppository 13 mg (CPD) Use 1 Suppository vaginally as directed. Unwrap suppository and Insert every night in vagina for the first 2 weeks, and then every other day for 2 months. Then twice a week. levothyroxine (SYNTHROID) 112 mcg tablet 1 tab Sun-Sun, skip Sundays liothyronine (CYTOMEL) 5 mcg tablet 5mcg (1 tab) AM, 2.5mcg (1/2 tab) in mid-afternoon azelastine 0.1% nasal spray Use 1 [place] in each nostril two times a day. mometasone-formoterol (DULERA) 100-5 mcg/actuation inhaler Inhale 2 Puffs as instructed two times a day. montelukast (SINGULAIR) 10 mg tablet Take 10 mg by mouth daily at bedtime. cholecalciferol (VITAMIN D-3) 50 mcg (2,000 unit) tablet Take 2,000 Units by mouth once daily. FLUTICASONE FUROATE INHALATION Inhale 50 mcg as instructed three times a day. 1 spray lurasidone (LATUDA) 80 mg tablet Take 80 mg by mouth once daily. nirmatrelvir/ritonavir (PAXLOVID ORAL) Take by mouth. pyrilamine/dextromethorphan hb (CAPRON DM ORAL) Take by mouth once daily. fluticasone (FLONASE) 50 mcg/actuation nasal spray Use 2 Sprays in the nose once daily. SUMAtriptan (IMITREX) 50 mg tablet Take 1 tablet PO at onset of headach. May repeat in 2 hours if needed. topiramate (TOPAMAX) 25 mg tablet Take 1 tablet PO BID No current facility-administered medications for this visit. Medications reviewed in detail and updated PRN. Yes Physical Exam: There were no vitals taken for this visit. ROS GENERAL: denies changes in health status, good appetite, no significant weight changes, + fatigue, denies ACHES SKIN: denies rashes, lesions, or pruritis RESPIRATORY: denies cough, wheeze, SOB CARDIAC/CIRC: denies chest pain, SOB, ankle edema, palpitations, hx of heart murmurs, or valve disease, no history of DVT GI: no abdominal pain : no dysuria PHYSICAL EXAM GENERAL: pleasant female in no apparent distress NECK: Full range of motion, HEAD: normocephalic SKIN: No rashes MOOD: pleasant NEURO: alert and oriented x3 Recent labs/Diagnostic studies: I have thoroughly reviewed this patients previous notes, encounters, labs, and results prior to this visit. Health Maintenance Annual PCP Team Chronic Disease Visit Never done DTaP,Tdap,Td Vaccine(1 - Tdap) Never done Pap Testing Never done HPV Testing Never done Mammogram Screening Never done Colorectal Cancer Screening Never done Covid-19 Vaccine(2022- season) due on 05/25/2023 Assessment and Plan Menopause discussed, including etiology of symptoms. Discussed management options including non-hormonal vs. hormonal treatments. The risks/benefits/alternatives/side effects/precautions and instructions of therapies were discussed. Discussed controversies of HT, including the most recent study results. Patient in favor of initiating menopausal hormone therapy. Recommended effective dosage of transdermal therapy to minimize any potential risk, dose can be adjusted if hot flashes persist during follow up visit in 4-6 weeks. Discussed that as long as patient understands the risks and benefits of ongoing HT, then there is no defined time limit for HT use, especially if she is also deriving [id number] benefits. Will adjust regimen and follow up in 4-6 weeks if needed. Parameters for earlier follow up discussed. All questions were answered. She will journal her improvement in symptoms, breast tenderness and any abnormal bleeding or spotting. Any Spotting in first few months of initiating hormone therapy is normal and should not prompt discontinuation of HT. During follow up visit we can discuss it in detail. Encounter Diagnosis ICD-10-CM 1. S/P HEIDY (total abdominal hysterectomy) Z90.710 ESTRADIOL-17B BLD FOLLICLE STIMULATING HORMONE DHEA-S BLD C-REACTIVE PROTEIN estradiol (VIVELLE-DOT) 0.05 mg/24 hr 2. Postmenopause Z78.0 ESTRADIOL-17B BLD FOLLICLE STIMULATING HORMONE DHEA-S BLD C-REACTIVE PROTEIN estradiol (VIVELLE-DOT) 0.05 mg/24 hr 3. Other fatigue R53.83 ESTRADIOL-17B BLD FOLLICLE STIMULATING HORMONE DHEA-S BLD C-REACTIVE PROTEIN 4. Hot flashes due to surgical menopause E89.41 estradiol (VIVELLE-DOT) 0.05 mg/24 hr DXA-AXIAL SKELETON BD DXA TRABECULAR BONE SCORE (TBS) 5. Genitourinary syndrome of menopause N95.8 DHEA vaginal suppository 13 mg (CPD) 6. Encounter for screening for osteoporosis Z13.820 DXA-AXIAL SKELETON BD DXA TRABECULAR BONE SCORE (TBS) SIGNATURE: Alka Meza MD PAGER: [phone] CC: Kevin Valentin MD via EMR I spent a total of 55 minutes on the date of the service which included preparing to see the patient, [id number] patient care, completing clinical documentation, obtaining and/or reviewing separately obtained history, performing a medically appropriate examination, counseling and educating the patient/family/caregiver, and ordering medications, tests, or procedures. documented in this encounter [facility] 01-23-[address] - 01/23/2024 10:00 AM EDT [facility] FOLLOW UP NUTRITION INSTRUCTIONS Nutrition Follow-up: In 6 weeks [address]ianca [address] RD. Your Prescribed Nutrition Plan: Nutrition Plan: Please challenge the following foods one at a time using the following instructions to test your food tolerance: Protocol: On the first day of the reintroduction phase, choose a single food to challenge. Eat a generous amount of that food throughout Day 1 (two or three challenge portions), while continuing to eat foods on the Elimination Diet. The next 2 days (Days 2-3), do not eat any of the challenge food and return to the Elimination Diet. During all 3 days, record any symptoms. If there is no reaction, keep that food in the food plan and repeat the above process with the next challenge. If any food provokes symptoms, stop eating that food immediately, wait till the symptoms clear, and reintroduce the next food. After testing all of the challenge foods, try the problem food again using the same procedure (one day of eating the food and noting symptoms during the following two-day period). Sample challenge doses: Wheat: 100% whole wheat cereal or whole wheat noodles 1/2-1c Note: for a more conservative reintroduction: spelt (1/2 cup cooked) or sourdough (1-2 pieces) Barley, Crivitz: Cooked barley or rye cereal 1/2c, rye crackers 2-3 crackers Dairy: This is a two-step process. First, reintroduce cheese. Next, reintroduce milk. Cheese to test for dairy protein: any low-lactose cheese I.e. cheddar, parmesan, Tunisian, camembert, gouda, provolone 1oz Note: for a more conservative reintroduction: goat milk cheese (Chevre, Goat Gouda) or sheep milk cheese(Halloumi, Manchego, Pecorino Carney) Cow's milk to test for milk sugar (lactose) using liquid milk: 1-2 cups per serving Symptoms of adverse food reactions may include migraines, headaches, dizziness, difficulty sleeping, mood swings, depression, anxiety, unintentional weight loss or gain, dark under-eye circles, asthma, irregular heartbeat, irritable bowels, bloating, wheezing, runny nose, sinus problems, ear infections, food cravings, muscle or joint pain, indigestion, nausea, vomiting, bladder control issues, fatigue, hyperactivity, hives, rashes, dry skin, excessive sweating and acne. 2. Consider the following to promote healthy digestive motility: Valarie stimulates gastric emptying, potentially due to impact of gingerols on 5-HT3 receptors Meal Spacing: between meals, digestive cleansing waves (Migrating Motor Complex) help to clear bacteria and food particles. While there is variability person to person, the MMC begins about 2-3 hours after a meal, and takes about 90 minutes to complete. Consider B12 status: low-borderline B12 levels may reduce stomach emptying Suggestions for Increasing Fiber Consume 2-4 tablespoons of erica seeds and/or ground flaxseed daily. Sprinkle on salads, grains, or vegetables dishes; mix into unsweetened yogurt; blend into a smoothie; stir into a bowl of oatmeal; or bake into healthy muffins and more! For best absorption of omega-3 content, purchase ground options or grind at home. Store in the freezer to keep fresh longer. ADDITIONAL INSTRUCTIONS: How to Contact Your Functional Medicine Team (Open M-F 8am-5pm): 1. TastyKhanahart is the BEST form of communication to reach the Functional Medicine Team, see test results and request refills. Please allow 72 business hours for a response. Directions for signing up are included in your New Patient Folder. (Or you can go to [email or web address]) 2. For nutrition related questions or concerns, CarePoint Solution[employer] message your physician and include Attn: Vianca Perkins RD at the top of the message. [employer] messaging is meant to support implementation of previously outlined nutrition care plans. In the interest of safe, effective and personalized care, you are asked to schedule a follow-up appointment if: It has been >6 months since your last nutrition appointment Your question requires reassessment or involves a new plan of care Your question concerns a new diagnosis, symptoms(s) and/or health concern Ordering Supplements: Supplements can be ordered from the [facility]'s Online Store: [email or web address] New patients to the Healthy Living Shop will need to enter the provider code [id number] documented in this encounter [facility] 01-23-2024 History of Present illness Narrative [facility] Nutrition Therapy: Follow-Up Assessment (Individual) VIRTUALVISITPN I have communicated my name and active licensure. The patient's identity and physical location were verified at the time of this visit. Either the patient or their legal retail sales representative has been informed of the risks and benefits of -- and alternatives to -- treatment through a remote evaluation and consents to proceed with the evaluation remotely. Patient is located in the [facility] at the time of the virtual visit. Patient Name: Nidia Kaye Past Medical History: No past medical history on file. Allergies: Adhesive, Azithromycin, Fentanyl, and Morphine Current Medications/Supplements Current Outpatient Medications on File Prior to Visit Medication Sig levothyroxine (SYNTHROID) 112 mcg tablet 1 tab Mon-Sun, skip Sundays liothyronine (CYTOMEL) 5 mcg tablet 5mcg (1 tab) AM, 2.5mcg (1/2 tab) in mid-afternoon azelastine 0.1% nasal spray Use 1 [place] in each nostril two times a day. mometasone-formoterol (DULERA) 100-5 mcg/actuation inhaler Inhale 2 Puffs as instructed two times a day. montelukast (SINGULAIR) 10 mg tablet Take 10 mg by mouth daily at bedtime. cholecalciferol (VITAMIN D-3) 50 mcg (2,000 unit) tablet Take 2,000 Units by mouth once daily. FLUTICASONE FUROATE INHALATION Inhale 50 mcg as instructed three times a day. 1 spray lurasidone (LATUDA) 80 mg tablet Take 80 mg by mouth once daily. nirmatrelvir/ritonavir (PAXLOVID ORAL) Take by mouth. pyrilamine/dextromethorphan hb (CAPRON DM ORAL) Take by mouth once daily. fluticasone (FLONASE) 50 mcg/actuation nasal spray Use 2 Sprays in the nose once daily. SUMAtriptan (IMITREX) 50 mg tablet Take 1 tablet PO at onset of headach. May repeat in 2 hours if needed. topiramate (TOPAMAX) 25 mg tablet Take 1 tablet PO BID No current facility-administered medications on file prior to visit. Primary ICD-10 Diagnosis Addressed: Chronic fatigue, unspecified [R53.82] Provider Nutrition Notes:Nutrition only today Status of Chief Concerns 1. Health declining after covid 2. Desires weight loss (80# weight gain) Nutrition Assessment (updated 01/23/24) Current Symptom Review: -10# weight loss -joint pain has improved -bloating and abdominal pain improved -IBS-M: feels bowels are stabilizing, no diarrhea, still not moving bowels daily -skin rash on face, legs. This has gone away (saw derm) -migraines triggered with less caffeine intake, seasonal change -insomnia, improved with CPAP machine Food and Nutrition History (update): first follow up, core GF,DF recommended in [facility] setting -GF, DF has been challenging -not noting a difference with less caffeine -taking fiber gummies 2x per day, probiotic Current Adverse Reactions to Foods: Yes, gluten Diet Recall: Yes 24 Hour Recall Breakfast: oats, berries, peanut butter / eggs, glover peppers Lunch: salad with greens, cucumber, glover peppers, chicken, olive oil, lemon juice, fresh herbs (dill, cilantro) Dinner: salmon/trout, vegetable, wild rice Snacks: chips & salsa, apple, mixed nuts, cucumber Beverages: water(8-10 cups), coffee (1cup), kombucha, herbal tea Anthropometrics There were no vitals taken for this visit. Last Height: Last 1 Encounter Ht Readings: Date: Ht: 12/24/2023 157.5 cm (5' 2 ) Last Weight: Last Wt 12/24/23 : 97.7 kg (215 lb 8 oz) 09/04/19 : 76.2 kg (168 lb) 12/22/18 : 78.7 kg (173 lb 9.6 oz) Wt: 97.7 kg (215 lb 8 oz) BMI: 39.42 kg/(m^2) Learning Needs Assessment: Barriers to Learning: Ready to Learn (no barriers noted) Assessed motivation to learn: high Biochemical and Laboratory Data Conventional/Advanced Testing Latest Ref Rng 12/24/2023 OmegaCheck >5.4 % by wt 2.7 (L) Arachidonic Acid/EPA Ratio 3.7 - 40.7 22.0 [place]-6/[place]-3 Ratio 3.7 - 14.4 16.0 (H) [place]-3 Total % by wt 2.7 [place] EPA 0.2 - 2.3 % by wt 0.4 [place] DPA 0.8 - 1.8 % by wt 0.8 [place] DHA 1.4 - 5.1 % by wt 1.4 [place]-6 Total % by wt 42.4 Arachidonic Acid 8.6 - 15.6 % by wt 9.4 Linoleic Acid 18.6 - 29.5 % by wt 29.1 Albumin 3.9 - 4.9 g/dL 4.3 Bilirubin, Total 0.2 - 1.3 mg/dL 0.2 Bilirubin, Conjug <0.2 mg/dL <0.2 Alkaline Phosphatase 34 - 123 U/L 64 AST 13 - 35 U/L 35 ALT 7 - 38 U/L 44 (H) Protein, Total 6.3 - 8.0 g/dL 6.8 Iron 41 - 186 ug/dL 91 TIBC 232 - 386 ug/dL 339 Transferrin Saturation 15.0 - 57.0 % 26.8 Hemoglobin A1C 4.3 - 5.6 % 5.6 Estimated Average Glucose mg/dL 114 Vitamin D 25 Hydroxy 31.0 - 80.0 ng/mL 29.4 (L) Ferritin 14.7 - 205.1 ng/mL 161.0 Transferrin 200 - 360 mg/dL 279 Vitamin B1 (TDP), Whole Blood 84.3 - 213.3 nmol/L 173.7 Vitamin B12 232 - 1,245 pg/mL 350 Folate >4.7 ng/mL 10.8 Copper 80 - 155 ug/dL 100 Zinc 60 - 120 ug/dL 76 Insulin 3.0 - 25.0 mU/L 12.0 WSR 0 - 20 mm/hr 8 UltraSens C-Reactive Protein <3.1 mg/L 2.7 Homocysteine, Serum <15.1 umol/L 13.6 GGT 6 - 46 U/L 23 Uric Acid 2.5 - 6.6 mg/dL 4.2 TSH 0.270 - 4.200 mIU/L 2.060 Free T4 0.9 - 1.7 ng/dL 0.9 Thyroglobulin Ab, Serum <4.0 IU/mL <0.9 Free T3 2.3 - 4.1 pg/mL 2.8 Magnesium RBC 4.0 - 6.5 mg/dL 5.8 Laboratory Values Addressed: Relevant Items in Bold Nutrition Prescription Energy: Resting Metabolic Rate: 1573 Protein: 0.8g/kg Nutrients of Concern: omega-3, vitamin D Nutrition Diagnosis: Undesirable food choices (NB-1.7) related to nutritional choices as potential trigger for symptoms as evidenced by food-symptom trends Status: Some progress toward goal Nutrition Intervention (New and Reinforcement): Current Nutrition Goal(s): reduce diet-related inflammation or food sensitivities suspected as symptom trigger, facilitate beneficial microbiome balance and diversity, and promote adequate nutritional intake to meet macro and micronutrient needs Food Plan: Custom Please challenge the following foods one at a time using the following instructions to test your food tolerance: Protocol: On the first day of the reintroduction phase, choose a single food to challenge. Eat a generous amount of that food throughout Day 1 (two or three challenge portions), while continuing to eat foods on the Elimination Diet. The next 2 days (Days 2-3), do not eat any of the challenge food and return to the Elimination Diet. During all 3 days, record any symptoms. If there is no reaction, keep that food in the food plan and repeat the above process with the next challenge. If any food provokes symptoms, stop eating that food immediately, wait till the symptoms clear, and reintroduce the next food. After testing all of the challenge foods, try the problem food again using the same procedure (one day of eating the food and noting symptoms during the following two-day period). Sample challenge doses: Wheat: 100% whole wheat cereal or whole wheat noodles 1/2-1c Note: for a more conservative reintroduction: spelt (1/2 cup cooked) or sourdough (1-2 pieces) Barley, Crivitz: Cooked barley or rye cereal 1/2c, rye crackers 2-3 crackers Dairy: This is a two-step process. First, reintroduce cheese. Next, reintroduce milk. Cheese to test for dairy protein: any low-lactose cheese I.e. cheddar, parmesan, Tunisian, camembert, gouda, provolone 1oz Note: for a more conservative reintroduction: goat milk cheese (Chevre, Goat Gouda) or sheep milk cheese(Halloumi, Manchego, Pecorino Carney) Cow's milk to test for milk sugar (lactose) using liquid milk: 1-2 cups per serving Symptoms of adverse food reactions may include migraines, headaches, dizziness, difficulty sleeping, mood swings, depression, anxiety, unintentional weight loss or gain, dark under-eye circles, asthma, irregular heartbeat, irritable bowels, bloating, wheezing, runny nose, sinus problems, ear infections, food cravings, muscle or joint pain, indigestion, nausea, vomiting, bladder control issues, fatigue, hyperactivity, hives, rashes, dry skin, excessive sweating and acne. 2. Consider the following to promote healthy digestive motility: Valarie stimulates gastric emptying, potentially due to impact of gingerols on 5-HT3 receptors Meal Spacing: between meals, digestive cleansing waves (Migrating Motor Complex) help to clear bacteria and food particles. While there is variability person to person, the MMC begins about 2-3 hours after a meal, and takes about 90 minutes to complete. Consider B12 status: low-borderline B12 levels may reduce stomach emptying Suggestions for Increasing Fiber Consume 2-4 tablespoons of erica seeds and/or ground flaxseed daily. Sprinkle on salads, grains, or vegetables dishes; mix into unsweetened yogurt; blend into a smoothie; stir into a bowl of oatmeal; or bake into healthy muffins and more! For best absorption of omega-3 content, purchase ground options or grind at home. Store in the freezer to keep fresh longer. Resources/Educational Materials Provided embedded above Adherence Potential to Goals/Care Plan: High Nutrition Monitoring & Evaluation: Meal and Snack Pattern, Nutrition Related Laboratory Values, Protein Intake, and Subjective Symptoms Criteria: Laboratory Data, MSQ, Dietary Recall Follow up: 6 weeks Time Spent with patient: 30 minutes Consult Billing Type: Reassessment/15 minutes, 2 increment(s), 30 minutes Number of Increments: 2 (30 minutes) Referred/Supervised by: Ana Rosa Haji APRN, PA Signed by: Vianca Perkins RD documented in this encounter [facility] 01-06-2024 [facility] 6:05 PM EDT Images from the original note were not included. [facility] MATE FOLLOW-UP At the [facility], we focus on the person as a whole: Mind, Body, and Spirit. Working with your Health Windows Server Architect on a regular basis can help you prioritize your next steps and build a strong foundation for healing. Our goal is to ask the right questions while empowering you to discover your own solutions and determine your own path for creating the health you desire. Our focus is on establishing your desired outcomes, working with you to overcome challenges and on determining practical action steps for implementing lifestyle changes. Staff Health Windows Server Architect Follow-Up Timeframe: Within 1-2 Weeks with Functional Medicine Health Windows Server Architect (Marce) Schedule your initial 1:1 health coaching appointment and/or Mindfulness group coaching session Schedule by calling the appointment center ([phone] option #1) or through [employer] self-scheduling More information about our Mindfulness group coaching program can be found here: [email or web address]. Sign up for the Healthy Living Shop to order your supplements 3. Create a [employer] account to access the Functional Health Coaching Portal Review the Wheel of Wellness self-assessment tool in preparation for your first 1:1 appointment How to Access the Functional Health Coaching Portal: To access [employer], please visit: [email or web address] to create a new account. Step 1: Create Your Account: Complete the following barillas: username, password, email address, first name & last name. Click 'Create My New Account'. A message will display. Click continue. Step 2: Verify Your Account: Check your email for an email from [employer]. In the email, click the link provided to launch [employer] and complete registration. Step 3: Enroll in the 'Functional Health Coaching Portal'. Once you have launched [employer], hover over the Find Learning tab, and click on the drop-down option 'Courses'. Search for the course Functional Health Coaching Portal in the search field. In the search results, click the link to access the course. Step 4: Enter the Enrollment [facility] (this is case sensitive). Step 5: To login after enrollment, visit [email or web address]. Login under 'Non-Employee Login' using the username and password from step #1. If you have difficulty accessing this course, please email [email or web address] ADDITIONAL INSTRUCTIONS: How to Contact Your Functional Medicine Team (Open M-F 8am-5pm): MyChart is the BEST form of communication to reach the Functional Medicine Team, see test results and request refills. Please allow 72 business hours for a response. Directions for signing up are included in your New Patient Folder. (Or you can go to [email or web address]) Ordering Supplements: Supplements can be ordered from the [facility]'s [facility]'s Online Store: [email or web address] New patients to the [employer] will need to enter the provider code [id number] to register their account. How to [place] for the Post-Visit SMA: Our post-visit SMA is a complementary educational session designed to answer non-clinical questions. Topics covered include: Scheduling process Accessing your After Visit Summaries (AVS) Assistance with accessing [employer] portals Assistance with ordering supplements through the [employer] Clarification on test kit instructions Additional Functional Medicine programs available to you To schedule for this Post Visit SMA please call [phone] option 1 documented in this encounter [facility] 01-06-2024 History of Present illness Narrative GROUP HEALTH SHIP MATE COHORT VIRTUALVISITPN Patient was part of a group health coach cleaner session. Patient received education and participated in discussion about modifiable lifestyle factors and healthy habits, with emphasis on the role of the health coach cleaner within the functional medicine model and the Wheel of Wellness. Other topics of discussion included Functional Medicine process and scheduling for follow-up visits and support prior to next visit. ................................ ................................ ................................ ....... FOLLOW UP: 30-Minute Consultation with Health Windows Server Architect within 1-2 weeks Time Spent with Patient: 30 minutes Signed by: Marce Finney [facility] documented in this encounter [facility] 01-04-2024 Instructions Tessa Aguilar MD - 01/04/2024 12:57 PM EDT Take 1 tab levothyroxine 112mcg Sun-Sun and skip Sundays (this gives an average dose of about 96mcg daily) Start liothyronine 5mcg AM/2.5mcg around mid-afternoon Try selenium supplements- 200mcg daily over the counter Labs in 3mo to recheck levels Women's Health referral placed to discuss whether some of your symptoms may be related to early menopause documented in this encounter [facility] 01-04-2024 History of Present illness Narrative Images from the original note were not included. Endocrinology Virtual Visit This is a virtual visit using [employer] Video Visit. It required patient-provider interaction for the medical decision making as documented below. I have communicated my name and active licensure. The patient's identity and physical location were verified at the time of this visit. Either the patient or their legal retail sales representative has been informed of the risks and benefits of -- and alternatives to -- treatment through a remote evaluation and consents to proceed with the evaluation remotely. Clinical Care Team: -Referring Provider for today's visit: Ana Rosa Haji APRN.TIPPLE ENGINEER -Primary Care Provider: Kevin Valentin MD History of Present Illness: Patient presents with: Thyroid Problem Nidia Kaye is a 48 year old female who presents today for evaluation of hypothyroidism. Patient presents as a new consultation from Ana Rosa Haji APRN.TIPPLE ENGINEER. My final recommendations will be communicated back to the referring provider by way of shared Medical Record. Hypothyroidism x11 yrs- symptoms like weight fluctuations, hair loss LT4 112mcg daily (generic) - same dose for years Worse symptoms over time, of note also has long COVID and symptoms worsened after infection Recently developed a rash under chin associated with fatigue, also being seen by a corner cutter for vasculitis. There was a question of lupus HRT was discussed at one point but not pursued Exposures to: - Biotin- none - Amiodarone- none - [place]- none - Head/neck radiation- none No recent steroids, last about 4mo ago I have reviewed her medical, surgical, family and social history and have updated medication and allergy information in the computerized patient record. ROS: Answers submitted by the patient for this visit: Endocrine Review of Systems (Submitted on 12/28/2023) Fatigue: Yes Night sweats: Yes Recent unintentional weight change: Yes Skin Color Changes: Yes Post-Nasal Drip: Yes Thyroid Pain (lower neck): Yes, associated with choking Trouble Swallowing: Yes Vision Disturbance: Yes Chest pain: Yes Leg Pain while walking?: Yes Difficulty Breathing?: Yes Heartburn: Yes Diarrhea: Yes Constipation: Yes Abdominal pain: Yes Bone Pain?: Yes Muscle aches: Yes Muscle weakness: Yes Joint pain or stiffness: Yes Headaches: Yes Dizziness: Yes Numbness?: Yes Urgency to Urinate?: No Increased Urination: Yes Slow or Small Urine Stream?: Yes Have your menstrual cycles stopped?: Yes-- hysterectomy 2007 for fibroids. Ovaries left in place but stopped functioning about 6mo later Flushing: Yes Hot Flashes?: Yes Change in Body Hair?: Yes Cold Intolerance: Yes Heat Intolerance: Yes All other systems reviewed and found to be negative except those mentioned in HPI History reviewed. No pertinent past medical history. History reviewed. No pertinent surgical history. Current Outpatient Medications Medication Sig levothyroxine (SYNTHROID) 112 mcg tablet 1 tab Sun-Sun, skip Sundays liothyronine (CYTOMEL) 5 mcg tablet 5mcg (1 tab) AM, 2.5mcg (1/2 tab) in mid-afternoon azelastine 0.1% nasal spray Use 1 [place] in each nostril two times a day. mometasone-formoterol (DULERA) 100-5 mcg/actuation inhaler Inhale 2 Puffs as instructed two times a day. montelukast (SINGULAIR) 10 mg tablet Take 10 mg by mouth daily at bedtime. cholecalciferol (VITAMIN D-3) 50 mcg (2,000 unit) tablet Take 2,000 Units by mouth once daily. FLUTICASONE FUROATE INHALATION Inhale 50 mcg as instructed three times a day. 1 spray lurasidone (LATUDA) 80 mg tablet Take 80 mg by mouth once daily. nirmatrelvir/ritonavir (PAXLOVID ORAL) Take by mouth. pyrilamine/dextromethorphan hb (CAPRON DM ORAL) Take by mouth once daily. fluticasone (FLONASE) 50 mcg/actuation nasal spray Use 2 Sprays in the nose once daily. SUMAtriptan (IMITREX) 50 mg tablet Take 1 tablet PO at onset of headach. May repeat in 2 hours if needed. topiramate (TOPAMAX) 25 mg tablet Take 1 tablet PO BID No current facility-administered medications for this visit. History reviewed. No pertinent family history. Social History Tobacco Use Smoking status: Never Smokeless tobacco: Never Physical Exam There were no vitals filed for this visit. There is no height or weight on file to calculate BMI. Last 3 Encounter Wt Readings: Date: Wt: 12/24/2023 97.7 kg (215 lb 8 oz) 09/04/2019 76.2 kg (168 lb) 11/28/2018 75.8 kg (167 lb) General: She is a well-appearing female in no distress HEENT: atraumatic, sclera clear Neck: no visible goiter Lungs: no respiratory distress Cardiac: no visible edema Extremities: no cyanosis or clubbing Neurologic: alert and oriented Skin: no rash Musculoskeletal: normal range of motion Mood is relaxed, affect is appropriate. Procedure / Imaging / Lab Data: Pertinent procedure/imaging/lab data was reviewed/discussed with the patient today: Latest Reference Range & Units 12/24/23 11:39 Free T4 0.9 - 1.7 ng/dL 0.9 TSH 0.270 - 4.200 mIU/L 2.060 Free T3 2.3 - 4.1 pg/mL 2.8 Thyroglobulin Ab, Serum <4.0 IU/mL <0.9 Thyroid US (outside ) 2016 US HEAD/NECK SOFT TISSUE OTHER Order: [id number] Narrative History: Thyroid enlargement for 2 months Exam/Technique: Multiple sonographic images of thyroid gland were obtained. Comparison: None Findings: The thyroid gland is normal in size with the right lobe measuring 4.8 x 1.6 x 1.5 cm and the left lobe measuring 4.7 x 1.4 x 1.3 cm. The thyroid gland is homogeneous in echotexture. No cystic or solid nodules are seen. IMPRESSION: Normal thyroid ultrasound. Finalized by Gokul Montenegro MD on 08/24/2017 2:14 PM Exam End: 08/24/17 1:19 PM Specimen Collected: 08/24/17 2:13 PM Last Resulted: 08/24/17 2:14 PM Received From: [facility] Result Received: 12/24/23 9:42 AM Impression & Plan Nidia Kaye is a 48 year old female who is seen in clinic today for hypothyroidism with symptoms including persistent fatigue. E03.9 Hypothyroidism, unspecified type (primary encounter diagnosis) Comment: will do a trial of T4+ T3 combination therapy to see if helpful for her symptomatically - Take 1 tab levothyroxine 112mcg Sun-Sun and skip Sundays (this gives an average dose of about 96mcg daily) - Start liothyronine 5mcg AM/2.5mcg around mid-afternoon -Try selenium supplements- 200mcg daily over the counter -Labs in 3mo to recheck levels Z78.0 Postmenopause Comment: Women's Health referral placed to discuss whether some of her symptoms may be related to early menopause Return in about 3 months (around 04/04/2024). Tessa Aguilar MD documented in this encounter [facility] 01-03-2024 Miscellaneous Notes Please see e-mail sent by patient below: Elijah Oseguera - I have recently developed a rash on my lower legs and have had an extreme break out on my face which led me to see a corner cutter this week. After being seen, the corner cutter advised the rash was vasculitis and asked if I had ever been diagnosed with Lupus after reviewing my medical history given the rash on my legs and the extreme breakout on my legs. Would any of the bloodwork that was done have screened for those markers? Thank you for taking the time to answer me. Best regards, Nidia Kaye Klaudia Ulrich 01/03/2024 documented in this encounter [facility] 12-24-2023 Instructions Ana Rosa Haji APRN.ENZO - 12/24/2023 5:11 PM EDT Plan and Lifestyle Prescription PLAN with Patient Instructions: Based on your evaluation today, these are my recommendations: Modified Core diet: GF/DF. Follow up with the peritoneal dialysis registered nurse (RD) for a customized food plan. Consider a 3-day food log/dietary recall assessment with your RD. Goals: Eliminate highly processed foods. Low clark on sugar and starches. Increase plant fiber intake with color variety (eat the rainbow) for gut health/microbiome support. CFM fasting labs ordered Consistency: Follow up with the health coach cleaner every 2 weeks to keep things in check Follow up with the holistic psych therapist to help process the stress you are experiencing Follow up with endocrinology for your thyroid disease - referral provided Supplements: recommend a well-sourced Vitamin D, omega-3s, and quality probiotic Pure Encapsulations vitamin D 5000 international unit(s) Pure Encapsulations [employer] [place] (for omega-3s/anti-inflammatory effects) PLx Pharma of Life probiotic 30 billion CFUs (at [employer]) or Therbiotic Complete probiotic 25 billion CFU Visit the online [facility] Udex to order (website/code below) Follow up: Please schedule a follow up visit with the following Caregivers: Provider: 12weeks, Bond Analyst: 4 weeks, and Health Windows Server Architect: 2 weeks Machine Rebuilder (RD): During the next 4-8 weeks you'll be working on your diet plan with our RD, allowing for gentle detoxification and decreasing inflammation - while we are gathering your lab results and combining those with your complete history to formulate a very personalized treatment plan. [phone]. Health Coaching: Recommend follow up every 2 weeks to develop a consistent routine. Please consider scheduling with our [place] [facility] health coaches for a phone or virtual visit for accountability, goal setting and help with behavior change management specialist the next 6-8 weeks to be successful with your goals. [phone]. Holistic Psych / Behavioral Health Therapist: Weekly or bi-monthly appointments can be helpful. [phone]. Due to the complexity of the testing performed, we are not able to review labs via [facility]Point Solution[facility] or over the phone, but please know, if any of your labs are critical we will contact you. Otherwise, we will review all your labs at your next visit. Reminder: We recommend ordering supplementation online from the [facility] Udex as they are high quality therapeutic supplements. [facility] Tout Store at [email or web address] Please use code: [id number] [Other high quality supplement brands include Roopa (Doutor Recomenda) and Ohloh (at [employer])] documented in this encounter [facility] 12-24-2023 Instructions Vianca Perkins, RD - 12/24/2023 2:59 PM EDT Images from the original note were not included. [facility] FOLLOW UP NUTRITION INSTRUCTIONS We recommend scheduling your follow-up appointment at the end of your initial appointment. Nutrition Follow-up: In 4-6 weeks with Functional Medicine Registered Dietitian (Shiloh Fox Miranda, or Jose Angel) Preparation for Follow-up: Complete a 3 day food record using the Diet, Nutrition and Lifestyle Journal from the Functional Nutrition Portal If follow-up is virtual: scan into [employer] or send to before joining your appointment If follow-up is in person: bring to your appointment Your Prescribed Nutrition Plan: Plan from the start. Access the Functional Nutrition Portal in [facility] to access your food plan comprehensive guide, weekly recipe assortment planner, and food list. Shop for foods and ingredients from the food list. Follow your initial nutrition prescription for 3-8 weeks Your Food Plan: CORE Gluten Free, Dairy Free The Core Food Plan is designed to nourish and energize the body. Food Plan Principles Focus on Whole Foods Promote clean and organic Consume adequate dietary protein Consume balanced quality fats High in dietary fiber Minimize Simple Sugars Phytonutrient diversity Include Avoid Fruits Healthy oils Lean meats Legumes Nuts Seeds Vegetables Non-starchy vegetables Added sugars: no more than 1 to 3 teaspoons of the following lower glycemic sweeteners should be used daily: barley malt, brown rice syrup, blackstrap molasses, maple syrup, raw honey, coconut sugar, agave, lo green, fruit juice concentrate, and erythritol. Stevia is also well tolerated by most people, but it is a high-intensity herbal sweetener that requires no more than a pinch for maximum sweetness. Gluten-containing Grains: Please avoid all gluten-containing grains, including foods made from wheat, barley & rye as well as farro, seitan, triticale, kamut, spelt, couscous. These include: bulgur, couscous, cracked wheat, dinkel, durum, einkorn, emmer, faro, farina, quinton, hydrolyzed wheat starch, kamut, matzoh, orzo, seitan, semolina, spelt, wheat bran, wheat germ, wheat grass, wheat starch, wheat berries, wheatena, whole wheat and any sprouts made from the above grains. Crivitz: All forms of rye including whole rye, rye flour, pumpernickel or triticale (a cross between wheat & rye) and any sprouts made from rye. Barley: All forms including barley malt in beverages, flavoring, extract, syrup, vinegar and any sprouts made from barley. Dairy: Dairy foods include any animal milk products that occur naturally in foods and those added to foods. You may be sensitive to proteins, carbohydrates or fats in dairy. These include: casein, caseinate, whey, lactoalbumin, lactoglobulin, lactose or hydrolystates of these items. Since dairy has been identified as a top food allergen, it is indicated on the product label if present. Tips for Success: 1. Plan from the start. Access the Functional Nutrition Portal in [employer] to access your food plan comprehensive guide, weekly recipe assortment planner, and food list. Shop for foods and ingredients from the food list. 2. Consume enough food to fuel your body. Pair protein (protein/legumes), healthy fat (oils/nuts & seeds) and whole food carbohydrates (starchy vegetable, fruit, grains as applicable) at each meal. Aim for 5-6 cups of non-starchy veggies throughout the day! 3. Balanced Blood Sugar is Clark. Remember to watch out for added refined sugars and artificial sweeteners. Instead, enjoy small amounts of natural sweeteners (honey, maple syrup, blackstrap molasses, date syrup, monkfruit, liquid stevia), up to about a tablespoon per day. 4. Reach out for support. You may notice that certain elements of the food plan are more challenging for you, or that you need to personalize your initial food plan further. If you could use additional guidance, please don't hesitate to reach out! 5. Remember to hydrate. Symptoms of dehydration can often be confused with hunger or cause low energy. Review your food plan for the best hydration options. How to Access [employer] Your Food Plan Resources: Accessing on [employer]estation To access [employer], please visit: [email or web address] to create a new account. Step 1: Create Your Account: Complete the following barillas: username, password, email address, first name & last name. Click 'Create My New Account'. A message will display. Click continue. Step 2: Verify Your Account: Check your email for an email from [employer]. In the email, click the link provided to launch [employer] and complete registration. Note: some [email or web address] users may not receive the confirmation link. If you do not receive the link, please attempt sign-up with another email address, if possible. If you require manual registration to the [employer] site, please email [email or web address] with a request for manual Spootr account creation. Step 3: Enroll in the 'Functional Nutrition Portal'. Once you have launched [employer], hover over the Find Learning tab, and click on the drop-down option 'Courses'. Search for the course Functional Nutrition Portal in the search field. In the search results, click the link to access the course. Step 4: Enter the Enrollment [facility] Functional Nutrition (this is case sensitive and requires a space-please type this password exactly as shown in red). Step 5: To login after enrollment, visit [email or web address]. Login under 'Non-Employee Login' using the username and password from step #1. Step 6: If you receive an error message that you already have an account, please click 'forgotten your username of password?' to reset your password. ADDITIONAL INSTRUCTIONS: How to Contact Your Functional Medicine Team (Open M-F 8am-5pm): 1. TastyKhanahart is the BEST form of communication to reach the Functional Medicine Team, see test results and request refills. Please allow 72 business hours for a response. Directions for signing up are included in your New Patient Folder. (Or you can go to [email or web address]) 2. For nutrition related questions or concerns, [facility] message your physician and include Attn: Vianca Perkins RD at the top of the message. [employer] messaging is meant to support implementation of previously outlined nutrition care plans. In the interest of safe, effective and personalized care, you are asked to schedule a follow-up appointment if: It has been >6 months since your last nutrition appointment Your question requires reassessment or involves a new plan of care Your question concerns a new diagnosis, symptoms(s) and/or health concern Ordering Supplements: Supplements can be ordered from the [facility]'s Online Store: [email or web address] New patients to the [facility] will need to enter the provider code [id number] documented in this encounter [facility] 12-24-2023 History of Present illness Narrative Images from the original note were not included. [facility] Nutrition Therapy: Initial Assessment (Group) New Patient Shared Nutrition Appointment IN PERSON History adapted from referring provider's notes Class Topic: Introduction to Functional Nutrition and Implementation of Foundational Food Plan Patient Name: Nidia Kaye Past Medical History: No past medical history on file. Allergies: Adhesive, Azithromycin, Fentanyl, and Morphine Current Medications/Supplements Current Outpatient Medications on File Prior to Visit Medication Sig azelastine 0.1% nasal spray Use 1 [place] in each nostril two times a day. mometasone-formoterol (DULERA) 100-5 mcg/actuation inhaler Inhale 2 Puffs as instructed two times a day. montelukast (SINGULAIR) 10 mg tablet Take 10 mg by mouth daily at bedtime. cholecalciferol (VITAMIN D-3) 50 mcg (2,000 unit) tablet Take 2,000 Units by mouth once daily. FLUTICASONE FUROATE INHALATION Inhale 50 mcg as instructed three times a day. 1 spray lurasidone (LATUDA) 80 mg tablet Take 80 mg by mouth once daily. Phentermine HCl (ADIPEX-P) 37.5 mg tablet Take 37.5 mg by mouth once daily. predniSONE (DELTASONE) 20 mg tablet Take 20 mg by mouth once daily. nirmatrelvir/ritonavir (PAXLOVID ORAL) Take by mouth. pyrilamine/dextromethorphan hb (CAPRON DM ORAL) Take by mouth once daily. acetaminophen (TYLENOL EXTRA STRENGTH) 500 mg tablet Take 2 tablets by mouth every 4 hours as needed. ibuprofen (MOTRIN) 400 mg tablet Take 1.5 tablets by mouth every 6 hours as needed. pantoprazole DR (PROTONIX) 40 mg tablet Take 1 tablet by mouth once daily. lidocaine (LIDODERM) 5 % Apply 1 Patch as directed every 24 hours. baclofen (LIORESAL) 20 mg tablet Take 1 tablet PO 3 times daily PRN fluticasone (FLONASE) 50 mcg/actuation nasal spray Use 2 Sprays in the nose once daily. levothyroxine (SYNTHROID) 112 mcg tablet Take 1 tablet PO daily SUMAtriptan (IMITREX) 50 mg tablet Take 1 tablet PO at onset of headach. May repeat in 2 hours if needed. topiramate (TOPAMAX) 25 mg tablet Take 1 tablet PO BID No current facility-administered medications on file prior to visit. Primary ICD-10 Diagnosis Addressed: Alteration in metabolic function [R63.8] Provider Nutrition Notes: CORE Gluten Free, Dairy Free Chief Concerns: 1. Health declining after covid HPI per provider notes: This is a 48yo female presenting for a functional medicine consult with complaints of: Super healthy before covid in 2020 2012 hypothyroid disease On levothyroxine 125 mcg daily - managed by [facility] that she has been on the same dose for 11 years Has Insomnia - prescribed clonidine and clonazepam: stopped taking, too drowsy Has sleep apnea, unable to tolerate CPAP Nutrition Assessment (12/24/23) Digestive symptoms: IBS-M Other relevant symptoms: insomnia (sleep apnea), eczema Food and Nutrition History (special diet(s) or nutritional program): low gluten & dairy Adverse Reactions to Foods: Unknown Diet Recall: B: indian muffin with PB, cano jam L: salad, homemade tuna salad D: not the greatest , chicken/rice Fluids/caffeine intake: 8 glasses of water a day, coffee x 3 cups daily, 1 can of diet of soda sometimes once a day, kombucha near daily Snacks: carrots and celery, apple a day, tortilla chips Desserts: occasionally oreos or homemade Eat window: 9088-1251 Supplements: MV - Naturemade Probiotic - Align Vitamin D Nidia's tummy fiber BID Anthropometrics There were no vitals taken for this visit. Last Height: Last 1 Encounter Ht Readings: Date: Ht: 12/24/2023 157.5 cm (5' 2 ) Last Weight: Last Wt 12/24/23 : 97.7 kg (215 lb 8 oz) 09/04/19 : 76.2 kg (168 lb) 12/22/18 : 78.7 kg (173 lb 9.6 oz) Wt: 97.7 kg (215 lb 8 oz) BMI: 39.42 kg/(m^2) Learning Needs Assessment: Barriers to Learning: Ready to Learn (no barriers noted) Assessed motivation to learn: high Nutrition Diagnosis: Undesirable food choices (NB-1.7) related to nutritional choices as potential trigger for symptoms as evidenced by food-symptom trends Nutrition Intervention 12/24/2023: Nutrition Education Content and Nutrition Education Application Current Nutrition Goal(s): reduce diet-related inflammation or food sensitivities suspected as symptom trigger, facilitate beneficial microbiome balance and diversity, and promote adequate nutritional intake to meet macro and micronutrient needs Plan from the start. Access the Functional Nutrition Portal in [employer] to access your food plan comprehensive guide, weekly recipe assortment planner, and food list. Shop for foods and ingredients from the food list. Follow your initial nutrition prescription for 3-8 weeks Your Food Plan: CORE Gluten Free, Dairy Free The Core Food Plan is designed to nourish and energize the body. Food Plan Principles Focus on Whole Foods Promote clean and organic Consume adequate dietary protein Consume balanced quality fats High in dietary fiber Minimize Simple Sugars Phytonutrient diversity Include Avoid Fruits Healthy oils Lean meats Legumes Nuts Seeds Vegetables Non-starchy vegetables Added sugars: no more than 1 to 3 teaspoons of the following lower glycemic sweeteners should be used daily: barley malt, brown rice syrup, blackstrap molasses, maple syrup, raw honey, coconut sugar, agave, lo green, fruit juice concentrate, and erythritol. Stevia is also well tolerated by most people, but it is a high-intensity herbal sweetener that requires no more than a pinch for maximum sweetness. Gluten-containing Grains: Please avoid all gluten-containing grains, including foods made from wheat, barley & rye as well as farro, seitan, triticale, kamut, spelt, couscous. These include: bulgur, couscous, cracked wheat, dinkel, durum, einkorn, emmer, faro, farina, quinton, hydrolyzed wheat starch, kamut, matzoh, orzo, seitan, semolina, spelt, wheat bran, wheat germ, wheat grass, wheat starch, wheat berries, wheatena, whole wheat and any sprouts made from the above grains. Crivitz: All forms of rye including whole rye, rye flour, pumpernickel or triticale (a cross between wheat & rye) and any sprouts made from rye. Barley: All forms including barley malt in beverages, flavoring, extract, syrup, vinegar and any sprouts made from barley. Dairy: Dairy foods include any animal milk products that occur naturally in foods and those added to foods. You may be sensitive to proteins, carbohydrates or fats in dairy. These include: casein, caseinate, whey, lactoalbumin, lactoglobulin, lactose or hydrolystates of these items. Since dairy has been identified as a top food allergen, it is indicated on the product label if present. Tips for Success: 1. Plan from the start. Access the [employer] Nutrition Portal in [facility] to access your food plan comprehensive guide, weekly recipe assortment planner, and food list. Shop for foods and ingredients from the food list. 2. Consume enough food to fuel your body. Pair protein (protein/legumes), healthy fat (oils/nuts & seeds) and whole food carbohydrates (starchy vegetable, fruit, grains as applicable) at each meal. Aim for 5-6 cups of non-starchy veggies throughout the day! 3. Balanced Blood Sugar is Clark. Remember to watch out for added refined sugars and artificial sweeteners. Instead, enjoy small amounts of natural sweeteners (honey, maple syrup, blackstrap molasses, date syrup, monkfruit, liquid stevia), up to about a tablespoon per day. 4. Reach out for support. You may notice that certain elements of the food plan are more challenging for you, or that you need to personalize your initial food plan further. If you could use additional guidance, please don't hesitate to reach out! 5. Remember to hydrate. Symptoms of dehydration can often be confused with hunger or cause low energy. Review your food plan for the best hydration options. How to Access Livestation Your Food Plan Resources: Accessing on Livestation To access Livestation, please visit: [email or web address] to create a new account. Step 1: Create Your Account: Complete the following barillas: username, password, email address, first name & last name. Click 'Create My New Account'. A message will display. Click continue. Step 2: Verify Your Account: Check your email for an email from Livestation. In the email, click the link provided to launch [employer]estation and complete registration. Note: some [email or web address] users may not receive the confirmation link. If you do not receive the link, please attempt sign-up with another email address, if possible. If you require manual registration to the Livestation site, please email [email or web address] with a request for manual Spootr account creation. Step 3: Enroll in the 'Functional Nutrition Portal'. Once you have launched [employer], hover over the Find Learning tab, and click on the drop-down option 'Courses'. Search for the course Functional Nutrition Portal in the search field. In the search results, click the link to access the course. Step 4: Enter the Enrollment Clark Functional Nutrition (this is case sensitive and requires a space-please type this password exactly as shown in red). Step 5: To login after enrollment, visit [email or web address]. Login under 'Non-Employee Login' using the username and password from step #1. Step 6: If you receive an error message that you already have an account, please click 'forgotten your username of password?' to reset your password. Need Help? If you have difficulty accessing the portal, please email [email or web address]. Adherence Potential to Goals/Care Plan: High Nutrition Monitoring & Evaluation: Adherence to food plan, changes in symptom frequency and intensity, nutrition-related laboratory data Criteria: Dietary recall, laboratory results, subjective symptom response Education Materials Provided: Food Plan Comprehensive Guide, Weekly Fisher Crab and Recipes, Phytonutrient Spectrum Foods, Product Guide, Simple Meal and Snack Ideas Follow up: 4 Weeks Time Spent: 45 Referred/Supervised by: Ana Rosa Haji APRN, PA Consult Billing Type: 30 Minutes Number of Increments: 1 (30 minutes) Signed by: Vianca Perkins RD documented in this encounter [facility] 12-24-2023 History of Present illness Narrative FUNCTIONAL MEDICINE INITIAL ASSESSMENT Patient: Nidia Kaye ALLERGIES Allergen Reactions Adhesive Intolerance Does not tolerate skin glue Azithromycin Rash Fentanyl Other: See Comments Headaches and nausea with patch. Has had IV fentanyl without problems Morphine Other: See Comments BP drops Current Outpatient Medications Medication Sig Dispense Refill azelastine 0.1% nasal spray Use 1 [place] in each nostril two times a day. mometasone-formoterol (DULERA) 100-5 mcg/actuation inhaler Inhale 2 Puffs as instructed two times a day. montelukast (SINGULAIR) 10 mg tablet Take 10 mg by mouth daily at bedtime. cholecalciferol (VITAMIN D-3) 50 mcg (2,000 unit) tablet Take 2,000 Units by mouth once daily. FLUTICASONE FUROATE INHALATION Inhale 50 mcg as instructed three times a day. 1 spray lurasidone (LATUDA) 80 mg tablet Take 80 mg by mouth once daily. Phentermine HCl (ADIPEX-P) 37.5 mg tablet Take 37.5 mg by mouth once daily. predniSONE (DELTASONE) 20 mg tablet Take 20 mg by mouth once daily. nirmatrelvir/ritonavir (PAXLOVID ORAL) Take by mouth. pyrilamine/dextromethorphan hb (CAPRON DM ORAL) Take by mouth once daily. fluticasone (FLONASE) 50 mcg/actuation nasal spray Use 2 Sprays in the nose once daily. levothyroxine (SYNTHROID) 112 mcg tablet Take 1 tablet PO daily 3 SUMAtriptan (IMITREX) 50 mg tablet Take 1 tablet PO at onset of headach. May repeat in 2 hours if needed. 0 topiramate (TOPAMAX) 25 mg tablet Take 1 tablet PO BID 5 acetaminophen (TYLENOL EXTRA STRENGTH) 500 mg tablet Take 2 tablets by mouth every 4 hours as needed. ibuprofen (MOTRIN) 400 mg tablet Take 1.5 tablets by mouth every 6 hours as needed. [address] (PROTONIX) 40 mg tablet Take 1 tablet by mouth once daily. 30 tablet 0 lidocaine (LIDODERM) 5 % Apply 1 Patch as directed every 24 hours. 7 Patch 0 baclofen (LIORESAL) 20 mg tablet Take 1 tablet PO 3 times daily PRN 1 No current facility-administered medications for this visit. ACTIVE PROBLEM LIST Donor for Liver Transplant Obesity, Class I, Bmi 30-34.9 Ventral Hernia No past medical history on file. No past surgical history on file. No family history on file. Social History Tobacco Use Smoking status: Never Smokeless tobacco: Never Patient Goals: Optimize health HPI: This is a 48yo female presenting for a functional medicine consult with complaints of: Super healthy before covid in 2020 2012 hypothyroid disease On levothyroxine 125 mcg daily - managed by PMD Mentions that she has been on the same dose for 11 years Has Insomnia - prescribed clonidine and clonazepam: stopped taking, felt too drowsy Has sleep apnea, unable to tolerate CPAP 2017 liver donor/resection surgery Abdominal hernia surgery with mesh 2020 got covid- gained 60lbs out of nowhere Fatigue, joint pain, brain fog, concern for joint pain For aching and nerve pain - saw neurologist 05/2022 covid 2nd time Tried Adipex 04/2023 x 4 months: lost 12 lbs Mental health wasn't good, stopped taking - sees psychiatrist On Lutuda since 09/2023 - depression seems worse No concern for self harm. Has a therapist but prefers someone else. 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 Diagnosed with sleep apnea mild/moderate - tried CPAP, all the different masks. Has trauma from it - cannot tolerate. 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 Sources of robert/fun: nothing, usually too tired Exposures: Tick bites No Silver amalgams No Drinking water Not filtered water, drinks bottled water Fish consumption Yes, tuna about 3-4 times a week Mold Yes, mold in basement Chemical/Industrial/Pesticides Yes, grew up [place] farms Chemical sensitivities Yes Foreign travel/Frequent airplane travel Yes [place] 5 years ago, no illness Supplements: MV - Naturemade Probiotic - Align Vitamin D Nidia's tummy fiber BID Meds/Labs: in EMR Self reports cholesterol has been recently checked - declined advanced lipid panel Most recent in [facility] 2020: WNL Review of Systems: Objective: BP 121/80 Pulse 72 Ht 157.5 cm (5' 2 ) Wt 97.7 kg (215 lb 8 oz) BMI 39.42 kg/m Physical Exam: General appearance: Well-appearing, NAD. Pleasant and conversational HEENT: NC/AT, PERRL, sclera white, nose patent bilaterally, TMs unremarkable, no oral swelling/mucus membranes pink & moist, tongue without fissures or white coating Neck: Non-tender. No obvious swelling or adenopathy Lungs: CTAB, no use of accessory muscles Heart: RRR, no obvious murmur Abdomen: Soft, non-tender. +BS Extremities: Non-tender and warm. No joint swelling, redness, or pitting edema Neuro: No obvious motor, sensory, or focal deficits. Pt is ambulatory Psych: Affect normal. Behavior and judgement normal. Skin: Warm. No acute rash Initial Functional Medicine Assessment Nutritional Assessment Nutritional evaluation was performed today. Standard Swedish Diet. Protein sources/quality varies. The patient eats fruit & vegetables, however limited in diversity. She frequently eats fermented foods. She occasionally consumes high sugar or artificially sweetened foods/beverages. Green tea consumption is frequent. Underlying Causes: Unmet nutritional needs from diet, concern for impaired gut barrier/dysbiosis, inadequate sleep, life stressors Today's Focus: Gut health Stress regulation Improve sleep quality Weight management support Digestive Function Inflammation/Immune Function Chronic pain Joint pain Energy Production/Function: Fatigue Weight issues Cognitive decline/brain fog Detoxification Function Chemical sensitivity Eats tuna weekly Hormonal Function: Partial hysterectomy Structural Function: Musculoskeletal pain DIAGNOSIS/ASSESSMENT: R53.82 Chronic fatigue, unspecified (primary encounter diagnosis) R63.8 Alteration in metabolic function M25.50 Arthralgia, unspecified joint E03.9 Hypothyroidism, unspecified type F32.A Depression, unspecified depression type Plan and Lifestyle Prescription PLAN with Patient Instructions: Based on your evaluation today, these are my recommendations: Modified Core diet: GF/DF. Follow up with the peritoneal dialysis registered nurse (RD) for a customized food plan. Consider a 3-day food log/dietary recall assessment with your RD. Goals: Eliminate highly processed foods. Low clark on sugar and starches. Increase plant fiber intake with color variety (eat the rainbow) for gut health/microbiome support. CFM fasting labs ordered Consistency: Follow up with the health coach cleaner every 2 weeks to keep things in check Follow up with the holistic psych therapist to help process the stress you are experiencing Follow up with endocrinology for your thyroid disease - referral provided Supplements: recommend a well-sourced Vitamin D, omega-3s, and quality probiotic Pure Encapsulations vitamin D 5000 international unit(s) Pure Encapsulations [employer].N[employer] [place] (for omega-3s/anti-inflammatory effects) Garden of Life probiotic 30 billion CFUs (at [employer]) or Therbiotic Complete probiotic 25 billion CFU Visit the online [facility] Healthy Living Shop to order (website/code below) Follow up: Please schedule a follow up visit with the following Caregivers: Provider: 12weeks, Bond Analyst: 4 weeks, and Health Windows Server Architect: 2 weeks Machine Rebuilder (RD): During the next 4-8 weeks you'll be working on your diet plan with our RD, allowing for gentle detoxification and decreasing inflammation - while we are gathering your lab results and combining those with your complete history to formulate a very personalized treatment plan. [phone]. Health Coaching: Recommend follow up every 2 weeks to develop a consistent routine. Please consider scheduling with our [place] [facility] Functional [facility] health coaches for a phone or virtual visit for accountability, goal setting and help with behavior change management specialist the next 6-8 weeks to be successful with your goals. [phone]. Holistic Psych / Behavioral Health Therapist: Weekly or bi-monthly appointments can be helpful. [phone]. Due to the complexity of the testing performed, we are not able to review labs via TastyKhanahart or over the phone, but please know, if any of your labs are critical we will contact you. Otherwise, we will review all your labs at your next visit. Reminder: We recommend ordering supplementation online from the [facility] Udex as they are high quality therapeutic supplements. [facility] MVERSE at [email or web address] Please use code: [email or web address] [Other high quality supplement brands include Roopa (Doutor Recomenda) and Ohloh (at [employer])] Future plans: Bowel pattern Rheum consult if s/s not better Time spent with patient: I spent a total of 60 minutes on the date of the service which included preparing to see the patient, fdwn-[id number] patient care, completing clinical documentation, obtaining and/or reviewing separately obtained history, performing a medically appropriate examination, counseling and educating the patient/family/caregiver, and ordering medications, tests, or procedures. Ana Rosa Haji APRN.CNP 12/24/2023 11:20 AM documented in this encounter [facility] 12-24-2023 Nurse Note Bioelectrical Impedance Analysis Results by [facility] Recent Results from: 12/24/23 at 10:04 AM BMI: 39.42 kg/m General Test Result Range Phase Angle (PA) 7 Min: 6.8 Mean: 7.6 Max: 8.4 Lower than midpoint by .6 (12.5% of rng) Basal Metabolic Rate (BMR) 1507 Min: 1282.5 Mean: 1457 Max: 1631.5 Above midpoint by 50 (64.3% of rng) Fat & Fat Free Mass Test Result Range Fat (lbs) 112.7 Min: 38.8 Mean: 64.6 Max: 90.4 Above max by 22.3 Fat % 52.3 Min: 31.2 Mean: 38 Max: 44.8 Above max by 7.5 Fat Free Mass (FFM) lbs 102.8 Min: 84.3 Mean: 100.1 Max: 115.9 Above midpoint by 2.7 (58.5% of rng) Total Body Water Test Result Range TBW (lbs) 76.5 Min: 62.6 Mean: 74.5 Max: 86.4 Above midpoint by 2 (58.4% of rng) TBW % of FFM 74.4 Min: 73.2 Mean: 74.5 Max: 75.8 Lower than midpoint by .1 (46.2% of rng) Intracellular Water Test Result Range ICW (lbs) 39 Min: 34.6 Mean: 39.5 Max: 44.4 Lower than midpoint by .5 (44.9% of rng) ICW % of FFM 37.9 Min: 38.1 Mean: 39.6 Max: 41.1 Below min by .2 Extracellular Water Test Result Range ECW (lbs) 37.5 Min: 28 Mean: 35.1 Max: 42.2 Above midpoint by 2.4 (66.9% of rng) ECW % of FFM 36.5 Min: 33.3 Mean: 34.9 Max: 36.5 At the maximum MSQ Initial Blood pressure 121/80, pulse 72, height 157.5 cm (5' 2 ), weight 97.7 kg (215 lb 8 oz). Verified that patient is not and has no metal implants prior to test? Yes, Clock Test Completed? : No MoCA ([place] Cognitive Assessment) Test Completed? No Folstein Test Completed?: No AMB ROOMING INTAKE FLOWSHEET DATA Risk Screening Do you have concerns about personal safety or safety in the home?: No Pain Pain Level: 4 Pain Location: (muscles and joints) Description: Tingling, Radiating Duration Amount of Time: 3 Duration Units: Years Frequency: Intermittent Intervention/Comfort measure: Medication, Cold, Heat (neurology, PT) Sacha Leal MA documented in this encounter [facility] 10-13-2022 Evaluation note Encounter Date Diagnosis Assessment Notes Sep, Acute non-recurrent maxillary sinusitis (ICD-10 - J01.00) No testing performed today in office. Discussed diagnosis with patient. Will today for bacterial sinusitis based on physical exam and duration of symptoms. Take antibiotic and steroid as prescribed, complete entire course of therapy even if symptoms resolve. Reviewed allergies and recent antibiotic use with patient. Supportive care as directed, push fluids and rest, Tylenol and/or Motrin as directed for discomfort/fever, OTC Flonase, warm moist compress over sinuses several times a day, cool mist humidification, nasal saline spray as directed. Symptoms should improve in the next 3 days, if symptoms persist follow up with PCP. Immediate eval for warning s/sx as discussed. Patient verbalizes understanding and is agreeable to treatment plan [employer] Other Evaluation noteNo assessment information available [facility] Work Phone: Evaluation note* Diagnosis Migraine without status migrainosus, not intractable, unspecified migraine type (CMS/HCC)- Primary Migraine, unspecified, not intractable, without status migrainosus (CMS/HCC) documented in this encounter [facility]* Diagnosis Chronic fatigue, unspecified- Primary Alteration in metabolic function Arthralgia, unspecified joint Hypothyroidism, unspecified type Depression, unspecified depression type [facility] Diagnosis Alteration in metabolic function- Primary Arthralgia, unspecified joint Chronic fatigue, unspecified Hypothyroidism, unspecified type Dietary counseling and surveillance Dietary surveillance and counseling [facility] Diagnosis Rash- Primary Rash and other nonspecific skin eruption [facility] Diagnosis Hypothyroidism, unspecified type- Primary Postmenopause Asymptomatic postmenopausal status (age-related) (natural) [facility] Diagnosis Encounter for person encountering health services- Primary [facility] Diagnosis Chronic fatigue, unspecified- Primary Arthralgia, unspecified joint Hypothyroidism, unspecified type Dietary counseling and surveillance Dietary surveillance and counseling [facility] Diagnosis S/P HEIDY (total abdominal hysterectomy)- Primary Acquired absence of both cervix and uterus Postmenopause Asymptomatic postmenopausal status (age-related) (natural) Other fatigue Hot flashes due to surgical menopause Symptomatic states associated with artificial menopause Genitourinary syndrome of menopause Encounter for screening for osteoporosis Special screening for osteoporosis [facility] Diagnosis Hypothyroidism, unspecified type [facility]* Diagnosis Weight gain, abnormal- Primary Morbid (severe) obesity due to excess calories (CMS/HCC) documented in this encounter [facility]* Diagnosis URTI (acute upper respiratory infection)- Primary Acute upper respiratory infections of unspecified site COVID-19 virus infection Class 2 obesity due to excess calories without serious comorbidity with body mass index (BMI) of 37.0 to 37.9 in adult COVID-19 virus infection- Primary Morbid (severe) obesity due to excess calories (CMS/HCC) Body mass index (BMI) 37.0-37.9, adult Major depressive disorder, recurrent, moderate (CMS/HCC) Major depressive disorder, recurrent episode, moderate Ufota-9-wgrsmtxiqyt deficiency (CMS/HCC) Futym-4-nybbjsjscrt deficiency Weight gain, abnormal Weight gain, abnormal- Primary Morbid (severe) obesity due to excess calories (CMS/HCC) Migraine without status migrainosus, not intractable, unspecified migraine type (CMS/HCC) documented in this encounter [facility]* Diagnosis URTI (acute upper respiratory infection)- Primary Acute upper respiratory infections of unspecified site COVID-19 virus infection Class 2 obesity due to excess calories without serious comorbidity with body mass index (BMI) of 37.0 to 37.9 in adult COVID-19 virus infection- Primary Morbid (severe) obesity due to excess calories (CMS/HCC) Body mass index (BMI) 37.0-37.9, adult Major depressive disorder, recurrent, moderate (CMS/HCC) Major depressive disorder, recurrent episode, moderate Yqbpv-3-brkhqcxathw deficiency (CMS/HCC) Rjtbd-3-yzzhxojyrcq deficiency Weight gain, abnormal Weight gain, abnormal- Primary Morbid (severe) obesity due to excess calories (CMS/HCC) Weight gain, abnormal- Primary Yskwd-5-rwpsfeccqyi deficiency (CMS/HCC) Qsxcg-4-mkbzwqacixj deficiency Major depressive disorder, recurrent, moderate (CMS/HCC) Major depressive disorder, recurrent episode, moderate Morbid (severe) obesity due to excess calories (CMS/HCC) Needs flu shot Need for prophylactic vaccination and inoculation against influenza documented in this encounter [facility]* Diagnosis Genitourinary syndrome of menopause [facility] Diagnosis Hypothyroidism, unspecified type [facility]* Diagnosis URTI (acute upper respiratory infection)- Primary Acute upper respiratory infections of unspecified site COVID-19 virus infection Class 2 obesity due to excess calories without serious comorbidity with body mass index (BMI) of 37.0 to 37.9 in adult COVID-19 virus infection- Primary Morbid (severe) obesity due to excess calories (CMS/HCC) Body mass index (BMI) 37.0-37.9, adult Major depressive disorder, recurrent, moderate (CMS/HCC) Major depressive disorder, recurrent episode, moderate Nkqgr-7-ooulafdqsby deficiency (CMS/HCC) Xgnai-1-njmppfavqwh deficiency Weight gain, abnormal Weight gain, abnormal- Primary Morbid (severe) obesity due to excess calories (CMS/HCC) Weight gain, abnormal- Primary Vdsvb-4-kmxbvfvajoc deficiency (CMS/HCC) Baktt-8-wzqmozswwzw deficiency Major depressive disorder, recurrent, moderate (CMS/HCC) Major depressive disorder, recurrent episode, moderate Morbid (severe) obesity due to excess calories (CMS/HCC) Needs flu shot Need for prophylactic vaccination and inoculation against influenza Chronic migraine without aura without status migrainosus, not intractable (CMS/HCC)- Primary Weight gain, abnormal Migraine without status migrainosus, not intractable, unspecified migraine type (CMS/HCC) Morbid (severe) obesity due to excess calories (CMS/HCC) documented in this encounter [facility] note* Diagnosis URTI (acute upper respiratory infection)- Primary Acute upper respiratory infections of unspecified site COVID-19 virus infection Class 2 obesity due to excess calories without serious comorbidity with body mass index (BMI) of 37.0 to 37.9 in adult documented in this encounter [facility] note* Diagnosis COVID-19 virus infection- Primary Morbid (severe) obesity due to excess calories (CMS/HCC) Body mass index (BMI) 37.0-37.9, adult Major depressive disorder, recurrent, moderate (HCC) (CMS/HCC) Major depressive disorder, recurrent episode, moderate Mfkar-9-bzrolzavwzt deficiency (CMS/HCC) Mwwvx-3-asxgaagbugs deficiency Weight gain, abnormal documented in this encounter [facility]* Diagnosis URTI (acute upper respiratory infection)- Primary Acute upper respiratory infections of unspecified site COVID-19 virus infection Class 2 obesity due to excess calories without serious comorbidity with body mass index (BMI) of 37.0 to 37.9 in adult COVID-19 virus infection- Primary Morbid (severe) obesity due to excess calories (CMS/HCC) Body mass index (BMI) 37.0-37.9, adult Major depressive disorder, recurrent, moderate (CMS/HCC) Major depressive disorder, recurrent episode, moderate Ebxna-2-sawldylcxru deficiency (CMS/HCC) Yfdlu-6-ryujkowsigy deficiency Weight gain, abnormal Weight gain, abnormal- Primary Morbid (severe) obesity due to excess calories (CMS/HCC) Weight gain, abnormal- Primary Hvjcf-3-ekrlohpvyav deficiency (CMS/HCC) Ploxs-2-qanmgsjygvf deficiency Major depressive disorder, recurrent, moderate (CMS/HCC) Major depressive disorder, recurrent episode, moderate Morbid (severe) obesity due to excess calories (CMS/HCC) Needs flu shot Need for prophylactic vaccination and inoculation against influenza Chronic migraine without aura without status migrainosus, not intractable (CMS/HCC)- Primary Weight gain, abnormal Migraine without status migrainosus, not intractable, unspecified migraine type (CMS/HCC) Morbid (severe) obesity due to excess calories (CMS/HCC) Weight gain, abnormal- Primary Adult hypothyroidism (CMS/HCC) Unspecified hypothyroidism BMI 38.0-38.9,adult Vnqjv-4-ivoxgjoueuh deficiency (CMS/HCC) Icmin-5-safcxtwxswf deficiency Upper respiratory tract infection, unspecified type [facility] Diagnosis COVID-19 virus infection- Primary Morbid (severe) obesity due to excess calories (CMS/HCC) Body mass index (BMI) 37.0-37.9, adult Major depressive disorder, recurrent, moderate (CMS/HCC) Major depressive disorder, recurrent episode, moderate Kdgoq-3-nwwubunklmh deficiency (CMS/HCC) Bennd-4-joluqkefzwc deficiency Weight gain, abnormal Weight gain, abnormal- Primary Morbid (severe) obesity due to excess calories (CMS/HCC) Weight gain, abnormal- Primary Uwtqz-7-tsvqcurvlou deficiency (CMS/HCC) Besey-2-mxtvtgjtjmo deficiency Major depressive disorder, recurrent, moderate (CMS/HCC) Major depressive disorder, recurrent episode, moderate Morbid (severe) obesity due to excess calories (CMS/HCC) Needs flu shot Need for prophylactic vaccination and inoculation against influenza Chronic migraine without aura without status migrainosus, not intractable (CMS/HCC)- Primary Weight gain, abnormal Migraine without status migrainosus, not intractable, unspecified migraine type (CMS/HCC) Morbid (severe) obesity due to excess calories (CMS/HCC) Weight gain, abnormal- Primary Adult hypothyroidism (CMS/HCC) Unspecified hypothyroidism BMI 38.0-38.9,adult Popds-8-fobuyurakjp deficiency (CMS/HCC) Rzpsc-5-mqokutmigip deficiency Upper respiratory tract infection, unspecified type Adult wellness visit- Primary Morbid (severe) obesity due to excess calories (CMS/HCC) Weight gain, abnormal Adult hypothyroidism (CMS/HCC) Unspecified hypothyroidism Rdfta-3-wahvmofcsfo deficiency (CMS/HCC) Uvivq-1-jgiestxdrey deficiency Gastroesophageal reflux disease without esophagitis Esophageal reflux Mixed hyperlipidemia (CMS/HCC) Mixed hyperlipidemia Upper respiratory tract infection, unspecified type [facility] Diagnosis COVID-19 virus infection- Primary Morbid (severe) obesity due to excess calories (CMS/HCC) Body mass index (BMI) 37.0-37.9, adult Major depressive disorder, recurrent, moderate (CMS/HCC) Major depressive disorder, recurrent episode, moderate Zjiks-0-dxeokhtkrdp deficiency (CMS/HCC) Wgpxk-0-wodcuhipcub deficiency Weight gain, abnormal Weight gain, abnormal- Primary Morbid (severe) obesity due to excess calories (CMS/HCC) Weight gain, abnormal- Primary Drotj-9-shvzmxyvlnj deficiency (CMS/HCC) Ltylh-7-gbzjlqvsxzu deficiency Major depressive disorder, recurrent, moderate (CMS/HCC) Major depressive disorder, recurrent episode, moderate Morbid (severe) obesity due to excess calories (CMS/HCC) Needs flu shot Need for prophylactic vaccination and inoculation against influenza Chronic migraine without aura without status migrainosus, not intractable (CMS/HCC)- Primary Weight gain, abnormal Migraine without status migrainosus, not intractable, unspecified migraine type (CMS/HCC) Morbid (severe) obesity due to excess calories (CMS/HCC) Weight gain, abnormal- Primary Adult hypothyroidism (CMS/HCC) Unspecified hypothyroidism BMI 38.0-38.9,adult Tzrik-8-emnclooiatv deficiency (CMS/HCC) Gtyoi-1-mugmufoymec deficiency Upper respiratory tract infection, unspecified type Adult wellness visit- Primary Morbid (severe) obesity due to excess calories (CMS/HCC) Weight gain, abnormal Adult hypothyroidism (CMS/HCC) Unspecified hypothyroidism Rieks-6-aukdredrtap deficiency (CMS/HCC) Igfvg-2-kihjtgvyubb deficiency Gastroesophageal reflux disease without esophagitis Esophageal reflux Mixed hyperlipidemia (CMS/HCC) Mixed hyperlipidemia Upper respiratory tract infection, unspecified type Upper respiratory tract infection, unspecified type- Primary [facility] Diagnosis Hypothyroidism, unspecified type [facility]-19 virus infection- Primary Morbid (severe) obesity due to excess calories (CMS/HCC) Body mass index (BMI) 37.0-37.9, adult Major depressive disorder, recurrent, moderate (CMS/HCC) Major depressive disorder, recurrent episode, moderate Xddeh-0-rlokupwllxx deficiency (CMS/HCC) Hnkbh-6-tqwdgdestfo deficiency Weight gain, abnormal Weight gain, abnormal- Primary Morbid (severe) obesity due to excess calories (CMS/HCC) Weight gain, abnormal- Primary Upudp-6-yzzyjhrgoqa deficiency (CMS/HCC) Cuqqn-6-hvnglqllgef deficiency Major depressive disorder, recurrent, moderate (CMS/HCC) Major depressive disorder, recurrent episode, moderate Morbid (severe) obesity due to excess calories (CMS/HCC) Needs flu shot Need for prophylactic vaccination and inoculation against influenza Chronic migraine without aura without status migrainosus, not intractable (CMS/HCC)- Primary Weight gain, abnormal Migraine without status migrainosus, not intractable, unspecified migraine type (CMS/HCC) Morbid (severe) obesity due to excess calories (CMS/HCC) Weight gain, abnormal- Primary Adult hypothyroidism (CMS/HCC) Unspecified hypothyroidism BMI 38.0-38.9,adult Uopbw-4-axmmjhftzmb deficiency (CMS/HCC) Qxpmh-2-syefzmdwysc deficiency Upper respiratory tract infection, unspecified type Adult wellness visit- Primary Morbid (severe) obesity due to excess calories (CMS/HCC) Weight gain, abnormal Adult hypothyroidism (CMS/HCC) Unspecified hypothyroidism Clzgr-1-iqxqpigmisv deficiency (CMS/HCC) Qilam-6-mgattfwpuus deficiency Gastroesophageal reflux disease without esophagitis Esophageal reflux Mixed hyperlipidemia (CMS/HCC) Mixed hyperlipidemia Upper respiratory tract infection, unspecified type Mixed hyperlipidemia (CMS/HCC)- Primary Mixed hyperlipidemia documented in this encounter [facility]* Diagnosis Hypothyroidism, unspecified type [facility] Diagnosis Hypothyroidism, unspecified type- Primary [facility] Diagnosis COVID-19 virus infection- Primary Morbid (severe) obesity due to excess calories (CMS-HCC) Body mass index (BMI) 37.0-37.9, adult Major depressive disorder, recurrent, moderate (HCC) Major depressive disorder, recurrent episode, moderate Shaqy-3-hccwntwfhwn deficiency (HCC) Pyujl-7-izfsstsumgb deficiency Weight gain, abnormal Weight gain, abnormal- Primary Morbid (severe) obesity due to excess calories (CMS-HCC) Weight gain, abnormal- Primary Csghr-3-hzaxkhzlled deficiency (HCC) Pdira-8-qzpqktnbwkz deficiency Major depressive disorder, recurrent, moderate (HCC) Major depressive disorder, recurrent episode, moderate Morbid (severe) obesity due to excess calories (CMS-HCC) Needs flu shot Need for prophylactic vaccination and inoculation against influenza Chronic migraine without aura without status migrainosus, not intractable- Primary Weight gain, abnormal Migraine without status migrainosus, not intractable, unspecified migraine type Morbid (severe) obesity due to excess calories (CMS-HCC) Weight gain, abnormal- Primary Adult hypothyroidism Unspecified hypothyroidism BMI 38.0-38.9,adult Qklug-6-fnifaupevsi deficiency (HCC) Eowhc-0-sskrqdtlaww deficiency Upper respiratory tract infection, unspecified type Adult wellness visit- Primary Morbid (severe) obesity due to excess calories (CMS-HCC) Weight gain, abnormal Adult hypothyroidism Unspecified hypothyroidism Inmxi-9-medjjvzwyhb deficiency (HCC) Vpnqe-3-ouijzfkeaiu deficiency Gastroesophageal reflux disease without esophagitis Esophageal reflux Mixed hyperlipidemia Mixed hyperlipidemia Upper respiratory tract infection, unspecified type Degenerative disc disease, cervical- Primary Morbid (severe) obesity due to excess calories ([facility]-HCC) Adult hypothyroidism Unspecified hypothyroidism Mixed hyperlipidemia Mixed hyperlipidemia Encounter for screening mammogram for malignant neoplasm of breast Subacute maxillary sinusitis [place], lung (HCC) Emphysematous bleb Chronic midline thoracic back pain documented in this encounter [facility]* Diagnosis COVID-19 virus infection- Primary Morbid (severe) obesity due to excess calories (CMS-HCC) Body mass index (BMI) 37.0-37.9, adult Major depressive disorder, recurrent, moderate (HCC) Major depressive disorder, recurrent episode, moderate Gsdil-6-gghxywfamtj deficiency (HCC) Pdytc-8-slycrbssvmt deficiency Weight gain, abnormal Weight gain, abnormal- Primary Morbid (severe) obesity due to excess calories ([facility]-HCC) Weight gain, abnormal- Primary Qcsqo-8-fuhswxsfsir deficiency (HCC) Magop-0-cezdakqviip deficiency Major depressive disorder, recurrent, moderate (HCC) Major depressive disorder, recurrent episode, moderate Morbid (severe) obesity due to excess calories (CMS-HCC) Needs flu shot Need for prophylactic vaccination and inoculation against influenza Chronic migraine without aura without status migrainosus, not intractable- Primary Weight gain, abnormal Migraine without status migrainosus, not intractable, unspecified migraine type Morbid (severe) obesity due to excess calories ([facility]-HCC) Weight gain, abnormal- Primary Adult hypothyroidism Unspecified hypothyroidism BMI 38.0-38.9,adult Bdcnz-1-pvumengxlcu deficiency (HCC) Ovyeg-0-nzdpucjscqy deficiency Upper respiratory tract infection, unspecified type Adult wellness visit- Primary Morbid (severe) obesity due to excess calories ([facility]-HCC) Weight gain, abnormal Adult hypothyroidism Unspecified hypothyroidism Fuokl-8-tvagzbujaor deficiency (HCC) Qtlwp-8-gaefpkwmuiq deficiency Gastroesophageal reflux disease without esophagitis Esophageal reflux Mixed hyperlipidemia Mixed hyperlipidemia Upper respiratory tract infection, unspecified type Degenerative disc disease, cervical- Primary Morbid (severe) obesity due to excess calories (CMS-HCC) Adult hypothyroidism Unspecified hypothyroidism Mixed hyperlipidemia Mixed hyperlipidemia Encounter for screening mammogram for malignant neoplasm of breast Subacute maxillary sinusitis [place], lung (HCC) Emphysematous bleb Chronic midline thoracic back pain Kkezf-4-mdidtxyujsd deficiency (HCC)- Primary Tnkfe-5-bhbjenjahbl deficiency [place], lung (HCC) Emphysematous bleb Cough variant asthma (HCC) Cough variant asthma [facility] Diagnosis Centrilobular emphysema (HCC)- Primary Other emphysema [facility] Diagnosis Postmenopause Asymptomatic postmenopausal status (age-related) (natural) S/P HEIDY (total abdominal hysterectomy) Acquired absence of both cervix and uterus Hot flashes due to surgical menopause Symptomatic states associated with artificial menopause [facility] Diagnosis Postmenopause Asymptomatic postmenopausal status (age-related) (natural) S/P HEIDY (total abdominal hysterectomy) Acquired absence of both cervix and uterus Hot flashes due to surgical menopause Symptomatic states associated with artificial menopause [facility] Diagnosis COVID-19 virus infection- Primary Morbid (severe) obesity due to excess calories (CMS-HCC) Body mass index (BMI) 37.0-37.9, adult Major depressive disorder, recurrent, moderate (HCC) Major depressive disorder, recurrent episode, moderate Xdbos-7-kcnagvytkqu deficiency (HCC) Xghud-1-zqszalkyrei deficiency Weight gain, abnormal Weight gain, abnormal- Primary Morbid (severe) obesity due to excess calories (CMS-HCC) Weight gain, abnormal- Primary Xptbb-0-cpkxyzgqgzn deficiency (HCC) Mqeil-7-ssdylxlrjhm deficiency Major depressive disorder, recurrent, moderate (HCC) Major depressive disorder, recurrent episode, moderate Morbid (severe) obesity due to excess calories (CMS-HCC) Needs flu shot Need for prophylactic vaccination and inoculation against influenza Chronic migraine without aura without status migrainosus, not intractable- Primary Weight gain, abnormal Migraine without status migrainosus, not intractable, unspecified migraine type Morbid (severe) obesity due to excess calories (CMS-HCC) Weight gain, abnormal- Primary Adult hypothyroidism Unspecified hypothyroidism BMI 38.0-38.9,adult Escjz-3-elkhqeusamo deficiency (HCC) Mabre-0-mrlxizgpkem deficiency Upper respiratory tract infection, unspecified type Adult wellness visit- Primary Morbid (severe) obesity due to excess calories (CMS-HCC) Weight gain, abnormal Adult hypothyroidism Unspecified hypothyroidism Snwia-9-fjobzihebia deficiency (HCC) Mcwnc-3-jncgaemdewi deficiency Gastroesophageal reflux disease without esophagitis Esophageal reflux Mixed hyperlipidemia Mixed hyperlipidemia Upper respiratory tract infection, unspecified type Degenerative disc disease, cervical- Primary Morbid (severe) obesity due to excess calories (CMS-HCC) Adult hypothyroidism Unspecified hypothyroidism Mixed hyperlipidemia Mixed hyperlipidemia Encounter for screening mammogram for malignant neoplasm of breast Subacute maxillary sinusitis [place], lung (HCC) Emphysematous bleb Chronic midline thoracic back pain Migraine without status migrainosus, not intractable, unspecified migraine type documented in this encounter [facility]* Diagnosis COVID-19 virus infection- Primary Morbid (severe) obesity due to excess calories (CMS-HCC) Body mass index (BMI) 37.0-37.9, adult Major depressive disorder, recurrent, moderate (HCC) Major depressive disorder, recurrent episode, moderate Bnhsu-5-pqlxcrncnzj deficiency (HCC) Qnawd-3-wdhfupjxpqr deficiency Weight gain, abnormal Weight gain, abnormal- Primary Morbid (severe) obesity due to excess calories (CMS-HCC) Weight gain, abnormal- Primary Yqauk-1-sachxlwbmft deficiency (HCC) Qxgoq-4-norropdogch deficiency Major depressive disorder, recurrent, moderate (HCC) Major depressive disorder, recurrent episode, moderate Morbid (severe) obesity due to excess calories (CMS-HCC) Needs flu shot Need for prophylactic vaccination and inoculation against influenza Chronic migraine without aura without status migrainosus, not intractable- Primary Weight gain, abnormal Migraine without status migrainosus, not intractable, unspecified migraine type Morbid (severe) obesity due to excess calories ([facility]-HCC) Weight gain, abnormal- Primary Adult hypothyroidism Unspecified hypothyroidism BMI 38.0-38.9,adult Fpmrz-2-hozqxwevrsj deficiency (HCC) Ejeqf-7-uwuyndgmhum deficiency Upper respiratory tract infection, unspecified type Adult wellness visit- Primary Morbid (severe) obesity due to excess calories (CMS-HCC) Weight gain, abnormal Adult hypothyroidism Unspecified hypothyroidism Ibuhc-0-ksduqtlznap deficiency (HCC) Pidsp-5-yxcxuytpocy deficiency Gastroesophageal reflux disease without esophagitis Esophageal reflux Mixed hyperlipidemia Mixed hyperlipidemia Upper respiratory tract infection, unspecified type Degenerative disc disease, cervical- Primary Morbid (severe) obesity due to excess calories (CMS-HCC) Adult hypothyroidism Unspecified hypothyroidism Mixed hyperlipidemia Mixed hyperlipidemia Encounter for screening mammogram for malignant neoplasm of breast Subacute maxillary sinusitis [place], lung (HCC) Emphysematous bleb Chronic midline thoracic back pain Chronic migraine without aura without status migrainosus, not intractable [facility] Diagnosis Centrilobular emphysema (HCC)- Primary Other emphysema [facility] Diagnosis Centrilobular emphysema (HCC)- Primary Other emphysema [facility] Diagnosis Centrilobular emphysema (HCC)- Primary Other emphysema 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 Diagnosis Chronic rhinosinusitis- Primary Unspecified sinusitis (chronic) Nasal drainage Other diseases of nasal cavity and sinuses Nasal septal deviation Deviated nasal septum Allergic rhinitis, unspecified seasonality, unspecified trigger [facility] Diagnosis Postmenopause Asymptomatic postmenopausal status (age-related) (natural) S/P HEIDY (total abdominal hysterectomy) Acquired absence of both cervix and uterus Hot flashes due to surgical menopause Symptomatic states associated with artificial menopause [facility] Diagnosis Adverse food reaction, initial encounter- Primary Food allergy Other adverse food reactions, not elsewhere classified Chronic rhinitis Deviated nasal septum Dermatographism Dermatographic urticaria Intrinsic atopic dermatitis Chronic urticaria Other specified urticaria [facility] Diagnosis [place] Other specified disorder of skin [facility] Diagnosis Other specified disorders of nose and nasal sinuses Chronic frontal sinusitis [facility] Diagnosis Symptomatic menopausal or female climacteric states- Primary Postmenopause Asymptomatic postmenopausal status (age-related) (natural) S/P HEIDY (total abdominal hysterectomy) Acquired absence of both cervix and uterus Hot flashes due to surgical menopause Symptomatic states associated with artificial menopause Encounter for screening for osteoporosis Special screening for osteoporosis Genitourinary syndrome of menopause Postmenopausal atrophic vaginitis Current long-term use of postmenopausal hormone replacement therapy Need for prophylactic hormone replacement therapy (postmenopausal) Dyslipidemia Other and unspecified hyperlipidemia documented in this encounter [facility] [place] [facility] general Narrative - Reported* Type Description Date Medical History seasonal allergies Medical History Hypothyroidism Medical History COPD Medical History migraine headache Surgical History back surgery Surgical History hysterectomy Hospitalization History See Above [employer] Other Hospital Discharge instructions Additional Instructions DISCHARGE INSTRUCTIONS FOR COLONOSCOPY WHAT TO EXPECT: - You may feel full, gassy or cramping after your procedure. In some cases, this may be from a few hours to a day. Walking may help relieve the discomfort. - If you have polyp(s) removed you may note some minor bloody discharge after your first bowel movements. - You should begin to recover from anesthesia within 1 hour of the procedure, however may feel groggy for the next 24 hours. DO's AND DON'Ts: - Call your doctor right away if you have a hard abdomen, severe pain, are passing lots of bright red blood or clots. - Call your doctor if you develop any rashes, hives or difficulty breathing. - Let your doctor know if you have not had a bowel movement by 3 days after your procedure. - If you take 81 mg aspirin for your heart it is safe to resume this medication. - If you take other blood thinner medications your doctor will instruct you when these can safely be resumed. - Do NOT drive for 24 hours. - Do NOT operate machinery such as power tools, lawn mowers, snow blowers, sewing machines, etc. for 24 hours. - Avoid alcoholic beverages and drugs for allergies, nerves, or sleep. - Do NOT stay alone. Do NOT leave your child unattended. - Do NOT make important personal or business decisions or sign any legal documents. - Eat solid foods and drink liquids in smaller amounts than usual until normal appetite returns. If you should experience an upset stomach, liquids high in sugar content (soda, Evans-Aid, non-acid juices) are recommended. - You can resume normal activities tomorrow. FOLLOW UP & RECOMMENDATIONS: -Follow-up in the office as scheduled -Notify the doctor if you have any problems. -Repeat colonoscopy in 10 years -Office number [phone]. [facility] Work Phone: Reason for referral (narrative)* Diagnostic Procedure Only (Routine) - Pending Review Specialty Diagnoses / Procedures Referred By Tawanda t Referred To Contact XR IMAGING Diagnoses Hot flashes due to surgical menopause Encounter for screening for osteoporosis Procedures DXA-AXIAL SKELETON Alka Meza MD [address] [place] [address] Xr Imaging [place] [address] Referral ID Status Reason Start Date Expiration Date Visits Requested Visits Authorized [id number] Pending Review Auto-Generat ed Referral 01/28/2024 02/26/2025 [address] [facility] for visit Narrative* MRI/CT (Routine) - Closed Specialty Diagnoses / Procedures Referred By Tawanda bolanos Referred To Contact CT IMAGING Diagnoses [place] Procedures CT CHEST WO IVCON DIAGNOSTIC COMPUTED TOMOGRAPHY THORAX W/O CNTRST Ainsley Haddad MD [address] [place] [address] Phone: tel: fax: CT IMAGING [place] [phone] Referral ID Status Reason Start Date Expiration Date V isits Requested Visits Authorized [id number] Closed Auto-Generate d Referral OON/Self Pay Override 04/10/2025 05/10/2026 [address] [facility] for visit Narrative* MRI/CT (Routine) - Closed Specialty Diagnoses / Procedures Referred By Tawanda bolanos Referred To Contact CT IMAGING Diagnoses Other specified disorders of nose and nasal sinuses Chronic frontal sinusitis Procedures CT SINUS WO IVCON CT MAXILLOFACIAL W/[place] [address] [place] [address] Phone: tel: fax: [facility] IM[facility] [place] [address] Referral ID Status Reason Start Date Expiration Date V isits Requested Visits Authorized [id number] Closed Auto-Generate d Referral OON/Self Pay Override 04/10/2025 05/10/2026 1 1 [facility] Chief Complaint and Reason for Visit Chief Complaint r27.0 Chief Complaint r27.0 rt ankle pain due to fall Chief Complaint Consult -Alternating Constipation And Di Constipation, Diarrhea Chief Complaint sore throat Advance Directives No Advanced Directives Records Found Advance Directive Response Recorded Date/ Time Advance Directives No February 28 11:29am Documents on File Type Date Recorded Patient Circulation Director Expl anation Advance Directive(s) 08/29/2018 4:47 PM Documents on File Type Date Recorded Patient Circulation Director Expl anation Advance Directive(s) 08/29/2018 4:47 PM Advance Directive Response Recorded Date/ Time Advance Directives No February 28 10:29am Summary Purpose Family History No Family History Records Found Relationship Condition Age at Onset Recorded Date/T dev Not Specified Adopted Unknown Reason for Referral Specialty Diagnoses / Procedures Referred By Contac t Referred To Contact Diagnoses Weight gain, abnormal Isabella Dueñas, RENEE [address] [place] [address] Referral ID Status Reason Start Date Expiration Date V isits Requested Visits Authorized [phone] Pending Review 1 1 Specialty Diagnoses / Procedures Referred By Contac t Referred To Contact Diagnoses Postmenopause Procedures CONSULT TO WOMEN'S HEALTH OFFICE/OUTPATIENT [facility] 60 MINUTES Tessa Aguilar MD [address] [place] [address] Referral ID Status Reason Start Date Expiration Date Visits Requested Visits Authorized [id number] Pending Review PCP Requested Referral Auto-Generate d Referral 01/04/2024 01/03/2025 1 1 Specialty Diagnoses / Procedures Referred By Contac t Referred To Contact Rheumatology Diagnoses Rash Procedures CONSULT TO RHEUM/IMMUN DISEASE OFFICE/OUTPATIENT [facility] 60 MINUTES Ana Rosa Haji APRN.TIPPLE ENGINEER [address] [phone] Referral ID Status Reason Start Date Expiration Date Visits Requested Visits Authorized [id number] Pending Review PCP Requested Referral 01/03/2024 01/02/2025 1 1 Specialty Diagnoses / Procedures Referred By Contac t Referred To Contact Endocrinology Diagnoses Hypothyroidism, unspecified type Procedures CONSULT TO ENDOCRINOLOGY OFFICE/OUTPATIENT [facility] 60 MINUTES Ana Rosa Haji APRN.TIPPLE ENGINEER [address] [address] Referral ID Status Reason Start Date Expiration Date Visits Requested Visits Authorized [id number] Pending Review PCP Requested Referral 12/24/2023 12/23/2024 1 1 Additional Source Comments Care Teams (unrecognized sec tion and content) Team Status: Active Member Role Status Dates Isabella Dueñas Primary Care Provider Active Team Status: Inactive Member Role Status Dates Neno Thapa APRN Attending Provider Active Start: September 18, 2023 End: September 18, 2023 Team Status: Active Member Role Status Dates Isabella Dueñas Primary Care Provider Active Sta rt: October 15, 2023 Maury Aguirre MD Attending Provider, Other Provider Active Start: October 15, 2023 Team Status: Inactive Member Role Status Dates Jose Perry DO Attending Provider Active NON STAFF Primary Care Provider Active Team Status: Active Member Role Status Dates NON STAFF Primary Care Provider Active Team Status: Inactive Member Role Status Dates Isabella Dueñas Primary Care Provider Active Cesar Smith APRN Emergency Provider Active Social Insurance Analyst Relationship Specialty Start Date End Date Isabella Dueñas NP [facility] [place] [address] Nurse Practitioner Family Medicine 09/13/23 Social Insurance Analyst Relationship Specialty Start Date End Date Kevin Valentin PCP - General Family Medicine 07/08/18 Social Insurance Analyst Relationship Specialty Start Date End Date Kevin Valentin PCP - General Family Medicine 07/08/18 Social Insurance Analyst Relationship Specialty Start Date End Date Kevin Valentin PCP - General Family Medicine 07/08/18 Ana Rosa Haji APRN.ENZO [address] [place] [address] Nurse Practitioner Emergency Medicine 01/03/24 Social Insurance Analyst Relationship Specialty Start Date End Date Kevin Valentin PCP - General Family Medicine 07/08/18 Ana Rosa Haji APRN.TIPPLE ENGINEER [address] [address] Nurse Practitioner Emergency Medicine 01/03/24 Social Insurance Analyst Relationship Specialty Start Date End Date LissetsadieKevin PCP - General Family Medicine 07/08/18 Ana Rosa Haji APRN.TIPPLE ENGINEER [address] [address] Nurse Practitioner Emergency Medicine 01/03/24 Social Insurance Analyst Relationship Specialty Start Date End Date Kevin Valentin PCP - General Family Medicine 07/08/18 Ana Rosa Haji APRN.TIPPLE ENGINEER [address] [address] Nurse Practitioner Emergency Medicine 01/03/24 Social Insurance Analyst Relationship Specialty Start Date End Date Kevin Valentin PCP - General Family Medicine 07/08/18 Ana Rosa Haji APRN.TIPPLE ENGINEER [address] [address] Nurse Practitioner Emergency Medicine 01/03/24 Social Insurance Analyst Relationship Specialty Start Date End Date Kevin Valentin PCP - General Family Medicine 07/08/18 Ana Rosa Haji APRN.TIPPLE ENGINEER [address] [address] Nurse Practitioner Emergency Medicine 01/03/24 Social Insurance Analyst Relationship Specialty Start Date End Date Kevin Valentin PCP - General Family Medicine 07/08/18 Ana Rosa Haji APRN.TIPPLE ENGINEER [address] [address] Nurse Practitioner Emergency Medicine 01/03/24 Team Status: Inactive Member Role Status Dates Isabella Dueñas Primary Care Provider Active Sta rt: June 16, 2024 End: June 16, 2024 Clarissa Martell APRN Attending Provider Active S tart: June 16, 2024 End: June 16, 2024 Social Insurance Analyst Relationship Specialty Start Date End Date Kevin Valentin MD [address] [place] [address] PCP - General Family Medicine 05/14/24 Isabella Dueñas NP [address] [place] [address] Nurse Practitioner Family Medicine 09/13/23 Isabella Dueñas NP [address] [place] [address] Nurse Practitioner Family Medicine 05/14/24 Social Insurance Analyst Relationship Specialty Start Date End Date Kevin Valentin MD [address] [place] [address] PCP - General Family Medicine 05/14/24 Isabella Dueñas NP [address] [place] [address] Nurse Practitioner Family Medicine 09/13/23 Isabella Dueñas NP [address] [place] [address] Nurse Practitioner Family Medicine 05/14/24 Social Insurance Analyst Relationship Specialty Start Date End Date Kevin Valentin MD [address] [place] [address] PCP - General Family Medicine 05/14/24 Isabella Dueñas NP [address] [place] [address] Nurse Practitioner Family Medicine 09/13/23 Iasbella Dueñas NP [address] [place] [address] Nurse Practitioner Family Medicine 05/14/24 Social Insurance Analyst Relationship Specialty Start Date End Date Kevin Valentin MD [address] [place] [address] PCP - General Family Medicine 05/14/24 Isabella Dueñas NP [address] [place] [address] Nurse Practitioner Family Medicine 09/13/23 Isabella Dueñas NP [address] [place] [address] Nurse Practitioner Family Medicine 05/14/24 Social Insurance Analyst Relationship Specialty Start Date End Date Kevin Valentin MD [address] [place] [address] PCP - General Family Medicine 05/14/24 Isabella Dueñas, SEWER PIPE LAYER [address] [place] [address] Nurse Practitioner Family Medicine 09/13/23 Isabella Dueñas, SEWER PIPE LAYER [address] [place] [address] Nurse Practitioner Family Medicine 05/14/24 Social Insurance Analyst Relationship Specialty Start Date End Date Kevin Valentin MD PCP - General Family Medicine 07/08/18 Ana Rosa Haji APRN.TIPPLE ENGINEER [address] [place] [address] Nurse Practitioner Emergency Medicine 01/03/24 Social Insurance Analyst Relationship Specialty Start Date End Date Kevin Valentin MD PCP - General Family Medicine 07/08/18 Ana Rosa Haji APRN.TIPPLE ENGINEER [address] [phone] Nurse Practitioner Emergency Medicine 01/03/24 Social Insurance Analyst Relationship Specialty Start Date End Date Kevin Valentin MD [address] [place] [address] PCP - General Family Medicine 05/14/24 Isabella Dueñas NP [address] [place] [address] Nurse Practitioner Family Medicine 09/13/23 Isabella Dueñas NP [address] [place] [address] Nurse Practitioner Family Medicine 05/14/24 Social Insurance Analyst Relationship Specialty Start Date End Date Kevin Valentin MD [address] [place] [address] PCP - General Family Medicine 05/14/24 Isabella Dueñas NP [address] [place] [address] Nurse Practitioner Family Medicine 09/13/23 Isabella Dueñas NP [address] [place] [address] Nurse Practitioner Family Medicine 05/14/24 Social Insurance Analyst Relationship Specialty Start Date End Date Kevin Valentin MD [address] [place] [address] PCP - General Family Medicine 05/14/24 Isabella Dueñas NP [address] [place] [address] Nurse Practitioner Family Medicine 09/13/23 Isabella Dueñas NP [address] [place] [address] Nurse Practitioner Family Medicine 05/14/24 Social Insurance Analyst Relationship Specialty Start Date End Date Kevin Valentin MD [address] [place] [address] PCP - General Family Medicine 05/14/24 Isabella Dueñas NP [address] [place] [address] Nurse Practitioner Family Medicine 09/13/23 Isabella Dueñas NP [address] [place] [address] Nurse Practitioner Family Medicine 05/14/24 Social Insurance Analyst Relationship Specialty Start Date End Date Kevin Valentin MD [address] [place] [address] PCP - General Family Medicine 05/14/24 Isabella Dueñas NP [address] [place] [address] Nurse Practitioner Family Medicine 09/13/23 Isabella Dueañs NP [address] [place] [address] Nurse Practitioner Family Medicine 05/14/24 Social Insurance Analyst Relationship Specialty Start Date End Date Kevin Valentin MD [address] [place] [address] PCP - General Family Medicine 05/14/24 Isabella Dueñas NP [address] [place] [address] Nurse Practitioner Family Medicine 09/13/23 Isabella Dueñas NP [address] [place] [address] Nurse Practitioner Family Medicine 05/14/24 Social Insurance Analyst Relationship Specialty Start Date End Date Kevin Valentin MD [address] [place] [address] PCP - General Family Medicine 05/14/24 Isabella Dueñas NP [address] [place] [address] Nurse Practitioner Family Medicine 09/13/23 Isabella Dueñas NP [address] [place] [address] Nurse Practitioner Family Medicine 05/14/24 Social Insurance Analyst Relationship Specialty Start Date End Date Kevin Valentin MD [address] [place] [address] PCP - General Family Medicine 05/14/24 Isabella Dueñas NP [address] [place] [address] Nurse Practitioner Family Medicine 09/13/23 Isabella Dueñas NP [address] [place] [address] Nurse Practitioner Family Medicine 05/14/24 Social Insurance Analyst Relationship Specialty Start Date End Date Kevin Valentin MD [address] [place] [address] PCP - General Family Medicine 05/14/24 Isabella Dueñas NP [address] [place] [address] Nurse Practitioner Family Medicine 09/13/23 Isabella Dueñas NP [address] [place] [address] Nurse Practitioner Family Medicine 05/14/24 Social Insurance Analyst Relationship Specialty Start Date End Date Kevin Valentin MD [address] [place] [address] PCP - General Family Medicine 05/14/24 Isabella Dueñas NP [address] [place] [address] Nurse Practitioner Family Medicine 09/13/23 Isabella Dueñas NP [address] [place] [address] Nurse Practitioner Family Medicine 05/14/24 Social Insurance Analyst Relationship Specialty Start Date End Date Kevin Valentin MD [address] [place] [address] PCP - General Family Medicine 05/14/24 Isabella Dueñas NP [address] [place] [address] Nurse Practitioner Family Medicine 09/13/23 Isabella Dueñas NP [address] [place] [address] Nurse Practitioner Family Medicine 05/14/24 Social Insurance Analyst Relationship Specialty Start Date End Date Kevin Valentin MD PCP - General Family Medicine 07/08/18 Ana Rosa Haji APRN.TIPPLE ENGINEER [address] [place], [place] [address] Nurse Practitioner Emergency Medicine 01/03/24 Social Insurance Analyst Relationship Specialty Start Date End Date Kevin Valentin MD [address] [place] [address] PCP - General Family Medicine 05/14/24 Isabella Dueñas NP [address] [place] [address] Nurse Practitioner Family Medicine 09/13/23 Isabella Dueñas NP [address] [place] [address] Nurse Practitioner Family Medicine 05/14/24 Social Insurance Analyst Relationship Specialty Start Date End Date Kevin Valentin MD [address] [place] [address] PCP - General Family Medicine 05/14/24 Isabella Dueñas NP [address] [place] [address] Nurse Practitioner Family Medicine 09/13/23 Isabella Dueñas, RENEE [address] [place] [address] Nurse Practitioner Family Medicine 05/14/24 Social Insurance Analyst Relationship Specialty Start Date End Date Kevin Valentin MD PCP - General Family Medicine 07/08/18 Ana Rosa Haji APRN.TIPPLE ENGINEER [address] [place] [address] Nurse Practitioner Emergency Medicine 01/03/24 Social Insurance Analyst Relationship Specialty Start Date End Date Kevin Valentin MD [address] [place] [address] PCP - General Family Medicine 05/14/24 Isabella Dueñas NP [address] [place] [address] Nurse Practitioner Family Medicine 09/13/23 Isabella Dueñas NP [address] [place] [address] Nurse Practitioner Family Medicine 05/14/24 Social Insurance Analyst Relationship Specialty Start Date End Date Kevin Valentin MD [address] [place] [address] PCP - General Family Medicine 05/14/24 Isabella Dueñas NP [address] [place] [address] Nurse Practitioner Family Medicine 09/13/23 Isabella Dueñas NP [address] [place] [address] Nurse Practitioner Family Medicine 05/14/24 Social Insurance Analyst Relationship Specialty Start Date End Date Kevin Valentin MD [address] [place] [address] PCP - General Family Medicine 07/08/18 Ana Rosa Haji, FRANCISCO JAVIER.TIPPLE ENGINEER [address] [place] [address] Nurse Practitioner Emergency Medicine 01/03/24 Isabella Dueñas, TIPPLE ENGINEER [address] [place] [address] Referring Family Medicine 03/11/25 Social Insurance Analyst Relationship Specialty Start Date End Date Kevin Valentin MD [address] [place] [address] PCP - General Family Medicine 07/08/18 Ana Rosa Haji, CHEF UNDER.TIPPLE ENGINEER [address] [place] [address] Nurse Practitioner Emergency Medicine 01/03/24 Isabella Dueñas, TIPPLE ENGINEER [address] [place] [address] Referring Family Medicine 03/11/25 Social Insurance Analyst Relationship Specialty Start Date End Date Kevin Valentin MD [address] [place] [address] PCP - General Family Medicine 07/08/18 Ana Rosa Haji APRN.TIPPLE ENGINEER [address] [address] Nurse Practitioner Emergency Medicine 01/03/24 Isabella Dueñas TIPPLE ENGINEER [address] [place] [address] Referring Family Medicine 03/11/25 Social Insurance Analyst Relationship Specialty Start Date End Date Kevin Valentin MD [address] [place] [address] PCP - General Family Medicine 05/14/24 Isabella Dueñas NP [address] [place] [address] Nurse Practitioner Family Medicine 09/13/23 Isabella Dueñas NP [address] [place] [address] Nurse Practitioner Family Medicine 05/14/24 Social Insurance Analyst Relationship Specialty Start Date End Date Kevin Valentin MD [address] [place] [address] PCP - General Family Medicine 07/08/18 Ana Rosa Haji APRN.TIPPLE ENGINEER [address] [address] Nurse Practitioner Emergency Medicine 01/03/24 Isabella Dueñas CNP [address] [place] [address] Referring Family Medicine 03/11/25 Social Insurance Analyst Relationship Specialty Start Date End Date Kevin Valentin MD [address] [place] [address] PCP - General Family Medicine 07/08/18 Ana Rosa Haji APRN.TIPPLE ENGINEER [address] [address] Nurse Practitioner Emergency Medicine 01/03/24 Isabella Dueñas, TIPPLE ENGINEER [address] [place] [address] Referring Family Medicine 03/11/25 Social Insurance Analyst Relationship Specialty Start Date End Date Kevin Valentin MD [address] [place] [address] PCP - General Family Medicine 07/08/18 Ana Rosa Haji, CHEF UNDER.TIPPLE ENGINEER [address] [address] Nurse Practitioner Emergency Medicine 01/03/24 Isabella Dueñas, TIPPLE ENGINEER [address] [place] [address] Referring Family Medicine 03/11/25 Social Insurance Analyst Relationship Specialty Start Date End Date Kevin Valentin MD [address] [place] [address] PCP - General Family Medicine 05/14/24 Isabella Dueñas NP [address] [place] [address] Nurse Practitioner Family Medicine 09/13/23 Isabella Dueñas NP [address] [place] [address] Nurse Practitioner Family Medicine 05/14/24 Social Insurance Analyst Relationship Specialty Start Date End Date Kevin Valentin MD [address] [place] [address] PCP - General Family Medicine 07/08/18 Ana Rosa Haji APRN.TIPPLE ENGINEER [address] [phone] Nurse Practitioner Emergency Medicine 01/03/24 Isabella Dueñas, TIPPLE ENGINEER [address] [place] [address] Referring Family Medicine 03/11/25 Social Insurance Analyst Relationship Specialty Start Date End Date Kevin Valentin MD [address] [place] [address] PCP - General Family Medicine 07/08/18 Ana Rosa Haji APRN.TIPPLE ENGINEER [address] [address] Nurse Practitioner Emergency Medicine 01/03/24 Isabelal Dueñas, TIPPLE ENGINEER [address] [place] [address] Referring Family Medicine 03/11/25 Social Insurance Analyst Relationship Specialty Start Date End Date Kevin Valentin MD [address] [place] [address] PCP - General Family Medicine 07/08/18 Ana Rosa Haji APRN.TIPPLE ENGINEER [address] [address] Nurse Practitioner Emergency Medicine 01/03/24 Isabella Dueñas, TIPPLE ENGINEER [address] [place] [address] Referring Family Medicine 03/11/25 Social Insurance Analyst Relationship Specialty Start Date End Date Kevin Valentin MD [address] [place] [address] PCP - General Family Medicine 07/08/18 Ana Rosa Haji APRN.TIPPLE ENGINEER [address] [phone] Nurse Practitioner Emergency Medicine 01/03/24 Isabella Dueñas, TIPPLE ENGINEER [address] [place] [address] Referring Family Medicine 03/11/25 Social Insurance Analyst Relationship Specialty Start Date End Date Kevin Valentin MD [address] [place] [address] PCP - General Family Medicine 07/08/18 Ana Rosa Haji APRN.TIPPLE ENGINEER [address] [address] Nurse Practitioner Emergency Medicine 01/03/24 Isabella Dueñas, TIPPLE ENGINEER [address] [place] [address] Referring Family Medicine 03/11/25 Social Insurance Analyst Relationship Specialty Start Date End Date Kevin Valentin MD [address] [place] [address] PCP - General Family Medicine 07/08/18 Ana Rosa Haji APRN.TIPPLE ENGINEER [address] [place] [address] Nurse Practitioner Emergency Medicine 01/03/24 Isabella Dueñas TIPPLE ENGINEER [address] [place] [address] Referring Family Medicine 03/11/25 Social Insurance Analyst Relationship Specialty Start Date End Date Kevin Valentin MD [address] [place] [address] PCP - General Family Medicine 05/14/24 Isabella Dueñas, SEWER PIPE LAYER [address] [place] [address] Nurse Practitioner Family Medicine 09/13/23 Isabella Dueñas NP [address] [place] [address] Nurse Practitioner Family Medicine 05/14/24 Social Insurance Analyst Relationship Specialty Start Date End Date Kevin Valentin MD [address] [place] [address] PCP - General Family Medicine 07/08/18 Ana Rosa Haji APRN.ENZO [address] [address] Nurse Practitioner Emergency Medicine 01/03/24 Isabella Dueñas, TIPPLE ENGINEER [address] [place] [address] Referring Family Medicine 03/11/25 Goals (unrecognized section and content) Goals may be documented in a n alternate sectionGoals may be documented in an alternate sectionNo InformationGoals may be documented in an alternate sectionGoals may be documented in an alternate section REASON FOR VISIT (unrecogniz ed section and content) Reason Comments Med Refill Reason Comments New Patient Specialty Diagnoses / Procedures Referred By Contmonroe t Referred To Contact INTERNAL MEDICINE Diagnoses spot on left lung.Health has declined after having covid. EST care with FMQ. Procedures spot on left lung.Health has declined after having covid. EST care with FMQ. Self Functional Medicine [facility] [address] [place] [address] Referral ID Status Reason Start Date Expiration Date V isits Requested Visits Authorized [id number] Closed OON/Self Pay Override 12/24/2023 01/22/2024 1 1 Reason Comments New Patient Specialty Diagnoses / Procedures Referred By Contac t Referred To Contact Nutrition / FUNCTIONAL MEDICINE Diagnoses Obesity, unspecified spot on left lung.Health has declined after having covid. EST care with FMQ. Procedures SNA FMI Self Vianca Perkins, RD [address] [place] [address] Referral ID Status Reason Start Date Expiration Date Visits Re quested Visits Authorized [id number] Closed 12/24/2023 01/22/2024 1 1 Reason Comments Patient Question Reason Comments Thyroid Problem Specialty Diagnoses / Procedures Referred By Contact Referred To Contact [facility] Diagnoses Hypothyroidism, unspecified type Procedures CONSULT TO ENDOCRINOLOGY OFFICE/OUTPATIENT NEW HIGH MDM 60 MINUTES OFFICE CONSULTATION NEW/ESTAB PATIENT 15 MIN Ana Rosa Haji, FRANCISCO JAVIER.TIPPLE ENGINEER [address] [address] Tessa Aguilar MD [address] [place] [address] Referral ID Status Reason Start Date Expiration Date V isits Requested Visits Authorized [id number] Closed PCP Requested Referral OON/Self Pay Override 12/31/2023 09/23/2024 1 1 Specialty Diagnoses / Procedures Referred By Contac t Referred To Contact INTERNAL MEDICINE Diagnoses Encounter for follow-up examination after completed treatment for conditions other than malignant neoplasm follow up Procedures OFFICE CONSULTATION NEW/ESTAB PATIENT 15 MIN [facility] [address] [address] Referral ID Status Reason Start Date Expiration Date V isits Requested Visits Authorized [id number] Closed OON/Self Pay Override 12/31/2023 09/23/2024 1 1 Reason Comments Established Patient Specialty Diagnoses / Procedures Referred By Contac t Referred To Contact INTERNAL MEDICINE Diagnoses Follow-up exam follow up Procedures OFFICE CONSULTATION NEW/ESTAB PATIENT 15 MIN Self Vianca Perkins, RD [address] [place] [address] Referral ID Status Reason Start Date Expiration Date V isits Requested Visits Authorized [id number] Closed OON/Self Pay Override 12/31/2023 09/23/2024 1 1 Reason Comments Menopause Consult Specialty Diagnoses / Procedures Referred By Contac t Referred To Contact [facility] Diagnoses Postmenopause Postmenopause Procedures OFFICE/OUTPATIENT NEW HIGH MDM 60 MINUTES Consult to Tessa Patel MD [address] [place] [address] [facility] [address] [place] [address] Referral ID Status Reason Start Date Expiration Date V isits Requested Visits Authorized [id number] Closed OON/Self Pay Override 01/17/2024 09/23/2024 1 1 Reason Comments Refill Request Reason Comments Med Change Request Reason Comments Weight Gain abnormal Reason Comments Weight Check Adipex Reason Comments Thyroid Problem Specialty Diagnoses / Procedures Referred By Contac t Referred To Contact [facility] Diagnoses Hypothyroidism, unspecified type [E03.9] Procedures OFFICE VISIT, NEW PT., LEVEL 1 TC [facility] End[facility] PT Tessa Aguilar MD [address] [place] [address] Phone: tel: fax: Endocrinology & Metabolic [facility] [address] [place] [id number] Referral ID Status Reason Start Date Expiration Date Visits Requested Visits Authorized [id number] New Request OON/Self Pay Override 02/04/2025 05/15/2026 1 1 Reason Comments Labs Only Reason Onset Date Comments Refill Request 03/23/2025 Reason Comments Spirometry Specialty Diagnoses / Procedures Referred By Contac t Referred To Contact [facility] Diagnoses Centrilobular emphysema (HCC) Procedures SPIROMETRY - BASELINE AND POST DILATOR BRNCDILAT RSPSE SPMTRY PRE&POST-BRNCDILAT ADMAinsley Matos MD [address] [place] [address] Phone: tel: fax: Respiratory [facility] [address] [place] [address] Referral ID Status Reason Start Date Expiration Date V isits Requested Visits Authorized [id number] Closed Auto-Generate d Referral OON/Self Pay Override 04/10/2025 09/23/2025 1 1 Reason Comments Airway clearance education Specialty Diagnoses / Procedures Referred By Contac t Referred To Contact [facility] Diagnoses Centrilobular emphysema (HCC) [J43.2] Procedures RI EDUCATION BY THE [address] [address] Phone: tel: Respiratory [facility] [address] [place] [phone] Referral ID Status Reason Start Date Expiration Date Visits Requested Visits Authorized [id number] New Request OON/Self Pay Override 04/10/2025 07/19/2026 1 1 Specialty Diagnoses / Procedures Referred By Contac t Referred To Contact [facility] Diagnoses Centrilobular emphysema (HCC) Procedures LUNG DIFFUSION CAPACITY (DLCO) DIFFUSING CAPACITY Ainsley Haddad MD [address] [place] [address] Phone: tel: fax: Res[facility] [address] [place] [id number] Referral ID Status Reason Start Date Expiration Date V isits Requested Visits Authorized [id number] Closed Auto-Generate d Referral OON/Self Pay Override 04/10/2025 09/23/2025 1 1 Reason Comments Follow Up Specialty Diagnoses / Procedures Referred By Tawanda bolanos Referred To Contact [facility] / [facility] Diagnoses Pafmj-2-voldkiuyoqq deficiency (HCC) Bulla, lung (HCC) Cough variant asthma (HCC) Procedures OFFICE/OUTPATIENT NEW HIGH MDM 60 MINUTES OFFICE/OUTPATIENT NEW MODERATE MDM 45 MINUTES [id number] (SNOMED CT) - AMB REFERRAL TO PULMONOLOGY Isabella Dueñas, TIPPLE ENGINEER [address] [place] [address] Phone: tel: fax: [place] [address] [place] [address] Phone: tel: fax: Referral ID Status Reason Start Date Expiration Date V isits Requested Visits Authorized [id number] Closed OON/Self Pay Override 03/20/2025 09/23/2025 1 1 Reason Comments New Patient Dr Haddad (pulm) re [facility], discuss biologic ct scan done, hx of COPD, nasal congestion, facial pressure cheek area, polyps recurrent sinus infections. Specialty Diagnoses / Procedures Referred By Tawanda bolanos Referred To Contact [facility] Diagnoses Other specified disorders of nose and nasal sinuses [J34.89] Chronic frontal sinusitis [J32.1] Procedures Other specified disorders of nose and nasal sinuses [J34.89] Chronic frontal sinusitis [J32.1] Ainsley Haddad MD [address] [place] [address] Phone: tel: fax: [facility] [address] [place] [address] Referral ID Status Reason Start Date Expiration Date Visits Requested Visits Authorized [id number] New Request OON/Self Pay Override 04/10/2025 07/19/2026 1 1 Reason Comments New Specialty Diagnoses / Procedures Referred By Contac t Referred To Contact Allergy / ALLERGY Diagnoses Food allergy Procedures OFFICE/OUTPATIENT NEW HIGH MDM 60 MINUTES Ainsley Haddad MD [address] [place] [address] Phone: tel: fax: Allergy [address] [address] Phone: tel: Referral ID Status Reason Start Date Expiration Date V isits Requested Visits Authorized [id number] Closed PCP Requested Referral OON/Self Pay Override 05/15/2025 09/23/2025 1 1 Reason Comments F/U on HT INFORMATION SOURCE (unrecogn ized section and content) DATE CREATED AUTHOR 02/04/2023 [facility] DATE CREATED AUTHOR AUTHOR'S ORGANIZ ATION 10/24/2023 [facility] DATE CREATED AUTHOR AUTHOR'S ORGANIZ ATION 03/08/2025 [facility] EPIC DATE CREATED AUTHOR AUTHOR'S ORGANIZ ATION 05/23/2025 [facility] Source Comments (unrecognize d section and content) In the event this informatio n is protected by the Federal Confidentiality of Alcohol and Drug Abuse Patient Records regulations: The Federal rules restrict any use of the information to criminally investigate or prosecute any alcohol or drug abuse patient.[facility] the event this information is protected by the Federal Confidentiality of Alcohol and Drug Abuse Patient Records regulations: The Federal rules restrict any use of the information to criminally investigate or prosecute any alcohol or drug abuse patient.[facility] the event this information is protected by the Federal Confidentiality of Alcohol and Drug Abuse Patient Records regulations: The Federal rules restrict any use of the information to criminally investigate or prosecute any alcohol or drug abuse patient.[facility] the event this information is protected by the Federal Confidentiality of Alcohol and Drug Abuse Patient Records regulations: The Federal rules restrict any use of the information to criminally investigate or prosecute any alcohol or drug abuse patient.[facility] the event this information is protected by the Federal Confidentiality of Alcohol and Drug Abuse Patient Records regulations: The Federal rules restrict any use of the information to criminally investigate or prosecute any alcohol or drug abuse patient.[facility] the event this information is protected by the Federal Confidentiality of Alcohol and Drug Abuse Patient Records regulations: The Federal rules restrict any use of the information to criminally investigate or prosecute any alcohol or drug abuse patient.[facility] the event this information is protected by the Federal Confidentiality of Alcohol and Drug Abuse Patient Records regulations: The Federal rules restrict any use of the information to criminally investigate or prosecute any alcohol or drug abuse patient.[facility] the event this information is protected by the Federal Confidentiality of Alcohol and Drug Abuse Patient Records regulations: The Federal rules restrict any use of the information to criminally investigate or prosecute any alcohol or drug abuse patient.[facility] the event this information is protected by the Federal Confidentiality of Alcohol and Drug Abuse Patient Records regulations: The Federal rules restrict any use of the information to criminally investigate or prosecute any alcohol or drug abuse patient.[facility] the event this information is protected by the Federal Confidentiality of Alcohol and Drug Abuse Patient Records regulations: The Federal rules restrict any use of the information to criminally investigate or prosecute any alcohol or drug abuse patient.[facility] the event this information is protected by the Federal Confidentiality of Alcohol and Drug Abuse Patient Records regulations: The Federal rules restrict any use of the information to criminally investigate or prosecute any alcohol or drug abuse patient.[facility] the event this information is protected by the Federal Confidentiality of Alcohol and Drug Abuse Patient Records regulations: The Federal rules restrict any use of the information to criminally investigate or prosecute any alcohol or drug abuse patient.[facility] the event this information is protected by the Federal Confidentiality of Alcohol and Drug Abuse Patient Records regulations: The Federal rules restrict any use of the information to criminally investigate or prosecute any alcohol or drug abuse patient.[facility] the event this information is protected by the Federal Confidentiality of Alcohol and Drug Abuse Patient Records regulations: The Federal rules restrict any use of the information to criminally investigate or prosecute any alcohol or drug abuse patient.[facility] the event this information is protected by the Federal Confidentiality of Alcohol and Drug Abuse Patient Records regulations: The Federal rules restrict any use of the information to criminally investigate or prosecute any alcohol or drug abuse patient.[facility] the event this information is protected by the Federal Confidentiality of Alcohol and Drug Abuse Patient Records regulations: The Federal rules restrict any use of the information to criminally investigate or prosecute any alcohol or drug abuse patient.[facility] the event this information is protected by the Federal Confidentiality of Alcohol and Drug Abuse Patient Records regulations: The Federal rules restrict any use of the information to criminally investigate or prosecute any alcohol or drug abuse patient.[facility] the event this information is protected by the Federal Confidentiality of Alcohol and Drug Abuse Patient Records regulations: The Federal rules restrict any use of the information to criminally investigate or prosecute any alcohol or drug abuse patient.[facility] the event this information is protected by the Federal Confidentiality of Alcohol and Drug Abuse Patient Records regulations: The Federal rules restrict any use of the information to criminally investigate or prosecute any alcohol or drug abuse patient.[facility] the event this information is protected by the Federal Confidentiality of Alcohol and Drug Abuse Patient Records regulations: The Federal rules restrict any use of the information to criminally investigate or prosecute any alcohol or drug abuse patient.[facility] the event this information is protected by the Federal Confidentiality of Alcohol and Drug Abuse Patient Records regulations: The Federal rules restrict any use of the information to criminally investigate or prosecute any alcohol or drug abuse patient.[facility] the event this information is protected by the Federal Confidentiality of Alcohol and Drug Abuse Patient Records regulations: The Federal rules restrict any use of the information to criminally investigate or prosecute any alcohol or drug abuse patient.[facility] the event this information is protected by the Federal Confidentiality of Alcohol and Drug Abuse Patient Records regulations: The Federal rules restrict any use of the information to criminally investigate or prosecute any alcohol or drug abuse patient.[facility] the event this information is protected by the Federal Confidentiality of Alcohol and Drug Abuse Patient Records regulations: The Federal rules restrict any use of the information to criminally investigate or prosecute any alcohol or drug abuse patient.[facility] the event this information is protected by the Federal Confidentiality of Alcohol and Drug Abuse Patient Records regulations: The Federal rules restrict any use of the information to criminally investigate or prosecute any alcohol or drug abuse patient.[facility] the event this information is protected by the Federal Confidentiality of Alcohol and Drug Abuse Patient Records regulations: The Federal rules restrict any use of the information to criminally investigate or prosecute any alcohol or drug abuse patient.[facility] the event this information is protected by the Federal Confidentiality of Alcohol and Drug Abuse Patient Records regulations: The Federal rules restrict any use of the information to criminally investigate or prosecute any alcohol or drug abuse patient.[facility]In the event this information is protected by the Federal Confidentiality of Alcohol and Drug Abuse Patient Records regulations: The Federal rules restrict any use of the information to criminally investigate or prosecute any alcohol or drug abuse patient.[facility] FOR RECORDS PERTAINING TO PATIENTS WHO ARE OR HAVE BEEN ENROLLED IN A CHEMICAL DEPENDENCY/SUBSTANCEABUSE PROGRAM, SOME INFORMATION MAY BE OMITTED. This clinical summary was aggregated from multiple sources. Caution should be exercised in using it in the provision of clinical care. This summary normalizes information from multiple sources, and as a consequence, information in this document may materially change the coding, format and clinical context of patient data. In addition, data may be omitted in some cases. CLINICAL DECISIONS SHOULD BE BASED ON THE PRIMARY CLINICAL RECORDS. [facility] [place] [facility]. provides no warranty or guarantee of the accuracy or completeness of information in this document.
[2025-06-08 09:47] LABS: Alanine Aminotransferase 23 U/L (14-59); Aspartate Amino Transferase 15 U/L (15-37); Cholesterol 212 mg/dL (<=200); HDL Cholesterol 58 mg/dL (40-60); Triglycerides 54 mg/dL (<=150); VLDL CHOLESTEROL 10.8 mg/dL
== END 2025-06-08 08:32 | disposition home or self-care (01) ==
LOC: LAB 08:33
PROVIDERS: PCP Nurse Practitioner; Visit Provider Nurse Practitioner
DX: E78.2 Mixed hyperlipidemia (principal)
CPT/HCPCS: 36415; 80061; 84450; 84460